=== PATIENT | female | born 1980 | race Caucasian/White ===

== ENCOUNTER → 2016-04-18 | Outpatient (CLI) | payer OTHER | LOC: RAD 14:17 | PROVIDERS: ATTEND Specialist | DX: N64.52 Nipple discharge (principal); N60.02 Solitary cyst of left breast; Z15.01 Genetic susceptibility to malignant neoplasm of breast | CPT/HCPCS: A9576; C8906; 77059 ==

== ENCOUNTER 2016-04-28 22:36 | Emergency (ER) | payer OTHER ==
[2016-04-29 00:10] LABS: ABSOLUTE BASOPHILS # (AUTO) 0.1 10^3/uL (0.0-0.2); ABSOLUTE EOSINOPHILS # (AUTO) 0.1 10^3/uL (0.0-0.6); ABSOLUTE LYMPHOCYTES (AUTO) 2.6 10^3/uL (0.5-4.7); ABSOLUTE NEUT (AUTO) 5.9 10^3/uL (1.7-8.2); BASOPHILS % (AUTO) 0.6 % (0-2); EOSINOPHILS % (AUTO) 0.7 % (0-6); HEMATOCRIT 42.9 % (36.0-47.0); HEMOGLOBIN 14.3 g/dL (12.0-15.5); MEAN CORPUSCULAR HEMOGLOBIN 30.9 pg (27.0-33.4); MEAN CORPUSCULAR HGB CONC 33.3 g/dL (32.0-36.0); MEAN CORPUSCULAR VOLUME 93 fl (80-97); MONOCYTES % (AUTO) 10.5 % (3-13); RED BLOOD COUNT 4.63 10^6/uL (3.72-5.28); RED CELL DISTRIBUTION WIDTH 12.5 % (11.5-14.0); SEGMENTED NEUTROPHILS % (AUTO) 61.2 % (42-78); WHITE BLOOD COUNT 9.7 10^3/uL (4.0-10.5)
[2016-04-29 00:11] LABS: APPEARANCE,URINE CLEAR; BILIRUBIN,URINE NEGATIVE (NEGATIVE); GLUCOSE, URINE NEGATIVE (NEGATIVE); KETONES,URINE NEGATIVE (NEGATIVE); LEUKOCYTE ESTERASE,URINE NEGATIVE (NEGATIVE); NITRITE,URINE NEGATIVE (NEGATIVE); PROTEIN,URINE NEGATIVE (NEGATIVE); UROBILINOGEN,URINE NEGATIVE mg/dL (<2.0)
[2016-04-29 00:33] LABS: ALANINE AMINOTRANSFERASE 27 U/L (9-52); ALBUMIN 4.9 g/dL (3.5-5.0); ALKALINE PHOSPHATASE 53 U/L (38-126); ANION GAP 13 (5-19); ASPARTATE AMINO TRANSFERASE 21 U/L (14-36); BILIRUBIN,TOTAL 0.6 mg/dL (0.2-1.3); BLOOD UREA NITROGEN 16 mg/dL (7-20); CALCIUM 9.9 mg/dL (8.4-10.2); CARBON DIOXIDE 27 mmol/L (22-30); CHLORIDE 101 mmol/L (98-107); CREATININE RESULT 0.64 mg/dL (0.52-1.25); GLUCOSE 77 mg/dL (75-110); LIPASE 57.8 U/L (23-300); POTASSIUM 4.4 mmol/L (3.6-5.0); SODIUM 141.1 mmol/L (137-145); TOTAL PROTEIN 7.5 g/dL (6.3-8.2)
[2016-04-29] MEDS ORDERED: ONDANSETRON HCL INJ/PF 4 MG/2 ML SDV IV ONE (00:44)
[2016-04-29] MEDS ORDERED: NORMAL SALINE 1000 ML 1,000 ML IV ONE (00:44)
[2016-04-29] MEDS ORDERED: KETOROLAC TROMETHAMINE INJ/PF 30 MG/1 ML SDV IV ONE (00:44)
--- NOTE | 2016-04-29 01:42 | ER Document Report ---
ED General - General Chief Complaint: Lower Abdominal Pain Stated Complaint: ABDOMINAL PAIN TRAVEL OUTSIDE OF THE [place] IN LAST 30 DAYS: No - HPI Patient complains to provider of: right adnexal pain Notes: Patient was seen and evaluated last night at the [facility] for right adnexal pain was diagnosed with an ovarian cyst. Patient has a history of ovarian cyst. Patient states today pain worsened and she became nauseous. Denies fevers denies chills denies diarrhea. Patient states no strenuous physical activity today also no sexual intercourse today. Upon evaluated patient resting comfortably in no obvious distress. Review the patient's past visit shows multiple CT scans and ultrasound showing ovarian cyst in the past. - Related Data Allergies/Adverse Reactions: Shellfish * [Shellfish] Allergy (Severe, Verified 02/11/16 18:54) Anaphylaxis azithromycin [Azithromycin] Allergy (Intermediate, Verified 02/11/16 18:54) Urticaria Past Medical History - Social History Smoking Status: Unknown if Ever Smoked Family History: Reviewed & Not Pertinent Patient has suicidal ideation: No Patient has homicidal ideation: No - Past Medical History Cardiac Medical History: Reports: Hx Pulmonary Embolism Denies: Hx Atrial Fibrillation, Hx Congestive Heart Failure, Hx Coronary Artery Disease, Hx Heart Attack, Hx Hypercholesterolemia, Hx Hypertension, Hx Peripheral Vascular Disease, Hx Heart Murmur Pulmonary Medical History: Reports: Hx Bronchitis, Hx Pneumonia Denies: Hx Asthma, Hx COPD, Hx Respiratory Failure, Hx Sleep Apnea, Hx Tuberculosis Neurological Medical History: Denies: Hx Cerebrovascular Accident, Hx Seizures Endocrine Medical History: Denies: Hx Diabetes Mellitus Type 2, Hx Graves' Disease, Hx Hyperthyroidism, Hx Hypothyroidism Renal/ Medical History: Denies: Hx End Stage Renal Disease, Hx Kidney Stones, Hx Ovarian Cysts, Hx Peritoneal Dialysis, Hx Pelvic Inflammatory Disease Malignancy Medical History: Denies: Hx Breast Cancer, Hx Cervical Cancer, Hx Leukemia, Hx Lung Cancer, Hx Ovarian Cancer GI Medical History: Reports: Hx Gastritis, Hx Gastroesophageal Reflux Disease, Hx Ulcer. Denies: Hx Crohn's Disease, Hx Hiatal Hernia, Hx Irritable Bowel, Hx Liver Failure Musculoskeltal Medical History: Denies Hx Arthritis, Denies Hx Fibromyalgia, Denies Hx Multiple Sclerosis, Denies Hx Muscular Dystrophy Psychiatric Medical History: Reports: Hx Anxiety, Hx Depression Denies: Hx Bipolar Disorder, Hx Dementia, Hx Post Traumatic Stress Disorder, Hx Schizophrenia Traumatic Medical History: Denies: Hx Fractures Infectious Medical History: Denies: Hx HIV Past Surgical History: Reports: Hx Appendectomy, Hx Section - 2, Hx Gynecologic Surgery - L ovary removed, Hx Tubal Ligation. Denies: Hx Colostomy , Hx Pacemaker - Immunizations Hx Diphtheria, Pertussis, Tetanus Vaccination: Yes Hx Pneumococcal Vaccination: 01/27/12 Review of Systems - Review of Systems Constitutional: No symptoms reported EENT: No symptoms reported Cardiovascular: No symptoms reported Respiratory: No symptoms reported Gastrointestinal: Abdominal pain - Right adnexal Genitourinary: No symptoms reported Female Genitourinary: No symptoms reported Musculoskeletal: No symptoms reported Skin: No symptoms reported Hematologic/Lymphatic: No symptoms reported Neurological/Psychological: No symptoms reported Physical Exam - Vital signs Interpretation: Normal - General General appearance: Appears well, Alert - HEENT Head: Normocephalic, Atraumatic Eyes: Normal Pupils: PERRL - Respiratory Respiratory status: No respiratory distress Chest status: Nontender Breath sounds: Normal Chest palpation: Normal - Cardiovascular Rhythm: Regular Heart sounds: Normal auscultation Murmur: No - Abdominal Inspection: Normal Distension: No distension Bowel sounds: Normal Tenderness: Tender - Mild tenderness in the right lower pelvic region.. No: Nontender Organomegaly: No organomegaly - Back Back: Normal, Nontender - Extremities General upper extremity: Normal inspection, Nontender, Normal color, Normal ROM , Normal temperature General lower extremity: Normal inspection, Nontender, Normal color, Normal ROM , Normal temperature, Normal weight bearing. No: Drew's sign - Neurological Neuro grossly intact: Yes Cognition: Normal Orientation: AAOx4 Gela Coma Scale Eye Opening: Spontaneous [place] Coma Scale Verbal: Oriented [place]ela Coma Scale Motor: Obeys Commands Gela Coma Scale Total: 15 Speech: Normal Motor strength normal: LUE, RUE, LLE, RLE Sensory: Normal - Psychological Associated symptoms: Normal affect, Normal mood - Skin Skin Temperature: Warm Skin Moisture: Dry Skin Color: Normal Course - Re-evaluation Re-evalutation: 04/29/16 01:41 Due to recent diagnosis of ovarian cyst increased pain we'll obtain ultrasound to evaluate for torsion. Otherwise patient's laboratory studies showed no critical etiology. - Laboratory Result Diagrams: 04/28/16 23:54 04/28/16 23:54 Laboratory results interpreted by me: 04/28/16 23:54 Urine Blood SMALL H Discharge - Discharge Clinical Impression: Right ovarian cyst Condition: Good Disposition: HOME, SELF-CARE Instructions: Ovarian Cyst ([facility]) Additional Instructions: Ultrasound today shows signs of ovarian cyst there is no signs of torsion a complication because of the [employer]. He may follow-up with your primary care provider or [employer] specialist. Return to the ER symptoms worsen. You may take medication as prescribed for your pain control. Prescriptions: Ibuprofen [Motrin 600 Mg Tablet] 600 mg PO TID #30 tablet Ondansetron [Zofran Odt 4 mg Tablet] 1 - 2 tab PO Q4H PRN #15 tab.rapdis PRN Reason: For Nausea/Vomiting Tramadol HCl [Ultram 50 mg Tablet] 50 mg PO ASDIR PRN #10 tablet PRN Reason: Forms: Return to Work
[2016-04-29 03:01] VITALS: BP 116/57
== END 2016-04-29 03:01 | disposition home or self-care (01) ==
LOC: ER 22:36
DX: N83.201 Unspecified ovarian cyst, right side (principal); R10.30 Lower abdominal pain, unspecified; K21.9 Gastro-esophageal reflux disease without esophagitis; Z88.3 Allergy status to other anti-infective agents; Z91.013 Allergy to seafood; Z86.711 Personal history of pulmonary embolism; Z98.51 Tubal ligation status
CPT/HCPCS: 99284; 96361; 96374; 96375; 36415; 83690; 85025; 81025; 80053; 81001; 76830; 93976; J1885; J2405; J7030

== ENCOUNTER 2016-10-07 20:03 | Emergency (ER) | payer OTHER ==
--- NOTE | 2016-10-07 20:12 | ER Document Report ---
ED Medical Screen (RME) - General Chief Complaint: S/S of Possible Stroke Stated Complaint: SLURRED SPEECH Time Seen by Provider: 10/07/16 20:08 Mode of Arrival: Wheelchair Information source: Patient TRAVEL OUTSIDE OF THE [place] IN LAST 30 DAYS: No - HPI Patient complains to provider of: Nausea and vomiting, left-sided facial droop, slurred speech Notes: 10/07/16 20:11 Patient is a 36-year-old female who presents to the emergency room complaining of nausea and vomiting that started earlier today, and for the past hour she reports a left-sided facial droop with slurred speech, at time of evaluation patient does appear to have facial asymmetry, however this seems to improve as she is distracted while speaking with me - Related Data Allergies/Adverse Reactions: Shellfish * [Shellfish] Allergy (Severe, Verified 10/07/16 20:07) Anaphylaxis azithromycin [Azithromycin] Allergy (Intermediate, Verified 10/07/16 20:07) Urticaria Past Medical History - Past Medical History Cardiac Medical History: Reports: Hx Pulmonary Embolism Denies: Hx Atrial Fibrillation, Hx Congestive Heart Failure, Hx Coronary Artery Disease, Hx Heart Attack, Hx Hypercholesterolemia, Hx Hypertension, Hx Peripheral Vascular Disease, Hx Heart Murmur Pulmonary Medical History: Reports: Hx Bronchitis, Hx Pneumonia Denies: Hx Asthma, Hx COPD, Hx Respiratory Failure, Hx Sleep Apnea, Hx Tuberculosis Neurological Medical History: Denies: Hx Cerebrovascular Accident, Hx Seizures Endocrine Medical History: Denies: Hx Diabetes Mellitus Type 2, Hx Graves' Disease, Hx Hyperthyroidism, Hx Hypothyroidism Renal/ Medical History: Denies: Hx End Stage Renal Disease, Hx Kidney Stones, Hx Ovarian Cysts, Hx Peritoneal Dialysis, Hx Pelvic Inflammatory Disease Malignancy Medical History: Denies: Hx Breast Cancer, Hx Cervical Cancer, Hx Leukemia, Hx Lung Cancer, Hx Ovarian Cancer GI Medical History: Reports: Hx Gastritis, Hx Gastroesophageal Reflux Disease, Hx Ulcer. Denies: Hx Crohn's Disease, Hx Hiatal Hernia, Hx Irritable Bowel, Hx Liver Failure Musculoskeltal Medical History: Denies Hx Arthritis, Denies Hx Fibromyalgia, Denies Hx Multiple Sclerosis, Denies Hx Muscular Dystrophy Psychiatric Medical History: Reports: Hx Anxiety, Hx Depression Denies: Hx Bipolar Disorder, Hx Dementia, Hx Post Traumatic Stress Disorder, Hx Schizophrenia Traumatic Medical History: Denies: Hx Fractures Infectious Medical History: Denies: Hx HIV Past Surgical History: Reports: Hx Appendectomy, Hx Section - 2, Hx Gynecologic Surgery - L ovary removed, Hx Tubal Ligation. Denies: Hx Colostomy , Hx Pacemaker - Immunizations Hx Diphtheria, Pertussis, Tetanus Vaccination: Yes
[2016-10-07] MEDS ORDERED: NORMAL SALINE 1000 ML 1,000 ML IV ONE (20:30)
[2016-10-07] MEDS ORDERED: ONDANSETRON HCL INJ/PF 4 MG/2 ML SDV IV ONE (20:31)
[2016-10-07] MEDS ORDERED: LORAZEPAM INJ 2 MG/1 ML VIAL IV ONE (20:31)
--- NOTE | 2016-10-07 20:33 | RADIOLOGY REPORT (SQ) ---
EXAM DESCRIPTION: CT HEAD WITHOUT COMPLETED DATE/TIME: 10/07/2016 8:16 pm REASON FOR STUDY: slurred speech COMPARISON: None. TECHNIQUE: Axial images acquired through the brain without intravenous contrast. Images reviewed wi th bone, brain and subdural windows. Images stored on PACS. All CT scanners at this facility use dose modulation, iterative reconstruction, and/or weight based d osing when appropriate to reduce radiation dose to as low as reasonably achievable (ALARA). [facility]: Dose Right [facility]: CareDose [facility]: Dose Right [facility]: Teradose 4D [facility]: Smart Foodzie RADIATION DOSE: Up-to-date CT equipment and radiation dose reduction techniques were employed. CTDIv ol: 64.6 mGy. DLP: 1034 mGy-cm. mGy. LIMITATIONS: None. FINDINGS: VENTRICLES: Normal size and contour. CEREBRUM: No masses. No hemorrhage. No midline shift. Normal jose/white matter differentiation. N o evidence for acute infarction. CEREBELLUM: No masses. No hemorrhage. No alteration of density. No evidence for acute infarction. EXTRAAXIAL SPACES: No fluid collections. No masses. ORBITS AND GLOBE: No intra- or extraconal masses. Normal contour of globe without masses. CALVARIUM: No fracture. PARANASAL SINUSES: No fluid or mucosal thickening. SOFT TISSUES: No mass or hematoma. OTHER: No other significant finding. IMPRESSION: NORMAL BRAIN CT WITHOUT CONTRAST. TECHNICAL DOCUMENTATION: JOB ID: [id number] Quality ID # [id number]: Final reports with documentation of one or more dose reduction techniques (e.g., Au tomated exposure control, adjustment of the mA and/or kV according to patient size, use of iterative reconstruction technique) 2010 [employer]- All Rights Reserved
--- NOTE | 2016-10-07 20:33 | ER Document Report ---
ED General - General Chief Complaint: S/S of Possible Stroke Stated Complaint: SLURRED SPEECH Time Seen by Provider: 10/07/16 20:08 Mode of Arrival: Wheelchair Notes: Patient is a 36-year-old female with past medical history of a pulmonary embolus currently anticoagulated on rivaroxaban, ovarian cancer in remission, maintained on methotrexate therapy who presents with difficulty speaking and nausea as well as jaw pain that was present after she woke up from a nap. States she went down for a nap at 4 PM and woke up at approximately 7:30 PM with the symptoms. Denies a history of similar symptoms in the past. Nothing improves or worsens her symptoms. She denies any headache, chest pain, neck pain or shortness of breath. Denies any focal weakness or numbness. Patient reports difficulty speaking but none is appreciated at time of assessment. TRAVEL OUTSIDE OF THE [place] IN LAST 30 DAYS: No - Related Data Allergies/Adverse Reactions: Shellfish * [Shellfish] Allergy (Severe, Verified 10/07/16 20:07) Anaphylaxis azithromycin [Azithromycin] Allergy (Intermediate, Verified 10/07/16 20:07) Urticaria Past Medical History - General Information source: Patient - Social History Smoking Status: Never Smoker Frequency of alcohol use: None Drug Abuse: None Lives with: Family Family History: Reviewed & Not Pertinent - Past Medical History Cardiac Medical History: Reports: Hx Pulmonary Embolism Denies: Hx Atrial Fibrillation, Hx Congestive Heart Failure, Hx Coronary Artery Disease, Hx Heart Attack, Hx Hypercholesterolemia, Hx Hypertension, Hx Peripheral Vascular Disease, Hx Heart Murmur Pulmonary Medical History: Reports: Hx Bronchitis, Hx Pneumonia Denies: Hx Asthma, Hx COPD, Hx Respiratory Failure, Hx Sleep Apnea, Hx Tuberculosis Neurological Medical History: Denies: Hx Cerebrovascular Accident, Hx Seizures Endocrine Medical History: Denies: Hx Diabetes Mellitus Type 2, Hx Graves' Disease, Hx Hyperthyroidism, Hx Hypothyroidism Renal/ Medical History: Denies: Hx End Stage Renal Disease, Hx Kidney Stones, Hx Ovarian Cysts, Hx Peritoneal Dialysis, Hx Pelvic Inflammatory Disease Malignancy Medical History: Denies: Hx Breast Cancer, Hx Cervical Cancer, Hx Leukemia, Hx Lung Cancer, Hx Ovarian Cancer GI Medical History: Reports: Hx Gastritis, Hx Gastroesophageal Reflux Disease, Hx Ulcer. Denies: Hx Crohn's Disease, Hx Hiatal Hernia, Hx Irritable Bowel, Hx Liver Failure Musculoskeltal Medical History: Denies Hx Arthritis, Denies Hx Fibromyalgia, Denies Hx Multiple Sclerosis, Denies Hx Muscular Dystrophy Psychiatric Medical History: Reports: Hx Anxiety, Hx Depression Denies: Hx Bipolar Disorder, Hx Dementia, Hx Post Traumatic Stress Disorder, Hx Schizophrenia Traumatic Medical History: Denies: Hx Fractures Infectious Medical History: Denies: Hx HIV Past Surgical History: Reports: Hx Appendectomy, Hx Section - 2, Hx Gynecologic Surgery - L ovary removed, Hx Tubal Ligation. Denies: Hx Colostomy , Hx Pacemaker - Immunizations Hx Diphtheria, Pertussis, Tetanus Vaccination: Yes Hx Pneumococcal Vaccination: 01/27/12 Review of Systems - Review of Systems Notes: Constitutional: Negative for fever. HENT: Negative for sore throat. Eyes: Negative for visual changes. Cardiovascular: Negative for chest pain. Respiratory: Negative for shortness of breath. Gastrointestinal: Positive for nausea Genitourinary: Negative for dysuria. Musculoskeletal: Negative for back pain. Skin: Negative for rash. Neurological: Positive for difficulty speaking 10 point ROS negative except as marked above and in HPI. Physical Exam - Vital signs Vitals: Pulse Resp BP Pulse Ox 142 H 26 H 130/78 H 98 10/07/16 20:20 10/07/16 20:20 10/07/16 20:20 10/07/16 20:20 Interpretation: Tachycardic, Tachypneic Notes: PHYSICAL EXAMINATION: GENERAL: Anxious but in no acute distress HEAD: Atraumatic, normocephalic. EYES: Pupils equal round and reactive to light, extraocular movements intact, sclera anicteric, conjunctiva are normal. ENT: nares patent, oropharynx clear without exudates. Moist mucous membranes. NECK: Normal range of motion, supple without lymphadenopathy LUNGS: Breath sounds clear to auscultation bilaterally and equal. No wheezes rales or rhonchi. HEART: Regular rate and rhythm without murmurs ABDOMEN: Soft, nontender, normoactive bowel sounds. No guarding, no rebound. No masses appreciated. EXTREMITIES: Normal range of motion, no pitting or edema. No cyanosis. NEUROLOGICAL: Face symmetric. Tongue protrudes midline. Extraocular motions intact. Pupils are 2 mm and equally reactive. Normal speech, normal gait. 5 out of 5 strength in both the distal and proximal upper and lower extremities bilaterally. Sensation is grossly intact throughout. Finger to nose testing normal. Pronator drift normal. Stroke scale is 0 PSYCH: Appears anxious, intermittently clenching her teeth together when asked to perform speech testing which does resolve with distraction SKIN: Warm, Dry, normal turgor, no rashes or lesions noted. Course - Re-evaluation Re-evalutation: 10/07/16 20:31 Patient presents complaining of nausea, vomiting and palpitations in addition to concerns of a possible slurred speech. However on exam patient has no actual dysarthria or facial asymmetry. She appears to be clenching her teeth and deliberately not speaking in a clear sentences this is completely distractible and she only appears to do this and I am asking her to do specific speech testing. Otherwise during conversation she has no dysarthria, no receptive or expressive aphasia. She has effort based weakness in all extremities that is equal and symmetric. Vitals at time of arrival do demonstrate tachycardia. Patient is currently on methotrexate for ovarian cancer. She is also on Xarelto for a history of a PE in the past. Will begin IV fluids, antiemetics and reassess. Of note, patient does not have any symptoms to suggest an acute CVA but she is also outside the window for consideration of TPA even if this were to be a CVA as her last known normal was approximately 3:30 PM when she took a nap as her symptoms were noted when she woke up from a nap at 7 PM. 10/07/16 21:36 Patient symptoms have now resolved, tachycardia much improved current rate of 102. Suspect a significant component of dehydration and possibly anxiety. Patient states that she feels much better and would like to go home. Laboratories, CT the head, chest x-ray all noted to be normal. At this time will discharge with return precautions and follow-up recommendations. Verbal discharge instructions given a the bedside and opportunity for questions given. Medication warnings reviewed. Patient is in agreement with this plan and has verbalized understanding of return precautions and the need for primary care follow-up in the next 24-72 hours. - Vital Signs Vital signs: Temp Pulse Resp BP Pulse Ox 97.8 F 103 H 16 131/70 H 100 10/07/16 22:15 10/07/16 22:15 10/07/16 22:07 10/07/16 22:07 10/07/16 22:07 - Laboratory Result Diagrams: 10/07/16 20:30 10/07/16 20:30 Laboratory results interpreted by me: 10/07/16 20:30 BUN 5 L Total Bilirubin 1.4 H - Diagnostic Test Radiology reviewed: Image reviewed, Reports reviewed Radiology results interpreted by me: 10/07/16 21:37 Chest x-ray: No acute pneumothorax or infiltrate CT head: No acute intracranial bleed Discharge - Discharge Clinical Impression: Nausea, Difficulty with speech Condition: Good Disposition: HOME, SELF-CARE Additional Instructions: Your labs, CT scan of the brain, and exam today are normal. Some of your symptoms may be related to dehydration. Please return for any additional symptoms that are worrisome to you.
--- NOTE | 2016-10-07 20:35 | RADIOLOGY REPORT (SQ) ---
EXAM DESCRIPTION: CHEST SINGLE VIEW COMPLETED DATE/TIME: 10/07/2016 8:22 pm REASON FOR STUDY: SLURRED SPEECH COMPARISON: None. EXAM PARAMETERS: NUMBER OF VIEWS: One view. TECHNIQUE: Single frontal radiographic view of the chest acquired. RADIATION DOSE: NA LIMITATIONS: None. FINDINGS: LUNGS AND PLEURA: No opacities, masses or pneumothorax. No pleural effusion. MEDIASTINUM AND HILAR STRUCTURES: No masses. Contour normal. HEART AND VASCULAR STRUCTURES: Heart normal in size. Normal vasculature. BONES: No acute findings. HARDWARE: None in the chest. OTHER: No other significant finding. IMPRESSION: NO ACUTE RADIOGRAPHIC FINDING IN THE CHEST. TECHNICAL DOCUMENTATION: JOB ID: [id number]
[2016-10-07 20:49] LABS: ABSOLUTE EOSINOPHILS # (AUTO) 0.1 10^3/uL (0.0-0.6); ABSOLUTE LYMPHOCYTES (AUTO) 1.6 10^3/uL (0.5-4.7); ABSOLUTE MONOCYTES (AUTO) 0.7 10^3/uL (0.1-1.4); ABSOLUTE NEUT (AUTO) 7.3 10^3/uL (1.7-8.2); BASOPHILS % (AUTO) 0.3 % (0-2); EOSINOPHILS % (AUTO) 0.6 % (0-6); HEMATOCRIT 44.1 % (36.0-47.0); HGB HCT DIFFERENCE 0.9; LYMPHOCYTES % (AUTO) 16.4 % (13-45); MEAN CORPUSCULAR HEMOGLOBIN 30.4 pg (27.0-33.4); MEAN CORPUSCULAR HGB CONC 34.1 g/dL (32.0-36.0); MEAN CORPUSCULAR VOLUME 89 fl (80-97); MONOCYTES % (AUTO) 7.6 % (3-13); RED BLOOD COUNT 4.93 10^6/uL (3.72-5.28); RED CELL DISTRIBUTION WIDTH 13.2 % (11.5-14.0); SEGMENTED NEUTROPHILS % (AUTO) 75.1 % (42-78); WHITE BLOOD COUNT 9.7 10^3/uL (4.0-10.5)
[2016-10-07 20:50] LABS: PROTHROMBIN TIME 13.4 SEC (11.4-15.4)
[2016-10-07 20:51] LABS: PARTIAL THROMBOPLASTIN TIME 30.9 SEC (23.5-35.8)
[2016-10-07 21:06] LABS: ALANINE AMINOTRANSFERASE 25 U/L (9-52); ALBUMIN 4.8 g/dL (3.5-5.0); ALKALINE PHOSPHATASE 72 U/L (38-126); ANION GAP 14 (5-19); ASPARTATE AMINO TRANSFERASE 16 U/L (14-36); BILIRUBIN,DIRECT 0.3 mg/dL (0.0-0.4); BILIRUBIN,TOTAL 1.4 mg/dL (0.2-1.3); BLOOD UREA NITROGEN 5 mg/dL (7-20); CALCIUM 9.8 mg/dL (8.4-10.2); CARBON DIOXIDE 23 mmol/L (22-30); CHLORIDE 100 mmol/L (98-107); CREATININE RESULT 0.63 mg/dL (0.52-1.25); GLUCOSE 106 mg/dL (75-110); SODIUM 137.3 mmol/L (137-145); TOTAL PROTEIN 7.7 g/dL (6.3-8.2)
[2016-10-07 22:20] VITALS: BP 131/70
== END 2016-10-07 22:06 | disposition home or self-care (01) ==
LOC: ER 20:03
DX: R47.9 Unspecified speech disturbances (principal); R11.2 Nausea with vomiting, unspecified; R68.84 Jaw pain; R00.0 Tachycardia, unspecified; R06.82 Tachypnea, not elsewhere classified; R00.2 Palpitations; I26.99 Other pulmonary embolism without acute cor pulmonale; R53.1 Weakness; C56.9 Malignant neoplasm of unspecified ovary; Z79.02 Long term (current) use of antithrombotics/antiplatelets; Z79.01 Long term (current) use of anticoagulants; Z79.899 Other long term (current) drug therapy; Z88.1 Allergy status to other antibiotic agents; Z87.892 Personal history of anaphylaxis; Z91.013 Allergy to seafood
CPT/HCPCS: 99285; 96361; 96374; 96375; 36415; 83690; 84703; 85025; 85610; 85730; 80053; 71010; 70450; J2060; J2405; J7030

== ENCOUNTER 2016-11-24 19:14 | Emergency (ER) | payer OTHER ==
[2016-11-24] MEDS ORDERED: NORMAL SALINE 1000 ML 1,000 ML IV ONE (20:00)
[2016-11-24] MEDS ORDERED: ONDANSETRON HCL INJ/PF 4 MG/2 ML SDV IV ONE (20:00)
[2016-11-24 20:20] LABS: ABSOLUTE EOSINOPHILS # (AUTO) 0.1 10^3/uL (0.0-0.6); ABSOLUTE LYMPHOCYTES (AUTO) 2.1 10^3/uL (0.5-4.7); ABSOLUTE MONOCYTES (AUTO) 0.7 10^3/uL (0.1-1.4); BASOPHILS % (AUTO) 0.5 % (0-2); EOSINOPHILS % (AUTO) 0.9 % (0-6); HEMATOCRIT 43.3 % (36.0-47.0); HEMOGLOBIN 15.2 g/dL (12.0-15.5); HGB HCT DIFFERENCE 2.3; LYMPHOCYTES % (AUTO) 23.5 % (13-45); MEAN CORPUSCULAR HEMOGLOBIN 31.4 pg (27.0-33.4); MEAN CORPUSCULAR HGB CONC 35.1 g/dL (32.0-36.0); MEAN CORPUSCULAR VOLUME 89 fl (80-97); MONOCYTES % (AUTO) 8.1 % (3-13); RED BLOOD COUNT 4.86 10^6/uL (3.72-5.28); RED CELL DISTRIBUTION WIDTH 12.4 % (11.5-14.0)
[2016-11-24 20:31] LABS: ALANINE AMINOTRANSFERASE 21 U/L (9-52); ALBUMIN 5.1 g/dL (3.5-5.0); ALKALINE PHOSPHATASE 65 U/L (38-126); ANION GAP 14 (5-19); ASPARTATE AMINO TRANSFERASE 17 U/L (14-36); BILIRUBIN,DIRECT 0.3 mg/dL (0.0-0.4); BILIRUBIN,TOTAL 0.8 mg/dL (0.2-1.3); BLOOD UREA NITROGEN 8 mg/dL (7-20); CALCIUM 10.1 mg/dL (8.4-10.2); CARBON DIOXIDE 28 mmol/L (22-30); CHLORIDE 99 mmol/L (98-107); CREATININE RESULT 0.73 mg/dL (0.52-1.25); GLUCOSE 122 mg/dL (75-110); LIPASE 86.1 U/L (23-300); POTASSIUM 4.1 mmol/L (3.6-5.0); SODIUM 140.8 mmol/L (137-145); TOTAL PROTEIN 8.5 g/dL (6.3-8.2)
[2016-11-24 20:36] LABS: APPEARANCE,URINE CLEAR; BILIRUBIN,URINE NEGATIVE (NEGATIVE); GLUCOSE, URINE NEGATIVE (NEGATIVE); KETONES,URINE NEGATIVE (NEGATIVE); LEUKOCYTE ESTERASE,URINE NEGATIVE (NEGATIVE); NITRITE,URINE NEGATIVE (NEGATIVE); PROTEIN,URINE NEGATIVE (NEGATIVE); URINE SPECIFIC GRAVITY 1.005; UROBILINOGEN,URINE NEGATIVE mg/dL (<2.0)
[2016-11-24] MEDS ORDERED: MORPHINE SULFATE 10 MG/ML INJ IV ONE ×2 (20:36→21:26)
--- NOTE | 2016-11-24 20:43 | ER Document Report ---
ED GI/ - General Chief Complaint: Abdominal Pain Stated Complaint: ABDOMINAL PAIN Time Seen by Provider: 11/24/16 20:24 Mode of Arrival: Ambulatory Information source: Patient Notes: Patient is a 36-year-old female with lupus, history of bilateral mastectomy recently, history of pulmonary embolism here presents to the ER today for right upper quadrant abdominal pain with nausea and vomiting, diarrhea since last night. Patient denies any shortness of breath. She denies any history of gallbladder issues. She states that the pain radiates around to the right upper back. TRAVEL OUTSIDE OF THE [place] IN LAST 30 DAYS: No - Related Data Allergies/Adverse Reactions: azithromycin [Azithromycin] Allergy (Intermediate, Verified 10/07/16 20:07) Urticaria Past Medical History - General Information source: Patient - Social History Smoking Status: Unknown if Ever Smoked Family History: Reviewed & Not Pertinent - Past Medical History Cardiac Medical History: Reports: Hx Pulmonary Embolism Denies: Hx Atrial Fibrillation, Hx Congestive Heart Failure, Hx Coronary Artery Disease, Hx Heart Attack, Hx Hypercholesterolemia, Hx Hypertension, Hx Peripheral Vascular Disease, Hx Heart Murmur Pulmonary Medical History: Reports: Hx Bronchitis, Hx Pneumonia Denies: Hx Asthma, Hx COPD, Hx Respiratory Failure, Hx Sleep Apnea, Hx Tuberculosis Neurological Medical History: Denies: Hx Cerebrovascular Accident, Hx Seizures Endocrine Medical History: Denies: Hx Diabetes Mellitus Type 2, Hx Graves' Disease, Hx Hyperthyroidism, Hx Hypothyroidism Renal/ Medical History: Denies: Hx End Stage Renal Disease, Hx Kidney Stones, Hx Ovarian Cysts, Hx Peritoneal Dialysis, Hx Pelvic Inflammatory Disease Malignancy Medical History: Denies: Hx Breast Cancer, Hx Cervical Cancer, Hx Leukemia, Hx Lung Cancer, Hx Ovarian Cancer GI Medical History: Reports: Hx Gastritis, Hx Gastroesophageal Reflux Disease, Hx Ulcer. Denies: Hx Crohn's Disease, Hx Hiatal Hernia, Hx Irritable Bowel, Hx Liver Failure Musculoskeltal Medical History: Denies Hx Arthritis, Denies Hx Fibromyalgia, Denies Hx Multiple Sclerosis, Denies Hx Muscular Dystrophy Psychiatric Medical History: Reports: Hx Anxiety, Hx Depression Denies: Hx Bipolar Disorder, Hx Dementia, Hx Post Traumatic Stress Disorder, Hx Schizophrenia Traumatic Medical History: Denies: Hx Fractures Infectious Medical History: Denies: Hx HIV Past Surgical History: Reports: Hx Appendectomy, Hx Section - 2, Hx Gynecologic Surgery - L ovary removed, Hx Tubal Ligation. Denies: Hx Colostomy , Hx Pacemaker - Immunizations Hx Diphtheria, Pertussis, Tetanus Vaccination: Yes Hx Pneumococcal Vaccination: 01/27/12 Review of Systems - Review of Systems Constitutional: No symptoms reported EENT: No symptoms reported Cardiovascular: No symptoms reported Respiratory: No symptoms reported Gastrointestinal: See HPI Genitourinary: No symptoms reported Female Genitourinary: No symptoms reported Musculoskeletal: No symptoms reported Skin: No symptoms reported Hematologic/Lymphatic: No symptoms reported Neurological/Psychological: No symptoms reported Physical Exam - Vital signs Vitals: Temp Pulse Resp BP Pulse Ox 97.6 F 114 H 18 134/85 H 100 11/24/16 19:16 11/24/16 19:16 11/24/16 19:16 11/24/16 19:16 11/24/16 19:16 - Notes Notes: PHYSICAL EXAMINATION: GENERAL: Anxious, but in no acute distress. HEAD: Atraumatic, normocephalic. EYES: Pupils equal round and reactive to light, extraocular movements intact, sclera anicteric, conjunctiva are normal. NECK: Normal range of motion, supple without lymphadenopathy LUNGS: CTAB and equal. No wheezes rales or rhonchi. HEART: Tachycardic with regular rhythm without murmurs ABDOMEN: Soft, moderate right upper quadrant tenderness. No guarding, no rebound BACK: no vertebral tenderness, normal ROM GI/: no CVA tenderness EXTREMITIES: Normal range of motion, no pitting edema. No cyanosis. NEUROLOGICAL: Cranial nerves grossly intact. Normal sensory/motor exams. PSYCH: Normal mood, normal affect. SKIN: Warm, Dry, normal turgor, no rashes or lesions noted Course - Re-evaluation Re-evalutation: 11/24/16 23:48 Lab work is completely unremarkable today including normal white blood cell count, normal bilirubin and liver enzymes, normal urinalysis. Right upper quadrant ultrasound revealed a normal gallbladder and no acute abnormality. CTA of the chest was performed to rule out that pain with actually a PE in the right lower lobe of the lung as she has a history of pulmonary embolisms. It was negative for PE or any acute pathology. Patient on monitor has a normal heart rate that I have watched from outside the room on the monitor board, but whenever I enter the room immediately becomes tachycardic as I approach her into the 120s and 1 time even into the 140 at rest, without me touching her. I believe she has white coat syndrome because as soon as I leave the room her heart rate goes back down into the 90s and even 80s at rest. She is incredible anxious and even hyperventilating at one point. I consulted with Dr. Steve, my attending today who agrees that workup has ruled out any emergent pathology today and she is stable for discharge. heart rate on discharge was 94bpm with 99 % on room air pulse ox, 110/69 bp. - Vital Signs Vital signs: Temp Pulse Resp BP Pulse Ox 97.6 F 114 H 13 110/69 100 11/24/16 19:16 11/24/16 19:16 11/24/16 23:01 11/24/16 23:01 11/24/16 23:01 - Laboratory Result Diagrams: 11/24/16 20:03 11/24/16 20:03 Laboratory results interpreted by me: 11/24/16 11/24/16 20:03 20:03 Glucose 122 H Total Protein 8.5 H Albumin 5.1 H Urine Blood SMALL H Discharge - Discharge Clinical Impression: RUQ pain Condition: Stable Disposition: HOME, SELF-CARE Additional Instructions: Return immediately for any new or worsening symptoms. Follow up with primary care provider, call tomorrow to make followup appointment.
--- NOTE | 2016-11-24 21:56 | RADIOLOGY REPORT (SQ) ---
EXAM DESCRIPTION: U/S ABDOMEN LIMITED W/O DOP COMPLETED DATE/TIME: 11/24/2016 9:30 pm REASON FOR STUDY: ruq pain, n/v COMPARISON: None. TECHNIQUE: Dynamic and static grayscale images acquired of the right upper quadrant and recorded on PACS. Additional selected color Doppler and spectral images recorded. LIMITATIONS: Study limited due to acoustical interference from fat or from air in the bowel. FINDINGS: PANCREAS: Visualized pancreas and duct normal. Parts of pancreas poorly seen secondary to acoustical interference from fat or from air in the bowel. LIVER: No masses. Echotexture normal. LIVER VASCULATURE: Normal directional flow of the main portal vein and hepatic veins. GALLBLADDER: No stones. Normal wall thickness. No pericholecystic fluid. ULTRASOUND-DETECTED DÍAZ'S SIGN: Negative. INTRAHEPATIC DUCTS AND COMMON DUCT: CBD and intrahepatic ducts normal caliber. No filling defects. INFERIOR VENA CAVA: Normal flow. AORTA: No aneurysm. RIGHT KIDNEY: Normal size. Normal echogenicity. No solid or suspicious masses. No hydronephrosis. No calcifications. PERITONEAL CAVITY AND RIGHT PLEURAL SPACE: No ascites or effusions. OTHER: No other significant finding. IMPRESSION: No acute findings. TECHNICAL DOCUMENTATION: JOB ID: [id number] [employer]- All Rights Reserved
--- NOTE | 2016-11-24 23:12 | RADIOLOGY REPORT (SQ) ---
EXAM DESCRIPTION: CTA CHEST COMPLETED DATE/TIME: 11/24/2016 10:47 pm REASON FOR STUDY: tachycardia, hypoxia, right lower cp, hx pe COMPARISON: None. TECHNIQUE: CT scan of the chest performed using helical scanning technique with dynamic intravenous contrast injection. Images reviewed with lung, soft tissue and bone windows. Reconstructed coronal and sagittal MPR images reviewed. Additional 3 dimensional post-processing performed to develop Maximal Intensity Projection images (NH P). All images stored on PACS. All CT scanners at this facility use dose modulation, iterative reconstruction, and/or weight based d osing when appropriate to reduce radiation dose to as low as reasonably achievable (ALARA). [facility]: Dose Right [facility]: CareDose [facility]: Dose Right [facility]: Teradose 4D [facility]: Principle Power CONTRAST TYPE AND DOSE: contrast/concentration: Isovue 370.00 mg/ml; Total Contrast Delivered: 63.0 ml; Total Saline Delivered: 103.0 ml RENAL FUNCTION: GFR > 60. RADIATION DOSE: Up-to-date CT equipment and radiation dose reduction techniques were employed. CTDIv ol: 9.9 - 14.3 mGy. DLP: 535 mGy-cm. . LIMITATIONS: None. FINDINGS: LUNGS AND PLEURA: Small amount of right lower lobe bronchial wall segmental airway mucus. No masses, infiltrates, pneumothorax. No pleural effusions, calcifications. AORTA AND GREAT VESSELS: No aneurysm or dissection. HEART: No pericardial effusion. PULMONARY ARTERIES: No emboli visualized in the main pulmonary arteries or the segmental branches. HILAR AND MEDIASTINAL STRUCTURES: No identified masses or abnormal nodes. HARDWARE: None in the chest. UPPER ABDOMEN: No significant findings. Limited exam. THYROID AND OTHER SOFT TISSUES: No masses. No adenopathy. BONES: No acute or significant finding. 3D MIPS: Confirm above findings. OTHER: No other significant finding. IMPRESSION: No emboli visualized in the main pulmonary arteries or the segmental branches. Small amount of right lower lobe bronchial wall segmental airway mucus. TECHNICAL DOCUMENTATION: JOB ID: [id number] Quality ID # [id number]: Final reports with documentation of one or more dose reduction techniques (e.g., Au tomated exposure control, adjustment of the mA and/or kV according to patient size, use of iterative reconstruction technique) 2010 [employer]- All Rights Reserved
[2016-11-24 23:41] VITALS: BP 110/69
== END 2016-11-25 00:04 | disposition home or self-care (01) ==
LOC: ER 19:14
DX: R10.11 Right upper quadrant pain (principal); Z90.13 Acquired absence of bilateral breasts and nipples; R11.2 Nausea with vomiting, unspecified; R19.7 Diarrhea, unspecified; F41.9 Anxiety disorder, unspecified; R00.0 Tachycardia, unspecified; Z88.0 Allergy status to penicillin; Z86.711 Personal history of pulmonary embolism; Z87.19 Personal history of other diseases of the digestive system; Z90.49 Acquired absence of other specified parts of digestive tract; Z98.51 Tubal ligation status
CPT/HCPCS: 96376; 99284; 96361; 96374; 96375; 36415; 83690; 85025; 81025; 80053; 81001; 76705; 71275; J2270; J2405; J7030

== ENCOUNTER 2017-03-13 19:32 | Emergency (ER) | payer OTHER ==
[2017-03-13 19:43] VITALS: BP 125/88
[2017-03-13] MEDS ORDERED: OXYCODONE-ACETAMINOPHEN 5-325 MG TABLET PO ONE (20:18)
[2017-03-13 21:19] LABS: ABSOLUTE BASOPHILS # (AUTO) 0.1 10^3/uL (0.0-0.2); ABSOLUTE EOSINOPHILS # (AUTO) 0.1 10^3/uL (0.0-0.6); ABSOLUTE LYMPHOCYTES (AUTO) 1.9 10^3/uL (0.5-4.7); ABSOLUTE MONOCYTES (AUTO) 0.8 10^3/uL (0.1-1.4); ABSOLUTE NEUT (AUTO) 3.6 10^3/uL (1.7-8.2); BASOPHILS % (AUTO) 0.8 % (0-2); EOSINOPHILS % (AUTO) 1.5 % (0-6); HEMATOCRIT 35.6 % (36.0-47.0); HEMOGLOBIN 12.7 g/dL (12.0-15.5); HGB HCT DIFFERENCE 2.5; LYMPHOCYTES % (AUTO) 29.6 % (13-45); MEAN CORPUSCULAR HGB CONC 35.8 g/dL (32.0-36.0); MEAN CORPUSCULAR VOLUME 87 fl (80-97); MONOCYTES % (AUTO) 12.8 % (3-13); RED BLOOD COUNT 4.11 10^6/uL (3.72-5.28); RED CELL DISTRIBUTION WIDTH 12.8 % (11.5-14.0); SEGMENTED NEUTROPHILS % (AUTO) 55.3 % (42-78); WHITE BLOOD COUNT 6.5 10^3/uL (4.0-10.5)
--- NOTE | 2017-03-13 21:32 | ER Document Report ---
HPI - HPI Patient complains to provider of: Skin rash, tender lymph nodes Onset: Other - Lymph nodes 1 week Onset/Duration: Persistent Quality of pain: Sharp Pain Level: 4 Context: Patient complains of tender lymph nodes to bilateral groin and popliteal area for the past week. Patient saw her primary doctor for this 3 days ago and was diagnosed with cat scratch disease and given an antibiotic. Patient states that she developed a rash to bilateral ankles 2 days ago. Patient denies any fever. Patient does have a history of lupus. Associated Symptoms: Other - skin rash, peripheral lymphadenopathy. denies: Fever, Headache Exacerbated by: Denies Relieved by: Denies Similar symptoms previously: No Recently seen / treated by doctor: Yes - ROS ROS below otherwise negative: Yes Systems Reviewed and Negative: Yes All other systems reviewed and negative - CONSTITUTIONAL Constitutional: DENIES: Fever, Chills - EENT EENT: DENIES: Sore Throat - NEURO Neurology: DENIES: Headache, Weakness - RESPIRATORY Respiratory: DENIES: Coughing - GASTROINTESTINAL Gastrointestinal: DENIES: Abdominal Pain, Nausea - URINARY Urinary: DENIES: Dysuria, Urgency, Frequency - REPRODUCTIVE LMP: 02/24/2017 Reproductive: DENIES: : - MUSCULOSKELETAL Musculoskeletal: REPORTS: Extremity pain - DERM Skin Color: Normal Skin Problems: Rash Past Medical History - General Information source: Patient - Social History Smoking Status: Never Smoker Chew tobacco use (# tins/day): No Frequency of alcohol use: None Drug Abuse: None Occupation: [employer] Lives with: Family Family History: Reviewed & Not Pertinent Patient has suicidal ideation: No Patient has homicidal ideation: No - Medical History Medical History: Other - Lupus - Past Medical History Cardiac Medical History: Reports: Hx Pulmonary Embolism Denies: Hx Atrial Fibrillation, Hx Congestive Heart Failure, Hx Coronary Artery Disease, Hx Heart Attack, Hx Hypercholesterolemia, Hx Hypertension, Hx Peripheral Vascular Disease, Hx Heart Murmur Pulmonary Medical History: Reports: Hx Bronchitis, Hx Pneumonia Denies: Hx Asthma, Hx COPD, Hx Respiratory Failure, Hx Sleep Apnea, Hx Tuberculosis Neurological Medical History: Denies: Hx Cerebrovascular Accident, Hx Seizures Endocrine Medical History: Denies: Hx Diabetes Mellitus Type 2, Hx Graves' Disease, Hx Hyperthyroidism, Hx Hypothyroidism Renal/ Medical History: Denies: Hx End Stage Renal Disease, Hx Kidney Stones, Hx Ovarian Cysts, Hx Peritoneal Dialysis, Hx Pelvic Inflammatory Disease Malignancy Medical History: Denies: Hx Breast Cancer, Hx Cervical Cancer, Hx Leukemia, Hx Lung Cancer, Hx Ovarian Cancer GI Medical History: Reports: Hx Gastritis, Hx Gastroesophageal Reflux Disease, Hx Ulcer. Denies: Hx Crohn's Disease, Hx Hiatal Hernia, Hx Irritable Bowel, Hx Liver Failure, Hx Pancreatitis Musculoskeltal Medical History: Denies Hx Arthritis, Denies Hx Fibromyalgia, Denies Hx Multiple Sclerosis, Denies Hx Muscular Dystrophy Psychiatric Medical History: Reports: Hx Anxiety, Hx Depression Denies: Hx Bipolar Disorder, Hx Dementia, Hx Post Traumatic Stress Disorder, Hx Schizophrenia Traumatic Medical History: Denies: Hx Fractures Infectious Medical History: Denies: Hx HIV Past Surgical History: Reports: Hx Appendectomy, Hx Breast Surgery, Hx Section - 2, Hx Gynecologic Surgery - L ovary removed, Hx Mastectomy - BILATERAL , Hx Tubal Ligation. Denies: Hx Colostomy, Hx Pacemaker - Immunizations Hx Diphtheria, Pertussis, Tetanus Vaccination: Yes Hx Pneumococcal Vaccination: 01/27/12 Vertical Provider Document - CONSTITUTIONAL Agree With Documented VS: Yes Exam Limitations: No Limitations General Appearance: WD/WN, No Apparent Distress - INFECTION CONTROL TRAVEL OUTSIDE OF THE [place] IN LAST 30 DAYS: No - HEENT HEENT: Atraumatic, Normal ENT Exam, Normocephalic - NECK Neck: Normal Inspection, Supple. negative: Lymphadenopathy-Left, Lymphadenopathy-Right - RESPIRATORY Respiratory: Breath Sounds Normal, No Respiratory Distress O2 Sat by Pulse Oximetry: 93 - CARDIOVASCULAR Cardiovascular: Regular Rate, Regular Rhythm, No Murmur - GI/ABDOMEN Gastrointestinal: Abdomen Soft, Abdomen Non-Tender - BACK Back: Normal Inspection - MUSCULOSKELETAL/EXTREMETIES Musculoskeletal/Extremeties: MAEW - NEURO Level of Consciousness: Awake, Alert, Appropriate Motor/Sensory: No Motor Deficit - DERM Integumentary: Warm, Dry, Rash - Erythematous rash and somewhat urticarial pattern to bilateral ankles Course - Re-evaluation Re-evalutation: 03/13/17 20:31 Dr. Carrillo to bedside for examination, specks that patient may be having a lupus flareup. Recommends labs and giving patient a two-week taper of steroid medication while she continues to take her previous antibiotics that were prescribed. 03/13/17 21:51 Report and handout given to Tatiana León. Plan will be to review patient's diagnostic test results and discharge patient on a 2 week prednisone taper. - Vital Signs Vital signs: Temp Pulse Resp BP Pulse Ox 98.0 F 96 20 125/88 H 93 03/13/17 19:43 03/13/17 19:43 03/13/17 19:43 03/13/17 19:43 03/13/17 19:43 - Laboratory Result Diagrams: 03/13/17 21:00 03/13/17 21:00 Laboratory results interpreted by me: 03/13/17 21:00 Hct 35.6 L Discharge - Discharge Clinical Impression: Lymphadenopathy, Skin rash SLE (systemic lupus erythematosus) Qualifiers: Systemic lupus erythematosus type: unspecified Systemic lupus erythematosus organ involvement: unspecified Qualified Code(s): M32.9 - Systemic lupus erythematosus, unspecified Condition: Stable Disposition: HOME, SELF-CARE Instructions: Lymphadenopathy ([facility]), Steroid Medication Additional Instructions: Return immediately for any new or worsening symptoms Followup with your primary care provider, call tomorrow to make a followup appointment Continue to take your antibiotics as previously prescribed It is possible that you may be having a lupus flareup. You will be given a course of steroids. Follow-up with your primary doctor for a re-evaluation, call tomorrow for an appointment Prescriptions: Prednisone [Deltasone 5 mg Tablet] 5 mg PO ASDIR PRN #100 tablet PRN Reason: Forms: Return to Work Referrals: [facility] [Provider Group] - Follow up as needed
[2017-03-13 21:41] LABS: ALANINE AMINOTRANSFERASE 60 U/L (9-52); ALBUMIN 4.7 g/dL (3.5-5.0); ALKALINE PHOSPHATASE 90 U/L (38-126); ANION GAP 15 (5-19); ASPARTATE AMINO TRANSFERASE 36 U/L (14-36); BLOOD UREA NITROGEN 10 mg/dL (7-20); CALCIUM 9.4 mg/dL (8.4-10.2); CARBON DIOXIDE 23 mmol/L (22-30); CHLORIDE 99 mmol/L (98-107); CREATININE RESULT 0.63 mg/dL (0.52-1.25); GLUCOSE 79 mg/dL (75-110); POTASSIUM 3.9 mmol/L (3.6-5.0); SODIUM 137.3 mmol/L (137-145)
[2017-03-13 21:42] LABS: BILIRUBIN,DIRECT 0.4 mg/dL (0.0-0.4); BILIRUBIN,TOTAL 0.9 mg/dL (0.2-1.3); TOTAL PROTEIN 7.5 g/dL (6.3-8.2)
[2017-03-13] MEDS ORDERED: PREDNISONE 20 MG TABLET PO ONE (21:51)
[2017-03-13 21:58] LABS: ERYTHROCYTE SEDIMENTATION RATE 14 mm/hr (0-20)
[2017-03-13 22:32] LABS: APPEARANCE,URINE SLIGHTLY-CLOUDY; BILIRUBIN,URINE NEGATIVE (NEGATIVE); GLUCOSE, URINE NEGATIVE (NEGATIVE); KETONES,URINE TRACE mg/dL (NEGATIVE); LEUKOCYTE ESTERASE,URINE MODERATE (NEGATIVE); NITRITE,URINE NEGATIVE (NEGATIVE); PROTEIN,URINE NEGATIVE (NEGATIVE); UROBILINOGEN,URINE NEGATIVE mg/dL (<2.0)
[2017-03-13] MEDS ORDERED: HYDROCODONE/ACETAMINOPHEN 5-325 MG 6 TAB/DSPK PO PRN (22:44)
== END 2017-03-13 23:01 | disposition home or self-care (01) ==
LOC: ER 19:32
DX: M32.9 Systemic lupus erythematosus, unspecified (principal); R21 Rash and other nonspecific skin eruption; R59.1 Generalized enlarged lymph nodes
CPT/HCPCS: 99283; 36415; 87086; 85025; 85652; 80053; 81001; J7512

== ENCOUNTER 2017-10-08 20:23 | Emergency (ER) | payer OTHER ==
[2017-10-08] MEDS ORDERED: ONDANSETRON 4 MG TAB.RAPDIS PO ONE (21:19)
[2017-10-08] MEDS ORDERED: NORMAL SALINE 1000 ML 1,000 ML IV ONE (21:19)
[2017-10-08] MEDS ORDERED: FENTANYL CITRATE INJ/PF 100 MCG/2 ML AMPUL IV ONE (21:21)
--- NOTE | 2017-10-08 21:22 | ER Document Report ---
ED Medical Screen (RME) - General Chief Complaint: Flank Pain Stated Complaint: FLANK PAIN Time Seen by Provider: 10/08/17 21:18 Mode of Arrival: Ambulatory Information source: Patient Notes: Patient presents complaining of right flank pain that wraps around to the right upper quadrant of her abdomen that started around 3:00 this morning. Patient does report nausea and vomiting 6 episodes today. Patient denies any fever, diarrhea or urinary symptoms. hx: PE, ovarian cyst, lupus, breast cancer, mastectomy with resection, appendectomy I have greeted and performed a rapid initial assessment of this patient. A comprehensive ED assessment and evaluation of the patient, analysis of test results and completion of the medical decision making process will be conducted by additional ED providers. TRAVEL OUTSIDE OF THE [place] IN LAST 30 DAYS: No - Related Data Allergies/Adverse Reactions: azithromycin [Azithromycin] Allergy (Intermediate, Verified 10/08/17 20:25) Urticaria Past Medical History - Past Medical History Cardiac Medical History: Reports: Hx Pulmonary Embolism Denies: Hx Atrial Fibrillation, Hx Congestive Heart Failure, Hx Coronary Artery Disease, Hx Heart Attack, Hx Hypercholesterolemia, Hx Hypertension, Hx Peripheral Vascular Disease, Hx Heart Murmur Pulmonary Medical History: Reports: Hx Bronchitis, Hx Pneumonia Denies: Hx Asthma, Hx COPD, Hx Respiratory Failure, Hx Sleep Apnea, Hx Tuberculosis Neurological Medical History: Denies: Hx Cerebrovascular Accident, Hx Seizures Endocrine Medical History: Denies: Hx Diabetes Mellitus Type 2, Hx Graves' Disease, Hx Hyperthyroidism, Hx Hypothyroidism Renal/ Medical History: Denies: Hx End Stage Renal Disease, Hx Kidney Stones, Hx Ovarian Cysts, Hx Peritoneal Dialysis, Hx Pelvic Inflammatory Disease Malignancy Medical History: Denies: Hx Breast Cancer, Hx Cervical Cancer, Hx Leukemia, Hx Lung Cancer, Hx Ovarian Cancer GI Medical History: Reports: Hx Gastritis, Hx Gastroesophageal Reflux Disease, Hx Ulcer. Denies: Hx Crohn's Disease, Hx Hiatal Hernia, Hx Irritable Bowel, Hx Liver Failure, Hx Pancreatitis Musculoskeltal Medical History: Denies Hx Arthritis, Denies Hx Fibromyalgia, Denies Hx Multiple Sclerosis, Denies Hx Muscular Dystrophy Psychiatric Medical History: Reports: Hx Anxiety, Hx Depression Denies: Hx Bipolar Disorder, Hx Dementia, Hx Post Traumatic Stress Disorder, Hx Schizophrenia Traumatic Medical History: Denies: Hx Fractures Infectious Medical History: Denies: Hx HIV Past Surgical History: Reports: Hx Appendectomy, Hx Breast Surgery, Hx Section - 2, Hx Gynecologic Surgery - L ovary removed, Hx Mastectomy - BILATERAL , Hx Tubal Ligation. Denies: Hx Colostomy, Hx Pacemaker - Immunizations Hx Diphtheria, Pertussis, Tetanus Vaccination: Yes Physical Exam - Vital signs Vitals: Temp Pulse Resp BP Pulse Ox 98.3 F 101 H 20 143/83 H 100 10/08/17 20:29 10/08/17 20:29 10/08/17 20:29 10/08/17 20:29 10/08/17 20:29 - Abdominal Tenderness: Tender - RUQ Course - Vital Signs Vital signs: Temp Pulse Resp BP Pulse Ox 98.3 F 101 H 20 143/83 H 100 10/08/17 20:29 10/08/17 20:29 10/08/17 20:29 10/08/17 20:29 10/08/17 20:29 Doctor's Discharge - Discharge Referrals: NELI MCALLISTER MD [Primary Care Provider] - Follow up as needed
[2017-10-08 21:52] LABS: ABSOLUTE EOSINOPHILS # (AUTO) 0.1 10^3/uL (0.0-0.6); ABSOLUTE LYMPHOCYTES (AUTO) 2.5 10^3/uL (0.5-4.7); ABSOLUTE MONOCYTES (AUTO) 0.7 10^3/uL (0.1-1.4); ABSOLUTE NEUT (AUTO) 5.2 10^3/uL (1.7-8.2); BASOPHILS % (AUTO) 0.4 % (0-2); EOSINOPHILS % (AUTO) 1.3 % (0-6); HEMATOCRIT 41.5 % (36.0-47.0); HEMOGLOBIN 14.7 g/dL (12.0-15.5); LYMPHOCYTES % (AUTO) 29.5 % (13-45); MEAN CORPUSCULAR HEMOGLOBIN 31.9 pg (27.0-33.4); MEAN CORPUSCULAR HGB CONC 35.3 g/dL (32.0-36.0); MEAN CORPUSCULAR VOLUME 90 fl (80-97); MONOCYTES % (AUTO) 7.7 % (3-13); PLATELET COUNT 266 10^3/uL (150-450); RED CELL DISTRIBUTION WIDTH 12.6 % (11.5-14.0); SEGMENTED NEUTROPHILS % (AUTO) 61.1 % (42-78); TOTAL CELLS COUNTED % (AUTO) 100 %; WHITE BLOOD COUNT 8.5 10^3/uL (4.0-10.5)
[2017-10-08 22:09] LABS: ALANINE AMINOTRANSFERASE 26 U/L (9-52); ALBUMIN 4.8 g/dL (3.5-5.0); ALKALINE PHOSPHATASE 48 U/L (38-126); ANION GAP 13 (5-19); ASPARTATE AMINO TRANSFERASE 19 U/L (14-36); BILIRUBIN,DIRECT 0.3 mg/dL (0.0-0.4); BILIRUBIN,TOTAL 0.6 mg/dL (0.2-1.3); BLOOD UREA NITROGEN 13 mg/dL (7-20); CALCIUM 9.9 mg/dL (8.4-10.2); CARBON DIOXIDE 29 mmol/L (22-30); CHLORIDE 100 mmol/L (98-107); GLUCOSE 82 mg/dL (75-110); LIPASE 83.7 U/L (23-300); POTASSIUM 3.9 mmol/L (3.6-5.0); SODIUM 142.3 mmol/L (137-145); TOTAL PROTEIN 7.6 g/dL (6.3-8.2)
--- NOTE | 2017-10-08 22:26 | RADIOLOGY REPORT (SQ) ---
EXAM DESCRIPTION: U/S ABDOMEN LIMITED W/O DOP COMPLETED DATE/TIME: 10/08/2017 10:05 pm REASON FOR STUDY: r flank, RUQ pain COMPARISON: 11/24/2016. TECHNIQUE: Dynamic and static grayscale images acquired of the abdomen and recorded on PACS. Luz hernandez selected color Doppler and spectral images recorded. LIMITATIONS: None. FINDINGS: PANCREAS: No masses. Visualized pancreatic duct normal caliber. LIVER: No masses. Echotexture normal. LIVER VASCULATURE: Normal directional flow of the main portal vein and hepatic veins. GALLBLADDER: No stones. Normal wall thickness. No pericholecystic fluid. ULTRASOUND-DETECTED DÍAZ'S SIGN: Negative. INTRAHEPATIC DUCTS AND COMMON DUCT: CBD and intrahepatic ducts normal caliber. No filling defects. INFERIOR VENA CAVA: Normal flow. AORTA: No aneurysm. RIGHT KIDNEY: Normal size. Normal echogenicity. No solid or suspicious masses. No hydronephrosis. No calcifications. PERITONEAL AND RIGHT PLEURAL SPACE: No ascites or effusions. OTHER: No other significant findings. IMPRESSION: NORMAL RIGHT UPPER QUADRANT ULTRASOUND. TECHNICAL DOCUMENTATION: JOB ID: [id number]- All Rights Reserved Reading location - IP/workstation name: [email or web address]
[2017-10-09] MEDS ORDERED: PROMETHAZINE HCL INJ 25 MG/1 ML VIAL IM ONE (00:08)
[2017-10-09] MEDS ORDERED: NORMAL SALINE 1000 ML 1,000 ML IV ONE (00:09)
[2017-10-09 00:22] LABS: APPEARANCE,URINE CLEAR; BILIRUBIN,URINE NEGATIVE (NEGATIVE); COLOR,URINE STRAW; GLUCOSE, URINE NEGATIVE (NEGATIVE); KETONES,URINE NEGATIVE (NEGATIVE); LEUKOCYTE ESTERASE,URINE NEGATIVE (NEGATIVE); NITRITE,URINE NEGATIVE (NEGATIVE); PROTEIN,URINE NEGATIVE (NEGATIVE); URINE SPECIFIC GRAVITY 1.011; UROBILINOGEN,URINE NEGATIVE mg/dL (<2.0)
[2017-10-09] MEDS ORDERED: MORPHINE SULFATE 10 MG/ML INJ IV ONE (00:55)
--- NOTE | 2017-10-09 02:00 | RADIOLOGY REPORT (SQ) ---
EXAM DESCRIPTION: CT ABDOMEN WITHOUT IV CONTRAST COMPLETED DATE/TME: 10/09/2017 00:54 CLINICAL HISTORY: right back and flank pain reported appendectomy. COMPARISON: 12/11/2015 TECHNIQUE: CT of the abdomen and pelvis without IV contrast. Evaluation of the solid organs and vasculature is suboptimal due to lack of IV contrast. DLP: 266.72 mGy-cm FINDINGS: Lung Bases: The visualized lung bases are clear. Breast implants. Bones: No destructive bone lesions identified. Abdomen: Liver: The liver has normal size and density. Gallbladder: No calcified gallstones. Spleen, Pancreas, and Adrenal Glands: The spleen, pancreas, and adrenal glands are unremarkable. Kidneys: The kidneys have normal size and contour without evidence of hydronephrosis. No obstructing ureteral calculi. Vasculature: The aorta and IVC have normal caliber and position. Stomach: The stomach and duodenum have normal course. Other: No free intraperitoneal air. No free fluid or lymphadenopathy. Pelvis: Bladder: Urinary bladder is unremarkable. Bowel: No dilated loops of large or small bowel. Appendix: No evidence of appendicitis. Pelvis: Tubal ligation clips. Uterus is not enlarged. IMPRESSION: 1. No acute inflammatory or obstructive process identified. This exam was performed according to our departmental dose-optimization program, which includes automated exposure control, adjustment of the mA and/or kV according to patient size and/or use of iterative reconstruction technique.
[2017-10-09] MEDS ORDERED: ONDANSETRON ODT 4 MG TAB (6 TAB/ER DISP) PO PRN (02:07)
[2017-10-09] MEDS ORDERED: HYDROCODONE/ACETAMINOPHEN 5-325 MG (6 TAB/ER DISP) PO PRN (02:07)
--- NOTE | 2017-10-09 02:07 | ER Document Report ---
ED General - General Chief Complaint: Flank Pain Stated Complaint: FLANK PAIN Time Seen by Provider: 10/08/17 21:18 Mode of Arrival: Ambulatory Notes: Patient is a 37-year-old female presents complaining of pain in her right back and some into her flank. She denies any anterior abdominal pain. She did have some nausea and vomiting throughout the day. No diarrhea. No blood in her stools. Patient says she does not remember injuring her back however the majority of her pain is over the right lumbar paraspinal musculature is worse with movement. She denies any dysuria. No abnormal vaginal discharge or bleeding. No other complaints at this time. TRAVEL OUTSIDE OF THE [place] IN LAST 30 DAYS: No - Related Data Allergies/Adverse Reactions: azithromycin [Azithromycin] Allergy (Intermediate, Verified 10/08/17 20:25) Urticaria Past Medical History - General Information source: Patient - Social History Smoking Status: Never Smoker Chew tobacco use (# tins/day): No Frequency of alcohol use: None Drug Abuse: None Family History: Reviewed & Not Pertinent Patient has suicidal ideation: No Patient has homicidal ideation: No - Past Medical History Cardiac Medical History: Reports: Hx Pulmonary Embolism Denies: Hx Atrial Fibrillation, Hx Congestive Heart Failure, Hx Coronary Artery Disease, Hx Heart Attack, Hx Hypercholesterolemia, Hx Hypertension, Hx Peripheral Vascular Disease, Hx Heart Murmur Pulmonary Medical History: Reports: Hx Bronchitis, Hx Pneumonia Denies: Hx Asthma, Hx COPD, Hx Respiratory Failure, Hx Sleep Apnea, Hx Tuberculosis Neurological Medical History: Denies: Hx Cerebrovascular Accident, Hx Seizures Endocrine Medical History: Denies: Hx Diabetes Mellitus Type 2, Hx Graves' Disease, Hx Hyperthyroidism, Hx Hypothyroidism Renal/ Medical History: Denies: Hx End Stage Renal Disease, Hx Kidney Stones, Hx Ovarian Cysts, Hx Peritoneal Dialysis, Hx Pelvic Inflammatory Disease Malignancy Medical History: Denies: Hx Breast Cancer, Hx Cervical Cancer, Hx Leukemia, Hx Lung Cancer, Hx Ovarian Cancer GI Medical History: Reports: Hx Gastritis, Hx Gastroesophageal Reflux Disease, Hx Ulcer. Denies: Hx Crohn's Disease, Hx Hiatal Hernia, Hx Irritable Bowel, Hx Liver Failure, Hx Pancreatitis Musculoskeltal Medical History: Denies Hx Arthritis, Denies Hx Fibromyalgia, Denies Hx Multiple Sclerosis, Denies Hx Muscular Dystrophy Psychiatric Medical History: Reports: Hx Anxiety, Hx Depression Denies: Hx Bipolar Disorder, Hx Dementia, Hx Post Traumatic Stress Disorder, Hx Schizophrenia Traumatic Medical History: Denies: Hx Fractures Infectious Medical History: Denies: Hx HIV Past Surgical History: Reports: Hx Appendectomy, Hx Breast Surgery, Hx Section - 2, Hx Gynecologic Surgery - L ovary removed, Hx Mastectomy - BILATERAL , Hx Tubal Ligation. Denies: Hx Colostomy, Hx Pacemaker - Immunizations Hx Diphtheria, Pertussis, Tetanus Vaccination: Yes Hx Pneumococcal Vaccination: 01/27/12 Review of Systems - Review of Systems Notes: My Normal Review Basic REVIEW OF SYSTEMS: CONSTITUTIONAL : Denies fever, chills, or sweats. Denies recent illness. EENT: Denies eye, ear, throat, or mouth pain or symptoms. Denies nasal or sinus congestion. CARDIOVASCULAR: Denies chest pain. RESPIRATORY: Denies cough, cold, or chest congestion. Denies shortness of breath, difficulty breathing, or wheezing. GASTROINTESTINAL: Some right-sided flank pain. No intra-abdominal pain. Some vomiting. GENITOURINARY: Denies difficulty urinating, painful urination, burning, frequency, or blood in urine. FEMALE GENITOURINARY: Denies vaginal bleeding, abnormal or irregular periods. LMP: MUSCULOSKELETAL: Denies neck or back pain or joint pain or swelling. SKIN: Denies rash or skin lesions. NEUROLOGICAL: Denies altered mental status or loss of consciousness. Denies headache. Denies weakness or paralysis or loss of use of either side. Denies problems with gait or speech. Denies sensory or motor loss. ALL OTHER SYSTEMS REVIEWED AND NEGATIVE. Physical Exam - Vital signs Vitals: Temp Pulse Resp BP Pulse Ox 98.3 F 101 H 20 143/83 H 100 10/08/17 20:29 10/08/17 20:29 10/08/17 20:29 10/08/17 20:29 10/08/17 20:29 - Notes Notes: General Appearance: Well nourished, alert, cooperative, no acute distress, moderate obvious discomfort. Vitals: reviewed, See vital signs table. Head: no swelling or tenderness to the head Eyes: PERRL, EOMI, Conjuctiva clear Mouth: No decreasd moisture Lungs: No wheezing, No rales, No rhonci, No accessory muscle use, good air exchange bilaterally. Heart: Normal rate, Regular rythm, No murmur, no rub Abdomen: Normal BS, soft, No rigidity, no reproducible anterior abdominal tenderness palpation, No guarding, no rebound, no abdominal masses, no organomegaly Back: Patient is easily reproducible pain palpation over the right lumbar paraspinal musculature. The flank and anterior abdomen are actually nontender to palpation. Extremities: strength 5/5 in all extremities, good pulses in all extremities, no swelling or tenderness in the extremities, no edema. Skin: warm, dry, appropriate color, no rash Neuro: speech clear, oriented x 3, normal affect, responds appropriately to questions. Course - Re-evaluation Re-evalutation: 10/10/17 06:57 Patient iis feeling much improved with medication. She is no longer vomiting. Her appetite evaluation is unremarkable. She does not have evidence of urinary tract infection. Suspect her pain could be musculoskeletal based on exam. The sinus was she safe to be discharged home by strongly encouraged her return to ER immediately if she has any pain or burning with urination, abnormal vaginal discharge or bleeding, any anterior abdominal pain, worsening of her back pain, recurrent vomiting, or she feels unwell. Patient agrees with plan will be discharged home. CT scan was ordered in triage and did not show any evidence of kidney stone. Dictation of this chart was performed using voice recognition software; therefore, there may be some unintended grammatical errors. 10/10/17 06:58 - Vital Signs Vital signs: Temp Pulse Resp BP Pulse Ox 97.3 F 71 16 102/64 100 10/09/17 02:45 10/09/17 02:45 10/09/17 02:45 10/09/17 02:45 10/09/17 02:45 - Laboratory Result Diagrams: 10/08/17 21:43 10/08/17 21:43 Laboratory results interpreted by me: 10/08/17 21:30 Urine Blood SMALL H Discharge - Discharge Clinical Impression: Back pain Qualifiers: Back pain location: low back pain Chronicity: acute Back pain laterality: right Sciatica presence: without sciatica Qualified Code(s): M54.5 - Low back pain Vomiting Qualifiers: Vomiting type: unspecified Vomiting Intractability: non-intractable Nausea presence: with nausea Qualified Code(s): R11.2 - Nausea with vomiting, unspecified Condition: Good Disposition: HOME, SELF-CARE Instructions: Oral Narcotic Medication ([facility]) Additional Instructions: Please rest over the next 24 hours. please return to the ER immediately if you develop fevers, worsening pain, intractable vomiting, or feel unwell. Prescriptions: Promethazine HCl [Phenergan 25 mg Tablet] 1 tab PO Q6H PRN #15 tablet PRN Reason: Forms: Return to Work Referrals: NELI MCALLISTER MD [NO LOCAL MD] - Follow up tomorrow
[2017-10-09 03:19] VITALS: BP 102/64
== END 2017-10-09 02:50 | disposition home or self-care (01) ==
LOC: ER 20:23
DX: M54.5 Low back pain (principal); R11.2 Nausea with vomiting, unspecified; R10.9 Unspecified abdominal pain
CPT/HCPCS: 99284; 96372; 96361; 96374; 96375; 36415; 83690; 84703; 85025; 80053; 81001; 76705; 76380; S0119; J3010; J2270; J2550; J7030 ×2

== ENCOUNTER 2018-01-06 13:31 | Emergency (ER) | payer OTHER ==
--- NOTE | 2018-01-06 15:07 | ER Document Report ---
ED GI/ - General Mode of Arrival: Ambulatory Information source: Patient TRAVEL OUTSIDE OF THE [place] IN LAST 30 DAYS: No <JACOB ASHLEY - Last Filed: 01/06/18 15:25> <DAVIDSAMMI Patrizia - Last Filed: 01/08/18 11:58> - General Chief Complaint: Abdominal Pain Stated Complaint: ABDOMINAL / CHEST PAIN Time Seen by Provider: 01/06/18 13:49 Notes: 37-year-old female status post double mastectomy secondary to breast cancer that presents to the emergency department today with complaints of right upper quadrant abdominal pain for the last 4 days. Patient states the pain radiates to her left shoulder blade. Patient states her pain increases with food. Patient has had associated diarrhea. Patient describes her abdominal pain as a sharp pain. Patient denies chest pain, vomiting, blood, fevers, or chills. ( JACOB ASHLEY) - Related Data Allergies/Adverse Reactions: azithromycin [Azithromycin] Allergy (Intermediate, Verified 01/06/18 13:31) Urticaria Past Medical History - General Information source: Patient, [facility] Records - Social History Smoking Status: Never Smoker Frequency of alcohol use: None Drug Abuse: None Lives with: Family Family History: Reviewed & Not Pertinent - Past Medical History Cardiac Medical History: Reports: Hx Pulmonary Embolism - on xarelto, no missed meds Pulmonary Medical History: Reports: Hx Bronchitis, Hx Pneumonia Malignancy Medical History: Reports: Hx Breast Cancer GI Medical History: Reports: Hx Gastritis, Hx Gastroesophageal Reflux Disease, Hx Ulcer Psychiatric Medical History: Reports: Hx Anxiety, Hx Depression Past Surgical History: Reports: Hx Appendectomy, Hx Breast Surgery, Hx Section - 2, Hx Gynecologic Surgery - L ovary removed, Hx Mastectomy - BILATERAL , Hx Tubal Ligation - Immunizations Hx Diphtheria, Pertussis, Tetanus Vaccination: Yes Hx Pneumococcal Vaccination: 01/27/12 <JACOB ASHLEY - Last Filed: 01/06/18 15:25> Review of Systems - Review of Systems Constitutional: denies: Chills, Fever EENT: No symptoms reported Cardiovascular: denies: Chest pain Respiratory: No symptoms reported Gastrointestinal: See HPI, Abdominal pain. denies: Vomiting, Rectal bleeding Genitourinary: No symptoms reported Female Genitourinary: No symptoms reported Musculoskeletal: No symptoms reported Skin: No symptoms reported Hematologic/Lymphatic: No symptoms reported Neurological/Psychological: No symptoms reported -: Yes All other systems reviewed and negative <JACOB ASHLEY - Last Filed: 01/06/18 15:25> Physical Exam <JACOB ASHLEY - Last Filed: 01/06/18 15:25> <SAMMI HERNANDEZ - Last Filed: 01/08/18 11:58> - Vital signs Vitals: Temp Pulse Resp BP Pulse Ox 97.4 F 88 18 122/80 100 01/06/18 13:38 01/06/18 13:38 01/06/18 13:38 01/06/18 13:38 01/06/18 13:38 - Notes Notes: Physical Exam: General: Alert, appears uncomfortable secondary to pain. HEENT: Normocephalic. Atraumatic. PERRL. Extraocular movements intact. Oropharynx clear. Neck: Supple. Non-tender. Respiratory: No respiratory distress. Clear and equal breath sounds bilaterally. Cardiovascular: Regular rate and rhythm. Abdominal: Moderate right upper quadrant tenderness to palpation. No distension. Normal Bowel Sounds. Back: Non-tender. No deformity or step off. Extremities: Moves all four extremities. Upper extremities: Normal inspection. Normal ROM. Lower extremities: Normal inspection. No edema. Normal ROM. Neurological: Normal cognition. AAOx4. Normal speech. Psychological: Tearful during exam. Skin: Warm. Dry. Normal color. (JACOB ASHLEY) Course <JACOB ASHLEY - Last Filed: 01/06/18 15:25> - Laboratory Result Diagrams: 01/06/18 15:31 01/06/18 15:31 - EKG Interpretation by [facility] EKG shows normal: Sinus rhythm Rate: Normal Rhythm: NSR When compared to previous EKG there are: No significant change <DAVIDSAMMI - Last Filed: 01/08/18 11:58> - Re-evaluation Re-evalutation: 01/06/18 17:00 Normal gallbladder ultrasound, labs show only mild elevation of lipase and bilirubin. Patient has hx of blood clots due to her lupus. Due to patient's pain will CTA C/A/P to ensure no clot burden or infarction. If negative, pt would benefit from HIDA scan. 01/06/18 18:25 Due to patient's comorbidities CTA of chest abdomen pelvis performed showing no acute abnormalities. Discussed findings with patient need for outpatient HIDA scan is originally discussed. Patient's pain has subsided in the emergency department. Upon further discussion patient works at a [employer] and states that she does eat a lot of pizza and greasy foods. Discussed eating a bland diet and will provide nausea and pain medication as well as prescription of Zantac. She is to follow-up with her primary care physician for further outpatient evaluation. (SAMMI HERNANDEZ) - Vital Signs Vital signs: Temp Pulse Resp BP Pulse Ox 97.4 F 81 14 127/73 H 100 01/06/18 19:16 01/06/18 19:16 01/06/18 19:16 01/06/18 19:16 01/06/18 19:16 - Laboratory Laboratory results interpreted by me: 01/06/18 15:31 Sodium 136.0 L Total Bilirubin 1.4 H Lipase 323.9 H Discharge <JACOB ASHLEY - Last Filed: 01/06/18 15:25> <SAMMI HERNANDEZ - Last Filed: 01/08/18 11:58> - Discharge Clinical Impression: RUQ abdominal pain Condition: Good Disposition: HOME, SELF-CARE Instructions: Abdominal Pain ([facility]), Antinausea Medication ([facility]), Low-Fat Diet ( [facility]) Additional Instructions: Per discussion, please take medications as prescribed please eat a low-fat diet and follow-up with your primary care physician if symptoms are continuing for consideration of a HIDA scan. Prescriptions: Ondansetron [Zofran Odt 4 mg Tablet] 1 tab PO ASDIR PRN #10 tab.rapdis PRN Reason: For Nausea/Vomiting Oxycodone HCl/Acetaminophen [Percocet 5-325 mg Tablet] 1 tab PO ASDIR PRN #10 tablet PRN Reason: Ranitidine HCl [Zantac] 150 mg PO BID #60 tablet Forms: Return to Work Scribe Attestation: 01/08/18 11:58 I personally performed the services described in the documentation, reviewed and edited the documentation which was dictated to the scribe in my presence, and it accurately records my words and actions. (SAMMI HERNANDEZ) Scribe Documentation - Scribe Written by Andie:: Reyna Brown, 01/06/2018 1523 acting as scribe for :: David <JACOB ASHLEY - Last Filed: 01/06/18 15:25>
[2018-01-06] MEDS ORDERED: METOCLOPRAMIDE HCL ORAL SOLN 10 MG/10 ML UDCUP PO ONE (15:15)
[2018-01-06] MEDS ORDERED: FENTANYL CITRATE INJ/PF 100 MCG/2 ML AMPUL IV ONE ×3 (15:15→18:31)
[2018-01-06] MEDS ORDERED: LIDOCAINE 2% VISCOUS SOLN 20 ML UDCUP PO ONE (15:15)
[2018-01-06] MEDS ORDERED: MAG HYDROX/AL HYDROX/SIMETH SUSP 30 ML UDCUP PO ONE (15:15)
[2018-01-06 15:46] LABS: ABSOLUTE EOSINOPHILS # (AUTO) 0.1 10^3/uL (0.0-0.6); ABSOLUTE LYMPHOCYTES (AUTO) 2.1 10^3/uL (0.5-4.7); ABSOLUTE MONOCYTES (AUTO) 0.9 10^3/uL (0.1-1.4); ABSOLUTE NEUT (AUTO) 4.7 10^3/uL (1.7-8.2); BASOPHILS % (AUTO) 0.5 % (0-2); EOSINOPHILS % (AUTO) 1.2 % (0-6); HEMATOCRIT 42.3 % (36.0-47.0); HEMOGLOBIN 15.1 g/dL (12.0-15.5); LYMPHOCYTES % (AUTO) 27.1 % (13-45); MEAN CORPUSCULAR HEMOGLOBIN 32.1 pg (27.0-33.4); MEAN CORPUSCULAR HGB CONC 35.8 g/dL (32.0-36.0); MEAN CORPUSCULAR VOLUME 90 fl (80-97); MONOCYTES % (AUTO) 11.4 % (3-13); PLATELET COUNT 255 10^3/uL (150-450); RED BLOOD COUNT 4.72 10^6/uL (3.72-5.28); RED CELL DISTRIBUTION WIDTH 12.4 % (11.5-14.0); SEGMENTED NEUTROPHILS % (AUTO) 59.8 % (42-78); TOTAL CELLS COUNTED % (AUTO) 100 %; WHITE BLOOD COUNT 7.8 10^3/uL (4.0-10.5)
[2018-01-06 16:06] LABS: ALANINE AMINOTRANSFERASE 22 U/L (9-52); ALBUMIN 4.6 g/dL (3.5-5.0); ALKALINE PHOSPHATASE 53 U/L (38-126); ANION GAP 8 (5-19); ASPARTATE AMINO TRANSFERASE 17 U/L (14-36); BILIRUBIN,DIRECT 0.4 mg/dL (0.0-0.4); BILIRUBIN,TOTAL 1.4 mg/dL (0.2-1.3); BLOOD UREA NITROGEN 11 mg/dL (7-20); CALCIUM 9.7 mg/dL (8.4-10.2); CARBON DIOXIDE 26 mmol/L (22-30); CHLORIDE 102 mmol/L (98-107); GLUCOSE 89 mg/dL (75-110); LIPASE 323.9 U/L (23-300); POTASSIUM 4.7 mmol/L (3.6-5.0); TOTAL PROTEIN 7.3 g/dL (6.3-8.2)
--- NOTE | 2018-01-06 16:13 | RADIOLOGY REPORT (SQ) ---
EXAM DESCRIPTION: CHEST SINGLE VIEW COMPLETED DATE/TIME: 01/06/2018 4:07 pm REASON FOR STUDY: RUQ pain COMPARISON: None. EXAM PARAMETERS: NUMBER OF VIEWS: One view. TECHNIQUE: Single frontal radiographic view of the chest acquired. RADIATION DOSE: NA LIMITATIONS: None. FINDINGS: LUNGS AND PLEURA: No opacities, masses or pneumothorax. No pleural effusion. MEDIASTINUM AND HILAR STRUCTURES: No masses. Contour normal. HEART AND VASCULAR STRUCTURES: Heart normal in size. Normal vasculature. BONES: No acute findings. HARDWARE: None in the chest. OTHER: No other significant finding. IMPRESSION: NO ACUTE RADIOGRAPHIC FINDING IN THE CHEST. TECHNICAL DOCUMENTATION: JOB ID: [id number] [employer]- All Rights Reserved Reading location - IP/workstation name: [email or web address]
--- NOTE | 2018-01-06 16:49 | RADIOLOGY REPORT (SQ) ---
EXAM DESCRIPTION: U/S ABDOMEN LIMITED W/O DOP COMPLETED DATE/TIME: 01/06/2018 4:42 pm REASON FOR STUDY: RUQ pain, worse with eating COMPARISON: None. TECHNIQUE: Dynamic and static grayscale images acquired of the abdomen and recorded on PACS. Additio nal selected color Doppler and spectral images recorded. LIMITATIONS: None. FINDINGS: PANCREAS: No masses. Visualized pancreatic duct normal caliber. LIVER: No masses. Echotexture normal. LIVER VASCULATURE: Normal directional flow of the main portal vein and hepatic veins. GALLBLADDER: No stones. Normal wall thickness. No pericholecystic fluid. ULTRASOUND-DETECTED DÍAZ'S SIGN: Negative. INTRAHEPATIC DUCTS AND COMMON DUCT: CBD and intrahepatic ducts normal caliber. No filling defects. INFERIOR VENA CAVA: Normal flow. AORTA: No aneurysm. RIGHT KIDNEY: Normal size. Normal echogenicity. No solid or suspicious masses. No hydronephrosis. No calcifications. PERITONEAL AND RIGHT PLEURAL SPACE: No ascites or effusions. OTHER: No other significant findings. IMPRESSION: NORMAL RIGHT UPPER QUADRANT ULTRASOUND. TECHNICAL DOCUMENTATION: JOB ID: [id number] [employer]- All Rights Reserved Reading location - IP/workstation name: [email or web address]
--- NOTE | 2018-01-06 16:56 | EKG REPORT ---
SEVERITY:- BORDERLINE ECG - SINUS RHYTHM BORDERLINE T ABNORMALITIES, ANT-LAT LEADS BORDERLINE PROLONGED QT INTERVAL : Confirmed by: Barbara Young MD 06-Jan-2018 16:55:36
[2018-01-06] MEDS ORDERED: NORMAL SALINE 1000 ML 1,000 ML IV ONE (16:58)
--- NOTE | 2018-01-06 18:01 | RADIOLOGY REPORT (SQ) ---
EXAM DESCRIPTION: CTA CHEST COMPLETED DATE/TIME: 01/06/2018 5:25 pm REASON FOR STUDY: RUQ/lower R chest pain, hx of blood clots, lupus COMPARISON: 11/24/2016 TECHNIQUE: CT scan of the chest performed using helical scanning technique with dynamic intravenous contrast injection. Images reviewed with lung, soft tissue and bone windows. Reconstructed coronal and sagittal MPR images reviewed. Additional 3 dimensional post-processing performed to develop Maximal Intensity Projection images (MS P). All images stored on PACS. All CT scanners at this facility use dose modulation, iterative reconstruction, and/or weight based d osing when appropriate to reduce radiation dose to as low as reasonably achievable (ALARA). [facility]: Dose Right [facility]: CareDose [facility]: Dose Right [facility]: Teradose 4D [facility]: [employer] CONTRAST TYPE AND DOSE: contrast/concentration: Isovue 350.00 mg/ml; Total Contrast Delivered: 60.0 ml; Total Saline Delivered: 70.0 ml Contrast bolus adequate for pulmonary arteries and aorta. RENAL FUNCTION: BUN 11 creatinine 0.7 RADIATION DOSE: . LIMITATIONS: None. FINDINGS: LUNGS AND PLEURA: No masses, infiltrates, or pneumothorax. No pleural effusions or pleura l calcifications. AORTA AND GREAT VESSELS: No aneurysm. No dissection. HEART: No pericardial effusion. No significant coronary artery calcifications. PULMONARY ARTERIES: No emboli visualized in the main pulmonary arteries or the segmental branches. HILAR AND MEDIASTINAL STRUCTURES: No identified masses or abnormal nodes. HARDWARE: None in the chest. UPPER ABDOMEN: See separate report of the CT of the abdomen. THYROID AND OTHER SOFT TISSUES: No masses. No adenopathy. BONES: No acute or significant finding. 3D MIPS: Confirm above findings. OTHER: No other significant finding. IMPRESSION: NORMAL CTA OF THE CHEST. NO PULMONARY EMBOLI. COMMENT: Quality ID # 436: Final reports with documentation of one or more dose reduction techniques (e.g., Automated exposure control, adjustment of the mA and/or kV according to patient size, use of iterative reconstruction technique) TECHNICAL DOCUMENTATION: JOB ID: [id number] [employer]- All Rights Reserved Reading location - IP/workstation name: [email or web address]
--- NOTE | 2018-01-06 18:14 | RADIOLOGY REPORT (SQ) ---
EXAM DESCRIPTION: CTA ABDOMEN/PELVIS W WO COMPLETED DATE/TIME: 01/06/2018 5:25 pm REASON FOR STUDY: RUQ pain, hx of blood clots, radiates to back COMPARISON: CT renal stone 10/09/2017 TECHNIQUE: CT scan of the abdominal aorta extending to the iliac bifurcation performed with intraven ous contrast using helical scanning technique with dynamic intravenous contrast injection. Images rev iewed with lung, soft tissue, and bone windows. Reconstructed coronal and sagittal MPR images reviewe d. All images stored on PACS. Advanced 3D imaging as volume rendering, MIPS, SSD performed? yes All CT scanners at this facility use dose modulation, iterative reconstruction, and/or weight based d osing when appropriate to reduce radiation dose to as low as reasonably achievable (ALARA). [facility]: Dose Right [facility]: CareDose [facility]: Dose Right [facility]: Teradose 4D [facility]: [employer] CONTRAST TYPE AND DOSE: 60 mL Omnipaque 350- low osmolar. RENAL FUNCTION: BUN 11 creatinine 0.66 LIMITATIONS: None. FINDINGS: AORTA AND VESSELS: No aneurysm. No dissection. Renal arteries, SMA, celiac without stenosi s. LUNG BASES: See separate report for CT of the chest. LIVER: Normal size. No masses or dilated ducts. SPLEEN: Normal size. No focal lesions. PANCREAS: No masses. No significant calcifications. No adjacent inflammation or peripancreatic fluid collections. Pancreatic duct not dilated. GALLBLADDER: No identified stones by CT criteria. No inflammatory changes to suggest cholecystitis. ADRENAL GLANDS: No significant masses or asymmetry. RIGHT KIDNEY AND URETER: No mass, calculi or urinary tract obstruction. LEFT KIDNEY AND URETER: No mass, calculi or urinary tract obstruction. RETROPERITONEUM: No retroperitoneal adenopathy, hemorrhage or masses. BOWEL AND PERITONEAL CAVITY: No masses or inflammatory changes. No free fluid or peritoneal masses. APPENDIX: Surgically absent. ABDOMINAL WALL: No masses. No hernias. BONY STRUCTURES: No significant or acute findings. 3-D IMAGING: Confirms the above findings. OTHER: No other significant finding. IMPRESSION: NO ABDOMINAL AORTIC ANEURYSM, DISSECTION OR SIGNIFICANT STENOSIS. NO SIGNIFICANT FINDING S IN THE ABDOMEN. TECHNICAL DOCUMENTATION: JOB ID: [id number] Quality ID # [id number]: Final reports with documentation of one or more dose reduction techniques (e.g., Au tomated exposure control, adjustment of the mA and/or kV according to patient size, use of iterative reconstruction technique) 2010 [employer]- All Rights Reserved Reading location - IP/workstation name: [email or web address]
[2018-01-06 19:21] VITALS: BP 127/73
== END 2018-01-06 19:22 | disposition home or self-care (01) ==
LOC: ER 13:31
DX: R10.11 Right upper quadrant pain (principal); R19.7 Diarrhea, unspecified; R74.8 Abnormal levels of other serum enzymes; Z85.3 Personal history of malignant neoplasm of breast; Z88.1 Allergy status to other antibiotic agents; Z90.49 Acquired absence of other specified parts of digestive tract; Z87.19 Personal history of other diseases of the digestive system; Z86.711 Personal history of pulmonary embolism
CPT/HCPCS: 93005; 99284; 96361; 96374; 36415; 83690; 85025; 80053; 84484; 71045; 76705; 71275; 74174; 93010; J3010; J3490

== ENCOUNTER 2018-03-31 14:10 | Inpatient (IN) | payer OTHER ==
--- NOTE | 2018-03-31 15:20 | ER Document Report ---
ED Medical Screen (RME) - General Chief Complaint: Painful Cough Stated Complaint: COUGH Time Seen by Provider: 03/31/18 15:15 Mode of Arrival: Ambulatory Information source: Patient Notes: 37-year-old female with lupus, remote history of breast cancer, recent diagnosis of pneumonia at [facility] currently on doxycycline and Augmentin presents with right-sided chest pain, worsening cough, myalgia. I have greeted and performed a rapid initial assessment of this patient. A comprehensive ED assessment and evaluation of the patient, analysis of test results and completion of medical decision making process we will be contacted by additional ED providers. PHYSICAL EXAMINATION: Vital signs reviewed- Mild tachycardia, afebrile GENERAL: Ill-appearing LUNGS: No respiratory distress, CTAB, persistent productive cough Musculoskeletal: Normal range of motion NEUROLOGICAL: Normal speech, normal gait. PSYCH: Tearful SKIN: Warm, Dry, normal turgor, no rashes or lesions noted. TRAVEL OUTSIDE OF THE [place] IN LAST 30 DAYS: No - HPI Onset: Other Onset/Duration: Persistent Quality of pain: Achy Severity: Moderate Associated Symptoms: Chest pain, Cough (productive) Exacerbated by: Coughing, Deep breathing Relieved by: Denies Similar symptoms previously: Yes Recently seen / treated by doctor: Yes - Related Data Smoking: Non-smoker Frequency of alcohol use: None Drug Abuse: None Allergies/Adverse Reactions: azithromycin [Azithromycin] Allergy (Intermediate, Verified 03/31/18 14:59) Urticaria Past Medical History - Past Medical History Cardiac Medical History: Reports: Hx Pulmonary Embolism - on xarelto, no missed meds Denies: Hx Atrial Fibrillation, Hx Congestive Heart Failure, Hx Coronary Artery Disease, Hx Heart Attack, Hx Hypercholesterolemia, Hx Hypertension, Hx Peripheral Vascular Disease, Hx Heart Murmur Pulmonary Medical History: Reports: Hx Bronchitis, Hx Pneumonia Denies: Hx Asthma, Hx COPD, Hx Respiratory Failure, Hx Sleep Apnea, Hx Tuberculosis Neurological Medical History: Denies: Hx Cerebrovascular Accident, Hx Seizures Endocrine Medical History: Denies: Hx Diabetes Mellitus Type 2, Hx Graves' Disease, Hx Hyperthyroidism, Hx Hypothyroidism Renal/ Medical History: Denies: Hx End Stage Renal Disease, Hx Kidney Stones, Hx Ovarian Cysts, Hx Peritoneal Dialysis, Hx Pelvic Inflammatory Disease Malignancy Medical History: Reports: Hx Breast Cancer. Denies: Hx Cervical Cancer, Hx Leukemia, Hx Lung Cancer, Hx Ovarian Cancer GI Medical History: Reports: Hx Gastritis, Hx Gastroesophageal Reflux Disease, Hx Ulcer. Denies: Hx Crohn's Disease, Hx Hiatal Hernia, Hx Irritable Bowel, Hx Liver Failure, Hx Pancreatitis Musculoskeltal Medical History: Denies Hx Arthritis, Denies Hx Fibromyalgia, Denies Hx Multiple Sclerosis, Denies Hx Muscular Dystrophy Psychiatric Medical History: Reports: Hx Anxiety, Hx Depression Denies: Hx Bipolar Disorder, Hx Dementia, Hx Post Traumatic Stress Disorder, Hx Schizophrenia Traumatic Medical History: Denies: Hx Fractures Infectious Medical History: Denies: Hx HIV Past Surgical History: Reports: Hx Appendectomy, Hx Breast Surgery, Hx Section - 2, Hx Gynecologic Surgery - L ovary removed, Hx Mastectomy - BILATERAL , Hx Tubal Ligation. Denies: Hx Colostomy, Hx Pacemaker - Immunizations Hx Diphtheria, Pertussis, Tetanus Vaccination: Yes Physical Exam - Vital signs Vitals: Temp Pulse Resp BP Pulse Ox 98.2 F 102 H 17 144/62 H 98 03/31/18 14:17 03/31/18 14:17 03/31/18 14:17 03/31/18 14:17 03/31/18 14:17 Course - Vital Signs Vital signs: Temp Pulse Resp BP Pulse Ox 98.2 F 102 H 17 144/62 H 98 03/31/18 14:17 03/31/18 14:17 03/31/18 14:17 03/31/18 14:17 03/31/18 14:17 Doctor's Discharge - Discharge Referrals: NORMAN NATH MD [Primary Care Provider] - Follow up as needed
[2018-03-31 15:42] LABS: ABSOLUTE BASOPHILS # (AUTO) 0.1 10^3/uL (0.0-0.2); ABSOLUTE LYMPHOCYTES (AUTO) 3.7 10^3/uL (0.5-4.7); ABSOLUTE MONOCYTES (AUTO) 1.4 10^3/uL (0.1-1.4); ABSOLUTE NEUT (AUTO) 9.2 10^3/uL (1.7-8.2); BASOPHILS % (AUTO) 0.4 % (0-2); EOSINOPHILS % (AUTO) 0.3 % (0-6); HEMATOCRIT 40.6 % (36.0-47.0); HEMOGLOBIN 14.4 g/dL (12.0-15.5); LYMPHOCYTES % (AUTO) 25.6 % (13-45); MEAN CORPUSCULAR HEMOGLOBIN 32.1 pg (27.0-33.4); MEAN CORPUSCULAR HGB CONC 35.6 g/dL (32.0-36.0); MEAN CORPUSCULAR VOLUME 90 fl (80-97); MONOCYTES % (AUTO) 9.6 % (3-13); PLATELET COUNT 286 10^3/uL (150-450); RED BLOOD COUNT 4.51 10^6/uL (3.72-5.28); RED CELL DISTRIBUTION WIDTH 12.2 % (11.5-14.0); SEGMENTED NEUTROPHILS % (AUTO) 64.1 % (42-78); TOTAL CELLS COUNTED % (AUTO) 100 %; WHITE BLOOD COUNT 14.3 10^3/uL (4.0-10.5)
[2018-03-31 16:07] LABS: ALANINE AMINOTRANSFERASE 71 U/L (9-52); ALBUMIN 4.5 g/dL (3.5-5.0); ALKALINE PHOSPHATASE 99 U/L (38-126); ANION GAP 9 (5-19); ASPARTATE AMINO TRANSFERASE 48 U/L (14-36); BILIRUBIN,DIRECT 0.4 mg/dL (0.0-0.4); BILIRUBIN,TOTAL 0.7 mg/dL (0.2-1.3); BLOOD UREA NITROGEN 14 mg/dL (7-20); CALCIUM 9.9 mg/dL (8.4-10.2); CARBON DIOXIDE 28 mmol/L (22-30); CHLORIDE 104 mmol/L (98-107); GLUCOSE 97 mg/dL (75-110); POTASSIUM 3.8 mmol/L (3.6-5.0); TOTAL PROTEIN 7.5 g/dL (6.3-8.2)
[2018-03-31] MEDS ORDERED: HYDROMORPHONE HCL INJ/PF 2 MG/ML AMPULE IV ONE ×2 (16:13→18:04)
[2018-03-31] MEDS ORDERED: ONDANSETRON HCL INJ/PF 4 MG/2 ML SDV IV ONE (16:14)
--- NOTE | 2018-03-31 16:16 | RADIOLOGY REPORT (SQ) ---
EXAM DESCRIPTION: CHEST 2 VIEWS COMPLETED DATE/TIME: 03/31/2018 3:57 pm REASON FOR STUDY: Chest pain COMPARISON: 02/11/2016 EXAM PARAMETERS: NUMBER OF VIEWS: two views TECHNIQUE: Digital Frontal and Lateral radiographic views of the chest acquired. RADIATION DOSE: NA LIMITATIONS: none FINDINGS: LUNGS AND PLEURA: No opacities, masses or pneumothorax. No pleural effusion. MEDIASTINUM AND HILAR STRUCTURES: No masses or contour abnormalities. HEART AND VASCULAR STRUCTURES: Heart normal size. No evidence for failure. BONES: No acute findings. HARDWARE: None in the chest. OTHER: No other significant finding. IMPRESSION: NO ACUTE RADIOGRAPHIC FINDING IN THE CHEST. TECHNICAL DOCUMENTATION: JOB ID: [id number] [employer]- All Rights Reserved Reading location - IP/workstation name: [email or web address]
[2018-03-31] MEDS ORDERED: NORMAL SALINE 1000 ML 1,000 ML IV ONE (18:09)
[2018-03-31] MEDS ORDERED: CEFTRIAXONE 1 GM/D5W RTU 1 GM/50 ML RTUPB IV ONE (18:10)
--- NOTE | 2018-03-31 18:24 | ER Document Report ---
ED Respiratory Problem - General Chief Complaint: Painful Cough Stated Complaint: COUGH Time Seen by Provider: 03/31/18 15:15 Mode of Arrival: Ambulatory Information source: Patient Notes: Patient is a 37-year-old female comes emergency room crying. She states that she has a long history of getting pneumonias the last one was approximately in September and she started feeling bad last week went to see the emergency room at [facility] on Friday they did a chest x-ray which was negative they did a CT of the chest which showed that she had a pneumonia they put her on doxycycline and Augmentin some cough syrup with codeine, and Proventil inhaler and sent her home and back to work. Patient as stated comes in here crying she is complaining of hurting all over her body and she needs help. She has a extensive history of bilateral mastectomies 2 years ago, she has a history of DVTs and PEs and is currently on Xarelto she has had increasing shortness of breath over the past 3 days and states she is not getting any better. She also has a history of lupus so she is pushed to her max limit currently and is asking for help. TRAVEL OUTSIDE OF THE [place] IN LAST 30 DAYS: No - HPI Patient complains to provider of: Cough, Hurts to breath, Short of breath Onset: Last week Duration: Continuous, Worse/persistent Initiating Event: Exertion, URI Quality of pain: Achy, Sharp, Throbbing Severity: Severe Pain Level: 4 Context: DVT, Malignancy Short of Breath: Moderate Chest pain/discomfort: Pain, Worse with deep breaths. denies: Radiates to arm, Radiates to back, Radiates to jaw Cough: Nonproductive At home treatment: Bronchodilators Associated symptoms: Anxiety, Chest pain/discomfort, Congestion, Difficulty breathing, Extertional dyspnea Similar symptoms previously: Yes Recently seen / treated by doctor: Yes - [facility] on Friday - Related Data Allergies/Adverse Reactions: azithromycin [Azithromycin] Allergy (Intermediate, Verified 03/31/18 14:59) Urticaria Past Medical History - General Information source: Patient - Social History Smoking Status: Never Smoker Cigarette use (# per day): No Chew tobacco use (# tins/day): No Smoking Education Provided: No Frequency of alcohol use: None Drug Abuse: None Family History: Reviewed & Not Pertinent Patient has suicidal ideation: No Patient has homicidal ideation: No - Past Medical History Cardiac Medical History: Reports: Hx Pulmonary Embolism - on xarelto, no missed meds Denies: Hx Atrial Fibrillation, Hx Congestive Heart Failure, Hx Coronary Artery Disease, Hx Heart Attack, Hx Hypercholesterolemia, Hx Hypertension, Hx Peripheral Vascular Disease, Hx Heart Murmur Pulmonary Medical History: Reports: Hx Bronchitis, Hx Pneumonia Denies: Hx Asthma, Hx COPD, Hx Respiratory Failure, Hx Sleep Apnea, Hx Tuberculosis Neurological Medical History: Denies: Hx Cerebrovascular Accident, Hx Seizures Endocrine Medical History: Denies: Hx Diabetes Mellitus Type 2, Hx Graves' Disease, Hx Hyperthyroidism, Hx Hypothyroidism Renal/ Medical History: Denies: Hx End Stage Renal Disease, Hx Kidney Stones, Hx Ovarian Cysts, Hx Peritoneal Dialysis, Hx Pelvic Inflammatory Disease Malignancy Medical History: Reports: Hx Breast Cancer. Denies: Hx Cervical Cancer, Hx Leukemia, Hx Lung Cancer, Hx Ovarian Cancer GI Medical History: Reports: Hx Gastritis, Hx Gastroesophageal Reflux Disease, Hx Ulcer. Denies: Hx Crohn's Disease, Hx Hiatal Hernia, Hx Irritable Bowel, Hx Liver Failure, Hx Pancreatitis Musculoskeletal Medical History: Denies Hx Arthritis, Denies Hx Fibromyalgia, Denies Hx Multiple Sclerosis, Denies Hx Muscular Dystrophy Psychiatric Medical History: Reports: Hx Anxiety, Hx Depression Denies: Hx Bipolar Disorder, Hx Dementia, Hx Post Traumatic Stress Disorder, Hx Schizophrenia Traumatic Medical History: Denies: Hx Fractures Infectious Medical History: Denies: Hx HIV Past Surgical History: Reports: Hx Appendectomy, Hx Breast Surgery, Hx Section - 2, Hx Gynecologic Surgery - L ovary removed, Hx Mastectomy - BILATERAL , Hx Tubal Ligation. Denies: Hx Colostomy, Hx Pacemaker - Immunizations Hx Diphtheria, Pertussis, Tetanus Vaccination: Yes Hx Pneumococcal Vaccination: 01/27/12 Review of Systems - Review of Systems Constitutional: No symptoms reported EENT: Nose congestion, Sinus pressure Cardiovascular: Chest pain Respiratory: Cough, Hurts to breathe, Short of breath. denies: Sputum, Wheezing Gastrointestinal: No symptoms reported Genitourinary: No symptoms reported Female Genitourinary: No symptoms reported Musculoskeletal: See HPI, Joint pain, Muscle pain Skin: No symptoms reported Hematologic/Lymphatic: No symptoms reported Neurological/Psychological: No symptoms reported -: Yes All other systems reviewed and negative Physical Exam - Vital signs Vitals: Temp Pulse Resp BP Pulse Ox 98.2 F 102 H 17 144/62 H 98 03/31/18 14:17 03/31/18 14:17 03/31/18 14:17 03/31/18 14:17 03/31/18 14:17 Interpretation: Hypertensive, Tachycardic - Notes Notes: PHYSICAL EXAMINATION: GENERAL: Patient is a 37-year-old female who on physical exam today is in moderate distress, major discomfort and pain. High anxiety level. Short of breath. HEAD: Atraumatic, normocephalic. EYES: Pupils equal round and reactive to light, extraocular movements intact, conjunctiva are normal. ENT: Physical exam of the head and upper airway is difficult to ascertain because patient is in pain and crying her nose is running she is congested bilaterally bilateral nasal congestion is noted. Nasal mucosa is edematous and erythematous the rhinorrhea is clear. She has some mild tenderness to palpation of the frontal sinuses. Posterior pharynx has some drainage clear. Uvula is midline there is no encroachment upon the uvula moderate erythema throughout airways patent. NECK: Normal range of motion, supple without lymphadenopathy LUNGS: Auscultation patient's lung moreno show she has bilateral breath sounds breath sounds are increased throughout there is no audible inspiratory or expiratory wheeze no rhonchi or rales noted. Patient does appear to have difficult time taking a deep breath secondary to pain most of the pain is on the right lateral ribs. There is no anterior chest discomfort. And there is no reproducible anterior chest pain. HEART: Tachycardic rate and rhythm without murmurs ABDOMEN: Soft, nontender, nondistended abdomen. No guarding, no rebound. No masses appreciated. Female : deferred Musculoskeletal: Patient is sitting holding the right side of her ribs because of the coughing and pain. It is difficult to ascertain any other abnormalities in her musculoskeletal exam secondary to pain and discomfort all over her body. NEUROLOGICAL: Normal speech, normal gait. PSYCH: Anxious, tearful SKIN: Warm, Dry, normal turgor, no rashes or lesions noted. Course - Re-evaluation Re-evalutation: 03/31/18 18:30 After my initial physical examination the patient I went discussed the case with Dr. Vann I had already initiated the office secretary to try and ascertain the CT report from [facility] we had the patient sign release form we faxed it over we waited an hour or 2 did not catch anything on return the contact and able again and we were told that they are closed for the day. At this point I went back into reexamine patient and offer her options she was found sitting in a knees to chest position on the emergency room gurney crying coughing and states she still hurting very badly. I asked her which direction she would like me to go into without having confirmation of pneumonia on x-ray of the chest which we have done and it is normal I have probably no option but to do a CT of the chest in order to attempt to get her admitted or we could treat her with pain medication to go home and patient got even more upset stating that she knows her body and she needs to be admitted for IV antibiotics she has had pneumonia to many times and each time it seems to be getting worse and she knows the doxycycline and the Augmentin is going to take too long to work. She also informed me that she had been upset with the physician hotel administrative assistant unable [facility] because they diagnosed her with the pneumonia gave her oral pills sent her home and told her to go back to work. Patient does have an elevated white count of 14 4. So given the fact that she is failed outpatient treatment is requesting to be admitted I did contact the hospitalist Dr. Schroeder I ran the case by him and he feels strongly that we should repeat the CT of the chest so they have something to go by and then recontacted him when it has been read and confirmed. This was done at approximately 1800. 03/31/18 20:27 The CTA of patient's just came back with no pulmonary emboli in positive for right lower lobe pneumonia. I contacted the hospitalist at the time Dr. Holm he was in the emergency room came down and is seeing the patient currently. He is going to admit her observation on medical floor and will do further evaluations as necessary. - Vital Signs Vital signs: Temp Pulse Resp BP Pulse Ox 98.2 F 102 H 17 144/62 H 98 03/31/18 14:17 03/31/18 14:17 03/31/18 14:17 03/31/18 14:17 03/31/18 14:17 - Laboratory Result Diagrams: 03/31/18 15:33 03/31/18 15:33 Laboratory results interpreted by me: 03/31/18 03/31/18 15:33 15:33 WBC 14.3 H Absolute Neutrophils 9.2 H AST 48 H ALT 71 H Discharge - Discharge Condition: Stable Disposition: ADMITTED OBSERVATION Admitting Provider: Hospitalist Unit Admitted: Medical Floor Referrals: NORMAN NATH MD [NO LOCAL MD] - Follow up as needed
--- NOTE | 2018-03-31 19:46 | RADIOLOGY REPORT (SQ) ---
EXAM DESCRIPTION: CTA CHEST COMPLETED DATE/TIME: 03/31/2018 7:36 pm REASON FOR STUDY: pneumonia/ PE COMPARISON: None. TECHNIQUE: CT scan of the chest performed using helical scanning technique with dynamic intravenous contrast injection. Images reviewed with lung, soft tissue and bone windows. Reconstructed coronal and sagittal MPR images reviewed. Additional 3 dimensional post-processing performed to develop Maximal Intensity Projection images (AK P). All images stored on PACS. All CT scanners at this facility use dose modulation, iterative reconstruction, and/or weight based d osing when appropriate to reduce radiation dose to as low as reasonably achievable (ALARA). [facility]: Dose Right [facility]: CareDose [facility]: Dose Right [facility]: Teradose 4D [facility]: [employer] CONTRAST TYPE AND DOSE: contrast/concentration: Isovue 350.00 mg/ml; Total Contrast Delivered: 65.0 ml; Total Saline Delivered: 106.0 ml Contrast bolus optimized for the pulmonary arteries. Not diagnostic for the aorta. RENAL FUNCTION: None required. The patient is less than 50 years old. RADIATION DOSE: CT Rad equipment meets quality standard of care and radiation dose reduction techniq ues were employed. CTDIvol: 14.3 - 24.8 mGy. DLP: 589 mGy-cm. . LIMITATIONS: None. FINDINGS: LUNGS AND PLEURA: Parenchymal opacity at the right lung base consistent with pneumonia. N o pleural effusion. AORTA AND GREAT VESSELS: No aneurysm. Contrast bolus not optimized for the aorta. HEART: No pericardial effusion. No significant coronary artery calcifications. PULMONARY ARTERIES: No emboli visualized in the main pulmonary arteries or the segmental branches. HILAR AND MEDIASTINAL STRUCTURES: No identified masses or abnormal nodes. HARDWARE: None in the chest. UPPER ABDOMEN: No significant findings. Limited exam. THYROID AND OTHER SOFT TISSUES: No masses. No adenopathy. BONES: No acute or significant finding. 3D MIPS: Confirm above findings. OTHER: A breast prostheses. IMPRESSION: Right lower lobe pneumonia. No pulmonary emboli. COMMENT: Quality ID # [id number]: Final reports with documentation of one or more dose reduction techniques (e.g., Automated exposure control, adjustment of the mA and/or kV according to patient size, use of iterative reconstruction technique) TECHNICAL DOCUMENTATION: JOB ID: [id number] [employer]- All Rights Reserved Reading location - IP/workstation name: [email or web address]
[2018-03-31] MEDS ORDERED: KETOROLAC TROMETHAMINE INJ/PF 30 MG/1 ML SDV IV ONE (21:00)
[2018-03-31] MEDS ORDERED: KETOROLAC TROMETHAMINE INJ/PF 30 MG/1 ML SDV IV PRN (21:00)
[2018-03-31] MEDS ORDERED: GUAIFENESIN SYRP 200 MG/10 ML UDC PO PRN (21:01)
[2018-03-31] MEDS ORDERED: ACETAMINOPHEN 325 MG TABLET PO PRN (21:01)
[2018-03-31] MEDS ORDERED: IPRATROPIUM/ALBUTEROL 0.5-2.5 MG/3 ML AMPUL NEB PRN (21:01)
[2018-03-31] MEDS: ARIPIPRAZOLE 5 MG TABLET PO ONE ×2 (21:17→21:22)
--- NOTE | 2018-03-31 21:23 | PDOC H&P ---
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 Patient presents with 6 days of nonproductive cough right-sided sharp pleuritic chest pain radiating to the shoulder she was evaluated by [facility] diagnosed with pneumonia prescribed Augmentin and doxycycline. After 4 days of this treatment she had worsening symptoms prompting evaluation in the emergency room where she is found to have tachycardia, leukocytosis and a right lower lobe infiltrate by CT. She started on empiric antibiotics and referred to the hospitalist for admission. She complains of exceptional pain is required several doses of Dilaudid by the ER provider already. Patient denies infectious contacts, previous pneumonia, recreational drugs, opiate use or withdrawals. Past Medical History Cardiac Medical History: Reports: Pulmonary Embolism - on xarelto, no missed meds Denies: Atrial Fibrillation, Congestive Heart Failure, Coronary Artery Disease, Myocardial Infarction, Hyperlipidema, Hypertension, Peripheral Vascular Disease, Heart Murmur Pulmonary Medical History: Reports: Bronchitis, Pneumonia Denies: Asthma, Chronic Obstructive Pulmonary Disease (COPD), Respiratory Failure, Sleep Apnea, Tuberculosis Neurological Medical History: Denies: Seizures Endocrine Medical History: Denies: Diabetes Mellitus Type 2, Hyperthyroidism, Hypothyroidism Renal/ Medical History: Denies: End Stage Renal Disease Malignancy Medical History: Reports: Breast Cancer Denies: Cervical Cancer, Leukemia, Lung Cancer, Ovarian Cancer GI Medical History: Reports: Gastroesophageal Reflux Disease Denies: Crohn's Disease, Hiatal Hernia Musculoskeltal Medical History: Denies: Arthritis, Fibromyalgia Psychiatric Medical History: Reports: Depression Denies: Bipolar Disorder, Dementia, Post Traumatic Stress Disorder Hematology: Reports: Anemia - Denies: Hemophilia, Sickle Cell Disease Infectious Medical History: Denies: HIV Past Surgical History Past Surgical History: Reports: Appendectomy, Section - 2, Mastectomy - BILATERAL, Tubal Ligation Denies: Amputation, Colostomy, Pacemaker Social History Information Source: Patient, Emergency Med Personnel, [facility] Records Smoking Status: Never Smoker Frequency of Alcohol Use: None Hx Recreational Drug Use: No Hx Prescription Drug Abuse: No - Advance Directive Resuscitation Status: Full Code Family History Family History: Hypertension, Malignancy Parental Family History Reviewed: Yes Children Family History Reviewed: Yes Sibling(s) Family History Reviewed.: Yes Medication/Allergy Allergies/Adverse Reactions: azithromycin [Azithromycin] Allergy (Intermediate, Verified 03/31/18 14:59) Urticaria Review of Systems Constitutional: PRESENT: as per HPI, chills, fatigue, fever(s). ABSENT: headache(s), night sweats, weakness Eyes: ABSENT: visual disturbances Ears: ABSENT: hearing changes Cardiovascular: ABSENT: chest pain, dyspnea on exertion, edema, orthropnea, palpitations Respiratory: PRESENT: cough, dyspnea. ABSENT: hemoptysis, sputum Gastrointestinal: ABSENT: abdominal pain, constipation, diarrhea, hematemesis, hematochezia, nausea, vomiting Genitourinary: ABSENT: dysuria, hematuria Musculoskeletal: ABSENT: joint swelling Integumentary: ABSENT: rash, wounds Neurological: ABSENT: abnormal gait, abnormal speech, confusion, dizziness, focal weakness, syncope Psychiatric: PRESENT: anxiety. ABSENT: depression, hallucinations, homidical ideation, suicidal ideation Endocrine: ABSENT: cold intolerance, heat intolerance, polydipsia, polyuria Hematologic/Lymphatic: ABSENT: easy bleeding, easy bruising Physical Exam Vital Signs: Temp Pulse Resp BP Pulse Ox 98.2 F 102 H 17 144/62 H 98 03/31/18 14:17 03/31/18 14:17 03/31/18 14:17 03/31/18 14:17 03/31/18 14:17 Intake & Output 03/30/18 03/31/18 04/01/18 11:59 11:59 11:59 Intake Total 1050 Balance 1050 Weight 56.7 kg General appearance: PRESENT: cooperative, mild distress, thin. ABSENT: hard of hearing Head exam: PRESENT: atraumatic, normocephalic Eye exam: PRESENT: conjunctiva pink, EOMI, PERRLA. ABSENT: scleral icterus Ear exam: PRESENT: normal external ear exam Mouth exam: PRESENT: moist, tongue midline Neck exam: ABSENT: carotid bruit, JVD, lymphadenopathy, thyromegaly Respiratory exam: PRESENT: crackles, rhonchi, tachypnea. ABSENT: chest wall tenderness, clear to auscultation marilou, prolonged expiratory phas, rales, retraction, stridor, symmetrical, wheezes Cardiovascular exam: PRESENT: tachycardia. ABSENT: diastolic murmur, rubs, systolic murmur Pulses: PRESENT: normal dorsalis pedis pul Vascular exam: PRESENT: normal capillary refill GI/Abdominal exam: PRESENT: normal bowel sounds, soft. ABSENT: distended, guarding, mass, organolmegaly, rebound, tenderness Rectal exam: PRESENT: deferred Extremities exam: PRESENT: full ROM. ABSENT: calf tenderness, clubbing, pedal edema Neurological exam: PRESENT: alert, awake, oriented to person, oriented to place , oriented to time, oriented to situation, CN II-XII grossly intact. ABSENT: motor sensory deficit Psychiatric exam: PRESENT: anxious. ABSENT: appropriate affect, depressed Results Laboratory Results: 03/31/18 15:33 03/31/18 15:33 03/31/18 03/31/18 03/31/18 15:33 15:33 18:20 WBC 14.3 H RBC 4.51 Hgb 14.4 Hct 40.6 MCV 90 MCH 32.1 MCHC 35.6 RDW 12.2 Plt Count 286 Seg Neutrophils % 64.1 Lymphocytes % 25.6 Monocytes % 9.6 Eosinophils % 0.3 Basophils % 0.4 Absolute Neutrophils 9.2 H Absolute Lymphocytes 3.7 Absolute Monocytes 1.4 Absolute Eosinophils 0.0 Absolute Basophils 0.1 Sodium 141.0 Potassium 3.8 Chloride 104 Carbon Dioxide 28 Anion Gap 9 BUN 14 Creatinine 0.65 Est GFR ( Amer) > 60 Est GFR (Non-Af Amer) > 60 Glucose 97 Lactic Acid 0.8 Calcium 9.9 Total Bilirubin 0.7 AST 48 H ALT 71 H Alkaline Phosphatase 99 Total Protein 7.5 Albumin 4.5 03/31/18 19:05 Troponin I < 0.012 Impressions: Chest X-Ray 03/31/18 15:27 IMPRESSION: NO ACUTE RADIOGRAPHIC FINDING IN THE CHEST. Chest/Abdomen CTA 03/31/18 18:08 IMPRESSION: Right lower lobe pneumonia. No pulmonary emboli. Assessment & Plan - Diagnosis (1) Right lower lobe pneumonia Is this a current diagnosis for this admission?: Yes Plan: Pneumonia care set deployed, Levaquin, follow-up CBC, blood culture (2) Pleuritic chest pain Is this a current diagnosis for this admission?: Yes Plan: Incentive spirometry, Toradol and subcu Dilaudid as needed breakthrough pain (3) Bipolar 1 disorder Is this a current diagnosis for this admission?: Yes Plan: Abilimario (4) Lupus Is this a current diagnosis for this admission?: Yes Plan: Follow-up medication reconciliation, obtain ESR, - Time Time Spent: 50 to 70 Minutes - Inpatient Certification Medical Necessity: Need Close Monitoring Due to Risk of Patient Decompensation
[2018-03-31] MEDS ORDERED: LEVOFLOXACIN 750 MG/D5W RTU 750 MG/150 ML RTUPB IV SCH (22:00)
[2018-03-31] MEDS: HYDROMORPHONE HCL INJ/PF 2 MG/ML AMPULE SUBCUT PRN (23:13)
[2018-04-01] MEDS: IPRATROPIUM/ALBUTEROL 0.5-2.5 MG/3 ML AMPUL NEB SCH ×4 (02:08→19:29)
[2018-04-01 06:50] LABS: ABSOLUTE EOSINOPHILS # (AUTO) 0.1 10^3/uL (0.0-0.6); ABSOLUTE LYMPHOCYTES (AUTO) 2.9 10^3/uL (0.5-4.7); ABSOLUTE MONOCYTES (AUTO) 0.8 10^3/uL (0.1-1.4); ABSOLUTE NEUT (AUTO) 3.1 10^3/uL (1.7-8.2); BASOPHILS % (AUTO) 0.6 % (0-2); EOSINOPHILS % (AUTO) 1.2 % (0-6); HEMATOCRIT 32.9 % (36.0-47.0); LYMPHOCYTES % (AUTO) 42.5 % (13-45); MEAN CORPUSCULAR HEMOGLOBIN 31.9 pg (27.0-33.4); MEAN CORPUSCULAR HGB CONC 35.7 g/dL (32.0-36.0); MEAN CORPUSCULAR VOLUME 89 fl (80-97); MONOCYTES % (AUTO) 11.5 % (3-13); PLATELET COUNT 221 10^3/uL (150-450); RED BLOOD COUNT 3.69 10^6/uL (3.72-5.28); RED CELL DISTRIBUTION WIDTH 12.2 % (11.5-14.0); SEGMENTED NEUTROPHILS % (AUTO) 44.2 % (42-78); TOTAL CELLS COUNTED % (AUTO) 100 %; WHITE BLOOD COUNT 6.9 10^3/uL (4.0-10.5)
[2018-04-01 06:51] LABS: HEMOGLOBIN 11.8 g/dL (12.0-15.5)
[2018-04-01 07:34] LABS: ANION GAP 6 (5-19); BLOOD UREA NITROGEN 11 mg/dL (7-20); CALCIUM 8.6 mg/dL (8.4-10.2); CARBON DIOXIDE 26 mmol/L (22-30); CHLORIDE 106 mmol/L (98-107); GLUCOSE 80 mg/dL (75-110); POTASSIUM 4.1 mmol/L (3.6-5.0); SODIUM 137.7 mmol/L (137-145)
--- NOTE | 2018-04-01 07:40 | EKG REPORT ---
SEVERITY:- BORDERLINE ECG - SINUS RHYTHM PROBABLE LEFT ATRIAL ABNORMALITY BORDERLINE T ABNORMALITIES, ANT-LAT LEADS : Confirmed by: Lito Whatley MD 01-Apr-2018 07:40:12
[2018-04-01] MEDS: PREDNISONE 20 MG TABLET PO SCH (09:17)
[2018-04-01] MEDS: HYDROMORPHONE HCL INJ/PF 2 MG/ML AMPULE SUBCUT PRN ×2 (09:17→14:48)
[2018-04-01] MEDS: RIVAROXABAN 10 MG TABLET PO SCH (09:17)
[2018-04-01] MEDS ORDERED: NORMAL SALINE 1000 ML 1,000 ML IV ONE (15:55)
--- NOTE | 2018-04-01 17:00 | PDOC PROGRESS REPORT ---
Subjective Progress Note for:: 04/01/18 Subjective:: The patient is a 37-year-old female with a past medical history of bipolar, chronic pain, lupus, pulmonary embolism, breast cancer status post bilateral mastectomy who was admitted 03/31/2018 for a right lower lobe pneumonia. The patient was seen on afternoon rounds. She was found resting in bed on room air. She was tearful and noted to be crying prior to my entering the room. She reports that she continues to have significant chest wall pain that is worsened with a deep breathing, cough, and when ambulatory due to slight dyspnea on exertion and tachypnea. The patient endorses mild fevers and chills, headache, myalgias, and fatigue. She also reports intermittent dizziness when ambulatory. She denies headaches, photophobia, nuchal rigidity, palpitations, orthopnea, abdominal pain, nausea and vomiting. She has no new questions or concerns at this time. Nursing reports inadequate pain control with subcutaneous Dilaudid. Reason For Visit: PNEUMONIA BIPOLAR SLE Physical Exam Vital Signs: Temp Pulse Resp BP Pulse Ox 98.3 F 122 H 18 101/60 99 04/01/18 15:21 04/01/18 15:58 04/01/18 15:58 04/01/18 15:58 04/01/18 15:58 Intake & Output 03/31/18 04/01/18 04/02/18 06:59 06:59 06:59 Intake Total 1170 650 Balance 1170 650 Weight 56.1 kg General appearance: PRESENT: no acute distress, thin, well-developed, well- nourished Head exam: PRESENT: atraumatic, normocephalic Eye exam: PRESENT: conjunctiva pink, EOMI, PERRLA. ABSENT: scleral icterus Ear exam: PRESENT: normal external ear exam Mouth exam: PRESENT: moist, tongue midline Neck exam: ABSENT: carotid bruit, JVD, lymphadenopathy, thyromegaly Respiratory exam: PRESENT: rhonchi, symmetrical, tachypnea. ABSENT: rales, wheezes Cardiovascular exam: PRESENT: RRR, +S1, +S2. ABSENT: diastolic murmur, rubs, systolic murmur Pulses: PRESENT: normal dorsalis pedis pul Vascular exam: PRESENT: normal capillary refill GI/Abdominal exam: PRESENT: normal bowel sounds, soft. ABSENT: distended, g uarding, mass, organolmegaly, rebound, tenderness Rectal exam: PRESENT: deferred Extremities exam: PRESENT: full ROM. ABSENT: calf tenderness, clubbing, pedal edema Neurological exam: PRESENT: alert, awake, oriented to person, oriented to place, oriented to time, oriented to situation, CN II-XII grossly intact. ABSENT: mo tor sensory deficit Psychiatric exam: PRESENT: appropriate affect, other - tearful. ABSENT: homicidal ideation, suicidal ideation Skin exam: PRESENT: dry, intact, warm. ABSENT: cyanosis, rash Results Laboratory Results: 04/01/18 06:33 04/01/18 06:33 03/31/18 04/01/18 04/01/18 18:20 06:33 06:33 WBC 6.9 RBC 3.69 L Hgb 11.8 L D Hct 32.9 L MCV 89 MCH 31.9 MCHC 35.7 RDW 12.2 Plt Count 221 Seg Neutrophils % 44.2 Lymphocytes % 42.5 Monocytes % 11.5 Eosinophils % 1.2 Basophils % 0.6 Absolute Neutrophils 3.1 Absolute Lymphocytes 2.9 Absolute Monocytes 0.8 Absolute Eosinophils 0.1 Absolute Basophils 0.0 Sodium 137.7 Potassium 4.1 Chloride 106 Carbon Dioxide 26 Anion Gap 6 BUN 11 Creatinine 0.61 Est GFR ( Amer) > 60 Est GFR (Non-Af Amer) > 60 Glucose 80 Lactic Acid 0.8 Calcium 8.6 03/31/18 19:05 Troponin I < 0.012 Impressions: Chest X-Ray 03/31/18 15:27 IMPRESSION: NO ACUTE RADIOGRAPHIC FINDING IN THE CHEST. Chest/Abdomen CTA 03/31/18 18:08 IMPRESSION: Right lower lobe pneumonia. No pulmonary emboli. Assessment & Plan - Diagnosis (1) Right lower lobe pneumonia Is this a current diagnosis for this admission?: Yes Plan: Right lower lobe pneumonia; likely due to gram-positive organism (community- acquired pneumonia; staph versus strep). I do not believe that the patient failed outpatient therapy as she had only been on her Augmentin and doxycycline for 3 days prior to presentation; rather she has had an incomplete course of therapy. Blood cultures are pending. She has been admitted to the medical floor. Overnight the patient received 1 dose of IV Rocephin and IV Levaquin; if she is tolerating adequate p.o. intake, will transition to p.o. Levaquin today. She is provided scheduled and as needed nebulizer treatments. Robitussin every 4 hours as needed. Incentive spirometry to bedside. Continue ambulating in the hallways 3 times daily. (2) Pleuritic chest pain Is this a current diagnosis for this admission?: Yes Plan: Secondary to #1. Reviewed [place] controlled substance database and called the [facility] pharmacy to verify recent opiate prescriptions. Pt recently received codeine cough syrup, otherwise previous narcotic prescription is [place] in the [place] database in December. She has infrequent controlled substance prescriptions in 2018. Recommend continued as needed Tylenol for Toradol. Will add oxycodone 5/325 every 6 hours as needed. Discontinue subcutaneous Dilaudid. (3) Lupus Is this a current diagnosis for this admission?: Yes Plan: ESR 12. Resume patient's home medication regiment; methotrexate once weekly, prednisone 20 mg daily. Consider stress dose steroids. (4) Bipolar 1 disorder Is this a current diagnosis for this admission?: Yes Plan: Continue home dose Abilify. Will trial trazodone 50 mg nightly. (5) Hypotension Is this a current diagnosis for this admission?: Yes Plan: The patient is noted to have soft blood pressures today; 96/51. Some concern for orthostatic hypotension; blood pressures remained stable at 100/50, however, the patient's heart rate increased to 122 when standing (of not e, this may be directly related to her pneumonia. We will provide a 1 L NS bolus followed by maintenance fluids overnight. Continue her chronic regimen of prednisone 20 mg daily. If she remains hy potensive, will begin stress dose steroids. - Time Time Spent with patient: 15-24 minutes Medications reviewed and adjusted accordingly: Yes Anticipated discharge: Home Within: within 24 hours - Inpatient Certification Based on my medical assessment, after consideration of the patient's comorbidities, presenting symptoms, or acuity I expect that the services needed warrant INPATIENT care.: Yes I certify that my determination is in accordance with my understanding of Medicare's requirements for reasonable and necessary INPATIENT services [42 CFR 412.3e].: Yes Medical Necessity: Need For IV Fluids, Need for Nebulizer Therapy and Monitoring of Response
[2018-04-01] MEDS: OXYCODONE-ACETAMINOPHEN 5-325 MG TABLET PO PRN (17:08)
[2018-04-01] MEDS: LEVOFLOXACIN 750 MG TABLET PO SCH (17:39)
[2018-04-01] MEDS: NORMAL SALINE 1000 ML 1,000 ML IV PRN (18:23)
[2018-04-01] MEDS ORDERED: TRAZODONE HCL 50 MG TABLET PO SCH (22:00)
[2018-04-02] MEDS: OXYCODONE-ACETAMINOPHEN 5-325 MG TABLET PO PRN ×2 (00:34→08:19)
[2018-04-02] MEDS: IPRATROPIUM/ALBUTEROL 0.5-2.5 MG/3 ML AMPUL NEB SCH ×2 (01:15→07:39)
[2018-04-02] MEDS: NORMAL SALINE 1000 ML 1,000 ML IV PRN (04:29)
[2018-04-02] MEDS: PREDNISONE 20 MG TABLET PO SCH (10:04)
[2018-04-02] MEDS: LEVOFLOXACIN 750 MG TABLET PO SCH (10:04)
[2018-04-02] MEDS: RIVAROXABAN 10 MG TABLET PO SCH (10:04)
[2018-04-02 10:37] VITALS: BP 98/52
[2018-04-03] MEDS ORDERED: METHOTREXATE SODIUM 2.5 MG TABLET PO SCH (10:00)
--- NOTE | 2018-04-04 08:39 | PDOC DISCHARGE SUMMARY ---
General - Admit/Disc Date/PCP Admission Date/Primary Care Provider: 04/01/18 17:38 NELI MCALLISTER MD Discharge Date: 04/02/18 - Discharge Diagnosis (1) Right lower lobe pneumonia Is this a current diagnosis for this admission?: Yes (2) Pleuritic chest pain Is this a current diagnosis for this admission?: Yes (3) Lupus Is this a current diagnosis for this admission?: Yes (4) Bipolar 1 disorder Is this a current diagnosis for this admission?: Yes (5) Hypotension Is this a current diagnosis for this admission?: Yes - Additional Information Resuscitation Status: Full Code Discharge Diet: Regular Discharge Activity: Activity As Tolerated, Balance Activity w/Rest, Slowly Increase Activity Prescriptions: Albuterol Sulfate [Proair Respiclick] 1 - 2 inh IH Q4HP PRN #1 aer.[email or web address] PRN Reason: Shortness of Breath/Wheezing Levofloxacin [Levaquin 750 mg Tablet] 750 mg PO DAILY #4 tablet Oxycodone HCl/Acetaminophen [Percocet 5-325 mg Tablet] 1 tab PO Q6HP PRN #12 tablet PRN Reason: Trazodone HCl [Desyrel 50 mg Tablet] 50 mg PO QHS #30 tablet Home Medications: Methotrexate Sodium [Rheumatrex 2.5 mg Tablet] 10 mg PO FR@1000 03/31/18 Prednisone [Deltasone 20 mg Tablet] 20 mg PO DAILY 03/31/18 Rivaroxaban [Xarelto 10 mg Tablet] 20 mg PO DAILY 03/31/18 Acetaminophen [Tylenol 325 mg Tablet] 650 mg PO Q4HP PRN tablet 04/02/18 Albuterol Sulfate [Proair Respiclick] 1 - 2 inh IH Q4HP PRN #1 aer.[email or web address] 04/02/18 Guaifenesin [Robitussin Syrup 200 mg/10 ml Ud Cup] 200 mg PO Q4HP PRN udc Levofloxacin [Levaquin 750 mg Tablet] 750 mg PO DAILY #4 tablet 04/02/18 Oxycodone HCl/Acetaminophen [Percocet 5-325 mg Tablet] 1 tab PO Q6HP PRN #12 tablet 04/02/18 Trazodone HCl [Desyrel 50 mg Tablet] 50 mg PO QHS #30 tablet 04/02/18 History of Present Illness History of Present Illness: H&P per Dr. Holm: VEGA PEDERSON is a 37 year old female with an extensive past medical history of bipolar, chronic pain, lupus, pulmonary embolism, breast cancer status post bilateral mastectomy and cancer free for 2 years. Patient presents with 6 days of nonproductive cough right-sided sharp pleuritic chest pain radiating to the shoulder she was evaluated by [facility] diagnosed with pneumonia prescribed Augmentin and doxycycline. After 4 days of this treatment she had worsening symptoms prompting evaluation in the emergency room where she is found to have tachycardia, leukocytosis and a right lower lobe infiltrate by CT. She started on empiric antibiotics and referred to the hospitalist for admission. She complains of exceptional pain is required several doses of Dilaudid by the ER provider already. Patient denies infectious contacts, previous pneumonia, recreational drugs, opiate use or withdrawals. Hospital Course Hospital Course: The patient was admitted to the medical floor. Prior to admission, she had been taking Augmentin and doxycycline; it is unlikely that she failed outpatient therapy but rather had an incomplete course of therapy. Nevertheless, she received 1 dose of IV Rocephin while in the emergency department and then was started on IV Levaquin upon admission. She was provided scheduled and as needed nebulizer treatments. Fortunately, the patient maintained oxygen saturations and did not require supplemental oxygen. She did have significant pleuritic chest pain. She received subcutaneous Dilaudid for her discomfort and IV Toradol with minimal relief of symptoms due to the brevity of Dilaudid half-life. The [place] controlled substance database was reviewed and [facility] pharmacy was contacted to verify recent opiate prescriptions; the only narcotic prescription within the last few months was for guaifenesin with codeine cough syrup. Therefore, the patient was started on p.o. Percocet with excellent control of her discomfort and she was provided a short prescription at time of discharge. She was encouraged to continue [id number] Tylenol per package instructions for mild to moderate pain and to utilize Percocet for breakthrough pain only. On day of discharge, the patient reported that she was feeling much better and was maintaining her oxygen saturations on room air while ambulatory. She was discharged with prescriptions for p.o. Levaquin, albuterol rescue inhaler, p.o. Levaquin, Percocet, and trazodone 50 mg nightly for insomnia. She was discharged with an incentive spirometer and strongly encouraged to continue use hourly while awake. She was instructed to follow-up with her primary care provider within 1-2 weeks and to return to the emergency department as needed for any concerning symptoms. Physical Exam Vital Signs: Temp Pulse Resp BP Pulse Ox 98.0 F 86 15 98/52 L 100 04/02/18 10:30 04/02/18 10:30 04/02/18 10:30 04/02/18 10:30 04/02/18 10:30 General appearance: PRESENT: no acute distress, cooperative, well-developed, well-nourished Head exam: PRESENT: atraumatic, normocephalic Eye exam: PRESENT: conjunctiva pink, EOMI, PERRLA. ABSENT: scleral icterus Ear exam: PRESENT: normal external ear exam Mouth exam: PRESENT: moist, tongue midline Neck exam: ABSENT: carotid bruit, JVD, lymphadenopathy, thyromegaly Respiratory exam: PRESENT: rhonchi, symmetrical, unlabored. ABSENT: rales, wheezes Cardiovascular exam: PRESENT: RRR. ABSENT: diastolic murmur, rubs, systolic murmur Pulses: PRESENT: normal dorsalis pedis pul Vascular exam: PRESENT: normal capillary refill GI/Abdominal exam: PRESENT: normal bowel sounds, soft. ABSENT: distended, guarding, mass, organolmegaly, rebound, tenderness Rectal exam: PRESENT: deferred Extremities exam: PRESENT: full ROM. ABSENT: calf tenderness, clubbing, pedal edema Neurological exam: PRESENT: alert, awake, oriented to person, oriented to place, oriented to time, oriented to situation, CN II-XII grossly intact. ABSENT: motor sensory deficit Psychiatric exam: PRESENT: appropriate affect, normal mood. ABSENT: homicidal ideation, suicidal ideation Skin exam: PRESENT: dry, intact, warm. ABSENT: cyanosis, rash Results Laboratory Results: 04/01/18 06:33 04/01/18 06:33 03/31/18 19:05 Troponin I < 0.012 Impressions: Chest X-Ray 03/31/18 15:27 IMPRESSION: NO ACUTE RADIOGRAPHIC FINDING IN THE CHEST. Chest/Abdomen CTA 03/31/18 18:08 IMPRESSION: Right lower lobe pneumonia. No pulmonary emboli. Qualifiers - * PATIENT BEING DISCHARGED WITH ANY OF THE FOLLOWING DIAGNOSIS: No Plan Discharge Plan: Patient is discharged to home with self care. Follow up with primary care provider within 1 week. Return to the emergency department as needed for concerning symptoms. Time Spent: Less than 30 Minutes
== END 2018-04-02 11:15 | disposition home or self-care (01) | DRG 195 ==
LOC: ER 14:10 → EH 21:26 → 2N 22:43 → OBSVTOIN 04-01 17:38
PROVIDERS: ADMIT Internal Medicine; ATTEND Internal Medicine
DX: J18.1 Lobar pneumonia, unspecified organism (principal); I95.9 Hypotension, unspecified; L93.0 Discoid lupus erythematosus; K21.9 Gastro-esophageal reflux disease without esophagitis; K29.70 Gastritis, unspecified, without bleeding; F31.9 Bipolar disorder, unspecified; Z79.01 Long term (current) use of anticoagulants; Z86.711 Personal history of pulmonary embolism; Z86.718 Personal history of other venous thrombosis and embolism; Z85.3 Personal history of malignant neoplasm of breast; Z90.13 Acquired absence of bilateral breasts and nipples
CPT/HCPCS: 36415; 71046; 71275; 80048; 80053; 83605; 84484; 85025; 85652; 87040; 93005; 93010; 94640; 94799; 96365; 96375; 96376; 99285; G0378; J0696; J1170; J1885; J1956; J2405; J3490; J7030; J7512; J7620

== ENCOUNTER 2018-08-14 21:34 | Emergency (ER) | payer OTHER | END 2018-08-14 23:37 | disposition left against medical advice (07) | LOC: ER 21:34 | DX: Z53.21 Procedure and treatment not carried out due to patient leaving prior to being seen by health care provider (principal) ==

== ENCOUNTER 2018-08-15 16:20 | Emergency (ER) | payer OTHER ==
[2018-08-15] MEDS ORDERED: ONDANSETRON HCL INJ/PF 4 MG/2 ML SDV IV ONE ×2 (17:15→18:52)
[2018-08-15] MEDS ORDERED: NORMAL SALINE 1000 ML 1,000 ML IV ONE (17:15)
[2018-08-15] MEDS ORDERED: KETOROLAC TROMETHAMINE INJ/PF 30 MG/1 ML SDV IV ONE (17:15)
--- NOTE | 2018-08-15 17:18 | ER Document Report ---
ED Medical Screen (RME) - General Chief Complaint: Flank Pain Stated Complaint: PAINFUL URINATION/FLANK PAIN Time Seen by Provider: 08/15/18 17:11 Primary Care Provider: NELI MCALLISTER MD [Primary Care Provider] - Follow up as needed Mode of Arrival: Ambulatory Information source: Patient TRAVEL OUTSIDE OF THE [place] IN LAST 30 DAYS: No - HPI Patient complains to provider of: FLANK PAIN Notes: 08/15/18 17:16 Patient is here with complaints of flank pain. The patient has a history of kidney infections. She states she has had some burning with urination for the last few days and over the last couple days developed some flank pain. No fevers. She has had some nausea, no vomiting or diarrhea. Exam Nontoxic, tearful. Lungs clear and equal throughout. Mild tachycardia. Bilateral CVA tenderness to percussion. Plan CBC, CMP, urine, , lipase, saline lock, Toradol, Zofran, IV fluids. Will allow the provider that takes over care to determine if advanced imaging is indicated at this time. An initial examination was made on the patient as part of the triage process, and it was determined a more comprehensive evaluation was necessary. Initial labs were ordered and patient was transferred to another provider in the ED who assumed care and finished evaluation and plan. - Related Data Allergies/Adverse Reactions: azithromycin [Azithromycin] Allergy (Intermediate, Verified 08/15/18 16:21) Urticaria ciprofloxacin [From Cipro] Allergy (Verified 08/15/18 17:15) Past Medical History - Social History Frequency of alcohol use: None Drug Abuse: None - Past Medical History Cardiac Medical History: Reports: Hx Pulmonary Embolism - on xarelto, no missed meds Denies: Hx Atrial Fibrillation, Hx Congestive Heart Failure, Hx Coronary Artery Disease, Hx Heart Attack, Hx Hypercholesterolemia, Hx Hypertension, Hx Peripheral Vascular Disease, Hx Heart Murmur Pulmonary Medical History: Reports: Hx Bronchitis, Hx Pneumonia Denies: Hx Asthma, Hx COPD, Hx Respiratory Failure, Hx Sleep Apnea, Hx Tuberculosis Neurological Medical History: Denies: Hx Cerebrovascular Accident, Hx Seizures Endocrine Medical History: Denies: Hx Diabetes Mellitus Type 2, Hx Graves' Disease, Hx Hyperthyroidism, Hx Hypothyroidism Renal/ Medical History: Denies: Hx End Stage Renal Disease, Hx Kidney Stones, Hx Ovarian Cysts, Hx Peritoneal Dialysis, Hx Pelvic Inflammatory Disease Malignancy Medical History: Reports: Hx Breast Cancer. Denies: Hx Cervical Cancer, Hx Leukemia, Hx Lung Cancer, Hx Ovarian Cancer GI Medical History: Reports: Hx Gastritis, Hx Gastroesophageal Reflux Disease, Hx Ulcer. Denies: Hx Crohn's Disease, Hx Hiatal Hernia, Hx Irritable Bowel, Hx Liver Failure, Hx Pancreatitis Musculoskeltal Medical History: Denies Hx Arthritis, Denies Hx Fibromyalgia, Denies Hx Multiple Sclerosis, Denies Hx Muscular Dystrophy Psychiatric Medical History: Reports: Hx Anxiety, Hx Bipolar Disorder, Hx Depression Denies: Hx Dementia, Hx Post Traumatic Stress Disorder, Hx Schizophrenia Traumatic Medical History: Denies: Hx Fractures Infectious Medical History: Denies: Hx HIV Past Surgical History: Reports: Hx Appendectomy, Hx Breast Surgery, Hx Section - 2, Hx Gynecologic Surgery - L ovary removed, Hx Mastectomy - BILATERAL, Hx Tubal Ligation. Denies: Hx Colostomy, Hx Pacemaker - Immunizations Hx Diphtheria, Pertussis, Tetanus Vaccination: Yes History of Influenza Vaccine for 01/2017 - 06/2017 Season: Yes Influenza Administration Date for 01/2017 - 06/2017 Season: 02/11/18 Physical Exam - Vital signs Vitals: Temp Pulse Resp BP Pulse Ox 98.1 F 89 16 130/82 H 99 08/15/18 16:31 08/15/18 16:31 08/15/18 16:31 08/15/18 16:31 08/15/18 16:31 Course - Vital Signs Vital signs: Temp Pulse Resp BP Pulse Ox 98.1 F 89 16 130/82 H 99 08/15/18 16:31 08/15/18 16:31 08/15/18 16:31 08/15/18 16:31 08/15/18 16:31 Doctor's Discharge - Discharge Referrals: NELI MCALLISTER MD [Primary Care Provider] - Follow up as needed
[2018-08-15 18:05] LABS: ABSOLUTE LYMPHOCYTES (AUTO) 1.1 10^3/uL (0.5-4.7); ABSOLUTE MONOCYTES (AUTO) 0.6 10^3/uL (0.1-1.4); ABSOLUTE NEUT (AUTO) 6.9 10^3/uL (1.7-8.2); BASOPHILS % (AUTO) 0.3 % (0-2); EOSINOPHILS % (AUTO) 0.3 % (0-6); HEMATOCRIT 43.8 % (36.0-47.0); HEMOGLOBIN 14.9 g/dL (12.0-15.5); LYMPHOCYTES % (AUTO) 12.9 % (13-45); MEAN CORPUSCULAR HEMOGLOBIN 30.5 pg (27.0-33.4); MEAN CORPUSCULAR HGB CONC 33.9 g/dL (32.0-36.0); MEAN CORPUSCULAR VOLUME 90 fl (80-97); MONOCYTES % (AUTO) 7.4 % (3-13); PLATELET COUNT 251 10^3/uL (150-450); RED BLOOD COUNT 4.87 10^6/uL (3.72-5.28); RED CELL DISTRIBUTION WIDTH 12.4 % (11.5-14.0); SEGMENTED NEUTROPHILS % (AUTO) 79.1 % (42-78); TOTAL CELLS COUNTED % (AUTO) 100 %; WHITE BLOOD COUNT 8.7 10^3/uL (4.0-10.5)
[2018-08-15 18:09] LABS: APPEARANCE,URINE SLIGHTLY-CLOUDY; BILIRUBIN,URINE NEGATIVE (NEGATIVE); COLOR,URINE YELLOW; GLUCOSE, URINE NEGATIVE (NEGATIVE); KETONES,URINE TRACE mg/dL (NEGATIVE); LEUKOCYTE ESTERASE,URINE SMALL (NEGATIVE); NITRITE,URINE NEGATIVE (NEGATIVE); PROTEIN,URINE NEGATIVE (NEGATIVE); URINE SPECIFIC GRAVITY 1.015; UROBILINOGEN,URINE NEGATIVE mg/dL (<2.0)
[2018-08-15 18:23] LABS: ALANINE AMINOTRANSFERASE 49 U/L (9-52); ALBUMIN 4.5 g/dL (3.5-5.0); ALKALINE PHOSPHATASE 70 U/L (38-126); ANION GAP 10 (5-19); ASPARTATE AMINO TRANSFERASE 40 U/L (14-36); BILIRUBIN,DIRECT 0.3 mg/dL (0.0-0.4); BILIRUBIN,TOTAL 1.1 mg/dL (0.2-1.3); BLOOD UREA NITROGEN 7 mg/dL (7-20); CARBON DIOXIDE 27 mmol/L (22-30); CHLORIDE 103 mmol/L (98-107); GLUCOSE 99 mg/dL (75-110); LIPASE 35.9 U/L (23-300); POTASSIUM 4.5 mmol/L (3.6-5.0); SODIUM 139.9 mmol/L (137-145); TOTAL PROTEIN 7.5 g/dL (6.3-8.2)
[2018-08-15] MEDS ORDERED: HYDROMORPHONE HCL INJ/PF 2 MG/ML AMPULE IV ONE ×2 (18:52→20:42)
[2018-08-15] MEDS ORDERED: CEFTRIAXONE 1 GM/D5W RTU 1 GM/50 ML RTUPB IV ONE (18:52)
--- NOTE | 2018-08-15 18:55 | ER Document Report ---
ED General - General Chief Complaint: Flank Pain Stated Complaint: PAINFUL URINATION/FLANK PAIN Time Seen by Provider: 08/15/18 17:11 Primary Care Provider: NELI MCALLISTER MD [Primary Care Provider] - Follow up as needed Mode of Arrival: Ambulatory Information source: Patient Notes: This is a 37-year-old female with a history of lupus (methotrexate, Plaquenil), iliac vein thrombosis, PE (Xarelto), breast cancer (double mastectomy) who presents to the emergency room with painful urination, back pain, flank pain for the past 2 days. Patient denies fever. She does report nausea. TRAVEL OUTSIDE OF THE [place] IN LAST 30 DAYS: No - HPI Onset: Last week Onset/Duration: Gradual Quality of pain: Dull Severity: Moderate Pain Level: 3 Associated symptoms: Nausea, Other - Body aches, dysuria. denies: Chest pain, Fever, Shortness of breath Exacerbated by: Movement Relieved by: Remaining still Similar symptoms previously: Yes Recently seen / treated by doctor: No - Related Data Allergies/Adverse Reactions: azithromycin [Azithromycin] Allergy (Intermediate, Verified 08/15/18 16:21) Urticaria ciprofloxacin [From Cipro] Allergy (Verified 08/15/18 17:15) Past Medical History - General Information source: Patient - Social History Smoking Status: Never Smoker Cigarette use (# per day): No Chew tobacco use (# tins/day): No Frequency of alcohol use: None Drug Abuse: None Lives with: Family Family History: Hypertension, Malignancy Patient has suicidal ideation: No Patient has homicidal ideation: No - Past Medical History Cardiac Medical History: Reports: Hx Pulmonary Embolism - on xarelto, no missed meds Denies: Hx Atrial Fibrillation, Hx Congestive Heart Failure, Hx Coronary Artery Disease, Hx Heart Attack, Hx Hypercholesterolemia, Hx Hypertension, Hx Peripheral Vascular Disease, Hx Heart Murmur Pulmonary Medical History: Reports: Hx Bronchitis, Hx Pneumonia Denies: Hx Asthma, Hx COPD, Hx Respiratory Failure, Hx Sleep Apnea, Hx Tuberculosis Neurological Medical History: Denies: Hx Cerebrovascular Accident, Hx Seizures Endocrine Medical History: Denies: Hx Diabetes Mellitus Type 2, Hx Graves' Disease, Hx Hyperthyroidism, Hx Hypothyroidism Renal/ Medical History: Denies: Hx End Stage Renal Disease, Hx Kidney Stones, Hx Ovarian Cysts, Hx Peritoneal Dialysis, Hx Pelvic Inflammatory Disease Malignancy Medical History: Reports: Hx Breast Cancer. Denies: Hx Cervical Cancer, Hx Leukemia, Hx Lung Cancer, Hx Ovarian Cancer GI Medical History: Reports: Hx Gastritis, Hx Gastroesophageal Reflux Disease, Hx Ulcer. Denies: Hx Crohn's Disease, Hx Hiatal Hernia, Hx Irritable Bowel, Hx Liver Failure, Hx Pancreatitis Musculoskeletal Medical History: Denies Hx Arthritis, Denies Hx Fibromyalgia, Denies Hx Multiple Sclerosis, Denies Hx Muscular Dystrophy Psychiatric Medical History: Reports: Hx Anxiety, Hx Bipolar Disorder, Hx Depression Denies: Hx Dementia, Hx Post Traumatic Stress Disorder, Hx Schizophrenia Traumatic Medical History: Denies: Hx Fractures Infectious Medical History: Denies: Hx HIV Past Surgical History: Reports: Hx Appendectomy, Hx Breast Surgery, Hx Section - 2, Hx Gynecologic Surgery - L ovary removed, Hx Mastectomy - BILATERAL, Hx Tubal Ligation. Denies: Hx Colostomy, Hx Pacemaker - Immunizations Hx Diphtheria, Pertussis, Tetanus Vaccination: Yes Hx Pneumococcal Vaccination: 01/27/12 Review of Systems - Review of Systems Constitutional: denies: Chills, Fever EENT: No symptoms reported Cardiovascular: No symptoms reported Respiratory: No symptoms reported Gastrointestinal: See HPI Genitourinary: See HPI Female Genitourinary: No symptoms reported Musculoskeletal: See HPI Skin: No symptoms reported Hematologic/Lymphatic: No symptoms reported Neurological/Psychological: No symptoms reported Physical Exam - Vital signs Vitals: Temp Pulse Resp BP Pulse Ox 98.1 F 89 16 130/82 H 99 08/15/18 16:31 08/15/18 16:31 08/15/18 16:31 08/15/18 16:31 08/15/18 16:31 Notes: Physical exam: GENERAL: Patient is alert and oriented x3, she looks in distress, she reports nausea. HEAD: Atraumatic, normocephalic. EYES: Pupils equal round and reactive to light, extraocular movements intact, sclera anicteric, conjunctiva are normal. ENT: TMs normal, nares patent, oropharynx clear without exudates. Moist mucous membranes. NECK: Normal range of motion, supple without obvious mass or JVD. LUNGS: Breath sounds clear to auscultation bilaterally and equal. No wheezes rales or rhonchi. HEART: Regular rate and rhythm without murmurs, rubs or gallops. ABDOMEN: Soft, normoactive bowel sounds. Right side abdominal tenderness. No guarding, no rebound. No masses appreciated. EXTREMITIES: Normal range of motion, no pitting or edema. No clubbing or cyanos is. NEUROLOGICAL: Cranial nerves II through XII grossly intact. Normal speech, moving all extremities. PSYCH: Normal mood, normal affect. SKIN: Warm, Dry, normal turgor, no rashes or lesions noted. Course - Re-evaluation Re-evalutation: 08/15/18 23:48 Patient given IV fluids, IV pain medicine, IV antiemetics, IV ceftriaxone. Urine shows infection. CT shows no acute intra-abdominal process. Patient was feeling better after the IV fluids and antiemetics. Plan will be for discharge home with oral antibiotics, pain medicine, nausea medicine and rest. Patient will follow-up with her doctor on Friday. - Vital Signs Vital signs: Temp Pulse Resp BP Pulse Ox 97.8 F 93 16 102/72 100 08/15/18 23:34 08/15/18 23:34 08/15/18 23:34 08/15/18 23:34 08/15/18 23:34 - Laboratory Result Diagrams: 08/15/18 17:30 08/15/18 17:30 Laboratory results interpreted by me: 08/15/18 08/15/18 08/15/18 17:30 17:30 17:30 Seg Neutrophils % 79.1 H Lymphocytes % 12.9 L AST 40 H Urine Ketones TRACE H Ur Leukocyte Esterase SMALL H - Diagnostic Test Radiology reviewed: Image reviewed, Reports reviewed - T of the abdomen shows no acute intra-abdominal process. Discharge - Discharge Clinical Impression: Pyelonephritis Condition: Stable Disposition: HOME, SELF-CARE Additional Instructions: As we discussed, the CAT scan showed no acute intra-abdominal process. Urine did have white cells concerning for urine infection. Given your immune compromise, we will treat you for a kidney infection. You were given a gram of IV ceftriaxone in the emergency room. Take the antibiotics as prescribed. Take the nausea medicine as needed. Take the pain medicine as needed. Follow-up with your doctor on Friday. When you see your doctor, bring a copy of today's labs and CT report with you when you go. Urine culture will take 2 days to come back. Return to the emergency room for worsening pain, vomiting, not tolerating fluids or any concerns or getting worse. The pain medicine you're taking prescribed as a narcotic. There are several important things you should know about this medicine: 1. This medicine contains Tylenol: It is important that you do not take Tylenol (or acetaminophen) while on this medicine. Tylenol is metabolized by the liver and taking too much Tylenol (acetaminophen) can lay to liver damage and even liver failure. 2. Taking narcotics for too long can lead to physical and mental dependence. Take this medicine only if really needed and in the lowest quantity to achieve pain relief. 3. Do not drink alcohol while on this medicine. Alcohol interacts with narco tics and the combination can be dangerous. 4. Do not drive or operate machinery while on this medicine. 5. Narcotics do cause constipation, so drink plenty of fluids and daily stool softeners. Prescriptions: Cephalexin Monohydrate [Keflex 500 mg Capsule] 500 mg PO Q6H 10 Days #40 capsule Oxycodone HCl/Acetaminophen [Percocet 5-325 mg Tablet] 1 - 2 tab PO ASDIR PRN #25 tablet PRN Reason: Promethazine HCl [Phenergan 25 mg Tablet] 25 mg PO Q6H PRN #15 tablet PRN Reason: Forms: Return to Work Referrals: NELI MCALLISTER MD [Primary Care Provider] - Follow up as needed
[2018-08-15] MEDS ORDERED: METOCLOPRAMIDE HCL INJ/PF 10 MG/2 ML SDV IV ONE (20:43)
[2018-08-15] MEDS ORDERED: DIPHENHYDRAMINE HCL 50 MG/ML VIAL IV ONE (20:44)
--- NOTE | 2018-08-15 22:05 | RADIOLOGY REPORT (SQ) ---
EXAM DESCRIPTION: CT ABDOMEN PELVIS WITH IV CONTRAST COMPLETED DATE/TME: 08/15/2018 00:00 CLINICAL HISTORY: 37 years, Female, abdominal pain COMPARISON: 01/06/2018 CT TECHNIQUE: 355 Images stored on PACS. All CT scanners at this facility use dose modulation, iterative reconstruction, and/or weight based dosing when appropriate to reduce radiation dose to as low as reasonably achievable (ALARA). [facility]: Dose Right [facility]: CareDose [facility]: Dose Right [facility]: Teradose 4D [facility]: [employer] LIMITATIONS: None. FINDINGS: Limited evaluation of the lung bases shows bilateral breast prostheses. Osseous structures are grossly intact. The liver, spleen, adrenal glands, pancreas, kidneys are unremarkable. The gallbladder is present. Abundant stool in the colon. No evidence for bowel obstruction. Tubal ligation clips are present. The appendix is not well seen. No pericecal inflammation. No free air or free fluid. IMPRESSION: Negative for acute intra-abdominal/pelvic process TECHNICAL DOCUMENTATION: Quality ID # [id number]: Final reports with documentation of one or more dose reduction techniques (e.g., Automated exposure control, adjustment of the mA and/or kV according to patient size, use of iterative reconstruction technique) copyright 2010 [employer]- All Rights Reserved
[2018-08-15] MEDS ORDERED: HYDROCODONE/ACETAMINOPHEN 5-325 MG (6 TAB/ER DISP) PO PRN (23:19)
[2018-08-15] MEDS ORDERED: ONDANSETRON ODT 4 MG TAB (6 TAB/ER DISP) PO PRN (23:19)
[2018-08-15 23:43] VITALS: BP 102/72
== END 2018-08-15 23:51 | disposition home or self-care (01) ==
LOC: ER 16:20
DX: N12 Tubulo-interstitial nephritis, not specified as acute or chronic (principal); R10.9 Unspecified abdominal pain; R11.0 Nausea; M54.9 Dorsalgia, unspecified; Z79.01 Long term (current) use of anticoagulants; Z85.3 Personal history of malignant neoplasm of breast; Z88.1 Allergy status to other antibiotic agents
CPT/HCPCS: 96376; 99284; 96361; 96375; 96365; 36415; 87040; 87086; 84702; 83690; 85025; 87088; 80053; 81001; 87186; 83605; 74177; J1200; J1885; J2765; J1170; J2405; J7030; J0696

== ENCOUNTER 2018-08-24 17:02 | Emergency (ER) | payer OTHER ==
[2018-08-24] MEDS ORDERED: NORMAL SALINE 1000 ML 1,000 ML IV ONE (17:55)
--- NOTE | 2018-08-24 17:55 | ER Document Report ---
ED Medical Screen (RME) - General Chief Complaint: Flank Pain Stated Complaint: FLANK PAIN Time Seen by Provider: 08/24/18 17:53 Primary Care Provider: NELI MCALLISTER MD [Primary Care Provider] - Follow up as needed Mode of Arrival: Ambulatory Information source: Patient Notes: 37-year-old female presented to ED for right flank pain. States she was seen here about 8 days ago for the same was told she had an infection. She was started on Keflex. She states she got better went to work on Friday and then the pain started again yesterday. She had a negative CT when she was seen here last time. She states she does have a history of a pulmonary emboli but is on Xarelto she also had a thrombosis in the iliac vein. She states she is followed up with her primary doctor as instructed for the blood clots. Patient is alert oriented respirations regular and unlabored speaking in full sentences and is tender to the right flank area. I have greeted and performed a rapid initial assessment of this patient. A comprehensive ED assessment and evaluation of the patient, analysis of test results and completion of medical decision making process will be conducted by an additional ED providers. Dictation of this chart was performed using voice recognition software; therefore, there may be some unintended grammatical errors. TRAVEL OUTSIDE OF THE [place] IN LAST 30 DAYS: No - Related Data Allergies/Adverse Reactions: azithromycin [Azithromycin] Allergy (Intermediate, Verified 08/15/18 16:21) Urticaria ciprofloxacin [From Cipro] Allergy (Verified 08/15/18 17:15) Past Medical History - Past Medical History Cardiac Medical History: Reports: Hx Pulmonary Embolism - on xarelto, no missed meds Denies: Hx Atrial Fibrillation, Hx Congestive Heart Failure, Hx Coronary Artery Disease, Hx Heart Attack, Hx Hypercholesterolemia, Hx Hypertension, Hx Peripheral Vascular Disease, Hx Heart Murmur Pulmonary Medical History: Reports: Hx Bronchitis, Hx Pneumonia Denies: Hx Asthma, Hx COPD, Hx Respiratory Failure, Hx Sleep Apnea, Hx Tuberculosis Neurological Medical History: Denies: Hx Cerebrovascular Accident, Hx Seizures Endocrine Medical History: Denies: Hx Diabetes Mellitus Type 2, Hx Graves' Disease, Hx Hyperthyroidism, Hx Hypothyroidism Renal/ Medical History: Denies: Hx End Stage Renal Disease, Hx Kidney Stones, Hx Ovarian Cysts, Hx Peritoneal Dialysis, Hx Pelvic Inflammatory Disease Malignancy Medical History: Reports: Hx Breast Cancer. Denies: Hx Cervical Cancer, Hx Leukemia, Hx Lung Cancer, Hx Ovarian Cancer GI Medical History: Reports: Hx Gastritis, Hx Gastroesophageal Reflux Disease, Hx Ulcer. Denies: Hx Crohn's Disease, Hx Hiatal Hernia, Hx Irritable Bowel, Hx Liver Failure, Hx Pancreatitis Musculoskeltal Medical History: Denies Hx Arthritis, Denies Hx Fibromyalgia, Denies Hx Multiple Sclerosis, Denies Hx Muscular Dystrophy, Denies Hx Systemic Lupus Erythematosus Psychiatric Medical History: Reports: Hx Anxiety, Hx Bipolar Disorder, Hx Depression Denies: Hx Dementia, Hx Post Traumatic Stress Disorder, Hx Schizophrenia Traumatic Medical History: Denies: Hx Fractures Infectious Medical History: Denies: Hx HIV Past Surgical History: Reports: Hx Appendectomy, Hx Breast Surgery, Hx Section - 2, Hx Gynecologic Surgery - L ovary removed, Hx Mastectomy - BILATERAL, Hx Tubal Ligation. Denies: Hx Colostomy, Hx Pacemaker - Immunizations Hx Diphtheria, Pertussis, Tetanus Vaccination: Yes History of Influenza Vaccine for 01/2017 - 06/2017 Season: Yes Influenza Administration Date for 01/2017 - 06/2017 Season: 02/11/18 Physical Exam - Vital signs Vitals: Temp Pulse Resp BP Pulse Ox 98.3 F 53 L 20 133/82 H 100 08/24/18 17:10 08/24/18 17:10 08/24/18 17:10 08/24/18 17:10 08/24/18 17:10 Course - Vital Signs Vital signs: Temp Pulse Resp BP Pulse Ox 98.3 F 53 L 20 133/82 H 100 08/24/18 17:10 08/24/18 17:10 08/24/18 17:10 08/24/18 17:10 08/24/18 17:10 Doctor's Discharge - Discharge Referrals: NELI MCALLISTER MD [Primary Care Provider] - Follow up as needed
[2018-08-24 18:42] LABS: APPEARANCE,URINE CLEAR; BILIRUBIN,URINE NEGATIVE (NEGATIVE); COLOR,URINE YELLOW; GLUCOSE, URINE NEGATIVE (NEGATIVE); KETONES,URINE TRACE mg/dL (NEGATIVE); LEUKOCYTE ESTERASE,URINE NEGATIVE (NEGATIVE); NITRITE,URINE NEGATIVE (NEGATIVE); PROTEIN,URINE NEGATIVE (NEGATIVE); URINE SPECIFIC GRAVITY 1.013; UROBILINOGEN,URINE NEGATIVE mg/dL (<2.0)
[2018-08-24 18:44] LABS: ABSOLUTE EOSINOPHILS # (AUTO) 0.1 10^3/uL (0.0-0.6); ABSOLUTE LYMPHOCYTES (AUTO) 1.6 10^3/uL (0.5-4.7); ABSOLUTE MONOCYTES (AUTO) 0.8 10^3/uL (0.1-1.4); ABSOLUTE NEUT (AUTO) 5.2 10^3/uL (1.7-8.2); BASOPHILS % (AUTO) 0.4 % (0-2); EOSINOPHILS % (AUTO) 0.7 % (0-6); HEMOGLOBIN 15.1 g/dL (12.0-15.5); LYMPHOCYTES % (AUTO) 21.3 % (13-45); MEAN CORPUSCULAR HEMOGLOBIN 30.5 pg (27.0-33.4); MEAN CORPUSCULAR HGB CONC 34.3 g/dL (32.0-36.0); MEAN CORPUSCULAR VOLUME 89 fl (80-97); MONOCYTES % (AUTO) 9.9 % (3-13); PLATELET COUNT 275 10^3/uL (150-450); RED BLOOD COUNT 4.94 10^6/uL (3.72-5.28); RED CELL DISTRIBUTION WIDTH 12.4 % (11.5-14.0); SEGMENTED NEUTROPHILS % (AUTO) 67.7 % (42-78); TOTAL CELLS COUNTED % (AUTO) 100 %; WHITE BLOOD COUNT 7.7 10^3/uL (4.0-10.5)
[2018-08-24 18:57] LABS: ALANINE AMINOTRANSFERASE 35 U/L (9-52); ALBUMIN 4.8 g/dL (3.5-5.0); ALKALINE PHOSPHATASE 67 U/L (38-126); ANION GAP 11 (5-19); ASPARTATE AMINO TRANSFERASE 21 U/L (14-36); BILIRUBIN,DIRECT 0.2 mg/dL (0.0-0.4); BILIRUBIN,TOTAL 1.4 mg/dL (0.2-1.3); BLOOD UREA NITROGEN 8 mg/dL (7-20); CALCIUM 9.9 mg/dL (8.4-10.2); CARBON DIOXIDE 26 mmol/L (22-30); CHLORIDE 104 mmol/L (98-107); GLUCOSE 90 mg/dL (75-110); POTASSIUM 4.3 mmol/L (3.6-5.0); SODIUM 140.5 mmol/L (137-145); TOTAL PROTEIN 7.7 g/dL (6.3-8.2)
--- NOTE | 2018-08-24 19:30 | RADIOLOGY REPORT (SQ) ---
EXAM DESCRIPTION: U/S RETROPERITON (RENAL/AORTA) COMPLETED DATE/TIME: 08/24/2018 7:13 pm REASON FOR STUDY: right flank pain COMPARISON: None. TECHNIQUE: Dynamic and static grayscale images acquired of the kidneys and bladder and recorded on P ACS. Additional selected color Doppler and spectral images recorded. LIMITATIONS: None. FINDINGS: RIGHT KIDNEY: Normal size. Normal echogenicity. No solid or suspicious masses. No hydronep hrosis. No calcifications. LEFT KIDNEY: Normal size. Normal echogenicity. No solid or suspicious masses. No hydronephrosis. No calcifications. BLADDER: No masses. OTHER FINDINGS: No other significant finding. IMPRESSION: NORMAL RENAL AND BLADDER ULTRASOUND. TECHNICAL DOCUMENTATION: JOB ID: [id number] [employer]- All Rights Reserved Reading location - IP/workstation name: [email or web address]
[2018-08-24] MEDS ORDERED: MORPHINE SULFATE 10 MG/ML INJ IV PRN (23:23)
[2018-08-24] MEDS ORDERED: ACETAMINOPHEN 325 MG TABLET PO ONE (23:23)
[2018-08-24] MEDS ORDERED: LIDOCAINE 5% (700 MG) TRANSDERMAL ADH..PATCH TP ONE (23:23)
[2018-08-24] MEDS ORDERED: KETOROLAC TROMETHAMINE INJ/PF 30 MG/1 ML SDV IV ONE (23:23)
--- NOTE | 2018-08-24 23:25 | ER Document Report ---
ED General - General Chief Complaint: Flank Pain Stated Complaint: FLANK PAIN Time Seen by Provider: 08/24/18 17:53 Primary Care Provider: NELI MCALLISTER MD [Primary Care Provider] - Follow up as needed Mode of Arrival: Ambulatory Notes: Patient is a 37-year-old female with a past medical history of prior pulmonary embolus currently anticoagulated on Xarelto who presents with approximately 12 to 24 hours of right flank pain. Patient describes the pain as being a severe, throbbing, constant pain worsened by moving, breathing or coughing. Symptoms started relatively abruptly and have been constant since onset. She states this feels somewhat similar to when she has had either pneumonia or pulmonary embolus in the past. States she was seen approximately 1 week ago for pain on the right flank, diagnosed with a pyelonephritis, states that symptoms had completely resolved on antibiotics but that they recurred within the past 12 hours. The patient has been compliant with her anticoagulation. She denies fever, overt shortness of breath, vomiting or syncope. Denies any focal abdominal pain. Has not seen her primary doctor regarding today's concerns. TRAVEL OUTSIDE OF THE [place] IN LAST 30 DAYS: No - Related Data Allergies/Adverse Reactions: azithromycin [Azithromycin] Allergy (Intermediate, Verified 08/15/18 16:21) Urticaria ciprofloxacin [From Cipro] Allergy (Verified 08/15/18 17:15) 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, no missed meds Denies: Hx Atrial Fibrillation, Hx Congestive Heart Failure, Hx Coronary Artery Disease, Hx Heart Attack, Hx Hypercholesterolemia, Hx Hypertension, Hx Peripheral Vascular Disease, Hx Heart Murmur Pulmonary Medical History: Reports: Hx Bronchitis, Hx Pneumonia Denies: Hx Asthma, Hx COPD, Hx Respiratory Failure, Hx Sleep Apnea, Hx Tuberculosis Neurological Medical History: Denies: Hx Cerebrovascular Accident, Hx Seizures Endocrine Medical History: Denies: Hx Diabetes Mellitus Type 2, Hx Graves' Disease, Hx Hyperthyroidism, Hx Hypothyroidism Renal/ Medical History: Denies: Hx End Stage Renal Disease, Hx Kidney Stones, Hx Ovarian Cysts, Hx Peritoneal Dialysis, Hx Pelvic Inflammatory Disease Malignancy Medical History: Reports: Hx Breast Cancer. Denies: Hx Cervical Cancer, Hx Leukemia, Hx Lung Cancer, Hx Ovarian Cancer GI Medical History: Reports: Hx Gastritis, Hx Gastroesophageal Reflux Disease, Hx Ulcer. Denies: Hx Crohn's Disease, Hx Hiatal Hernia, Hx Irritable Bowel, Hx Liver Failure, Hx Pancreatitis Musculoskeletal Medical History: Denies Hx Arthritis, Denies Hx Fibromyalgia, Denies Hx Multiple Sclerosis, Denies Hx Muscular Dystrophy, Denies Hx Systemic Lupus Erythematosus Psychiatric Medical History: Reports: Hx Anxiety, Hx Bipolar Disorder, Hx Depression Denies: Hx Dementia, Hx Post Traumatic Stress Disorder, Hx Schizophrenia Traumatic Medical History: Denies: Hx Fractures Infectious Medical History: Denies: Hx HIV Past Surgical History: Reports: Hx Appendectomy, Hx Breast Surgery, Hx Section - 2, Hx Gynecologic Surgery - L ovary removed, Hx Mastectomy - BILATERAL, Hx Tubal Ligation. Denies: Hx Colostomy, Hx Pacemaker - Immunizations Hx Diphtheria, Pertussis, Tetanus Vaccination: Yes Hx Pneumococcal Vaccination: 01/27/12 Review of Systems - Review of Systems Notes: Constitutional: Negative for fever. HENT: Negative for sore throat. Eyes: Negative for visual changes. Cardiovascular: Negative for chest pain. Respiratory: Negative for shortness of breath. Positive for cough Gastrointestinal: Positive for right flank pain. Negative for abdominal pain, vomiting or diarrhea. Genitourinary: Negative for dysuria. Musculoskeletal: Negative for back pain. Skin: Negative for rash. Neurological: Negative for headaches, weakness or numbness. 10 point ROS negative except as marked above and in HPI. Physical Exam - Vital signs Vitals: Temp Pulse Resp BP Pulse Ox 98.3 F 53 L 20 133/82 H 100 08/24/18 17:10 08/24/18 17:10 08/24/18 17:10 08/24/18 17:10 08/24/18 17:10 Interpretation: Normal Notes: PHYSICAL EXAMINATION: GENERAL: Appears moderately unwell but in no acute distress HEAD: Atraumatic, normocephalic. EYES: Pupils equal round and reactive to light, extraocular movements intact, sclera anicteric, conjunctiva are normal. ENT: nares patent, oropharynx clear without exudates. Moist mucous membranes. NECK: Normal range of motion, supple without lymphadenopathy LUNGS: Breath sounds clear to auscultation bilaterally and equal. No wheezes rales or rhonchi. HEART: Regular rate and rhythm without murmurs Chest wall: Pain on palpation of the right lower rib spaces. ABDOMEN: Soft, nontender, normoactive bowel sounds. No guarding, no rebound. No masses appreciated. Right CVA tenderness. EXTREMITIES: Normal range of motion, no pitting or edema. No cyanosis. NEUROLOGICAL: No focal neurological deficits. Moves all extremities spontaneously and on command. PSYCH: Normal mood, normal affect. SKIN: Warm, Dry, normal turgor, no rashes or lesions noted. Course - Re-evaluation Re-evalutation: 08/24/18 23:24 Patient presents with right flank pain. On exam the pain is very reproducible on palpation of the right lower rib spaces and right flank. She also reports that the pain is worsened by breathing, moving or coughing. Patient does have a history of pulmonary embolus, d-dimer is pending. Chest x-ray likewise pending. Patient was recently seen and treated for possible pyelonephritis. She states that the symptoms from that had completely resolved prior to today and urinalysis as well as renal ultrasound today are not consistent with obstructive hydronephrosis, infection or any additional pathology related to the right kidney. The other labs are likewise normal. Awaiting d-dimer and then will reassess the patient. 08/25/18 00:51 Chest x-ray is clear. D-dimer is negative. Patient's pain is much improved. Vitals remain within normal limits without tachycardia, hypoxia or tachypnea. I think the likelihood of an acute pulmonary embolus as the etiology of the patient's presentation is quite low given that she is currently anticoagulate, she is not tachycardic, not tachypneic, not hypoxic and has a negative d-dimer. The patient has had frequent CT imaging and she and I have discussed proceeding with a CTA. We have elected to defer at this point given her reassuring evaluation to this point and the risks of ongoing radiation exposure. I have explained the patient that the exact etiology of her flank discomfort is uncertain but does not appear to be from an immediately life-threatening cause at this time. I have advised pain control at home as well as rapid follow-up with her primary care physician within the next 24 hours. At this time will discharge with return precautions and follow-up recommendations. Verbal discharge instructions given a the bedside and opportunity for questions given. Medication warnings reviewed. Patient is in agreement with this plan and has verbalized understanding of return precautions and the need for primary care follow-up in the next 24 hours. - Vital Signs Vital signs: Temp Pulse Resp BP Pulse Ox 98.3 F 96 21 H 135/74 H 99 08/25/18 00:42 08/25/18 00:42 08/25/18 00:42 08/25/18 00:42 08/25/18 00:42 - Laboratory Result Diagrams: 08/24/18 18:12 08/24/18 18:12 Laboratory results interpreted by me: 08/24/18 08/24/18 18:12 18:12 Total Bilirubin 1.4 H Urine Ketones TRACE H Urine Blood SMALL H - Diagnostic Test Radiology reviewed: Image reviewed, Reports reviewed Radiology results interpreted by me: 08/25/18 00:50 Chest x-ray: No acute infiltrate or pneumothorax Discharge - Discharge Clinical Impression: Right flank pain, Cough, Rib pain on right side Condition: Good Disposition: HOME, SELF-CARE Additional Instructions: The exact cause of your right-sided pain is uncertain at this time. However, your labs including a d-dimer, chest x-ray, and renal ultrasound are all normal. For your pain: Take ibuprofen 600 mg and acetaminophen 1000 mg every 6 hours together as needed for pain. Please follow-up very closely with your primary care physician ideally within the next 24 hours for repeat assessment of your exam and vitals. Return to the emergency department immediately if you develop increasing pain, shortness of breath, began coughing blood, pass out, or have any other symptoms that are worrisome to you. Referrals: NELI MCALLISTER MD [Primary Care Provider] - Follow up tomorrow
--- NOTE | 2018-08-24 23:48 | RADIOLOGY REPORT (SQ) ---
EXAM DESCRIPTION: XR CHEST 1 VIEW COMPLETED DATE/TME: 08/24/2018 23:23 CLINICAL HISTORY: 37 years Female flank tenderness, sob COMPARISON: 03/31/2018 FINDINGS: The cardiomediastinal silhouette appears unremarkable. No consolidating infiltrates or pleural effusions. No pneumothorax. IMPRESSION: No acute abnormality is identified.
[2018-08-25 01:23] VITALS: BP 113/67
== END 2018-08-25 01:21 | disposition home or self-care (01) ==
LOC: ER 17:02
DX: R10.9 Unspecified abdominal pain (principal); R07.81 Pleurodynia; R05 Cough; Z86.711 Personal history of pulmonary embolism; Z79.01 Long term (current) use of anticoagulants; Z87.01 Personal history of pneumonia (recurrent); Z88.1 Allergy status to other antibiotic agents; Z85.3 Personal history of malignant neoplasm of breast
CPT/HCPCS: 99284; 96361; 96374; 96375; 36415; 84703; 85025; 80053; 81001; 85379; 71045; 76770; J1885; J2270; J7030

== ENCOUNTER 2018-10-06 14:18 | Emergency (ER) | payer OTHER ==
[2018-10-06] MEDS ORDERED: OXYCODONE-ACETAMINOPHEN 5-325 MG TABLET PO ONE (14:49)
--- NOTE | 2018-10-06 14:50 | ER Document Report ---
ED Medical Screen (RME) - General Chief Complaint: Flank Pain Stated Complaint: FLANK PAIN Time Seen by Provider: 10/06/18 14:47 Primary Care Provider: NELI MCALLISTER MD [Primary Care Provider] - Follow up as needed Information source: Patient Notes: Patient presents complaining of right flank pain with dysuria that started yesterday with dizziness and nausea. Patient denies any vomiting or fever. hx: Lupus, PE, tubal ligation I have greeted and performed a rapid initial assessment of this patient. A comprehensive ED assessment and evaluation of the patient, analysis of test resu lts and completion of the medical decision making process will be conducted by additional ED providers. TRAVEL OUTSIDE OF THE [place] IN LAST 30 DAYS: No - Related Data Allergies/Adverse Reactions: azithromycin [Azithromycin] Allergy (Intermediate, Verified 10/06/18 14:27) Urticaria ciprofloxacin [From Cipro] Allergy (Verified 10/06/18 14:27) Past Medical History - Social History Chew tobacco use (# tins/day): No Frequency of alcohol use: None Drug Abuse: None - Past Medical History Cardiac Medical History: Reports: Hx Pulmonary Embolism - on xarelto, no missed meds Denies: Hx Atrial Fibrillation, Hx Congestive Heart Failure, Hx Coronary Artery Disease, Hx Heart Attack, Hx Hypercholesterolemia, Hx Hypertension, Hx Peripheral Vascular Disease, Hx Heart Murmur Pulmonary Medical History: Reports: Hx Bronchitis, Hx Pneumonia Denies: Hx Asthma, Hx COPD, Hx Respiratory Failure, Hx Sleep Apnea, Hx Tuberculosis Neurological Medical History: Denies: Hx Cerebrovascular Accident, Hx Seizures Endocrine Medical History: Denies: Hx Diabetes Mellitus Type 2, Hx Graves' Disease, Hx Hyperthyroidism, Hx Hypothyroidism Renal/ Medical History: Denies: Hx End Stage Renal Disease, Hx Kidney Stones, Hx Ovarian Cysts, Hx Peritoneal Dialysis, Hx Pelvic Inflammatory Disease Malignancy Medical History: Reports: Hx Breast Cancer. Denies: Hx Cervical Cancer, Hx Leukemia, Hx Lung Cancer, Hx Ovarian Cancer GI Medical History: Reports: Hx Gastritis, Hx Gastroesophageal Reflux Disease, Hx Ulcer. Denies: Hx Crohn's Disease, Hx Hiatal Hernia, Hx Irritable Bowel, Hx Liver Failure, Hx Pancreatitis Musculoskeltal Medical History: Denies Hx Arthritis, Denies Hx Fibromyalgia, Denies Hx Multiple Sclerosis, Denies Hx Muscular Dystrophy, Denies Hx Systemic Lupus Erythematosus Psychiatric Medical History: Reports: Hx Anxiety, Hx Bipolar Disorder, Hx Depression Denies: Hx Dementia, Hx Post Traumatic Stress Disorder, Hx Schizophrenia Traumatic Medical History: Denies: Hx Fractures Infectious Medical History: Denies: Hx HIV Past Surgical History: Reports: Hx Appendectomy, Hx Breast Surgery, Hx Section - 2, Hx Gynecologic Surgery - L ovary removed, Hx Mastectomy - BILATERAL, Hx Tubal Ligation. Denies: Hx Colostomy, Hx Pacemaker - Immunizations Hx Diphtheria, Pertussis, Tetanus Vaccination: Yes History of Influenza Vaccine for 01/2017 - 06/2017 Season: Yes Influenza Administration Date for 01/2017 - 06/2017 Season: 02/11/18 Physical Exam - Vital signs Vitals: Temp Pulse Resp BP Pulse Ox 98.5 F 98 18 145/90 H 100 10/06/18 14:29 10/06/18 14:29 10/06/18 14:29 10/06/18 14:29 10/06/18 14:29 - Back Back: CVA tenderness - Right flank Course - Vital Signs Vital signs: Temp Pulse Resp BP Pulse Ox 98.5 F 98 18 145/90 H 100 10/06/18 14:29 10/06/18 14:29 10/06/18 14:29 10/06/18 14:29 10/06/18 14:29 Doctor's Discharge - Discharge Referrals: NELI MCALLISTER MD [Primary Care Provider] - Follow up as needed
[2018-10-06 15:14] LABS: APPEARANCE,URINE CLEAR; BILIRUBIN,URINE NEGATIVE (NEGATIVE); COLOR,URINE STRAW; GLUCOSE, URINE NEGATIVE (NEGATIVE); KETONES,URINE NEGATIVE (NEGATIVE); LEUKOCYTE ESTERASE,URINE NEGATIVE (NEGATIVE); NITRITE,URINE NEGATIVE (NEGATIVE); PROTEIN,URINE NEGATIVE (NEGATIVE); URINE SPECIFIC GRAVITY 1.003; UROBILINOGEN,URINE NEGATIVE mg/dL (<2.0)
[2018-10-06 15:18] LABS: ABSOLUTE LYMPHOCYTES (AUTO) 1.8 10^3/uL (0.5-4.7); ABSOLUTE MONOCYTES (AUTO) 0.8 10^3/uL (0.1-1.4); ABSOLUTE NEUT (AUTO) 6.2 10^3/uL (1.7-8.2); BASOPHILS % (AUTO) 0.4 % (0-2); EOSINOPHILS % (AUTO) 0.3 % (0-6); HEMOGLOBIN 14.5 g/dL (12.0-15.5); LYMPHOCYTES % (AUTO) 20.7 % (13-45); MEAN CORPUSCULAR HEMOGLOBIN 31.3 pg (27.0-33.4); MEAN CORPUSCULAR HGB CONC 35.4 g/dL (32.0-36.0); MEAN CORPUSCULAR VOLUME 89 fl (80-97); MONOCYTES % (AUTO) 9.2 % (3-13); PLATELET COUNT 276 10^3/uL (150-450); RED BLOOD COUNT 4.62 10^6/uL (3.72-5.28); RED CELL DISTRIBUTION WIDTH 12.1 % (11.5-14.0); SEGMENTED NEUTROPHILS % (AUTO) 69.4 % (42-78); TOTAL CELLS COUNTED % (AUTO) 100 %; WHITE BLOOD COUNT 8.9 10^3/uL (4.0-10.5)
[2018-10-06 15:33] LABS: ALANINE AMINOTRANSFERASE 22 U/L (9-52); ALBUMIN 4.7 g/dL (3.5-5.0); ALKALINE PHOSPHATASE 62 U/L (38-126); ANION GAP 10 (5-19); ASPARTATE AMINO TRANSFERASE 20 U/L (14-36); BILIRUBIN,DIRECT 0.2 mg/dL (0.0-0.4); BILIRUBIN,TOTAL 0.8 mg/dL (0.2-1.3); BLOOD UREA NITROGEN 6 mg/dL (7-20); CALCIUM 9.6 mg/dL (8.4-10.2); CARBON DIOXIDE 24 mmol/L (22-30); CHLORIDE 103 mmol/L (98-107); GLUCOSE 95 mg/dL (75-110); LIPASE 95.1 U/L (23-300); POTASSIUM 4.6 mmol/L (3.6-5.0); SODIUM 136.7 mmol/L (137-145); TOTAL PROTEIN 7.5 g/dL (6.3-8.2)
[2018-10-06] MEDS ORDERED: KETOROLAC TROMETHAMINE 60 MG/2 ML SDV IM ONE (15:53)
[2018-10-06] MEDS ORDERED: HYDROMORPHONE HCL INJ/PF 2 MG/ML AMPULE IM ONE (15:53)
--- NOTE | 2018-10-06 16:03 | RADIOLOGY REPORT (SQ) ---
EXAM DESCRIPTION: CHEST 2 VIEWS COMPLETED DATE/TIME: 10/06/2018 3:54 pm REASON FOR STUDY: right sided pain h/o pe COMPARISON: CT angio chest 03/31/2018 AP chest 08/24/2018 EXAM PARAMETERS: NUMBER OF VIEWS: two views TECHNIQUE: Digital Frontal and Lateral radiographic views of the chest acquired. RADIATION DOSE: NA LIMITATIONS: none FINDINGS: LUNGS AND PLEURA: No opacities, masses or pneumothorax. No pleural effusion. MEDIASTINUM AND HILAR STRUCTURES: No masses or contour abnormalities. HEART AND VASCULAR STRUCTURES: Heart normal size. No evidence for failure. BONES: No acute findings. HARDWARE: Bilateral skin sparing mastectomies with breast implants OTHER: No other significant finding. IMPRESSION: NO ACUTE RADIOGRAPHIC FINDING IN THE CHEST. TECHNICAL DOCUMENTATION: JOB ID: [id number] [employer]- All Rights Reserved Reading location - IP/workstation name: [email or web address]
--- NOTE | 2018-10-06 17:01 | ER Document Report ---
ED General - General Chief Complaint: Flank Pain Stated Complaint: FLANK PAIN Time Seen by Provider: 10/06/18 14:47 Primary Care Provider: NELI MCALLISTER MD [Primary Care Provider] - Follow up as needed Mode of Arrival: Ambulatory Information source: Patient, [facility] Records Notes: 38-year-old female with bipolar disorder, lupus, ovarian cysts, recent pulmonary embolism on Xarelto presents with right flank pain, nausea and dysuria that started 1 day prior to arrival. Patient did describes the pain as sharp, constant with radiation to her right lower quadrant. Patient has had prior similar symptoms and was seen for a similar presentation one month ago. Patient denies any fever, chills, nausea, vomiting, hematuria, vaginal discharge, history of STD, history of kidney stone. Patient does not have any dysuria today but states she took Pyridium yesterday. She does have a history of recurrent kidney infection. TRAVEL OUTSIDE OF THE [place] IN LAST 30 DAYS: No - HPI Onset: Yesterday Onset/Duration: Gradual, Persistent Quality of pain: Sharp, Throbbing Severity: Moderate Pain Level: 2 Associated symptoms: Other - Abdominal pain, flank pain. denies: Chest pain, Diarrhea, Nausea, Vomiting Exacerbated by: Denies Relieved by: Denies Similar symptoms previously: Yes Recently seen / treated by doctor: Yes - Related Data Allergies/Adverse Reactions: azithromycin [Azithromycin] Allergy (Intermediate, Verified 10/06/18 14:27) Urticaria ciprofloxacin [From Cipro] Allergy (Verified 10/06/18 14:27) 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, no missed meds Denies: Hx Atrial Fibrillation, Hx Congestive Heart Failure, Hx Coronary Artery Disease, Hx Heart Attack, Hx Hypercholesterolemia, Hx Hypertension, Hx Peripheral Vascular Disease, Hx Heart Murmur Pulmonary Medical History: Reports: Hx Bronchitis, Hx Pneumonia Denies: Hx Asthma, Hx COPD, Hx Respiratory Failure, Hx Sleep Apnea, Hx Tuberculosis Neurological Medical History: Denies: Hx Cerebrovascular Accident, Hx Seizures Endocrine Medical History: Denies: Hx Diabetes Mellitus Type 2, Hx Graves' Disease, Hx Hyperthyroidism, Hx Hypothyroidism Renal/ Medical History: Denies: Hx End Stage Renal Disease, Hx Kidney Stones, Hx Ovarian Cysts, Hx Peritoneal Dialysis, Hx Pelvic Inflammatory Disease Malignancy Medical History: Reports: Hx Breast Cancer. Denies: Hx Cervical Cancer, Hx Leukemia, Hx Lung Cancer, Hx Ovarian Cancer GI Medical History: Reports: Hx Gastritis, Hx Gastroesophageal Reflux Disease, Hx Ulcer. Denies: Hx Crohn's Disease, Hx Hiatal Hernia, Hx Irritable Bowel, Hx Liver Failure, Hx Pancreatitis Musculoskeletal Medical History: Denies Hx Arthritis, Denies Hx Fibromyalgia, Denies Hx Multiple Sclerosis, Denies Hx Muscular Dystrophy, Denies Hx Systemic Lupus Erythematosus Psychiatric Medical History: Reports: Hx Anxiety, Hx Bipolar Disorder, Hx Depression Denies: Hx Dementia, Hx Post Traumatic Stress Disorder, Hx Schizophrenia Traumatic Medical History: Denies: Hx Fractures Infectious Medical History: Denies: Hx HIV Past Surgical History: Reports: Hx Appendectomy, Hx Breast Surgery, Hx Section - 2, Hx Gynecologic Surgery - L ovary removed, Hx Mastectomy - BILATERA L, Hx Tubal Ligation. Denies: Hx Colostomy, Hx Pacemaker - Immunizations Hx Diphtheria, Pertussis, Tetanus Vaccination: Yes Hx Pneumococcal Vaccination: 01/27/12 Review of Systems - Review of Systems Notes: REVIEW OF SYSTEMS: CONSTITUTIONAL : Denies fever, chills, or sweats. Denies recent illness. Denies weight loss, recent hospitalizations. EENT: Denies visual changes, eye pain. Denies sore throat, oral lesions, difficulty swallowing. CARDIOVASCULAR: Denies chest pain. Denies palpitations. Denies lower extremity edema. RESPIRATORY: Denies cough. Denies shortness of breath, wheezing. GASTROINTESTINAL: Denies abdominal distention. Denies nausea, vomiting, or diarrhea. Denies blood in vomitus, stools, or per rectum. Denies black, tarry stools. Denies constipation. GENITOURINARY: Denies difficulty urinating, frequency, blood in urine, or va ginal discharge. MUSCULOSKELETAL: Denies neck pain or stiffness. Denies joint pain or swelling. SKIN: Denies rash, lesions or sores. HEMATOLOGIC : Denies easy bruising or bleeding. LYMPHATIC: Denies swollen glands. NEUROLOGICAL: Denies confusion or altered mental status. Denies loss of con sciousness. Denies dizziness or lightheadedness. Denies headache. Denies weakness or paralysis. Denies problems difficulty with ambulation, slurred speech. Denies sensory loss, numbness, or tingling. Denies seizures. PSYCHIATRIC: Denies anxiety or stress. Denies depression, suicidal ideation, or homicidal ideation. Denies visual or auditory hallucinations. Physical Exam - Vital signs Vitals: Temp Pulse Resp BP Pulse Ox 98.5 F 98 18 145/90 H 100 10/06/18 14:29 10/06/18 14:29 10/06/18 14:29 10/06/18 14:10/06/18 14:29 - Notes Notes: PHYSICAL EXAMINATION: GENERAL: Well-appearing, well-nourished and in no acute distress. HEAD: Atraumatic, normocephalic. EYES: Pupils equal round and reactive to light, extraocular movements intact, conjunctiva are normal. ENT: Nares patent, oropharynx clear without exudates. Moist mucous membranes. NECK: Normal range of motion, supple without lymphadenopathy LUNGS: Breath sounds clear to auscultation bilaterally and equal. No wheezes rales or rhonchi. HEART: Regular rate and rhythm without murmurs ABDOMEN: Soft, nontender, nondistended abdomen. No guarding, no rebound. No masses appreciated. Right CVA tenderness Female : deferred Musculoskeletal: Normal range of motion, no pitting or edema. No cyanosis. NEUROLOGICAL: Cranial nerves grossly intact. Normal speech, normal gait. Normal sensory, motor exams PSYCH: Tearful. SKIN: Warm, Dry, normal turgor, no rashes or lesions noted. Course - Re-evaluation Re-evalutation: Laboratory 10/06/18 10/06/18 10/06/18 14:50 14:50 14:50 WBC 8.9 RBC 4.62 Hgb 14.5 Hct 41.0 MCV 89 MCH 31.3 MCHC 35.4 RDW 12.1 Plt Count 276 Seg Neutrophils % 69.4 Lymphocytes % 20.7 Monocytes % 9.2 Eosinophils % 0.3 Basophils % 0.4 Absolute Neutrophils 6.2 Absolute Lymphocytes 1.8 Absolute Monocytes 0.8 Absolute Eosinophils 0.0 Absolute Basophils 0.0 D-Dimer Sodium 136.7 L Potassium 4.6 Chloride 103 Carbon Dioxide 24 Anion Gap 10 BUN 6 L Creatinine 0.56 Est GFR ( Amer) > 60 Est GFR (Non-Af Amer) > 60 Glucose 95 Calcium 9.6 Total Bilirubin 0.8 Direct Bilirubin 0.2 Neonat Total Bilirubin Not Reportable Neonat Direct Bilirubin Not Reportable Neonat Indirect Bili Not Reportable AST 20 ALT 22 Alkaline Phosphatase 62 Total Protein 7.5 Albumin 4.7 Lipase 95.1 Serum HCG, Qual NEGATIVE Urine Color Urine Appearance Urine pH Ur Specific [place] Urine Protein Urine Glucose (UA) Urine Ketones Urine Blood Urine Nitrite Urine Bilirubin Urine Urobilinogen Ur Leukocyte Esterase Urine WBC (Auto) Urine RBC (Auto) Squamous Epi Cells Auto Urine Mucus (Auto) Urine Ascorbic Acid 10/06/18 10/06/18 14:50 14:50 WBC RBC Hgb Hct MCV MCH MCHC RDW Plt Count Seg Neutrophils % Lymphocytes % Monocytes % Eosinophils % Basophils % Absolute Neutrophils Absolute Lymphocytes Absolute Monocytes Absolute Eosinophils Absolute Basophils D-Dimer < 0.27 Sodium Potassium Chloride Carbon Dioxide Anion Gap BUN Creatinine Est GFR ( Amer) Est GFR (Non-Af Amer) Glucose Calcium Total Bilirubin Direct Bilirubin Neonat Total Bilirubin Neonat Direct Bilirubin Neonat Indirect Bili AST ALT Alkaline Phosphatase Total Protein Albumin Lipase Serum HCG, Qual Urine Color STRAW Urine Appearance CLEAR Urine pH 9.0 Ur Specific [place] 1.003 Urine Protein NEGATIVE Urine Glucose (UA) NEGATIVE Urine Ketones NEGATIVE Urine Blood NEGATIVE Urine Nitrite NEGATIVE Urine Bilirubin NEGATIVE Urine Urobilinogen NEGATIVE Ur Leukocyte Esterase NEGATIVE Urine WBC (Auto) 3 Urine RBC (Auto) 1 Squamous Epi Cells Auto <1 Urine Mucus (Auto) RARE Urine Ascorbic Acid NEGATIVE Chest X-Ray 10/06/18 15:25 IMPRESSION: NO ACUTE RADIOGRAPHIC FINDING IN THE CHEST. Temp Pulse Resp BP Pulse Ox 98.5 F 98 18 145/90 H 100 10/06/18 14:29 10/06/18 14:29 10/06/18 14:29 10/06/18 14:29 10/06/18 14:29 10/06/18 17:03 38-year-old female with lupus, history of ovarian cyst presents with right flank pain that radiates to her right lower quadrant. States that she has had similar pain in the past which turned out to be musculoskeletal. Patient did receive morphine without relief and then Dilaudid and still reports no relief. Patient now states that she fears this might be an ovarian cyst so a transvaginal ultrasound was ordered. CBC is without leukocytosis or anemia. CMP shows no significant electrolyte abnormalities. D-dimer is within normal limits and urinalysis is not consistent with or urinary tract infection. 10/07/18 22:02 Patient was evaluated and treated as appropriate for the patient's presenting symptoms and complaint, with consideration of any critical or life threatening conditions that may be associated with their obtained history and exam as noted above. All results were discussed with patient . Patient provided the opportunity to ask questions, and express concerns. Patient was educated on treatments based on their presumed diagnosis as noted above. At this time we will discharge the patient with return precautions and follow-up recommendations. Verbal discharge instructions given a the bedside. Medication warnings reviewed. Patient is in agreement with this plan and has verbalized understanding of return precautions. After careful consideration I feel that that patient can be safely discharged from the emergency department, they were advised to followup with a primary care physician in 2-3 days. Dictation on this chart was performed using voice recognition software and may result in unintended grammatical, spelling, syntax or errors. - Vital Signs Vital signs: Temp Pulse Resp BP Pulse Ox 98.2 F 75 16 132/70 H 100 10/06/18 18:21 10/06/18 18:21 10/06/18 18:21 10/06/18 18:21 10/06/18 18:21 - Laboratory Result Diagrams: 10/06/18 14:50 10/06/18 14:50 Laboratory results interpreted by me: 10/06/18 14:50 Sodium 136.7 L BUN 6 L - Diagnostic Test Radiology reviewed: Image reviewed, Reports reviewed Discharge - Discharge Clinical Impression: Flank pain Condition: Good Disposition: HOME, SELF-CARE Instructions: Flank Pain ([facility]) Prescriptions: Cyclobenzaprine HCl [Flexeril 10 mg Tablet] 10 mg PO TIDP PRN #15 tab PRN Reason: Ondansetron [Zofran Odt 4 mg Tablet] 1 - 2 tab PO Q4H PRN #15 tab.rapdis PRN Reason: For Nausea/Vomiting Oxycodone HCl/Acetaminophen [Percocet 5-325 mg Tablet] 1 tab PO Q6H PRN #12 tablet PRN Reason: Forms: Elevated Blood Pressure, Return to Work Referrals: NELI MCALLISTER MD [Primary Care Provider] - Follow up as needed
[2018-10-06] MEDS ORDERED: DIAZEPAM 5 MG TABLET PO ONE (17:03)
--- NOTE | 2018-10-06 17:59 | RADIOLOGY REPORT (SQ) ---
EXAM DESCRIPTION: U/S NON OB PEL TV W/DOPPLER COMPLETED DATE/TIME: 10/06/2018 5:42 pm REASON FOR STUDY: rlq pain h/o cyst COMPARISON: None. TECHNIQUE: Dynamic and static grayscale images acquired of the pelvis via transvaginal approach and recorded on PACS. Additional selected color Doppler and spectral images recorded. LIMITATIONS: None. FINDINGS: UTERUS: Contour normal. No mass. ENDOMETRIAL STRIPE: No focal or generalized thickening. No masses. CERVIX: No nabothian cysts. RIGHT OVARY AND DOPPLER: Normal size. No worrisome masses. Normal arterial vascular flow without evid ence for torsion. LEFT OVARY AND DOPPLER: Normal size. No worrisome masses. Normal arterial vascular flow without evide nce for torsion. FREE FLUID: None noted. OTHER: No other significant finding. MEASUREMENTS: UTERUS: 7.8 x 5.2 x 4.3 cm ENDOMETRIAL STRIPE: 9 mm RIGHT OVARY: 2.6 x 1.9 x 1.6 cm LEFT OVARY: 2.1 x 1.6 x 1.4 cm IMPRESSION: Age-appropriate exam. TECHNICAL DOCUMENTATION: JOB ID: [id number] 2010 [employer]- All Rights Reserved Rev-08/29 Reading location - IP/workstation name: [email or web address]
--- NOTE | 2018-10-06 18:02 | RADIOLOGY REPORT (SQ) ---
EXAM DESCRIPTION: U/S RETROPERITON (RENAL/AORTA) COMPLETED DATE/TIME: 10/06/2018 5:42 pm REASON FOR STUDY: flank pain COMPARISON: 08/24/2018 TECHNIQUE: Dynamic and static grayscale images acquired of the kidneys and bladder and recorded on P ACS. Additional selected color Doppler and spectral images recorded. LIMITATIONS: None. FINDINGS: RIGHT KIDNEY: Normal size. Normal echogenicity. No solid or suspicious masses. No hydronep hrosis. No calcifications. LEFT KIDNEY: Normal size. Normal echogenicity. No solid or suspicious masses. No hydronephrosis. No calcifications. BLADDER: No masses. OTHER FINDINGS: No other significant finding. IMPRESSION: No acute findings. TECHNICAL DOCUMENTATION: JOB ID: [id number] [employer]- All Rights Reserved Reading location - IP/workstation name: [email or web address]
[2018-10-06 18:25] VITALS: BP 132/70
--- NOTE | 2018-10-06 20:24 | EKG REPORT ---
SEVERITY:- BORDERLINE ECG - SINUS RHYTHM BORDERLINE T ABNORMALITIES, ANT-LAT LEADS : Confirmed by: Trini Luz 06-Oct-2018 20:23:15
== END 2018-10-06 18:36 | disposition home or self-care (01) ==
LOC: ER 14:18
DX: R10.9 Unspecified abdominal pain (principal); R10.31 Right lower quadrant pain; R11.0 Nausea; I26.99 Other pulmonary embolism without acute cor pulmonale; Z87.42 Personal history of other diseases of the female genital tract; Z87.440 Personal history of urinary (tract) infections; Z85.3 Personal history of malignant neoplasm of breast; Z87.19 Personal history of other diseases of the digestive system; Z90.49 Acquired absence of other specified parts of digestive tract; Z98.51 Tubal ligation status; Z90.721 Acquired absence of ovaries, unilateral; Z88.1 Allergy status to other antibiotic agents
CPT/HCPCS: 93005; 99284; 96372; 36415; 83690; 84703; 85025; 80053; 81001; 85379; 71046; 76770; 76830; 93976; 93010; J1885; J1170

== ENCOUNTER 2018-11-28 14:19 | Observation (INO) | payer OTHER ==
[2018-11-28] MEDS ORDERED: NORMAL SALINE 1000 ML 1,000 ML IV ONE (15:15)
[2018-11-28] MEDS ORDERED: IPRATROPIUM/ALBUTEROL 0.5-2.5 MG/3 ML AMPUL NEB ONE (15:16)
--- NOTE | 2018-11-28 15:17 | ER Document Report ---
ED Medical Screen (RME) - General Chief Complaint: Painful Cough Stated Complaint: COUGH Time Seen by Provider: 11/28/18 14:57 Primary Care Provider: NELI MCALLISTER MD [Primary Care Provider] - Follow up as needed Mode of Arrival: Ambulatory Information source: Patient Notes: Patient presents complaining of cough for the past week with by lateral rib pain. Patient complains of dizziness. Patient also reports fever of 101 this morning. Patient is already taking Ceftin ear for her symptoms. Patient does have a history of PE and lupus and is on methotrexate. Patient has been taking Xarelto for history of PE. I have greeted and performed a rapid initial assessment of this patient. A comprehensive ED assessment and evaluation of the patient, analysis of test results and completion of the medical decision making process will be conducted by additional ED providers. TRAVEL OUTSIDE OF THE [place] IN LAST 30 DAYS: No - Related Data Allergies/Adverse Reactions: azithromycin [Azithromycin] Allergy (Intermediate, Verified 11/28/18 14:19) Urticaria ciprofloxacin [From Cipro] Allergy (Verified 11/28/18 14:19) Past Medical History - Past Medical History Cardiac Medical History: Reports: Hx Pulmonary Embolism - on xarelto, no missed meds Denies: Hx Atrial Fibrillation, Hx Congestive Heart Failure, Hx Coronary Artery Disease, Hx Heart Attack, Hx Hypercholesterolemia, Hx Hypertension, Hx Peripheral Vascular Disease, Hx Heart Murmur Pulmonary Medical History: Reports: Hx Bronchitis, Hx Pneumonia Denies: Hx Asthma, Hx COPD, Hx Respiratory Failure, Hx Sleep Apnea, Hx Tuberculosis Neurological Medical History: Denies: Hx Cerebrovascular Accident, Hx Seizures Endocrine Medical History: Denies: Hx Diabetes Mellitus Type 2, Hx Graves' Disea se, Hx Hyperthyroidism, Hx Hypothyroidism Renal/ Medical History: Denies: Hx End Stage Renal Disease, Hx Kidney Stones, Hx Ovarian Cysts, Hx Peritoneal Dialysis, Hx Pelvic Inflammatory Disease Malignancy Medical History: Reports: Hx Breast Cancer. Denies: Hx Cervical Cancer, Hx Leukemia, Hx Lung Cancer, Hx Ovarian Cancer GI Medical History: Reports: Hx Gastritis, Hx Gastroesophageal Reflux Disease, Hx Ulcer. Denies: Hx Crohn's Disease, Hx Hiatal Hernia, Hx Irritable Bowel, Hx Liver Failure, Hx Pancreatitis Musculoskeltal Medical History: Denies Hx Arthritis, Denies Hx Fibromyalgia, Denies Hx Multiple Sclerosis, Denies Hx Muscular Dystrophy, Denies Hx Systemic Lupus Erythematosus Psychiatric Medical History: Reports: Hx Anxiety, Hx Bipolar Disorder, Hx Depression Denies: Hx Dementia, Hx Post Traumatic Stress Disorder, Hx Schizophrenia Traumatic Medical History: Denies: Hx Fractures Infectious Medical History: Denies: Hx HIV Past Surgical History: Reports: Hx Appendectomy, Hx Breast Surgery, Hx Section - 2, Hx Gynecologic Surgery - L ovary removed, Hx Mastectomy - BILATERAL, Hx Tubal Ligation. Denies: Hx Colostomy, Hx Pacemaker - Immunizations Hx Diphtheria, Pertussis, Tetanus Vaccination: Yes History of Influenza Vaccine for 01/2017 - 06/2017 Season: Yes Influenza Administration Date for 01/2017 - 06/2017 Season: 02/11/18 Physical Exam - Vital signs Vitals: Temp Pulse Resp BP Pulse Ox 97.9 F 108 H 16 147/93 H 97 11/28/18 14:22 11/28/18 14:22 11/28/18 14:22 11/28/18 14:22 11/28/18 14:22 - Respiratory Respiratory status: Tachypnea Chest status: Pain with deep breathing Breath sounds: Nonproductive cough - Cardiovascular Rhythm: Tachycardia Heart sounds: S1 appreciated, S2 appreciated Course - Vital Signs Vital signs: Temp Pulse Resp BP Pulse Ox 97.9 F 108 H 16 147/93 H 97 11/28/18 14:22 11/28/18 14:22 11/28/18 14:22 11/28/18 14:22 11/28/18 14:22 Doctor's Discharge - Discharge Referrals: NELI MCALLISTER MD [Primary Care Provider] - Follow up as needed
[2018-11-28 15:56] LABS: ABSOLUTE LYMPHOCYTES (AUTO) 1.5 10^3/uL (0.5-4.7); ABSOLUTE MONOCYTES (AUTO) 0.8 10^3/uL (0.1-1.4); ABSOLUTE NEUT (AUTO) 6.6 10^3/uL (1.7-8.2); BASOPHILS % (AUTO) 0.3 % (0-2); EOSINOPHILS % (AUTO) 0.5 % (0-6); HEMATOCRIT 46.1 % (36.0-47.0); HEMOGLOBIN 16.2 g/dL (12.0-15.5); LYMPHOCYTES % (AUTO) 16.4 % (13-45); MEAN CORPUSCULAR HEMOGLOBIN 30.9 pg (27.0-33.4); MEAN CORPUSCULAR HGB CONC 35.1 g/dL (32.0-36.0); MEAN CORPUSCULAR VOLUME 88 fl (80-97); MONOCYTES % (AUTO) 9.2 % (3-13); PLATELET COUNT 266 10^3/uL (150-450); RED BLOOD COUNT 5.24 10^6/uL (3.72-5.28); RED CELL DISTRIBUTION WIDTH 12.4 % (11.5-14.0); SEGMENTED NEUTROPHILS % (AUTO) 73.6 % (42-78); TOTAL CELLS COUNTED % (AUTO) 100 %
[2018-11-28 16:05] LABS: ALBUMIN 5.1 g/dL (3.5-5.0); ALKALINE PHOSPHATASE 88 U/L (38-126); ANION GAP 9 (5-19); ASPARTATE AMINO TRANSFERASE 43 U/L (14-36); BILIRUBIN,DIRECT 0.2 mg/dL (0.0-0.4); BILIRUBIN,TOTAL 0.7 mg/dL (0.2-1.3); BLOOD UREA NITROGEN 8 mg/dL (7-20); CARBON DIOXIDE 26 mmol/L (22-30); CHLORIDE 103 mmol/L (98-107); GLUCOSE 95 mg/dL (75-110); POTASSIUM 4.6 mmol/L (3.6-5.0); TOTAL PROTEIN 7.9 g/dL (6.3-8.2)
--- NOTE | 2018-11-28 16:17 | RADIOLOGY REPORT (SQ) ---
EXAM DESCRIPTION: CHEST 2 VIEWS COMPLETED DATE/TIME: 11/28/2018 4:09 pm REASON FOR STUDY: cp, cough COMPARISON: 11/12/2018 EXAM PARAMETERS: NUMBER OF VIEWS: two views TECHNIQUE: Digital Frontal and Lateral radiographic views of the chest acquired. RADIATION DOSE: NA LIMITATIONS: none FINDINGS: LUNGS AND PLEURA: No opacities, masses or pneumothorax. No pleural effusion. MEDIASTINUM AND HILAR STRUCTURES: No masses or contour abnormalities. HEART AND VASCULAR STRUCTURES: Heart normal size. No evidence for failure. BONES: No acute findings. HARDWARE: None in the chest. OTHER: No other significant finding. IMPRESSION: NO ACUTE RADIOGRAPHIC FINDING IN THE CHEST. TECHNICAL DOCUMENTATION: JOB ID: [id number] [employer]- All Rights Reserved Reading location - IP/workstation name: [email or web address]
--- NOTE | 2018-11-28 16:22 | ER Document Report ---
HPI - HPI Patient complains to provider of: cough Time Seen by Provider: 11/28/18 14:57 Onset: Other - 7 days Onset/Duration: Gradual, Constant, Worse Quality of pain: Fullness, Sharp Severity: Severe Pain Level: 4 Context: 38 Yr old female pt, with the listed pmh to include lupus on MTX and hx of PE's x 2 on Xarelto, hx of pericarditis, here for worsening productive cough and congestion x 7 days. fever tmax 101.3 this am despite taking cefdinir x 5 days and decadron this week. also has tessalon perles and an albuterol inhaler at home which she has been using and states sx are worsening so she came in. she has a hx of getting "pneumonia atleast 60 times" and has been intubated twice. also states she has [place] where she gets dizzy and feels like her heart is racing and she is going to pass out when she even ambulates the shorted distance now. no hx of chf. no actual syncope however. [place] She also complains of shortness of breath and bilateral rib pain. She states she has pain with deep breathing and she feels like her lungs are full and she is "drowning". States she is not sure if the pain feels like her previous PEs, pneumonias, or pericarditis. Pt denies any prior personal cardiac history other than the pericarditis. she has had a neg stress test a few years she tells me. She endorses compliance with her Xarelto. No other blood thinners. denies any family history of sudden or cardiac dz at a young age. no syncope. no palpitations. no hx of mi, cva, tia, or cad. no ripping or tearing sensation. denies any blood thinners. No prior history of blood clots. No recent long distance travel/immobilization, recent surgery, exogenous estrogen use, hemoptysis, history of cancer, or calf pain/swelling. No prior history of arrhythmias. No other recent abx or steroids. no hx of diabetes or asthma. no swallowing or handling secretions. otc meds not helping much. no other associated sx. denies . She does not smoke. Associated Symptoms: Chest pain, Productive cough, Fever, Hurts to breath, Shortness of breath, Weakness Exacerbated by: Supine, Movement, Walking, Coughing, Deep breathing Relieved by: Remaining still Similar symptoms previously: Yes Recently seen / treated by doctor: Yes - ROS Systems Reviewed and Negative: Yes All other systems reviewed and negative - to include 10 systems unless mentioned in the hpi - REPRODUCTIVE Reproductive: DENIES: : - DERM Skin Color: Normal, Dusky Past Medical History - General Information source: Patient - Social History Smoking Status: Unknown if Ever Smoked Chew tobacco use (# tins/day): No Frequency of alcohol use: None Drug Abuse: None Family History: Hypertension, Malignancy Patient has suicidal ideation: No Patient has homicidal ideation: No - Past Medical History Cardiac Medical History: Reports: Hx Pulmonary Embolism - on xarelto, no missed meds, Other - hx of pericarditis secondary to her lupus Denies: Hx Atrial Fibrillation, Hx Congestive Heart Failure, Hx Coronary Ar garrett Disease, Hx Heart Attack, Hx Hypercholesterolemia, Hx Hypertension, Hx Peripheral Vascular Disease, Hx Heart Murmur Pulmonary Medical History: Reports: Hx Bronchitis, Hx Pneumonia, Hx Intubation, Hx Respiratory Failure Denies: Hx Asthma, Hx COPD, Hx Sleep Apnea, Hx Tuberculosis Neurological Medical History: Denies: Hx Cerebrovascular Accident, Hx Seizures Endocrine Medical History: Denies: Hx Diabetes Mellitus Type 1, Hx Diabetes Mellitus Type 2, Hx Graves' Disease, Hx Hyperthyroidism, Hx Hypothyroidism Renal/ Medical History: Denies: Hx End Stage Renal Disease, Hx Kidney Stones, Hx Ovarian Cysts, Hx Peritoneal Dialysis, Hx Pelvic Inflammatory Disease Malignancy Medical History: Reports: Hx Breast Cancer. Denies: Hx Cervical Cancer, Hx Leukemia, Hx Lung Cancer, Hx Ovarian Cancer GI Medical History: Reports: Hx Gastritis, Hx Gastroesophageal Reflux Disease, Hx Ulcer. Denies: Hx Crohn's Disease, Hx Hiatal Hernia, Hx Irritable Bowel, Hx Liver Failure, Hx Pancreatitis Musculoskeletal Medical History: Denies Hx Arthritis, Denies Hx Fibromyalgia, Denies Hx Multiple Sclerosis, Denies Hx Muscular Dystrophy, Reports Hx Systemic Lupus Erythematosus Psychiatric Medical History: Reports: Hx Anxiety, Hx Bipolar Disorder, Hx Depression Denies: Hx Dementia, Hx Post Traumatic Stress Disorder, Hx Schizophrenia Traumatic Medical History: Denies: Hx Fractures Infectious Medical History: Denies: Hx HIV Past Surgical History: Reports: Hx Appendectomy, Hx Breast Surgery, Hx Section - 2, Hx Gynecologic Surgery - L ovary removed, Hx Mastectomy - BILATERAL, Hx Tubal Ligation. Denies: Hx Colostomy, Hx Pacemaker - Immunizations Immunizations up to date: Yes Hx Diphtheria, Pertussis, Tetanus Vaccination: Yes Hx Pneumococcal Vaccination: 01/27/12 Vertical Provider Document - CONSTITUTIONAL Exam Limitations: No Limitations Notes: >>>> PHYSICAL_EXAM: GENERAL_APPEARANCE: well_nourished, alert, cooperative, no_acute_distress, mild-mod_obvious_discomfort. pleasant, young white female, coughing constantly but able to speak in full sentences, smiling, speaking in full sentences, in no sign of resp distress, appears uncomfortable but not toxic. no one is with her. VITALS: reviewed, see vital signs table. HEAD: no_swelling\\tenderness on the head. normocephalic. atraumatic. no hayward signs. no raccoons eyes. EYES: PERRL, EOMI, conjunctiva_clear. NOSE: no_nasal_discharge. mild congestion. mild ttp of the sinuses MOUTH: (-)decreased moisture. THROAT: no_tonsilar_inflammation/exudate/hypertrophy/thrush, no_airway_obstruction. no_lymphadenopathy NECK: supple, no_neck_tenderness, full rom. full strength. no jvd. no meningeal signs. BACK: no_back_tenderness. CHEST_WALL: no_chest_tenderness. no overlying skin changes LUNGS: mild diffuse exp wheezes (-)accessory muscle use, good air exchange bilateral. HEART: slight tachycardic rate, normal_rhythm, ABDOMEN: normal_BS, soft, no_abd_tenderness, (-)guarding, (-)rebound, no distension or peritoneal signs. no cva ttp EXTREMITIES: strength 5/5 in all_extremities, good pulses in all_extremities, no_swelling\\tenderness in the extremities, no_edema. full rom. normal gait. good pulses. brisk cap refill. 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 neg tiffanie sign NEURO: motor and sensation intact, cranial nerves 2-12 intact, cerebellar fxn intact SKIN: warm, dry, good_color, no_rash. MENTAL_STATUS: speech_clear, oriented_X_3, normal_affect, responds_appropr iately to questions. - INFECTION CONTROL TRAVEL OUTSIDE OF THE [place] IN LAST 30 DAYS: No Course - Re-evaluation Re-evalutation: 11/28/18 21:37 Pt here for fever and worsening cough, congestion, chest pain, shortness of breath, and dizziness over the last week. She has been on Cefdinir for 5 days along with steroids outpatient and spiked a fever of 101.3 today so she came in for evaluation. She has extensive medical history as listed. She is immunocompromised on methotrexate. Her labs are actually unremarkable; however, clinically on exam the patient does not look well and she is ill-appearing but not toxic. She does have a history of multiple pneumonias in the past and even intubations multiple times. She had minimal improvement with a DuoNeb, steroids, cough medicine, fluids, and pain medicine here for her symptoms. Her EKG was unremarkable per Dr. Spring. Chest x-ray was negative per radiology and reviewed by myself. The patient had a negative CTA about 2 weeks ago so I did hold off on this and I did speak with the hospitalist for consideration of admission at 6:30 PM, nurse practitioner Deann Lockwood, who consulted with her attending physician who advised secondary to the patient having lupus and other chronic medical conditions that her d-dimer would likely be positive and PE could not be ruled out without having a CTA. Hospitalist did request I repeat the CTA to r/o PE before they agreed to accept the pt to their service. Her CTA was negative per radiology and reviewed by myself. after the cta resulted as neg, i did reconsult hospitalist as patient when ambulatory has a heart rate that increases to 130s and she feels dizzy and near syncopal however her oxygen level remained within normal limits. At 7:20 PM I spoke with hospitalist, Dr. Buchanan, after her CT resulted as negative and the patient had still had no improvement of her symptoms and continued to look unwell but stable and he graciously agreed to accept the patient to his service for further work-up and treatment. He did come down to the ER and evaluate the patient. He requested IV Levaquin which I did order. Care transferred to hospitalist in stable condition. Please refer to their note for further details of the visit. On multiple reexams, pt improved some with tx listed. remained stable. chronically ill but not toxic appearing. pain controlled. tolerating po. lung sounds improved on reexam. case discussed with ER Attending, Dr. Spring, who directed and agrees with plan of care Documentation achieved through voice recording which my lead to some occasional accidental typographical errors. Extensive efforts have been made to proof read documentation to make sure these are the least as possible. Category Date Time Status Adult Intake and Output [RC] Q6 Care 11/28/18 19:35 Active EKG Documentation STAT Care 11/28/18 15:15 Completed Patient Education-Lovenox [RC] DAILY Care 11/28/18 19:51 Active Patient Education-VTE [RC] QSHIFT Care 11/28/18 19:51 Active Patient Education-VTE [RC] QSHIFT Care 11/28/18 19:51 Active Patient Status-Admission .Routine Care 11/28/18 19:35 Active Saline Lock (ED) NOW Care 11/28/18 15:15 Active Saline Lock [RC] .routine Care 11/28/18 19:35 Active Up Ad Enedina [RC] .ROUTINE Care 11/28/18 19:39 Active Adult Diet [DIET] Diet 11/28/18 Breakfast Active CHEST 2 VIEWS [RAD] Stat Exams 11/28/18 15:15 Completed CTA CHEST [CT] Stat Exams 11/28/18 18:29 Completed ADD ON [ADD ON TESTING BLD IN LAB] [CHEM] Stat Lab 11/28/18 15:33 Completed BASIC METABOLIC PANEL [CHEM] IN AM Lab 11/29/18 06:00 Ordered BLOOD CULTURE [MC] Stat Lab 11/28/18 17:29 Received CBC WITH DIFF [HEME] IN AM Lab 11/29/18 06:00 Ordered CBC WITH DIFF [HEME] Stat Lab 11/28/18 15:33 Completed COMPREHENSIVE METABOLIC PANEL [CHEM] Stat Lab 11/28/18 15:33 Completed CREATINE KINASE MB [CHEM] IN AM Lab 11/29/18 06:00 Ordered CREATINE KINASE [CHEM] IN AM Lab 11/29/18 06:00 Ordered HCG-QUAL, SERUM [CHEM] Stat Lab 11/28/18 15:33 Completed LACTIC ACID SEPSIS [CHEM] Stat Lab 11/28/18 17:43 Completed LIPASE [CHEM] Stat Lab 11/28/18 15:33 Completed MAGNESIUM [CHEM] Stat Lab 11/28/18 19:27 Ordered TROPONIN I [CHEM] IN AM Lab 11/29/18 06:00 Ordered TROPONIN I [CHEM] Stat Lab 11/28/18 15:33 Completed UA [URINALYSIS] [URIN] Stat Lab 11/28/18 16:25 Completed Enoxaparin Sodium [Lovenox Inj 40 mg/0.4 ml Disp.syrin] Med 11/29/18 10:00 Ordered 40 mg SUBCUT DAILY Famotidine [Pepcid 20 mg Tablet] Med 11/28/18 22:00 Active 20 mg PO Q12 Hydrocodone Bit/Homatropine [Hycodan 5-1.5 mg Tablet] Med 11/28/18 16:53 Discontinued 1 tab PO NOW ONE Ipratropium/Albuterol Sulfate [Duoneb 3 ml Ampul] Med 11/28/18 15:16 Discontinued 3 ml NEB NOW ONE Ipratropium/Albuterol Sulfate [Duoneb 3 ml Ampul] Med 11/28/18 20:00 Active 3 ml NEB RTQID LEVOFLOXACIN 750 MG RTU IVPB (NOW) Med 11/28/18 19:28 Ordered Levofloxacin 750 mg/D5w RTU [Levaquin RTU 750 mg/D5w 150 ml Premix] 750 mg in 150 ml IV NOW Levofloxacin 750 mg/D5w RTU [Levaquin RTU 750 mg/D5w Med 11/29/18 22:00 Active 150 ml Premix] 750 mg in 150 ml IV QHS Methylprednisolone Sod Succ/Pf [Solu-Medrol Inj/Pf 125 Med 11/28/18 18:24 Discontinued mg/2 ml Sdv] 125 mg IV NOW ONE Morphine Sulfate [Morphine 10 mg/ml Inj] Med 11/28/18 18:24 Discontinued 4 mg IV NOW ONE Normal Saline 1000 ml [NaCl 0.9% 1000 ml IV Soln] 1,000 Med 11/28/18 15:15 Discontinued ml IV BOLUS Normal Saline 1000 ml [NaCl 0.9% 1000 ml IV Soln] 1,000 Med 11/28/18 19:34 Active ml IV CONTINUOUS Normal Saline [Saline Flush 2.5 ml Monoject Prefil Med 11/28/18 22:00 Active Syrin] 2.5 ml IV Q8 Ondansetron HCl/Pf [Zofran Inj/Pf 4 mg/2 ml Sdv] Med 11/28/18 18:24 Discontinued 4 mg IV NOW ONE EKG ER ONLY [ER] Stat Oth 11/28/18 15:15 Active Mechanical Prophylaxis .ROUTINE Oth 11/28/18 19:45 Ordered Pharmacological Prophylaxis .ROUTINE Oth 11/28/18 19:45 Ordered Resuscitation Status Routine Ot 11/28/18 19:34 Ordered SCD QSHIFT Ot 11/28/18 19:51 Active Vital Signs [RC] Q4 Ot 11/28/18 19:39 Active Weight [RC] Q6AM Ot 11/28/18 19:35 Active Nebulizer Therapy Routine [RESPCARE] NOW Ther 11/28/18 15:16 Active Pulse Oximeter Continuous [RESPCARE] RTQ4 Ther 11/28/18 19:35 Active 11/28/18 21:48 - Vital Signs Vital signs: Temp Pulse Resp BP Pulse Ox 97.9 F 108 H 16 147/93 H 97 11/28/18 14:22 11/28/18 14:22 11/28/18 14:22 11/28/18 14:22 11/28/18 14:22 11/28/18 21:46 Temp Pulse Resp BP Pulse Ox 11/28/18 17:37 97.6 F 83 16 140/70 H 100 11/28/18 14:22 97.9 F 108 H 16 147/93 H 97 - Laboratory Result Diagrams: 11/28/18 15:33 11/28/18 15:33 Laboratory results interpreted by me: 11/28/18 11/28/18 15:33 15:33 Hgb 16.2 H AST 43 H Albumin 5.1 H - Diagnostic Test Radiology reviewed: Image reviewed, Reports reviewed Radiology results interpreted by me: 11/28/18 21:46 Chest X-Ray 11/28/18 15:15 IMPRESSION: NO ACUTE RADIOGRAPHIC FINDING IN THE CHEST. Chest/Abdomen CTA 11/28/18 18:29 IMPRESSION: NORMAL CTA OF THE CHEST. NO PULMONARY EMBOLI. - EKG Interpretation by Tx EKG shows normal: Sinus rhythm Rate: Normal - 99 bpm, no STEMI, reviewed by Dr. Basilio Rhythm: Other - Biatrial abnormalities When compared to previous EKG there are: No significant change Discharge - Discharge Clinical Impression: Near syncope, Tachycardia, Immunosuppression due to drug therapy, Lupus, History of pulmonary embolism, Pleuritic chest pain Acute sinusitis Qualifiers: Sinusitis location: unspecified location Recurrence: not specified as recurrent Qualified Code(s): J01.90 - Acute sinusitis, unspecified Condition: Fair Disposition: ADMITTED INPATIENT Admitting Provider: Dewayne (Hospitalist) - agreed to accept the pt at 7:20p and came down to the ER to evaluate the pt Unit Admitted: Medical Floor
[2018-11-28 16:44] LABS: APPEARANCE,URINE CLEAR; BILIRUBIN,URINE NEGATIVE (NEGATIVE); COLOR,URINE YELLOW; GLUCOSE, URINE NEGATIVE (NEGATIVE); KETONES,URINE NEGATIVE (NEGATIVE); LEUKOCYTE ESTERASE,URINE NEGATIVE (NEGATIVE); NITRITE,URINE NEGATIVE (NEGATIVE); PROTEIN,URINE NEGATIVE (NEGATIVE); URINE SPECIFIC GRAVITY 1.008; UROBILINOGEN,URINE NEGATIVE mg/dL (<2.0)
[2018-11-28] MEDS ORDERED: HYDROCODONE BIT/HOMATROPINE 5-1.5 MG TABLET PO ONE (16:53)
[2018-11-28] MEDS ORDERED: ONDANSETRON HCL INJ/PF 4 MG/2 ML SDV IV ONE (18:24)
[2018-11-28] MEDS ORDERED: METHYLPREDNISOLONE INJ 125 MG/2 ML SDV IV ONE (18:24)
[2018-11-28] MEDS ORDERED: MORPHINE SULFATE 10 MG/ML INJ IV ONE (18:24)
--- NOTE | 2018-11-28 19:05 | RADIOLOGY REPORT (SQ) ---
EXAM DESCRIPTION: CTA CHEST COMPLETED DATE/TIME: 11/28/2018 6:52 pm REASON FOR STUDY: tachy, cp, hx of pe, cough, sob, COMPARISON: None. TECHNIQUE: CT scan of the chest performed using helical scanning technique with dynamic intravenous contrast injection. Images reviewed with lung, soft tissue and bone windows. Reconstructed coronal and sagittal MPR images reviewed. Additional 3 dimensional post-processing performed to develop Maximal Intensity Projection images (ME P). All images stored on PACS. All CT scanners at this facility use dose modulation, iterative reconstruction, and/or weight based d osing when appropriate to reduce radiation dose to as low as reasonably achievable (ALARA). [facility]: Dose Right [facility]: CareDose [facility]: Dose Right [facility]: Teradose 4D [facility]: PayNearMe CONTRAST TYPE AND DOSE: contrast/concentration: Isovue 350.00 mg/ml; Total Contrast Delivered: 51.0 ml; Total Saline Delivered: 76.0 ml Contrast bolus optimized for the pulmonary arteries. Not diagnostic for the aorta. RENAL FUNCTION: GFR > 60. RADIATION DOSE: CT Rad equipment meets quality standard of care and radiation dose reduction techniq ues were employed. CTDIvol: 6.6 - 14.3 mGy. DLP: 543 mGy-cm. . LIMITATIONS: None. FINDINGS: LUNGS AND PLEURA: No masses, infiltrates, or pneumothorax. No pleural effusions or pleura l calcifications. AORTA AND GREAT VESSELS: No aneurysm. Contrast bolus not optimized for the aorta. HEART: No pericardial effusion. No significant coronary artery calcifications. PULMONARY ARTERIES: No emboli visualized in the main pulmonary arteries or the segmental branches. HILAR AND MEDIASTINAL STRUCTURES: No identified masses or abnormal nodes. HARDWARE: None in the chest. UPPER ABDOMEN: No significant findings. Limited exam. THYROID AND OTHER SOFT TISSUES: No masses. No adenopathy. BONES: No acute or significant finding. 3D MIPS: Confirm above findings. OTHER: No other significant finding. IMPRESSION: NORMAL CTA OF THE CHEST. NO PULMONARY EMBOLI. COMMENT: Quality ID # [id number]: Final reports with documentation of one or more dose reduction techniques (e.g., Automated exposure control, adjustment of the mA and/or kV according to patient size, use of iterative reconstruction technique) TECHNICAL DOCUMENTATION: JOB ID: [id number] [employer]- All Rights Reserved Reading location - IP/workstation name: [email or web address]
[2018-11-28] MEDS ORDERED: LEVOFLOXACIN 750 MG/D5W RTU 750 MG/150 ML RTUPB IV ONE (19:28)
--- NOTE | 2018-11-28 20:20 | PDOC H&P ---
History of Present Illness Admission Date/PCP: NELI MCALLISTER MD Patient complains of: Shortness of breath History of Present Illness: VEGA PEDERSON is a 38 year old female with a history of systemic lupus erythematosus, pneumonia status post intubation, PE on Xarelto, presenting to the emergency room with acute onset of worsening dyspnea and cough with e xpectoration of greenish sputum over the last week with chest pain with deep breathing without wheezing wheezing. She admits to fever and chills at home and reported to have a maximum fever of 101.3 and has been having associated dizziness as well as palpitations with exertional presyncope with ambulation. She denied any nausea or vomiting or abdominal pain. Upon presentation to the emergency room, blood pressure was 140/70 and temperature 97.5 with a pulse of 83 and respiratory rate of 16 and pulse oximetry of 97 to 1% on room air. Her heart rate was up to 130 when she walked. CBC showed hemoconcentration and AST was 43 with albumin of 5.1 with negative urinalysis. Portable chest x-ray revealed no acute cardiopulmonary disease. Chest CT a came back negative for PE or other acute abnormalities. EKG showed normal sinus rhythm with a rate of 93 with T wave inversion in V1 and V2 as well as aVL. The patient was given IV Levaquin and duo nebs as well as form a gram of IV morphine sulfate, Hycodan and Solu-Medrol as well as Zofran. She will be admitted to a medically monitored bed for further evaluation and management. Past Medical History Cardiac Medical History: Reports: Pulmonary Embolism - on xarelto, no missed meds Denies: Atrial Fibrillation, Congestive Heart Failure, Coronary Artery Disease, Myocardial Infarction, Hyperlipidema, Hypertension, Peripheral Vascular Disease, Heart Murmur Pulmonary Medical History: Reports: Bronchitis, Pneumonia Denies: Asthma, Chronic Obstructive Pulmonary Disease (COPD), Respiratory Failure, Sleep Apnea, Tuberculosis Neurological Medical History: Denies: Seizures Endocrine Medical History: Denies: Diabetes Mellitus Type 2, Hyperthyroidism, Hypothyroidism Renal/ Medical History: Denies: End Stage Renal Disease Malignancy Medical History: Reports: Breast Cancer Denies: Cervical Cancer, Leukemia, Lung Cancer, Ovarian Cancer GI Medical History: Reports: Gastroesophageal Reflux Disease Denies: Crohn's Disease, Hiatal Hernia Musculoskeltal Medical History: Denies: Arthritis, Fibromyalgia Psychiatric Medical History: Reports: Bipolar Disorder, Depression Denies: Dementia, Post Traumatic Stress Disorder Hematology: Reports: Anemia - Denies: Hemophilia, Sickle Cell Disease Infectious Medical History: Denies: HIV Past Surgical History Past Surgical History: Reports: Appendectomy, Section - 2, Mastectomy - BILATERAL, Tubal Ligation Denies: Amputation, Colostomy, Pacemaker Social History Smoking Status: Unknown if Ever Smoked Frequency of Alcohol Use: None Hx Recreational Drug Use: No Drugs: None Hx Prescription Drug Abuse: No Family History Family History: Hypertension, Malignancy Parental Family History Reviewed: Yes Children Family History Reviewed: Yes Sibling(s) Family History Reviewed.: Yes Medication/Allergy Home Medications: RX: Methotrexate Sodium [Rheumatrex 2.5 mg Tablet] 10 mg PO FR@1000 03/31/18 RX: Prednisone [Deltasone 20 mg Tablet] 20 mg PO DAILY 03/31/18 RX: Rivaroxaban [Xarelto 10 mg Tablet] 20 mg PO DAILY 03/31/18 Albuterol Sulfate [Proair Respiclick] 1 - 2 inh IH Q4HP PRN #1 aer.[email or web address] 04/02/18 RX: Acetaminophen [Tylenol 325 mg Tablet] 650 mg PO Q4HP PRN tablet 04/02/18 RX: Guaifenesin [Robitussin Syrup 200 mg/10 ml Ud Cup] 200 mg PO Q4HP PRN udc 04/02/18 RX: Levofloxacin [Levaquin 750 mg Tablet] 750 mg PO DAILY #4 tablet 04/02/18 RX: Oxycodone HCl/Acetaminophen [Percocet 5-325 mg Tablet] 1 tab PO Q6HP PRN #12 tablet 04/02/18 RX: Trazodone HCl [Desyrel 50 mg Tablet] 50 mg PO QHS #30 tablet 04/02/18 Oxycodone HCl/Acetaminophen [Percocet 5-325 mg Tablet] 1 - 2 tab PO ASDIR PRN #25 tablet 08/15/18 Promethazine HCl [Phenergan 25 mg Tablet] 25 mg PO Q6H PRN #15 tablet 08/15/18 RX: Cephalexin Monohydrate [Keflex 500 mg Capsule] 500 mg PO Q6H 10 Days #40 capsule 08/15/18 Cyclobenzaprine HCl [Flexeril 10 mg Tablet] 10 mg PO TIDP PRN #15 tab 10/06/18 Ondansetron [Zofran Odt 4 mg Tablet] 1 - 2 tab PO Q4H PRN #15 tab.rapdis 10/06/18 Oxycodone HCl/Acetaminophen [Percocet 5-325 mg Tablet] 1 tab PO Q6H PRN #12 tablet 10/06/18 RX: Naproxen 500 mg PO BID #10 tablet 11/12/18 Allergies/Adverse Reactions: azithromycin [Azithromycin] Allergy (Intermediate, Verified 11/28/18 14:19) Urticaria ciprofloxacin [From Cipro] Allergy (Verified 11/28/18 14:19) Review of Systems Review of Systems: As per history of present illness. All pertinent systems were reviewed above. Constitutional, HEENT, cardiovascular, respiratory, GI, , musculoskeletal, neuro, psychiatric, endocrine, integumentary and hematologic systems were reviewed and are otherwise negative/unremarkable except for positive findings mentioned above in the HPI. Physical Exam Vital Signs: Temp Pulse Resp BP Pulse Ox 97.6 F 83 16 140/70 H 100 11/28/18 17:37 11/28/18 17:37 11/28/18 17:37 11/28/18 17:37 11/28/18 17:37 Intake & Output 11/27/18 11/28/18 11/29/18 06:59 06:59 06:59 Intake Total 1000 Balance 1000 Weight 58 kg Exam: Generally: Pleasant middle-aged female in mild respiratory distress with conversational dyspnea Vital signs-as listed Head - atraumatic, normocephalic. Pupils - equal, round and reactive to light and accommodation. Extraocular movements are intact. No scleral icterus. Oropharynx - moist mucous membranes and tongue. No pharyngeal erythema or exudate. Nose revealed hypertrophic turbinates. She had bilateral maxillary and frontal sinus tenderness. Neck - supple. No JVD. Carotid pulses 2+ bilaterally. No carotid bruits. No palpable thyromegaly or lymphadenopathy. Cardiovascular - regular rate and rhythm. Normal S1 and S2. No murmurs, gallops or rubs. Lungs - clear to auscultation bilaterally. Abdomen - soft and nontender. Positive bowel sounds. No palpable organomegaly or masses. Extremities - no pitting edema, clubbing or cyanosis. Neuro - grossly non-focal. Skin - no rashes. Breast, pelvic and rectal - deferred Results Laboratory Results: 11/28/18 15:33 11/28/18 15:33 11/28/18 11/28/18 11/28/18 15:33 15:33 15:33 WBC 9.0 RBC 5.24 Hgb 16.2 H Hct 46.1 MCV 88 MCH 30.9 MCHC 35.1 RDW 12.4 Plt Count 266 Seg Neutrophils % 73.6 Lymphocytes % 16.4 Monocytes % 9.2 Eosinophils % 0.5 Basophils % 0.3 Absolute Neutrophils 6.6 Absolute Lymphocytes 1.5 Absolute Monocytes 0.8 Absolute Eosinophils 0.0 Absolute Basophils 0.0 Sodium 138.1 Potassium 4.6 Chloride 103 Carbon Dioxide 26 Anion Gap 9 BUN 8 Creatinine 0.58 Est GFR ( Amer) > 60 Est GFR (Non-Af Amer) > 60 Glucose 95 Lactic Acid Calcium 10.0 Total Bilirubin 0.7 AST 43 H Alkaline Phosphatase 88 Total Protein 7.9 Albumin 5.1 H Lipase Serum HCG, Qual NEGATIVE Urine Color Urine Appearance Urine pH Ur Specific [place] Urine Protein Urine Glucose (UA) Urine Ketones Urine Blood Urine Nitrite Ur Leukocyte Esterase Urine WBC (Auto) Urine RBC (Auto) 11/28/18 11/28/18 11/28/18 15:33 16:25 17:43 WBC RBC Hgb Hct MCV MCH MCHC RDW Plt Count Seg Neutrophils % Lymphocytes % Monocytes % Eosinophils % Basophils % Absolute Neutrophils Absolute Lymphocytes Absolute Monocytes Absolute Eosinophils Absolute Basophils Sodium Potassium Chloride Carbon Dioxide Anion Gap BUN Creatinine Est GFR ( Amer) Est GFR (Non-Af Amer) Glucose Lactic Acid 1.2 Calcium Total Bilirubin AST Alkaline Phosphatase Total Protein Albumin Lipase 67.9 Serum HCG, Qual Urine Color YELLOW Urine Appearance CLEAR Urine pH 7.0 Ur Specific [place] 1.008 Urine Protein NEGATIVE Urine Glucose (UA) NEGATIVE Urine Ketones NEGATIVE Urine Blood SMALL H Urine Nitrite NEGATIVE Ur Leukocyte Esterase NEGATIVE Urine WBC (Auto) 1 Urine RBC (Auto) 3 11/28/18 15:33 Troponin I < 0.012 Impressions: Chest X-Ray 11/28/18 15:15 IMPRESSION: NO ACUTE RADIOGRAPHIC FINDING IN THE CHEST. Chest/Abdomen CTA 11/28/18 18:29 IMPRESSION: NORMAL CTA OF THE CHEST. NO PULMONARY EMBOLI. Assessment and Plan - Diagnosis (1) Acute bronchitis Is this a current diagnosis for this admission?: Yes Plan: The patient could be having developing pneumonia. Given her immunosuppression and previous history of pneumonia with intubation twice and reported fever, she will be admitted to medical monitor bed and placed on IV Levaquin as well as medical therapy and scheduled and PRN DuoNeb's. Sputum Gram stain and culture as well as blood cultures will be obtained. (2) Acute sinusitis Qualifiers: Sinusitis location: frontal Is this a current diagnosis for this admission?: Yes Plan: This should be covered with IV Levaquin and will add nasal Flonase spray. (3) Bipolar disorder Is this a current diagnosis for this admission?: Yes Plan: She has not been on medications for a while as she states by following yoga, diet and exercise with no current exacerbation. Her psychiatrist is aware. (4) Systemic lupus erythematosus Is this a current diagnosis for this admission?: Yes Plan: No current flareup. She is currently on methotrexate once weekly. (5) History of pulmonary embolism Is this a current diagnosis for this admission?: Yes Plan: We will continue Xarelto. (6) GERD (gastroesophageal reflux disease) Is this a current diagnosis for this admission?: Yes (7) DVT prophylaxis Is this a current diagnosis for this admission?: Yes Plan: Subcutaneous Lovenox - Time Time Spent with patient: 35 or more minutes Medications reviewed and adjusted accordingly: Yes Anticipated discharge: Home Within: within 72 hours Disposition: Home - Inpatient Certification I certify that my determination is in accordance with my understanding of Medicare's requirements for reasonable and necessary INPATIENT services [42 CFR 412.3e].: Yes Medical Necessity: Need For IV Fluids, Need for IV Antibiotics, Risk of Complication if Not Cared For in Hospital Post Hospital Care: Other - Expected discharge home - Plan Summary Plan Summary: The plan of care was discussed in details with the patient. I answered all questions. The patient agreed to proceed with the above-mentioned plan. The patient is presumably full code. This note was created by [employer] software and may contain typo errors that may have not been proofread.
[2018-11-28] MEDS: IPRATROPIUM/ALBUTEROL 0.5-2.5 MG/3 ML AMPUL NEB SCH (22:03)
[2018-11-28] MEDS: GUAIFENESIN 600 MG TABLET.SA PO SCH (22:34)
[2018-11-28] MEDS: NORMAL SALINE 1000 ML 1,000 ML IV PRN (22:34)
[2018-11-28] MEDS: FAMOTIDINE 20 MG TABLET PO SCH (22:34)
[2018-11-29 05:56] LABS: ABSOLUTE LYMPHOCYTES (AUTO) 0.8 10^3/uL (0.5-4.7); ABSOLUTE MONOCYTES (AUTO) 0.3 10^3/uL (0.1-1.4); ABSOLUTE NEUT (AUTO) 8.1 10^3/uL (1.7-8.2); BASOPHILS % (AUTO) 0.3 % (0-2); LYMPHOCYTES % (AUTO) 8.5 % (13-45); MEAN CORPUSCULAR HEMOGLOBIN 31.4 pg (27.0-33.4); MEAN CORPUSCULAR HGB CONC 35.6 g/dL (32.0-36.0); MEAN CORPUSCULAR VOLUME 88 fl (80-97); MONOCYTES % (AUTO) 3.1 % (3-13); PLATELET COUNT 252 10^3/uL (150-450); RED BLOOD COUNT 4.31 10^6/uL (3.72-5.28); RED CELL DISTRIBUTION WIDTH 12.3 % (11.5-14.0); SEGMENTED NEUTROPHILS % (AUTO) 88.1 % (42-78); TOTAL CELLS COUNTED % (AUTO) 100 %; WHITE BLOOD COUNT 9.2 10^3/uL (4.0-10.5)
[2018-11-29 06:09] LABS: HEMOGLOBIN 13.6 g/dL (12.0-15.5)
[2018-11-29 06:15] LABS: ANION GAP 13 (5-19); BLOOD UREA NITROGEN 7 mg/dL (7-20); CALCIUM 9.2 mg/dL (8.4-10.2); CARBON DIOXIDE 18 mmol/L (22-30); CHLORIDE 106 mmol/L (98-107); CREATINE KINASE 27 U/L (30-135); GLUCOSE 161 mg/dL (75-110)
[2018-11-29 06:16] LABS: POTASSIUM 4.5 mmol/L (3.6-5.0)
[2018-11-29 06:31] LABS: CREATINE KINASE MB < 0.22 ng/mL (<4.55); TROPONIN I < 0.012 ng/mL
[2018-11-29] MEDS: IPRATROPIUM/ALBUTEROL 0.5-2.5 MG/3 ML AMPUL NEB SCH ×2 (07:48→12:07)
[2018-11-29] MEDS ORDERED: ENOXAPARIN SODIUM INJ 40 MG/0.4 ML DISP.SYRIN SUBCUT SCH (10:00)
[2018-11-29] MEDS ORDERED: IBUPROFEN 600 MG TABLET PO PRN (10:18)
[2018-11-29] MEDS ORDERED: ACETAMINOPHEN 325 MG TABLET PO PRN (10:23)
[2018-11-29] MEDS: GUAIFENESIN 600 MG TABLET.SA PO SCH ×2 (10:40→21:26)
[2018-11-29] MEDS: RIVAROXABAN 10 MG TABLET PO SCH (10:40)
[2018-11-29] MEDS: FAMOTIDINE 20 MG TABLET PO SCH ×2 (10:40→21:26)
[2018-11-29] MEDS: FLUTICASONE NASAL SPRAY 50 MCG/SPRY 120 SPRAY/16 GM NASL SCH ×2 (10:40→21:26)
[2018-11-29] MEDS: NORMAL SALINE 1000 ML 1,000 ML IV PRN (10:47)
--- NOTE | 2018-11-29 11:29 | EKG REPORT ---
SEVERITY:- ABNORMAL ECG - SINUS RHYTHM BIATRIAL ABNORMALITIES BORDERLINE T ABNORMALITIES, ANT-LAT LEADS : Confirmed by: Trini Luz 29-Nov-2018 11:28:46
[2018-11-29] MEDS ORDERED: TRAMADOL HCL 50 MG TABLET PO PRN (11:34)
[2018-11-29] MEDS ORDERED: ALBUTEROL SULFATE 0.083% NEB 2.5 MG/3 ML AMPUL NEB PRN (12:04)
[2018-11-29] MEDS ORDERED: GUAIFENESIN/CODEINE PHOS 100-10 MG/ 5 ML UDC PO PRN (12:05)
[2018-11-29] MEDS: LEVOFLOXACIN 750 MG TABLET PO SCH (14:20)
[2018-11-29] MEDS: METHOCARBAMOL 750 MG TABLET PO SCH ×2 (14:20→21:26)
[2018-11-29] MEDS ORDERED: LEVALBUTEROL HCL NEB 1.25 MG/3 ML AMPUL NEB PRN (15:05)
[2018-11-29] MEDS ORDERED: NORMAL SALINE 1000 ML 1,000 ML IV ONE (15:30)
[2018-11-29 15:34] LABS: URINE AMPHETAMINES SCREEN NEGATIVE; URINE BARBITURATES SCREEN NEGATIVE; URINE BENZODIAZEPINES SCREEN NEGATIVE; URINE COCAINE SCREEN NEGATIVE; URINE MARIJUANA (THC) SCREEN NEGATIVE; URINE METHADONE SCREEN NEGATIVE; URINE PHENCYCLIDINE SCREEN NEGATIVE
[2018-11-29 16:19] LABS: FREE T4 (FREE THYROXINE) 0.86 ng/dL (0.78-2.19)
--- NOTE | 2018-11-29 16:19 | Progress Note Acknowledgement ---
Progress Note Acknowledgement Progess Note Acknowledgement: I, the undersigned member of the medical staff with appropriate privileges and with supervisory authority over Deann Munroe, a [facility] practice allied health professional, acknowledge that I have reviewed the progress notes entered on this patient, and in my professional judgment believe that the assessment made and/or any care evidenced was appropriate
[2018-11-29] MEDS ORDERED: ATENOLOL 50 MG TABLET PO SCH (16:30)
[2018-11-29 16:33] LABS: THYROID STIMULATING HORMONE 0.37 uIU/mL (0.47-4.68)
--- NOTE | 2018-11-29 16:42 | PDOC PROGRESS REPORT ---
Subjective Progress Note for:: 11/29/18 Subjective:: The patient is a 38-year-old female with a past medical history significant for SLE, pneumonia requiring intubation, PE on Xarelto, Breast cancer, bipolar disorder, depression, anemia who was admitted 11/28/18 for acute bronchitis and sinusitis. The patient was seen on afternoon rounds. She is found resting in bed on room air. She is acutely ill appearing and in clear discomfort. The patient reports continued chest wall pain; worsened w/ movement, deep breath, and cough, frequent post nasal drip, non productive cough, sore throat, malaise, and fatigue. She reports dyspnea and palpations with minimal activity. She also reports frontal JAIN, facial pressure, and bilateral ear discomfort. She denies fever/chills since arrival to [place] yesterday; did have elevated temp yesterday morning. She denies orthopnea, dyspnea at rest, abdominal pain, nausea and vomiting; though has a poor appetite. The patient is calm, cooperative/pleasant, though cries throughout our conversation. Plan of care reviewed with nursing. Reason For Visit: SUSPECTED CLINICAL PNEUOMONIA, PRESYNCOPE Physical Exam Vital Signs: Temp Pulse Resp BP Pulse Ox 98.1 F 101 H 18 132/71 H 100 11/29/18 11:49 11/29/18 12:45 11/29/18 11:49 11/29/18 11:49 11/29/18 12:45 Pulse Oximeter Continuous Start: 11/28/18 19:35 Freq: RTQ4 Status: Complete Protocol: Document 11/29/18 07:48 [facility] (Rec: 11/29/18 07:52 [facility] [id number]) Pulse Oximetry Assessment Oxygen Saturation (92-100) 98 Oxygen Delivery Method Room Air Fraction of Inspired Oxygen (FIO2) 21 Equipment Usage Equipment in Use Continuous SpO2 Machine # 6 Intake & Output 11/28/18 11/29/18 11/30/18 06:59 06:59 06:59 Intake Total 1410 1000 Balance 1410 1000 Weight 58 kg General appearance: PRESENT: cooperative, mild distress, well-developed, well- nourished, other - acutely ill appearing Head exam: PRESENT: atraumatic, normocephalic Eye exam: PRESENT: conjunctival injection, EOMI, PERRLA. ABSENT: scleral icterus Ear exam: PRESENT: normal external ear exam Mouth exam: PRESENT: moist, tongue midline Neck exam: PRESENT: full ROM, thyromegaly - questionable enlargement; no nodules noted.. ABSENT: carotid bruit, JVD, lymphadenopathy Respiratory exam: PRESENT: clear to auscultation marilou, symmetrical, unlabored. ABSENT: rales, rhonchi, wheezes Cardiovascular exam: PRESENT: RRR, +S1, +S2, tachycardia - HR 120-140. ABSENT: diastolic murmur, rubs, systolic murmur Pulses: PRESENT: normal dorsalis pedis pul Vascular exam: PRESENT: normal capillary refill GI/Abdominal exam: PRESENT: normal bowel sounds, soft. ABSENT: distended, guarding, mass, organolmegaly, rebound, tenderness Rectal exam: PRESENT: deferred Extremities exam: PRESENT: full ROM. ABSENT: calf tenderness, clubbing, pedal edema Musculoskeletal exam: PRESENT: ambulatory Neurological exam: PRESENT: alert, awake, oriented to person, oriented to place, oriented to time, oriented to situation, CN II-XII grossly intact. ABSENT: motor sensory deficit Psychiatric exam: PRESENT: appropriate affect, normal mood. ABSENT: homicidal ideation, suicidal ideation Skin exam: PRESENT: dry, intact, warm. ABSENT: cyanosis, rash Results Laboratory Results: 11/29/18 05:24 11/29/18 05:24 11/28/18 11/28/18 11/28/18 15:33 16:25 17:43 WBC RBC Hgb Hct MCV MCH MCHC RDW Plt Count Seg Neutrophils % Lymphocytes % Monocytes % Eosinophils % Basophils % Absolute Neutrophils Absolute Lymphocytes Absolute Monocytes Absolute Eosinophils Absolute Basophils Sodium Potassium Chloride Carbon Dioxide Anion Gap BUN Creatinine Est GFR ( Amer) Est GFR (Non-Af Amer) Glucose Lactic Acid 1.2 Calcium Magnesium 2.1 Urine Color YELLOW Urine Appearance CLEAR Urine pH 7.0 Ur Specific [place] 1.008 Urine Protein NEGATIVE Urine Glucose (UA) NEGATIVE Urine Ketones NEGATIVE Urine Blood SMALL H Urine Nitrite NEGATIVE Ur Leukocyte Esterase NEGATIVE Urine WBC (Auto) 1 Urine RBC (Auto) 3 11/29/18 11/29/18 05:24 05:24 WBC 9.2 RBC 4.31 Hgb 13.6 D Hct 38.0 MCV 88 MCH 31.4 MCHC 35.6 RDW 12.3 Plt Count 252 Seg Neutrophils % 88.1 H Lymphocytes % 8.5 L Monocytes % 3.1 Eosinophils % 0.0 Basophils % 0.3 Absolute Neutrophils 8.1 Absolute Lymphocytes 0.8 Absolute Monocytes 0.3 Absolute Eosinophils 0.0 Absolute Basophils 0.0 Sodium 136.7 L Potassium 4.5 Chloride 106 Carbon Dioxide 18 L Anion Gap 13 BUN 7 Creatinine 0.50 L Est GFR ( Amer) > 60 Est GFR (Non-Af Amer) > 60 Glucose 161 H Lactic Acid Calcium 9.2 Magnesium Urine Color Urine Appearance Urine pH Ur Specific [place] Urine Protein Urine Glucose (UA) Urine Ketones Urine Blood Urine Nitrite Ur Leukocyte Esterase Urine WBC (Auto) Urine RBC (Auto) 11/28/18 11/29/18 11/29/18 15:33 05:24 05:24 Creatine Kinase 27 L CK-MB (CK-2) < 0.22 Troponin I < 0.012 < 0.012 Impressions: Chest X-Ray 11/28/18 15:15 IMPRESSION: NO ACUTE RADIOGRAPHIC FINDING IN THE CHEST. Chest/Abdomen CTA 11/28/18 18:29 IMPRESSION: NORMAL CTA OF THE CHEST. NO PULMONARY EMBOLI. Assessment and Plan - Diagnosis (1) Tachycardia Is this a current diagnosis for this admission?: Yes Plan: Unclear etiology. Persistent tachycardia noted despite 2 L IVF overnight. Patient is afebrile w/ normal WBC; so although slightly elevated HR would be expected w/ acute illness, I would not anticipate her HR to persistently remain >120-140. CTA is negative. Troponins negative x2 Thyroid panel is negative. UDS negative; possible narcotic withdrawal (which may also explain the nasal congestion/sinus symptoms). Patient denies recent use though does admit to prior frequent use r/t SLE. [place] Controlled Substance Database reviewed; last o p[place] reported was in August, [place], [place] Monitor on continuous cardiac telemetry. Providing Klonopin and Oxycodone for tx of sinusitis and anxiety; tachycardia will resolve if related to withdrawal. Consider starting atenolol. Consider Cardiology consultation. (2) Acute bronchitis Is this a current diagnosis for this admission?: Yes Plan: Afebrile overnight, although with tachycardia and tachypnea. WBCs are normal. Transition to p.o. Levaquin. Continue Flonase. Mucinex twice daily. As needed nebulizer treatments. (3) Acute sinusitis Qualifiers: Sinusitis location: frontal Is this a current diagnosis for this admission?: Yes Plan: Patient with classic sinusitis symptoms; headache, facial pressure, nasal congestion/rhinorrhea, postnasal drip with sore throat and nonproductive cough. Failed outpatient treatment with Ceftin ear. We will obtain CT of the sinuses. Continue Levaquin. Flonase. Analgesics as needed. (4) Bipolar disorder Is this a current diagnosis for this admission?: Yes Plan: She has not been on medications for a while as she states by following yoga, diet and exercise. Her psychiatrist is aware. Significant anxiety/tearfulness today related to acute illness. Strongly believe the patient would benefit from improved sleep/relaxation. She is agreeable to Klonopin while admitted (previously prescribed for management of anxiety). Consider mental health consultation. (5) History of pulmonary embolism Is this a current diagnosis for this admission?: Yes Plan: We will continue Xarelto. (6) Pleuritic chest pain Is this a current diagnosis for this admission?: Yes Plan: Lidoderm patches. Heating pad. As needed tylenol and oxycodone for severe pain. (7) Systemic lupus erythematosus Is this a current diagnosis for this admission?: Yes Plan: No current flareup. She is currently on methotrexate once weekly. - Time Time Spent with patient: 15-24 minutes Medications reviewed and adjusted accordingly: Yes Anticipated discharge: Home Within: within 24 hours
[2018-11-29] MEDS ORDERED: CLONAZEPAM 1 MG TABLET PO ONE (16:45)
--- NOTE | 2018-11-29 17:42 | RADIOLOGY REPORT (SQ) ---
EXAM DESCRIPTION: CT SINUSES FOR ENT COMPLETED DATE/TIME: 11/29/2018 4:56 pm REASON FOR STUDY: JAIN, facial pressure, post nasal drip COMPARISON: None. TECHNIQUE: Noncontrast scanning through the paranasal sinuses using bone algorithm. Reconstructed MPR images reviewed. All images stored on PACS. Images acquired for image guided surgery. All CT scanners at this facility use dose modulation, iterative reconstruction, and/or weight based d osing when appropriate to reduce radiation dose to as low as reasonably achievable (ALARA). [facility]: Dose Right [facility]: CareDose [facility]: Dose Right [facility]: Teradose 4D [facility]: [employer] RADIATION DOSE: CT Rad equipment meets quality standard of care and radiation dose reduction techniq ues were employed. CTDIvol: 30.4 mGy. DLP: 465 mGy-cm. mGy. FINDINGS: NASAL PASSAGES: Clear. No polyps or masses. OSTEOMEATAL UNITS AND NASOFRONTAL DUCTS: Narrowed on the right due to mucosal thickening, right great er than left. Bilateral Shasha cells. MAXILLARY SINUSES: Fluid and mucosal thickening in the right maxillary sinus. Maxillary sinus outlets are patent. ETHMOID SINUSES: Well-pneumatized and clear. SPHENOID SINUSES: Well-pneumatized and clear. No sphenoethmoid air cells or pneumatized pterygoid rec ess. No pneumatized dorsal sella. FRONTAL SINUSES: Well-pneumatized and clear. MASTOID AIR CELLS: Clear. ORBITS: Normal and symmetrical. NASAL SEPTUM: Midline. 5 mm right nasal septal spur. TEMPOROMANDIBULAR JOINTS: Normal. TURBINATES: No pneumatized turbinates. MUCOPERIOSTEAL THICKENING: No. MUCOCELE: No. OTHER: No other significant findings. IMPRESSION: Right maxillary acute on chronic sinusitis. TECHNICAL DOCUMENTATION: JOB ID: [id number] [place]-[id number] Quality ID # [id number]: Final reports with documentation of one or more dose reduction techniques (e.g., Au tomated exposure control, adjustment of the mA and/or kV according to patient size, use of iterative reconstruction technique) 2010 [employer]- All Rights Reserved Reading location - IP/workstation name: [email or web address]
[2018-11-29] MEDS: LIDOCAINE 5% (700 MG) TRANSDERMAL ADH..PATCH TP SCH (18:37)
[2018-11-29] MEDS: OXYCODONE HCL IR 5 MG TABLET PO PRN (21:30)
[2018-11-29] MEDS ORDERED: LEVOFLOXACIN 750 MG/D5W RTU 750 MG/150 ML RTUPB IV SCH (22:00)
[2018-11-30] MEDS: CLONAZEPAM 1 MG TABLET PO PRN ×2 (01:37→11:22)
[2018-11-30] MEDS: OXYCODONE HCL IR 5 MG TABLET PO PRN ×2 (03:39→11:21)
[2018-11-30 05:12] LABS: HEMATOCRIT 35.2 % (36.0-47.0); HEMOGLOBIN 12.5 g/dL (12.0-15.5); MEAN CORPUSCULAR HEMOGLOBIN 31.4 pg (27.0-33.4); MEAN CORPUSCULAR HGB CONC 35.6 g/dL (32.0-36.0); MEAN CORPUSCULAR VOLUME 88 fl (80-97); PLATELET COUNT 220 10^3/uL (150-450); RED BLOOD COUNT 3.99 10^6/uL (3.72-5.28); RED CELL DISTRIBUTION WIDTH 12.1 % (11.5-14.0); WHITE BLOOD COUNT 7.3 10^3/uL (4.0-10.5)
[2018-11-30 05:43] LABS: ANION GAP 9 (5-19); BLOOD UREA NITROGEN 9 mg/dL (7-20); CALCIUM 8.6 mg/dL (8.4-10.2); CARBON DIOXIDE 23 mmol/L (22-30); CHLORIDE 106 mmol/L (98-107); GLUCOSE 82 mg/dL (75-110); POTASSIUM 3.6 mmol/L (3.6-5.0)
[2018-11-30] MEDS: METHOCARBAMOL 750 MG TABLET PO SCH (06:39)
[2018-11-30] MEDS: LIDOCAINE 5% (700 MG) TRANSDERMAL ADH..PATCH TP SCH (11:15)
[2018-11-30] MEDS: FAMOTIDINE 20 MG TABLET PO SCH (11:15)
[2018-11-30] MEDS: GUAIFENESIN 600 MG TABLET.SA PO SCH (11:15)
[2018-11-30] MEDS: RIVAROXABAN 10 MG TABLET PO SCH (11:15)
[2018-11-30] MEDS: LEVOFLOXACIN 750 MG TABLET PO SCH (11:15)
[2018-11-30] MEDS: FLUTICASONE NASAL SPRAY 50 MCG/SPRY 120 SPRAY/16 GM NASL SCH (11:16)
[2018-11-30 13:27] VITALS: BP 131/78
--- NOTE | 2018-12-01 18:02 | PDOC DISCHARGE SUMMARY ---
General - Admit/Disc Date/PCP Admission Date/Primary Care Provider: 11/28/18 19:35 NELI MCALLISTER MD Discharge Date: 11/30/18 - Discharge Diagnosis (1) Tachycardia Is this a current diagnosis for this admission?: Yes Summary: Resolved; resting HR 70-80s and HR of 97 while ambulatory on room air. Unclear etiology; possibly related to acute illness vs opiate withdrawal. Patient is afebrile w/ normal WBC; so although slightly elevated HR would be expected w/ acute illness, her HR was persistently 120-140 and warranted further evaluation. CTA is negative. Troponins negative x2 Thyroid panel is negative. UDS negative; possible narcotic withdrawal (which may also explain the nasal congestion/sinus symptoms). Patient denies recent use though does admit to prior frequent use r/t SLE. [place] Controlled Substance Database reviewed; last opiate prescription reported was in August, [place] Patient was admitted to the medical floor and monitored on continuous cardiac telemetry. Providing Klonopin and Oxycodone for tx of sinusitis and anxiety; tachycardia had resolved by the following day. She is discharged home in stable condition. She is advised to drink plenty of water. She is instructed to follow up with her PCP within 1 week. She was provided a three day prescription for Klonopin and Oxycodone. She is instructed to return to the emergency department as needed for concerning symptoms. (2) Acute bronchitis Is this a current diagnosis for this admission?: Yes Summary: Patient remains afebrile with nml WBC. She is maintaining oxygen saturations while ambulatory on room air without increased work of breathing or significant tachycardia at time of discharge. She is provided prescriptions for p.o. Levaquin, Flonase, and Mucinex twice daily. (3) Acute sinusitis Is this a current diagnosis for this admission?: Yes Summary: Patient with classic sinusitis symptoms; headache, facial pressure, nasal congestion/rhinorrhea, postnasal drip with sore throat and nonproductive cough. Failed outpatient treatment with Ceftin. CT Sinuses demosntrates acute on chronic right maxillary sinusitis. She is discharged home on Levaquin. She is advised to follow up with ENT if symptoms persist after completing course of antibiotic therapy. (4) Bipolar disorder Is this a current diagnosis for this admission?: Yes Summary: She has not been on medications for a while as she states by following yoga, diet and exercise. Recommend follow up appointment with mental health provider. (5) History of pulmonary embolism Is this a current diagnosis for this admission?: Yes Summary: We will continue Xarelto. (6) Pleuritic chest pain Is this a current diagnosis for this admission?: Yes Summary: Improved. Continue tylenol and oxycodone as needed for pain. (7) Systemic lupus erythematosus Is this a current diagnosis for this admission?: Yes Summary: Continue home dose methotrexate. - Additional Information Resuscitation Status: Full Code Discharge Diet: Regular Discharge Activity: Activity As Tolerated, Balance Activity w/Rest, Slowly Incre ase Activity Prescriptions: Clonazepam [Klonopin 1 mg Tablet] 1 mg PO Q8HP PRN #9 tablet PRN Reason: Fluticasone Propionate [Flonase Nasal [place] 50 Mcg/[place] 16 gm] 2 spray NASL Q12 #1 spray.pump Guaifenesin [Mucinex Sr 600 mg Tablet.sa] 600 mg PO Q12 #14 tablet.sa Levofloxacin [Levaquin 750 mg Tablet] 750 mg PO DAILY #5 tablet Oxycodone HCl [Oxy-Ir 5 mg Tablet] 5 mg PO Q6HP PRN #12 tablet PRN Reason: Home Medications: Methotrexate Sodium [Rheumatrex 2.5 mg Tablet] 10 mg PO FR@1000 03/31/18 Rivaroxaban [Xarelto 10 mg Tablet] 20 mg PO DAILY 03/31/18 Benzonatate [Tessalon Perle 100 mg Capsule] 1 cap PO TIDP PRN 11/28/18 Methocarbamol [Robaxin 750 mg Tablet] 750 mg PO TID 11/28/18 Acetaminophen [Tylenol 325 mg Tablet] 650 mg PO Q4HP PRN tablet 11/30/18 Clonazepam [Klonopin 1 mg Tablet] 1 mg PO Q8HP PRN #9 tablet 11/30/18 Fluticasone Propionate [Flonase Nasal [place] 50 Mcg/[place] 16 gm] 2 spray NASL Q12 #1 spray.pump 11/30/18 Guaifenesin [Mucinex Sr 600 mg Tablet.sa] 600 mg PO Q12 #14 tablet.sa 11/30/18 Levofloxacin [Levaquin 750 mg Tablet] 750 mg PO DAILY #5 tablet 11/30/18 Oxycodone HCl [Oxy-Ir 5 mg Tablet] 5 mg PO Q6HP PRN #12 tablet 11/30/18 History of Present Illness History of Present Illness: Per H&P by : VEGA PEDERSON is a 38 year old female with a history of systemic lupus erythematosus, pneumonia status post intubation, PE on Xarelto, presenting to the emergency room with acute onset of worsening dyspnea and cough with expectoration of greenish sputum over the last week with chest pain with deep breathing without wheezing wheezing. She admits to fever and chills at home and reported to have a maximum fever of 101.3 and has been having associate d dizziness as well as palpitations with exertional presyncope with ambulation. She denied any nausea or vomiting or abdominal pain. Upon presentation to the emergency room, blood pressure was 140/70 and temperature 97.5 with a pulse of 83 and respiratory rate of 16 and pulse oximetry of 97 to 1% on room air. Her heart rate was up to 130 when she walked. CBC showed hemoconcentration and AST was 43 with albumin of 5.1 with negative urinalysis. Portable chest x-ray revealed no acute cardiopulmonary disease. Chest CT a came back negative for PE or other acute abnormalities. EKG showed normal sinus rhythm with a rate of 93 with T wave inversion in V1 and V2 as well as aVL. The patient was given IV Levaquin and duo nebs as well as form a gram of IV morphine sulfate, Hycodan and Solu-Medrol as well as Zofran. She will be admitted to a medically monitored bed for further evaluation and management. Physical Exam Vital Signs: Temp Pulse Resp BP Pulse Ox 98.2 F 85 16 131/78 H 100 11/30/18 13:23 11/30/18 13:23 11/30/18 13:23 11/30/18 13:23 11/30/18 13:23 Pulse Oximeter Continuous Start: 11/28/18 19:35 Freq: RTQ4 Status: Complete Protocol: Document 11/29/18 07:48 [facility] (Rec: 11/29/18 07:52 [facility] [id number]) Pulse Oximetry Assessment Oxygen Saturation (92-100) 98 Oxygen Delivery Method Room Air Fraction of Inspired Oxygen (FIO2) 21 Equipment Usage Equipment in Use Continuous SpO2 Machine # 6 Intake & Output 11/30/18 12/01/18 12/02/18 06:59 06:59 06:59 Intake Total 3000 Output Total 5 Balance 2995 Weight 63 kg General appearance: PRESENT: no acute distress, disheveled, thin, well- developed, well-nourished Head exam: PRESENT: atraumatic, normocephalic Eye exam: PRESENT: conjunctiva pink, EOMI, PERRLA. ABSENT: scleral icterus Ear exam: PRESENT: normal external ear exam Mouth exam: PRESENT: moist, tongue midline Neck exam: ABSENT: carotid bruit, JVD, lymphadenopathy, thyromegaly Respiratory exam: PRESENT: clear to auscultation marilou, symmetrical, unlabored. ABSENT: rales, rhonchi, wheezes Cardiovascular exam: PRESENT: RRR. ABSENT: diastolic murmur, rubs, systolic murmur Pulses: PRESENT: normal dorsalis pedis pul Vascular exam: PRESENT: normal capillary refill GI/Abdominal exam: PRESENT: normal bowel sounds, soft. ABSENT: distended, guarding, mass, organolmegaly, rebound, tenderness Rectal exam: PRESENT: deferred Extremities exam: PRESENT: full ROM. ABSENT: calf tenderness, clubbing, pedal edema Musculoskeletal exam: PRESENT: ambulatory Neurological exam: PRESENT: alert, awake, oriented to person, oriented to place, oriented to time, oriented to situation, CN II-XII grossly intact. ABSENT: motor sensory deficit Psychiatric exam: PRESENT: appropriate affect, normal mood. ABSENT: homicidal ideation, suicidal ideation Skin exam: PRESENT: dry, intact, warm. ABSENT: cyanosis, rash Results Laboratory Results: 11/30/18 04:48 11/30/18 04:48 11/28/18 11/29/18 11/29/18 15:33 05:24 05:24 Creatine Kinase 27 L CK-MB (CK-2) < 0.22 Troponin I < 0.012 < 0.012 Impressions: Chest X-Ray 11/28/18 15:15 IMPRESSION: NO ACUTE RADIOGRAPHIC FINDING IN THE CHEST. Chest/Abdomen CTA 11/28/18 18:29 IMPRESSION: NORMAL CTA OF THE CHEST. NO PULMONARY EMBOLI. Sinuses CT 11/29/18 00:00 IMPRESSION: Right maxillary acute on chronic sinusitis. Qualifiers - * PATIENT BEING DISCHARGED WITH ANY OF THE FOLLOWING DIAGNOSIS: No Acute Heart Failure - Is this a Heart Failure Patient?: No Plan Discharge Plan: Patient is discharged home with self care. She is advised to follow up with her primary care provider within 1 week. Take medications as prescribed. If sinus symptoms continue after completing antibiotic, follow up with Dr. Leung (ENT). Drink plenty of water. Return to the emergency department as needed for concerning symptoms. Time Spent: Greater than 30 Minutes
[2018-12-04] MEDS ORDERED: METHOTREXATE SODIUM 2.5 MG TABLET PO SCH (10:00)
== END 2018-11-30 14:39 | disposition home or self-care (01) ==
LOC: ER 14:19 → EH 19:35 → INTOOBSV 19:35 → 5 21:52
PROVIDERS: ADMIT Family Medicine; ATTEND Family Medicine
DX: J20.9 Acute bronchitis, unspecified (principal); J01.10 Acute frontal sinusitis, unspecified; R00.0 Tachycardia, unspecified; F41.9 Anxiety disorder, unspecified; F31.9 Bipolar disorder, unspecified; R07.81 Pleurodynia; M32.9 Systemic lupus erythematosus, unspecified; R06.82 Tachypnea, not elsewhere classified; Z86.711 Personal history of pulmonary embolism; Z79.899 Other long term (current) drug therapy; K21.9 Gastro-esophageal reflux disease without esophagitis; Z79.01 Long term (current) use of anticoagulants; Z87.01 Personal history of pneumonia (recurrent); Z90.49 Acquired absence of other specified parts of digestive tract; Z86.79 Personal history of other diseases of the circulatory system; Z90.13 Acquired absence of bilateral breasts and nipples; Z85.3 Personal history of malignant neoplasm of breast; Z82.49 Family history of ischemic heart disease and other diseases of the circulatory system
CPT/HCPCS: 93005; 94640 ×2; 99285; 96361; 96374; 96375; 36415 ×3; 87040; 84439; 82553; 82550; 83690; 83735; 84443; 84703; 85025 ×2; 85027; 80048 ×2; 80053; 81001; 84484 ×2; 80307; 84481; 83605; 71046; 70486; 71275; 93010; 94762 ×2; G0378 ×4; J3490 ×3; J2930; J2270; J2405; J7030 ×2; J1956; J7620 ×2

== ENCOUNTER 2018-12-22 17:02 | Emergency (ER) | payer OTHER ==
[2018-12-22] MEDS ORDERED: ONDANSETRON 4 MG TAB.RAPDIS PO ONE (18:47)
[2018-12-22] MEDS ORDERED: OXYCODONE-ACETAMINOPHEN 5-325 MG TABLET PO ONE (18:47)
--- NOTE | 2018-12-22 18:51 | ER Document Report ---
ED Medical Screen (RME) - General Chief Complaint: Abdominal Pain Stated Complaint: LOWER ABDOMINAL PAIN Time Seen by Provider: 12/22/18 18:39 Primary Care Provider: NELI MCALLISTER MD [Primary Care Provider] - Follow up as needed Mode of Arrival: Ambulatory Information source: Patient Notes: Patient presents with right lower quad groin pain. Patient reports that started on . 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 She reports it feels the same way. Patient is on Xarelto 20 mg daily. She reports she is also had 2 PEs. Patient has had a double mastectomy. Reports she has had some nausea no vomiting. Reports on Friday started having petechiae around the area. Denies trauma. I have greeted and performed a rapid initial assessment of this patient. A comprehensive ED assessment and evaluation of the patient, analysis of test res ults and completion of the medical decision making process will be conducted by additional ED providers. Dictation of this chart was performed using voice recognition software; therefore, there may be some unintended grammatical errors. TRAVEL OUTSIDE OF THE [place] IN LAST 30 DAYS: No - Related Data Allergies/Adverse Reactions: azithromycin [Azithromycin] Allergy (Intermediate, Verified 12/22/18 17:03) Urticaria ciprofloxacin [From Cipro] Allergy (Verified 12/22/18 17:03) Past Medical History - Past Medical History Cardiac Medical History: Reports: Hx Pulmonary Embolism - on xarelto, no missed meds Denies: Hx Atrial Fibrillation, Hx Congestive Heart Failure, Hx Coronary Artery Disease, Hx Heart Attack, Hx Hypercholesterolemia, Hx Hypertension, Hx Peripheral Vascular Disease, Hx Heart Murmur Pulmonary Medical History: Reports: Hx Bronchitis, Hx Pneumonia, Hx Intubation Denies: Hx Asthma, Hx COPD, Hx Respiratory Failure, Hx Sleep Apnea, Hx Tuberculosis Neurological Medical History: Denies: Hx Cerebrovascular Accident, Hx Seizures Endocrine Medical History: Denies: Hx Diabetes Mellitus Type 1, Hx Diabetes Mellitus Type 2, Hx Graves' Disease, Hx Hyperthyroidism, Hx Hypothyroidism Renal/ Medical History: Denies: Hx End Stage Renal Disease, Hx Kidney Stones, Hx Ovarian Cysts, Hx Peritoneal Dialysis, Hx Pelvic Inflammatory Disease Malignancy Medical History: Reports: Hx Breast Cancer. Denies: Hx Cervical Cancer, Hx Leukemia, Hx Lung Cancer, Hx Ovarian Cancer GI Medical History: Reports: Hx Gastritis, Hx Gastroesophageal Reflux Disease, Hx Ulcer. Denies: Hx Crohn's Disease, Hx Hiatal Hernia, Hx Irritable Bowel, Hx Liver Failure, Hx Pancreatitis Musculoskeltal Medical History: Denies Hx Arthritis, Denies Hx Fibromyalgia, Denies Hx Multiple Sclerosis, Denies Hx Muscular Dystrophy, Reports Hx Systemic Lupus Erythematosus Psychiatric Medical History: Reports: Hx Anxiety, Hx Bipolar Disorder, Hx Depression Denies: Hx Dementia, Hx Post Traumatic Stress Disorder, Hx Schizophrenia Traumatic Medical History: Denies: Hx Fractures Infectious Medical History: Denies: Hx HIV Past Surgical History: Reports: Hx Appendectomy, Hx Breast Surgery, Hx Section - 2, Hx Gynecologic Surgery - L ovary removed, Hx Mastectomy - BILATERAL, Hx Tubal Ligation. Denies: Hx Colostomy, Hx Pacemaker - Immunizations Immunizations up to date: Yes Hx Diphtheria, Pertussis, Tetanus Vaccination: Yes History of Influenza Vaccine for 01/2017 - 06/2017 Season: Yes Influenza Administration Date for 01/2017 - 06/2017 Season: 02/11/18 Physical Exam - Vital signs Vitals: Temp Pulse Resp BP Pulse Ox 98.5 F 73 18 146/80 H 99 12/22/18 17:19 12/22/18 17:19 12/22/18 17:19 12/22/18 17:19 12/22/18 17:19 Course - Vital Signs Vital signs: Temp Pulse Resp BP Pulse Ox 98.5 F 73 18 146/80 H 99 12/22/18 17:19 12/22/18 17:19 12/22/18 17:19 12/22/18 17:19 12/22/18 17:19 - Laboratory Result Diagrams: 12/22/18 18:49 12/22/18 18:49 Laboratory results interpreted by me: 12/22/18 12/22/18 18:49 18:49 Calcium 10.3 H Urine Ketones 20 H Urine Blood MODERATE H Doctor's Discharge - Discharge Referrals: NELI MCALLISTER MD [Primary Care Provider] - Follow up as needed
[2018-12-22 19:28] LABS: ABSOLUTE LYMPHOCYTES (AUTO) 1.5 10^3/uL (0.5-4.7); ABSOLUTE MONOCYTES (AUTO) 0.8 10^3/uL (0.1-1.4); ABSOLUTE NEUT (AUTO) 7.6 10^3/uL (1.7-8.2); BASOPHILS % (AUTO) 0.3 % (0-2); EOSINOPHILS % (AUTO) 0.1 % (0-6); HEMATOCRIT 42.4 % (36.0-47.0); HEMOGLOBIN 14.8 g/dL (12.0-15.5); LYMPHOCYTES % (AUTO) 15.3 % (13-45); MEAN CORPUSCULAR HEMOGLOBIN 30.7 pg (27.0-33.4); MEAN CORPUSCULAR HGB CONC 34.9 g/dL (32.0-36.0); MEAN CORPUSCULAR VOLUME 88 fl (80-97); MONOCYTES % (AUTO) 8.2 % (3-13); PLATELET COUNT 271 10^3/uL (150-450); RED BLOOD COUNT 4.82 10^6/uL (3.72-5.28); RED CELL DISTRIBUTION WIDTH 12.4 % (11.5-14.0); SEGMENTED NEUTROPHILS % (AUTO) 76.1 % (42-78); TOTAL CELLS COUNTED % (AUTO) 100 %
[2018-12-22 19:33] LABS: APPEARANCE,URINE CLEAR; BILIRUBIN,URINE NEGATIVE (NEGATIVE); COLOR,URINE YELLOW; GLUCOSE, URINE NEGATIVE (NEGATIVE); KETONES,URINE 20 mg/dL (NEGATIVE); LEUKOCYTE ESTERASE,URINE NEGATIVE (NEGATIVE); NITRITE,URINE NEGATIVE (NEGATIVE); PROTEIN,URINE NEGATIVE (NEGATIVE); URINE SPECIFIC GRAVITY 1.014; UROBILINOGEN,URINE NEGATIVE mg/dL (<2.0)
[2018-12-22 19:49] LABS: ALBUMIN 4.8 g/dL (3.5-5.0); ALKALINE PHOSPHATASE 73 U/L (38-126); ANION GAP 11 (5-19); ASPARTATE AMINO TRANSFERASE 31 U/L (14-36); BILIRUBIN,DIRECT 0.1 mg/dL (0.0-0.4); BLOOD UREA NITROGEN 9 mg/dL (7-20); CALCIUM 10.3 mg/dL (8.4-10.2); CARBON DIOXIDE 26 mmol/L (22-30); CHLORIDE 100 mmol/L (98-107); GLUCOSE 97 mg/dL (75-110); POTASSIUM 4.2 mmol/L (3.6-5.0); TOTAL PROTEIN 7.8 g/dL (6.3-8.2)
--- NOTE | 2018-12-22 21:52 | ER Document Report ---
ED General - General Chief Complaint: Abdominal Pain Stated Complaint: LOWER ABDOMINAL PAIN Time Seen by Provider: 12/22/18 18:39 Primary Care Provider: NELI MCALLISTER MD [Primary Care Provider] - Follow up as needed Mode of Arrival: Ambulatory Notes: Patient is a 38-year-old female with a history of lupus, pulmonary embolism and iliac vein thrombosis who presents to the emergency department with a chief complaint of right lower quadrant pain. Patient states she has a history of iliac thrombosis on the right side and that this pain feels very similar. Patient reports having some petechiae over the scar in the right lower quadrant. Patient reports the scars from an appendectomy. Patient reports she is also had a tubal ligation. Patient denies vaginal bleeding or discharge. Patient states she did have pneumonia 1 month ago but has not had any symptoms such as fever, cough, chest pain or shortness of breath. Patient reports she does take Xarelto 20 mg daily. Patient denies urinary symptoms. TRAVEL OUTSIDE OF THE [place] IN LAST 30 DAYS: No - Related Data Allergies/Adverse Reactions: azithromycin [Azithromycin] Allergy (Intermediate, Verified 12/22/18 17:03) Urticaria ciprofloxacin [From Cipro] Allergy (Verified 12/22/18 17:03) Past Medical History - General Information source: Patient - Social History Smoking Status: Never Smoker Frequency of alcohol use: None Drug Abuse: None Lives with: Family Family History: Hypertension, Malignancy Patient has suicidal ideation: No Patient has homicidal ideation: No - Past Medical History Cardiac Medical History: Reports: Hx Pulmonary Embolism - on xarelto, no missed meds Denies: Hx Atrial Fibrillation, Hx Congestive Heart Failure, Hx Coronary Artery Disease, Hx Heart Attack, Hx Hypercholesterolemia, Hx Hypertension, Hx Peripheral Vascular Disease, Hx Heart Murmur Pulmonary Medical History: Reports: Hx Bronchitis, Hx Pneumonia, Hx Intubation Denies: Hx Asthma, Hx COPD, Hx Respiratory Failure, Hx Sleep Apnea, Hx Tuberculosis EENT Medical History: Reports: None Neurological Medical History: Reports: None. Denies: Hx Cerebrovascular Accident, Hx Seizures Endocrine Medical History: Reports: None. Denies: Hx Diabetes Mellitus Type 1, Hx Diabetes Mellitus Type 2, Hx Graves' Disease, Hx Hyperthyroidism, Hx Hypothyroidism Renal/ Medical History: Reports: None. Denies: Hx End Stage Renal Disease, Hx Kidney Stones, Hx Ovarian Cysts, Hx Peritoneal Dialysis, Hx Pelvic Inflammatory Disease Malignancy Medical History: Reports: Hx Breast Cancer. Denies: Hx Cervical Cancer, Hx Leukemia, Hx Lung Cancer, Hx Ovarian Cancer GI Medical History: Reports: Hx Gastritis, Hx Gastroesophageal Reflux Disease, Hx Ulcer. Denies: Hx Crohn's Disease, Hx Hiatal Hernia, Hx Irritable Bowel, Hx Liver Failure, Hx Pancreatitis Musculoskeletal Medical History: Denies Hx Arthritis, Denies Hx Fibromyalgia, Denies Hx Multiple Sclerosis, Denies Hx Muscular Dystrophy, Reports Hx Systemic Lupus Erythematosus Psychiatric Medical History: Reports: Hx Anxiety, Hx Bipolar Disorder, Hx Depression Denies: Hx Dementia, Hx Post Traumatic Stress Disorder, Hx Schizophrenia Traumatic Medical History: Reports: None. Denies: Hx Fractures Infectious Medical History: Reports: None. Denies: Hx HIV Past Surgical History: Reports: Hx Appendectomy, Hx Breast Surgery, Hx Section - 2, Hx Gynecologic Surgery - L ovary removed, Hx Mastectomy - BILATERAL, Hx Tubal Ligation. Denies: Hx Colostomy, Hx Pacemaker - Immunizations Immunizations up to date: Yes Hx Diphtheria, Pertussis, Tetanus Vaccination: Yes Hx Pneumococcal Vaccination: 01/27/12 Review of Systems - Review of Systems Constitutional: No symptoms reported EENT: No symptoms reported Cardiovascular: No symptoms reported Respiratory: No symptoms reported Gastrointestinal: See HPI Genitourinary: No symptoms reported Female Genitourinary: No symptoms reported Musculoskeletal: No symptoms reported Skin: No symptoms reported Hematologic/Lymphatic: No symptoms reported Neurological/Psychological: No symptoms reported Physical Exam - Vital signs Vitals: Temp Pulse Resp BP Pulse Ox 98.5 F 73 18 146/80 H 99 12/22/18 17:19 12/22/18 17:19 12/22/18 17:19 12/22/18 17:19 12/22/18 17:19 Interpretation: Normal - Notes Notes: GENERAL: Well-appearing, well-nourished and in no acute distress. HEAD: Atraumatic, normocephalic. EYES: Pupils equal round and reactive to light, extraocular movements intact, sclera anicteric, conjunctiva are normal. ENT: TMs normal, nares patent, oropharynx clear without exudates. Moist mucous membranes. NECK: Normal range of motion, supple without lymphadenopathy or JVD. LUNGS: Breath sounds clear to auscultation bilaterally and equal. No wheezes rales or rhonchi. HEART: Regular rate and rhythm without murmurs, rubs or gallops. ABDOMEN: Soft, healed linear horizontal line to the RLQ - some petechiae noted around the scar, there is tenderness to palpation to the right lower quadrant, normoactive bowel sounds. No guarding, no rebound. No masses appreciated. BACK: No cervical, thoracic, lumbar midline tenderness. No saddle anesthesia, normal distal neurovascular exam. GENITOURINARY: Deferred. EXTREMITIES: Normal range of motion, no pitting or edema. No clubbing or cyanosis. NEUROLOGICAL: Cranial nerves II through XII grossly intact. Normal speech, normal gait. PSYCH: Normal mood, normal affect. SKIN: Warm, Dry, normal turgor, no rashes or lesions noted. Course - Re-evaluation Re-evalutation: 12/22/18 21:51 Patient states she is not having any unilateral leg swelling or calf pain. Patient states she does not currently have any chest pain, shortness of breath or cough. Patient does take Xarelto 20 mg daily. Patient concerned she may have another iliac vein thrombosis. I did discuss the case with Dr. Hicks my supervising attending who recommends obtaining a CT of the abdomen and pelvis with IV contrast. 12/22/18 23:56 CT of the abdomen and pelvis was negative for any acute abnormality. The ultrasound/Doppler was unofficially negative. I did inform the patient of the results. She is tolerating liquids. Petechiae noted to the right lower quadrant does not appear as prominent as it did. Patient denies trauma to the abdomen, excessive rubbing to the abdomen. Patient is on Xarelto and instructed to take as directed and continue to take this. Patient given strict return precautions. 12/23/18 00:02 At time of discharge patient became tearful. Patient states she feels like this could be her ovary - unfortunately these were not seen in the CT imaging tonight. Patient reports she does not have a left ovary but does have a right ovary where she is having her pain. Patient states the pain started on . Patient reports she does have a history of cysts. Will order a ultrasound. 12/23/18 00:09 Upon evaluation I did asked the patient why she does not have a left ovary. Patient states a few years ago she had a laparoscopic surgery to rule out endometriosis. She states she never followed up with her doctor but that after the surgery the doctor spoke with her and said something about an ovary. Patient states sometimes they do not see the ovary in certain imaging so she thought they may have taken it out. I did look at an ultrasound from September of this year and she did have both ovaries visualized. 12/23/18 00:29 Patient's ultrasound negative for any acute abnormality. Ovaries were visualized. Patient denies vaginal discharge or vaginal bleeding. - Vital Signs Vital signs: Temp Pulse Resp BP Pulse Ox 98.6 F 85 11 L 117/62 100 12/22/18 21:41 12/22/18 21:41 12/22/18 21:41 12/22/18 21:41 12/22/18 21:41 - Laboratory Result Diagrams: 12/22/18 18:49 12/22/18 18:49 Laboratory results interpreted by me: 12/22/18 12/22/18 18:49 18:49 Calcium 10.3 H Urine Ketones 20 H Urine Blood MODERATE H - Diagnostic Test Radiology reviewed: Reports reviewed Radiology results interpreted by me: 12/22/18 23:56 Abdomen/Pelvis CT 12/22/18 21:48 IMPRESSION: No acute abnormality within the abdomen or pelvis. TECHNICAL DOCUMENTATION: Quality ID # 436: Final reports with documentation of one or more dose reduction techniques (e.g., Automated exposure control, adjustment of the mA and/or kV according to patient size, use of iterative reconstruction technique) copyright 2010 [employer]- All Rights Reserved 12/23/18 01:31 Abdomen/Pelvis CT 12/22/18 21:48 IMPRESSION: No acute abnormality within the abdomen or pelvis. TECHNICAL DOCUMENTATION: Quality ID # [id number]: Final reports with documentation of one or more dose reduction techniques (e.g., Automated exposure control, adjustment of the mA and/or kV according to patient size, use of iterative reconstruction technique) copyright 2010 [employer]- All Rights Reserved Transvaginal US 12/23/18 00:01 IMPRESSION: Unremarkable pelvic ultrasound. Discharge - Discharge Clinical Impression: Abdominal pain Qualifiers: Abdominal location: right lower quadrant Qualified Code(s): R10.31 - Right lower quadrant pain Condition: Stable Disposition: HOME, SELF-CARE Additional Instructions: Today you are seen in the emergency department for abdominal pain. We did do a CT of the abdomen which did not show any acute abnormality. The ultrasound/Doppler of your lower extremity was unofficially negative. Please continue take the Xarelto as prescribed. Please follow-up with your primary care physician for a reevaluation. Please return to the emergency department if your symptoms worsen to include severe abdominal pain, vaginal bleeding or discharge, fever, swelling of the abdomen, increased bruising or petechiae noted to the abdomen or any other concerning signs or symptoms. We did obtain an ultrasound of the pelvis which did visualize to ovaries one on the left and one on the right. There is no acute abnormality. Abdominal Pain There are many causes of abdominal pain. Pain can mean a serious problem requiring surgery (such as appendicitis). It can also be an innocent problem that goes away on its own (such as a viral infection). Often, time must pass to determine the cause of pain. The physician does not feel that hospitalization is necessary, at present. Things may change within the next 24 hours. Call the doctor or come back for re- examination if any problems occur, such as: (1) Pain that becomes more severe, steady, or becomes concentrated in one specific area. Also, pain that is more severe with movement or coughing. (2) Vomiting that persists or becomes more frequent. (3) Blood in the vomitus, urine, or bowel movements. Blood in the stool may have a tarry or black appearance. (4) Shaking chills or fever greater than 100 degrees F. (5) The abdomen becomes more distended or swollen. (6) Bowel movements cease. (7) Failure to improve as expected. Referrals: NELI MCALLISTER MD [Primary Care Provider] - Follow up as needed
--- NOTE | 2018-12-22 23:06 | RADIOLOGY REPORT (SQ) ---
EXAM DESCRIPTION: CT ABDOMEN PELVIS WITH IV CONTRAST COMPLETED DATE/TME: 12/22/2018 21:48 CLINICAL HISTORY: 38 years, Female, RLQ PAIN. HX of iliac vein thrombosis COMPARISON: Prior study from 01/06/2018 TECHNIQUE: Contrast enhanced CT of the abdomen/pelvis was performed. Coronal and sagittal reformations were created. Images stored on PACS. All CT scanners at this facility use dose modulation, iterative reconstruction, and/or weight based dosing when appropriate to reduce radiation dose to as low as reasonably achievable (ALARA). [facility]: Dose Right [facility]: CareDose [facility]: Dose Right [facility]: Teradose 4D [facility]: Taggo LIMITATIONS: None. FINDINGS: Limited evaluation of the lower chest reveals clear lung bases. The liver, spleen, pancreas, gallbladder, and both adrenal glands appear normal. Both kidneys enhance symmetrically. No hydronephrosis or hydroureter. Urinary bladder is well distended and shows no suspicious finding. Uterus shows no suspicious abnormality. Bilateral tubal ligation clips are noted. Neither ovary is well visualized. Small and large bowel appear normal in caliber without areas of focal wall thickening. No evidence of bowel obstruction. The appendix is not visualized. Vascular structures opacify with contrast normally. No suspicious lymphadenopathy or drainable fluid collections are appreciated. Bone windows show no destructive osseous lesions. IMPRESSION: No acute abnormality within the abdomen or pelvis. TECHNICAL DOCUMENTATION: Quality ID # [id number]: Final reports with documentation of one or more dose reduction techniques (e.g., Automated exposure control, adjustment of the mA and/or kV according to patient size, use of iterative reconstruction technique) copyright 2011 [employer]- All Rights Reserved
--- NOTE | 2018-12-23 01:29 | RADIOLOGY REPORT (SQ) ---
US PELVIS EXAM DATE: 12/23/2018 12:01 AM CDT HISTORY: Pelvic pain. COMPARISON: None. TECHNIQUE: Grayscale, color Doppler, and spectral Doppler ultrasound images of the pelvis were obtained. FINDINGS: The uterus is anteverted and measures 9.0 x 4.9 x 4.3 cm. The endometrium is 10 mm in thickness. The cervix measures 3 cm in length. Both ovaries are normal in size and contain normal follicles, with the right ovary measuring 3.2 x 1.8 x 1.9 cm and contains a 2.3 x 1.2 x 1.5 cm anechoic cyst. The left ovary measures 2.2 x 1.6 x 1.5 cm. Normal color Doppler blood flow is seen in both ovaries. IMPRESSION: Unremarkable pelvic ultrasound.
--- NOTE | 2018-12-23 01:34 | VASCULAR PRELIM REPORT ---
Provider Note Provider Note: Right lower extremity veins negative for DVT.
[2018-12-23 02:04] VITALS: BP 122/68
--- NOTE | 2018-12-23 08:12 | XCELERA REPORT ---
[address] [place] [facility] [place] [address] Lower Extremity Venous Evaluation Procedure: Color flow and duplex imaging of the veins of the right lower extremity as well as the left Common Femoral vein. Right Sided Venous Evaluation Normal vessel filling wall to wall, compression and augmentation as well as Colour flow down to the infrageniculate veins. Left Sided Venous Evaluation The left common femoral vein is fully compressible. Spontaneous and phasic flow is present in the left common femoral vein. Interpretation Summary No duplex evidence of DVT or obstruction in the right lower extremity nor in the left Common Femoral vein. Name: VEGA PEDERSON Age: 38 yrs Gender: Female : 1980 Patient Status: Emergency Patient Location: ER Study Date: 12/22/2018 07:30 PM Reason For Study: Right groin pain history of iliac thrombosis Ordering Physician: QUINTEN FITZGERALD Performed By: Micaela Zuñiga : QUINTEN FITZGERALD > Reed Kemp
== END 2018-12-23 01:45 | disposition home or self-care (01) ==
LOC: ER 17:02
DX: N83.201 Unspecified ovarian cyst, right side (principal); R10.31 Right lower quadrant pain; R10.813 Right lower quadrant abdominal tenderness; R23.3 Spontaneous ecchymoses; L90.5 Scar conditions and fibrosis of skin; Z86.711 Personal history of pulmonary embolism; Z86.718 Personal history of other venous thrombosis and embolism; Z79.02 Long term (current) use of antithrombotics/antiplatelets; Z98.51 Tubal ligation status; Z85.3 Personal history of malignant neoplasm of breast; Z87.19 Personal history of other diseases of the digestive system; Z88.1 Allergy status to other antibiotic agents; Z90.49 Acquired absence of other specified parts of digestive tract
CPT/HCPCS: 36415; 84703; 85025; 80053; 81001; 93971 ×2; 76830; 93976; 74177; S0119

== ENCOUNTER 2019-01-02 18:04 | Emergency (ER) | payer OTHER ==
[2019-01-02] MEDS ORDERED: PHENAZOPYRIDINE HCL 200 MG TABLET PO ONE (18:29)
--- NOTE | 2019-01-02 18:31 | ER Document Report ---
ED Medical Screen (RME) - General Chief Complaint: Urinary Problem Stated Complaint: PAINFUL URINATION Time Seen by Provider: 01/02/19 18:26 Primary Care Provider: NELI MCALLISTER MD [Primary Care Provider] - Follow up as needed Mode of Arrival: Ambulatory Information source: Patient Notes: This 38-year-old female presents to the emergency department with complaints of possible UTI. Reports she has a history of chronic UTIs. Last UTI was 8 weeks ago when she was treated with Levaquin. Patient reports she is having thigh back and bladder pain. She took Pyridium last night and that seemed to help her up but she is out of Pyridium now. Denies fever vomiting diarrhea. Is not really sure if she is had a fever because she is been taking Tylenol for the davis n. Denies vaginal discharge. Patient reports she feels very confused forgot her child's name today. She reports she seems to have elderly symptoms when she has a UTI. I have greeted and performed a rapid initial assessment of this patient. A comprehensive ED assessment and evaluation of the patient, analysis of test results and completion of the medical decision making process will be conducted by additional ED providers. Dictation of this chart was performed using voice recognition software; therefore, there may be some unintended grammatical errors. TRAVEL OUTSIDE OF THE [place] IN LAST 30 DAYS: No - Related Data Allergies/Adverse Reactions: azithromycin [Azithromycin] Allergy (Intermediate, Verified 01/02/19 18:23) Urticaria ciprofloxacin [From Cipro] Allergy (Verified 01/02/19 18:23) Past Medical History - General Last Menstrual Period: 12/11/2018 - Social History Chew tobacco use (# tins/day): No Frequency of alcohol use: None Drug Abuse: None - Past Medical History Cardiac Medical History: Reports: Hx Pulmonary Embolism - on xarelto, no missed meds Denies: Hx Atrial Fibrillation, Hx Congestive Heart Failure, Hx Coronary Artery Disease, Hx Heart Attack, Hx Hypercholesterolemia, Hx Hypertension, Hx Peripheral Vascular Disease, Hx Heart Murmur Pulmonary Medical History: Reports: Hx Bronchitis, Hx Pneumonia, Hx Intubation Denies: Hx Asthma, Hx COPD, Hx Respiratory Failure, Hx Sleep Apnea, Hx Tuberculosis Neurological Medical History: Denies: Hx Cerebrovascular Accident, Hx Seizures Endocrine Medical History: Denies: Hx Diabetes Mellitus Type 1, Hx Diabetes Mellitus Type 2, Hx Graves' Disease, Hx Hyperthyroidism, Hx Hypothyroidism Renal/ Medical History: Denies: Hx End Stage Renal Disease, Hx Kidney Stones, Hx Ovarian Cysts, Hx Peritoneal Dialysis, Hx Pelvic Inflammatory Disease Malignancy Medical History: Reports: Hx Breast Cancer. Denies: Hx Cervical Cancer, Hx Leukemia, Hx Lung Cancer, Hx Ovarian Cancer GI Medical History: Reports: Hx Gastritis, Hx Gastroesophageal Reflux Disease, Hx Ulcer. Denies: Hx Crohn's Disease, Hx Hiatal Hernia, Hx Irritable Bowel, Hx Liver Failure, Hx Pancreatitis Musculoskeltal Medical History: Denies Hx Arthritis, Denies Hx Fibromyalgia, Denies Hx Multiple Sclerosis, Denies Hx Muscular Dystrophy, Reports Hx Systemic Lupus Erythematosus Psychiatric Medical History: Reports: Hx Anxiety, Hx Bipolar Disorder, Hx Depression Denies: Hx Dementia, Hx Post Traumatic Stress Disorder, Hx Schizophrenia Traumatic Medical History: Denies: Hx Fractures Infectious Medical History: Denies: Hx HIV Past Surgical History: Reports: Hx Appendectomy, Hx Breast Surgery, Hx Section - 2, Hx Gynecologic Surgery - L ovary removed, Hx Mastectomy - BILATERAL, Hx Tubal Ligation. Denies: Hx Colostomy, Hx Pacemaker - Immunizations Immunizations up to date: Yes Hx Diphtheria, Pertussis, Tetanus Vaccination: Yes History of Influenza Vaccine for 01/2017 - 06/2017 Season: Yes Influenza Administration Date for 01/2017 - 06/2017 Season: 02/11/18 Physical Exam - Vital signs Vitals: Temp Pulse Resp BP Pulse Ox 98.1 F 90 16 146/84 H 98 01/02/19 18:21 01/02/19 18:21 01/02/19 18:21 01/02/19 18:21 01/02/19 18:21 Course - Vital Signs Vital signs: Temp Pulse Resp BP Pulse Ox 98.1 F 90 16 146/84 H 98 01/02/19 18:21 01/02/19 18:21 01/02/19 18:21 01/02/19 18:21 01/02/19 18:21 Doctor's Discharge - Discharge Referrals: NELI MCALLISTER MD [Primary Care Provider] - Follow up as needed
[2019-01-02 19:00] LABS: APPEARANCE,URINE CLEAR; BILIRUBIN,URINE NEGATIVE (NEGATIVE); COLOR,URINE YELLOW; GLUCOSE, URINE NEGATIVE (NEGATIVE); KETONES,URINE NEGATIVE (NEGATIVE); LEUKOCYTE ESTERASE,URINE SMALL (NEGATIVE); NITRITE,URINE NEGATIVE (NEGATIVE); PROTEIN,URINE NEGATIVE (NEGATIVE); UROBILINOGEN,URINE NEGATIVE mg/dL (<2.0)
[2019-01-02 19:01] LABS: ABSOLUTE EOSINOPHILS # (AUTO) 0.1 10^3/uL (0.0-0.6); ABSOLUTE LYMPHOCYTES (AUTO) 2.4 10^3/uL (0.5-4.7); ABSOLUTE MONOCYTES (AUTO) 1.1 10^3/uL (0.1-1.4); ABSOLUTE NEUT (AUTO) 5.4 10^3/uL (1.7-8.2); BASOPHILS % (AUTO) 0.4 % (0-2); EOSINOPHILS % (AUTO) 0.7 % (0-6); HEMATOCRIT 38.9 % (36.0-47.0); HEMOGLOBIN 13.6 g/dL (12.0-15.5); LYMPHOCYTES % (AUTO) 26.4 % (13-45); MEAN CORPUSCULAR HGB CONC 34.8 g/dL (32.0-36.0); MEAN CORPUSCULAR VOLUME 89 fl (80-97); MONOCYTES % (AUTO) 12.1 % (3-13); PLATELET COUNT 244 10^3/uL (150-450); RED BLOOD COUNT 4.37 10^6/uL (3.72-5.28); RED CELL DISTRIBUTION WIDTH 12.6 % (11.5-14.0); SEGMENTED NEUTROPHILS % (AUTO) 60.4 % (42-78); TOTAL CELLS COUNTED % (AUTO) 100 %
[2019-01-02 19:10] LABS: ALBUMIN 4.5 g/dL (3.5-5.0); ALKALINE PHOSPHATASE 57 U/L (38-126); ANION GAP 11 (5-19); ASPARTATE AMINO TRANSFERASE 25 U/L (14-36); BILIRUBIN,DIRECT 0.1 mg/dL (0.0-0.4); BILIRUBIN,TOTAL 0.9 mg/dL (0.2-1.3); BLOOD UREA NITROGEN 10 mg/dL (7-20); CALCIUM 9.5 mg/dL (8.4-10.2); CARBON DIOXIDE 27 mmol/L (22-30); CHLORIDE 99 mmol/L (98-107); GLUCOSE 84 mg/dL (75-110); POTASSIUM 4.6 mmol/L (3.6-5.0)
[2019-01-02] MEDS ORDERED: HYDROMORPHONE HCL INJ/PF 2 MG/ML AMPULE IM ONE (23:00)
[2019-01-02] MEDS ORDERED: NORMAL SALINE 1000 ML 1,000 ML IV ONE (23:00)
[2019-01-02] MEDS ORDERED: ONDANSETRON HCL INJ/PF 4 MG/2 ML SDV IV ONE (23:00)
[2019-01-02] MEDS ORDERED: LEVOFLOXACIN 500 MG/D5W RTU 500 MG/100 ML RTUPB IV ONE (23:01)
--- NOTE | 2019-01-02 23:55 | ER Document Report ---
ED General - General Chief Complaint: Urinary Problem Stated Complaint: PAINFUL URINATION Time Seen by Provider: 01/02/19 18:26 Primary Care Provider: NELI MCALLISTER MD [Primary Care Provider] - Follow up as needed Mode of Arrival: Ambulatory TRAVEL OUTSIDE OF THE [place] IN LAST 30 DAYS: No - HPI Notes: 38-year-old female with history of lupus, pulmonary embolism, recurrent urinary tract infections to the emergency department with complaints of burning urination, right flank pain that began several days ago. She states that she is started to have nausea and vomiting as well. She states this is typical when she gets a urinary tract infection. She states that her last urinary tract infection was about 2 to 3 weeks ago. She states that she typically has to take Levaquin for her urinary tract infections because that is the only antibiotic th at works for her now. She denies any fevers or chills. She is followed by rheumatology at [facility]. She states that she is currently on methotrexate. She does admit that she is on Xarelto for PEs. She denies any other symptoms. She does admit to a history of kidney stones and she is not really sure if this is a kidney stone versus a kidney infection. 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, no missed meds Denies: Hx Atrial Fibrillation, Hx Congestive Heart Failure, Hx Coronary Artery Disease, Hx Heart Attack, Hx Hypercholesterolemia, Hx Hypertension, Hx Peripheral Vascular Disease, Hx Heart Murmur Pulmonary Medical History: Reports: Hx Bronchitis, Hx Pneumonia, Hx Intubation Denies: Hx Asthma, Hx COPD, Hx Respiratory Failure, Hx Sleep Apnea, Hx Tuberculosis Neurological Medical History: Denies: Hx Cerebrovascular Accident, Hx Seizures Endocrine Medical History: Denies: Hx Diabetes Mellitus Type 1, Hx Diabetes Mellitus Type 2, Hx Graves' Disease, Hx Hyperthyroidism, Hx Hypothyroidism Renal/ Medical History: Denies: Hx End Stage Renal Disease, Hx Kidney Stones, Hx Ovarian Cysts, Hx Peritoneal Dialysis, Hx Pelvic Inflammatory Disease Malignancy Medical History: Reports: Hx Breast Cancer. Denies: Hx Cervical Canc er, Hx Leukemia, Hx Lung Cancer, Hx Ovarian Cancer GI Medical History: Reports: Hx Gastritis, Hx Gastroesophageal Reflux Disease, Hx Ulcer. Denies: Hx Crohn's Disease, Hx Hiatal Hernia, Hx Irritable Bowel, Hx Liver Failure, Hx Pancreatitis Musculoskeletal Medical History: Denies Hx Arthritis, Denies Hx Fibromyalgia, Denies Hx Multiple Sclerosis, Denies Hx Muscular Dystrophy, Reports Hx Systemic Lupus Erythematosus Psychiatric Medical History: Reports: Hx Anxiety, Hx Bipolar Disorder, Hx Depression Denies: Hx Dementia, Hx Post Traumatic Stress Disorder, Hx Schizophrenia Traumatic Medical History: Denies: Hx Fractures Infectious Medical History: Denies: Hx HIV Past Surgical History: Reports: Hx Appendectomy, Hx Breast Surgery, Hx Section - 2, Hx Gynecologic Surgery - L ovary removed, Hx Mastectomy - BILATERAL, Hx Tubal Ligation. Denies: Hx Colostomy, Hx Pacemaker - Immunizations Immunizations up to date: Yes Hx Diphtheria, Pertussis, Tetanus Vaccination: Yes Hx Pneumococcal Vaccination: 01/27/12 Review of Systems - Review of Systems Constitutional: Malaise. denies: Chills, Fever EENT: No symptoms reported Cardiovascular: denies: Chest pain, Palpitations, Heart racing, Orthopnea, Dyspnea, Syncope, Dizziness, Lightheaded, Edema Respiratory: denies: Cough, Short of breath Gastrointestinal: Abdominal pain, Nausea, Vomiting - Please return if you have thoughts of wanting to hurt yourself, hurt others, or have any other symptoms that are concerning to you. To like exudate like. denies: Diarrhea Genitourinary: Burning, Dysuria - Order a lot, Frequency, Flank pain Skin: No symptoms reported -: Yes All other systems reviewed and negative Physical Exam - Vital signs Vitals: Temp Pulse Resp BP Pulse Ox 98.1 F 90 16 146/84 H 98 01/02/19 18:21 01/02/19 18:21 01/02/19 18:21 01/02/19 18:21 01/02/19 18:21 Interpretation: Normal - General General appearance: Appears well, Alert In distress: None - HEENT Head: Normocephalic, Atraumatic Eyes: Normal Pupils: PERRL - Respiratory Respiratory status: No respiratory distress Chest status: Nontender Breath sounds: Normal Chest palpation: Normal - Cardiovascular Rhythm: Regular Heart sounds: Normal auscultation Murmur: No - Abdominal Inspection: Normal Distension: No distension Bowel sounds: Normal Tenderness: Tender - there is TTP over the right CVAT, RUQ, right mid abdomen. no rebound on guarding. Patinet is tearful on exam. Organomegaly: No organomegaly - Back Back: Tender, CVA tenderness - + right CVAT tenderness - Neurological Neuro grossly intact: Yes Cognition: Normal Orientation: AAOx4 [place] Com[place] Scale Eye Opening: Spontaneous [place] Coma Scale Verbal: Oriented [place] Com[place] Scale Motor: Obeys Commands Gela Coma Scale Total: 15 Speech: Normal Motor strength normal: LUE, RUE, LLE, RLE Sensory: Normal - Psychological Associated symptoms: Normal affect, Normal mood - Skin Skin Temperature: Warm Skin Moisture: Dry Skin Color: Normal Course - Re-evaluation Re-evalutation: 01/03/19 Abdomen/Pelvis CT 01/02/19 22:59 IMPRESSION: 1. No acute findings 2. No renal or ureteral calculi Impression: Right flank pain, pyelonephritis. Patient has had some relief of her nausea and pain. Noted CT with no renal calculi. We will go ahead and start on antibiotics. Will start on Levaquin as patient states that that has been the antibiotic that is worked the best for her lately. We did have a discussion about fluoroquinolones and their warnings associated with their use. She voices understanding and still would like to use Levaquin. Will discharge home and have her follow with PCP for further follow up. Urged to return if her symptoms worsen such as intractable vomiting, fevers, intractable pain. - Vital Signs Vital signs: Temp Pulse Resp BP Pulse Ox 98.1 F 90 16 146/84 H 98 01/02/19 18:21 01/02/19 18:21 01/02/19 18:21 01/02/19 18:21 01/02/19 18:21 - Laboratory Result Diagrams: 01/02/19 18:31 01/02/19 18:31 Laboratory results interpreted by me: 01/02/19 01/02/19 18:31 18:31 Sodium 136.7 L Urine Blood SMALL H Ur Leukocyte Esterase SMALL H Discharge - Discharge Clinical Impression: Right flank pain, Pyelonephritis Condition: Stable Disposition: HOME, SELF-CARE Instructions: Pyelonephritis ([facility]) Additional Instructions: PUSH FLUIDS. COMPLETE ALL ANTIBIOTICS. RETURN IF INTRACTABLE PAIN, INTRACTABLE VOMITING, OR ANY OTHER CONCERNS. FOLLOW UP WITH YOUR PRIMARY CARE IN THE NEXT 3-5 DAYS. Prescriptions: Levofloxacin [Levaquin 500 mg Tablet] 500 mg PO DAILY #10 tablet Oxycodone HCl/Acetaminophen [Percocet 5-325 mg Tablet] 1 tab PO Q6H PRN #10 tablet PRN Reason: Promethazine HCl [Phenergan 25 mg Tablet] 25 mg PO Q8H #15 tablet Referrals: NELI MCALLISTER MD [Primary Care Provider] - Follow up in 3-5 days
--- NOTE | 2019-01-03 00:07 | RADIOLOGY REPORT (SQ) ---
EXAM DESCRIPTION: RadLex: CT ABDOMEN PELVIS WITHOUT IV CONTRAST CLINICAL HISTORY: 38 years Female; eval kidney stone, PAIN TECHNIQUE: CT of the abdomen and pelvis without contrast. All CT scans at this facility use dose modulation, iterative reconstruction, and/or weight based dosing when appropriate to reduce radiation dose to as low as reasonably achievable. COMPARISON: None. CT 01/06/2018 FINDINGS: Bilateral breast implants are partially visualized. Abdomen: Liver:No focal lesions. No intrahepatic ductal distention. Gallbladder:Nondistended Pancreas:Within normal limits Spleen:Within normal limits Right kidney:No hydronephrosis. No renal or ureteral calculi. Left kidney:No hydronephrosis. No renal or ureteral calculi. Adrenal glands:Within normal limits Vascular structures:Within normal limits (although limited evaluation on noncontrast exam). Pelvis: Small bowel:No significant distention. Appendix: Not reliably identified. No regional edema. Colon:No distention or acute pericolonic edema. No free intraperitoneal fluid or air. Bones: No acute bone findings. Bladder: No calculi. No adjacent edema. Bilateral tubal ligation clips are noted. No pelvic adenopathy. Note that evaluation of the bowel and solid organs is somewhat limited due to lack of intravenous and oral contrast. IMPRESSION: 1. No acute findings 2. No renal or ureteral calculi
[2019-01-03] MEDS ORDERED: ONDANSETRON HCL INJ/PF 4 MG/2 ML SDV IV ONE (00:23)
[2019-01-03] MEDS ORDERED: HYDROMORPHONE HCL INJ/PF 2 MG/ML AMPULE IM ONE (00:23)
[2019-01-03 02:03] VITALS: BP 138/74
== END 2019-01-03 01:48 | disposition home or self-care (01) ==
LOC: ER 18:04
DX: N12 Tubulo-interstitial nephritis, not specified as acute or chronic (principal); R11.2 Nausea with vomiting, unspecified; R53.81 Other malaise; I26.99 Other pulmonary embolism without acute cor pulmonale; Z79.02 Long term (current) use of antithrombotics/antiplatelets; Z79.899 Other long term (current) drug therapy; Z85.3 Personal history of malignant neoplasm of breast; Z88.1 Allergy status to other antibiotic agents
CPT/HCPCS: 36415; 87086; 85025; 81025; 87088; 80053; 81001; 74176; J1956; J1170 ×2; J3490; J2405 ×2; J7030; 87186

== ENCOUNTER 2019-02-03 19:20 | Emergency (ER) | payer OTHER ==
[2019-02-03] MEDS ORDERED: NORMAL SALINE 1000 ML 1,000 ML IV ONE (19:48)
[2019-02-03] MEDS ORDERED: ONDANSETRON HCL INJ/PF 4 MG/2 ML SDV IV ONE (19:48)
--- NOTE | 2019-02-03 19:53 | ER Document Report ---
ED Medical Screen (RME) - General Chief Complaint: Flank Pain Stated Complaint: SEVERE BACK PAIN,PAINFUL URINATION,VOMITING Time Seen by Provider: 02/03/19 19:42 Primary Care Provider: NELI MCALLISTER MD [Primary Care Provider] - Follow up as needed Mode of Arrival: Ambulatory Information source: Patient Notes: Patient presents complaining of left flank pain that started around noon today. Patient does complain of dysuria nausea vomiting and diarrhea. Patient denies any fever or vaginal bleeding or discharge. Patient does report a previous history of kidney stones but states that this pain feels different. Patient was seen here last month with flank pain to the right side and had a CT scan performed that did not show any kidney stones. 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 Patient states she typically gets tachycardic when she is nauseated and having pain. I have greeted and performed a rapid initial assessment of this patient. A comprehensive ED assessment and evaluation of the patient, analysis of test results and completion of the medical decision making process will be conducted by additional ED providers. TRAVEL OUTSIDE OF THE [place] 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, no missed meds Denies: Hx Atrial Fibrillation, Hx Congestive Heart Failure, Hx Coronary Artery Disease, Hx Heart Attack, Hx Hypercholesterolemia, Hx Hypertension, Hx Peripheral Vascular Disease, Hx Heart Murmur Pulmonary Medical History: Reports: Hx Bronchitis, Hx Pneumonia, Hx Intubation Denies: Hx Asthma, Hx COPD, Hx Respiratory Failure, Hx Sleep Apnea, Hx Tuberculosis Neurological Medical History: Denies: Hx Cerebrovascular Accident, Hx Seizures, Hx Parkinson's Disease Endocrine Medical History: Denies: Hx Diabetes Mellitus Type 1, Hx Diabetes Mellitus Type 2, Hx Graves' Disease, Hx Hyperthyroidism, Hx Hypothyroidism Renal/ Medical History: Denies: Hx End Stage Renal Disease, Hx Kidney Stones, Hx Ovarian Cysts, Hx Peritoneal Dialysis, Hx Pelvic Inflammatory Disease Malignancy Medical History: Reports: Hx Breast Cancer. Denies: Hx Cervical Cancer, Hx Leukemia, Hx Lung Cancer, Hx Ovarian Cancer GI Medical History: Reports: Hx Gastritis, Hx Gastroesophageal Reflux Disease, Hx Ulcer. Denies: Hx Crohn's Disease, Hx Hiatal Hernia, Hx Irritable Bowel, Hx Liver Failure, Hx Pancreatitis Musculoskeltal Medical History: Denies Hx Arthritis, Denies Hx Fibromyalgia, Denies Hx Multiple Sclerosis, Denies Hx Muscular Dystrophy, Reports Hx Systemic Lupus Erythematosus Psychiatric Medical History: Reports: Hx Anxiety, Hx Bipolar Disorder, Hx Depression Denies: Hx Dementia, Hx Post Traumatic Stress Disorder, Hx Schizophrenia Traumatic Medical History: Denies: Hx Fractures Infectious Medical History: Denies: Hx HIV Past Surgical History: Reports: Hx Appendectomy, Hx Breast Surgery, Hx Section - 2, Hx Gynecologic Surgery - L ovary removed, Hx Mastectomy - BILATERAL, Hx Tubal Ligation. Denies: Hx Colostomy, Hx Pacemaker - Immunizations Immunizations up to date: Yes Hx Diphtheria, Pertussis, Tetanus Vaccination: Yes Physical Exam - Vital signs Vitals: Temp Pulse Resp BP Pulse Ox 97.5 F 141 H 20 160/78 H 97 02/03/19 19:25 02/03/19 19:25 02/03/19 19:25 02/03/19 19:25 02/03/19 19:25 - Cardiovascular Rhythm: Tachycardia Heart sounds: S1 appreciated, S2 appreciated Murmur: No - Back Back: CVA tenderness - Left Course - Vital Signs Vital signs: Temp Pulse Resp BP Pulse Ox 97.5 F 141 H 20 160/78 H 97 02/03/19 19:25 02/03/19 19:25 02/03/19 19:25 02/03/19 19:25 02/03/19 19:25 Doctor's Discharge - Discharge Referrals: NELI MCALLISTER MD [Primary Care Provider] - Follow up as needed
[2019-02-03] MEDS ORDERED: PROMETHAZINE HCL INJ 25 MG/1 ML VIAL IV ONE (20:47)
[2019-02-03] MEDS ORDERED: HYDROMORPHONE HCL INJ/PF 2 MG/ML AMPULE IV ONE (20:47)
[2019-02-03] MEDS ORDERED: ACETAMINOPHEN 325 MG TABLET PO ONE (20:48)
--- NOTE | 2019-02-03 20:55 | ER Document Report ---
ED General - General Stated Complaint: SEVERE BACK PAIN,PAINFUL URINATION,VOMITING Time Seen by Provider: 02/03/19 19:42 Primary Care Provider: NELI MCALLISTER MD [Primary Care Provider] - Follow up as needed Mode of Arrival: Ambulatory Information source: Patient TRAVEL OUTSIDE OF THE [place] IN LAST 30 DAYS: No - HPI Notes: Patient presents complaining of left flank pain that started around noon today. Patient does complain of dysuria nausea vomiting and diarrhea. Patient denies any fever or vaginal bleeding or discharge. Patient does report a previous history of kidney stones but states that this pain feels different. Patient was seen here last month with flank pain to the right side and had a CT scan performed that did not show any kidney stones. 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 Patient states she typically gets tachycardic when she is nauseated and having pain. The patient denies any cough or congestion or chest pain or difficulty breathing. The patient had two CT scans performed this past month that showed no renal or ureteral stones. Patient reports her pain now is left flank with associated nausea. No hematemesis. She does report mild diarrhea. Patient reports she received a few pain medication tablets with her last ED visit, but is not on any chronic pain medications normally. The patient does ta ke occasional Phenergan as needed for nausea. - Related Data Allergies/Adverse Reactions: azithromycin [Azithromycin] Allergy (Intermediate, Verified 02/03/19 19:37) Urticaria ciprofloxacin [From Cipro] Allergy (Verified 02/03/19 19:37) Past Medical History - General Information source: Patient - Social History Smoking Status: Never Smoker Chew tobacco use (# tins/day): No Frequency of alcohol use: None Lives with: Alone Family History: Hypertension, Malignancy Patient has suicidal ideation: No Patient has homicidal ideation: No - Past Medical History Cardiac Medical History: Reports: Hx Pulmonary Embolism - on xarelto, no missed meds Denies: Hx Atrial Fibrillation, Hx Congestive Heart Failure, Hx Coronary Artery Disease, Hx Heart Attack, Hx Hypercholesterolemia, Hx Hypertension, Hx Peripheral Vascular Disease, Hx Heart Murmur Pulmonary Medical History: Reports: Hx Bronchitis, Hx Pneumonia, Hx Intubation Denies: Hx Asthma, Hx COPD, Hx Respiratory Failure, Hx Sleep Apnea, Hx Tuberculosis Neurological Medical History: Denies: Hx Cerebrovascular Accident, Hx Seizures, Hx Parkinson's Disease Endocrine Medical History: Denies: Hx Diabetes Mellitus Type 1, Hx Diabetes Mellitus Type 2, Hx Graves' Disease, Hx Hyperthyroidism, Hx Hypothyroidism Renal/ Medical History: Denies: Hx End Stage Renal Disease, Hx Kidney Stones, Hx Ovarian Cysts, Hx Peritoneal Dialysis, Hx Pelvic Inflammatory Disease Malignancy Medical History: Reports: Hx Breast Cancer. Denies: Hx Cervical Cancer, Hx Leukemia, Hx Lung Cancer, Hx Ovarian Cancer GI Medical History: Reports: Hx Gastritis, Hx Gastroesophageal Reflux Disease, Hx Ulcer. Denies: Hx Crohn's Disease, Hx Hiatal Hernia, Hx Irritable Bowel, Hx Liver Failure, Hx Pancreatitis Musculoskeletal Medical History: Denies Hx Arthritis, Denies Hx Fibromyalgia, Denies Hx Multiple Sclerosis, Denies Hx Muscular Dystrophy, Reports Hx Systemic Lupus Erythematosus Psychiatric Medical History: Reports: Hx Anxiety, Hx Bipolar Disorder, Hx Depression Denies: Hx Dementia, Hx Post Traumatic Stress Disorder, Hx Schizophrenia Traumatic Medical History: Denies: Hx Fractures Infectious Medical History: Denies: Hx HIV Past Surgical History: Reports: Hx Appendectomy, Hx Breast Surgery, Hx Section - 2, Hx Gynecologic Surgery - L ovary removed, Hx Mastectomy - BILATERAL, Hx Tubal Ligation. Denies: Hx Colostomy, Hx Pacemaker - Immunizations Immunizations up to date: Yes Hx Diphtheria, Pertussis, Tetanus Vaccination: Yes Hx Pneumococcal Vaccination: 01/27/12 Review of Systems - Review of Systems -: Yes All other systems reviewed and negative Physical Exam - Vital signs Vitals: Temp Pulse Resp BP Pulse Ox 97.5 F 141 H 20 160/78 H 97 02/03/19 19:25 02/03/19 19:25 02/03/19 19:25 02/03/19 19:25 02/03/19 19:25 - Notes Notes: PHYSICAL EXAMINATION: GENERAL: Well-appearing, well-nourished, very anxious. HEAD: Atraumatic, normocephalic. EYES: Pupils equal round and reactive to light, extraocular movements intact, conjunctiva are normal. ENT: Nares patent, oropharynx clear without exudates. Moist mucous membranes. NECK: Normal range of motion, supple without lymphadenopathy LUNGS: Breath sounds clear to auscultation bilaterally and equal. No wheezes rales or rhonchi. HEART: Mildly tachycardic rate and rhythm without murmurs heart rate 112. ABDOMEN: Soft, nontender, nondistended abdomen. No guarding, no rebound. No masses appreciated. Female : deferred Musculoskeletal: Normal range of motion, no pitting or edema. No cyanosis. Patient has left CVA tenderness. No erythema. NEUROLOGICAL: Cranial nerves grossly intact. Normal speech, normal gait. Normal sensory, motor exams PSYCH: Anxious with normal affect. SKIN: Warm, Dry, normal turgor, no rashes or lesions noted. Course - Re-evaluation Re-evalutation: 02/03/19 23:15 Given the 2- CT scans last month, I doubt a kidney stone, as there was no renal calcifications or ureteral calcifications at all on either of the CT scans. No obvious UTI no renal insufficiency or GI bleed. With the patient being anticoagulated, I am not worried about a iliac vein thrombosis. On repeat exam I walked into the room and her heart rate was 84 at rest with stable vital signs. She does report the pain is worse with movement and I would suspect musculoskeletal etiology. I am somewhat concerned given her repeat multiple visits of possible drug-seeking, but she does do heavy lifting at work and this would fit for a back strain. - Vital Signs Vital signs: Temp Pulse Resp BP Pulse Ox 97.9 F 98 18 135/84 H 100 02/03/19 22:21 02/03/19 22:21 02/03/19 22:21 02/03/19 22:21 02/03/19 22:21 - Laboratory Result Diagrams: 02/03/19 20:30 02/03/19 20:30 Laboratory results interpreted by me: 02/03/19 02/03/19 20:30 20:30 BUN 5 L Glucose 156 H Urine Glucose (UA) 50 H Urine Blood LARGE H - EKG Interpretation by Mo EKG shows normal: Sinus rhythm Rate: Tachycardia Additional EKG results interpreted by me: 02/03/19 21:15 EKG is interpreted by me showed sinus tachycardia heart rate of 108. There is no gross evidence for acute WI or ischemia noted. There were rate related changes noted otherwise. No change from previous EKG reviewed from 11/28/2018. Discharge - Discharge Clinical Impression: Back strain Qualifiers: Encounter type: initial encounter Qualified Code(s): S39.012A - Strain of muscle, fascia and tendon of lower back, initial encounter Condition: Stable Disposition: HOME, SELF-CARE Instructions: Low Back Pain ([facility]), Stretching Exercises for the Back ([facility]) Additional Instructions: Limit movement and activity and lifting for back pain. Prescriptions: Tramadol HCl [Ultram 50 mg Tablet] 50 mg PO Q4HP PRN #30 tab PRN Reason: Methocarbamol [Robaxin 500 mg Tablet] 500 mg PO Q6HP PRN #20 tablet PRN Reason: Promethazine HCl [Phenergan 25 mg Tablet] 1 tab PO Q6H PRN #15 tablet PRN Reason: Referrals: NELI MCALLISTER MD [Primary Care Provider] - Follow up as needed
[2019-02-03 20:57] LABS: APPEARANCE,URINE CLEAR; BILIRUBIN,URINE NEGATIVE (NEGATIVE); COLOR,URINE YELLOW; GLUCOSE, URINE 50 mg/dL (NEGATIVE); KETONES,URINE NEGATIVE (NEGATIVE); PROTEIN,URINE NEGATIVE (NEGATIVE); URINE SPECIFIC GRAVITY 1.008; UROBILINOGEN,URINE NEGATIVE mg/dL (<2.0)
[2019-02-03 20:58] LABS: ABSOLUTE LYMPHOCYTES (AUTO) 2.3 10^3/uL (0.5-4.7); ABSOLUTE NEUT (AUTO) 6.3 10^3/uL (1.7-8.2); BASOPHILS % (AUTO) 0.5 % (0-2); EOSINOPHILS % (AUTO) 0.3 % (0-6); HEMATOCRIT 40.8 % (36.0-47.0); HEMOGLOBIN 14.3 g/dL (12.0-15.5); MEAN CORPUSCULAR HEMOGLOBIN 31.6 pg (27.0-33.4); MEAN CORPUSCULAR VOLUME 90 fl (80-97); MONOCYTES % (AUTO) 10.2 % (3-13); PLATELET COUNT 278 10^3/uL (150-450); RED BLOOD COUNT 4.52 10^6/uL (3.72-5.28); RED CELL DISTRIBUTION WIDTH 12.1 % (11.5-14.0); TOTAL CELLS COUNTED % (AUTO) 100 %; WHITE BLOOD COUNT 9.7 10^3/uL (4.0-10.5)
[2019-02-03 21:11] LABS: ALBUMIN 4.8 g/dL (3.5-5.0); ALKALINE PHOSPHATASE 65 U/L (38-126); ANION GAP 14 (5-19); ASPARTATE AMINO TRANSFERASE 20 U/L (14-36); BILIRUBIN,DIRECT 0.1 mg/dL (0.0-0.4); BILIRUBIN,TOTAL 0.7 mg/dL (0.2-1.3); BLOOD UREA NITROGEN 5 mg/dL (7-20); CALCIUM 9.6 mg/dL (8.4-10.2); CARBON DIOXIDE 24 mmol/L (22-30); CHLORIDE 104 mmol/L (98-107); GLUCOSE 156 mg/dL (75-110); POTASSIUM 3.6 mmol/L (3.6-5.0); TOTAL PROTEIN 7.5 g/dL (6.3-8.2)
[2019-02-03] MEDS ORDERED: HYDROCODONE/ACETAMINOPHEN 5-325 MG (6 TAB/ER DISP) PO PRN (22:52)
[2019-02-03] MEDS ORDERED: METHOCARBAMOL 500 MG TABLET PO ONE (22:59)
[2019-02-03 23:41] VITALS: BP 129/75
--- NOTE | 2019-02-04 20:15 | EKG REPORT ---
SEVERITY:- ABNORMAL ECG - SINUS TACHYCARDIA RIGHT ATRIAL ABNORMALITY : Confirmed by: Barbara Young MD 04-Feb-2019 20:15:04
== END 2019-02-03 23:41 | disposition home or self-care (01) ==
LOC: ER 19:20
DX: S39.012A Strain of muscle, fascia and tendon of lower back, initial encounter (principal); R30.0 Dysuria; R11.2 Nausea with vomiting, unspecified; R19.7 Diarrhea, unspecified; X58.XXXA Exposure to other specified factors, initial encounter; Z88.3 Allergy status to other anti-infective agents; Z86.711 Personal history of pulmonary embolism; Z79.01 Long term (current) use of anticoagulants
CPT/HCPCS: 36415; 83690; 84703; 85025; 80053; 81001; J1170; J2550; J2405; J7030; 93005; 93010

== ENCOUNTER 2019-02-16 08:45 | Emergency (ER) | payer OTHER ==
--- NOTE | 2019-02-16 09:45 | ER Document Report ---
ED ENT - General Chief Complaint: Sinus Pain Stated Complaint: COUGH Time Seen by Provider: 02/16/19 09:23 Primary Care Provider: SIMONE HESS MD [Primary Care Provider] - Follow up as needed Mode of Arrival: Ambulatory Information source: Patient TRAVEL OUTSIDE OF THE [place] IN LAST 30 DAYS: No - HPI Notes: Patient presents with productive cough sinus congestion body aches and malaise. This is been going on for several days. She states that she gets pneumonia and sinus infections frequently. She states this feels similar. She states she feels her usual postnasal drip. She states she has yellow-green mucus. The sinus congestion is constant. Is worse with head movement and better when she lays still. It radiates throughout her face. It is a pressure sensation. - Related Data Allergies/Adverse Reactions: azithromycin [Azithromycin] Allergy (Intermediate, Verified 02/16/19 08:56) Urticaria ciprofloxacin [From Cipro] Allergy (Verified 02/16/19 08:56) Past Medical History - General Information source: Patient - Social History Smoking Status: Never Smoker Chew tobacco use (# tins/day): No Frequency of alcohol use: None Drug Abuse: None Family History: Hypertension, Malignancy Patient has suicidal ideation: No Patient has homicidal ideation: No - Past Medical History Cardiac Medical History: Reports: Hx Pulmonary Embolism - on xarelto, no missed meds Denies: Hx Atrial Fibrillation, Hx Congestive Heart Failure, Hx Coronary Artery Disease, Hx Heart Attack, Hx Hypercholesterolemia, Hx Hypertension, Hx Peripheral Vascular Disease, Hx Heart Murmur Pulmonary Medical History: Reports: Hx Bronchitis, Hx Pneumonia, Hx Intubation Denies: Hx Asthma, Hx COPD, Hx Respiratory Failure, Hx Sleep Apnea, Hx Tuberculosis Neurological Medical History: Denies: Hx Cerebrovascular Accident, Hx Seizures, Hx Parkinson's Disease Endocrine Medical History: Denies: Hx Diabetes Mellitus Type 1, Hx Diabetes Mellitus Type 2, Hx Graves' Disease, Hx Hyperthyroidism, Hx Hypothyroidism Renal/ Medical History: Denies: Hx End Stage Renal Disease, Hx Kidney Stones, Hx Ovarian Cysts, Hx Peritoneal Dialysis, Hx Pelvic Inflammatory Disease Malignancy Medical History: Reports: Hx Breast Cancer. Denies: Hx Cervical Cancer, Hx Leukemia, Hx Lung Cancer, Hx Ovarian Cancer GI Medical History: Reports: Hx Gastritis, Hx Gastroesophageal Reflux Disease, Hx Ulcer. Denies: Hx Crohn's Disease, Hx Hiatal Hernia, Hx Irritable Bowel, Hx Liver Failure, Hx Pancreatitis Musculoskeletal Medical History: Denies Hx Arthritis, Denies Hx Fibromyalgia, Denies Hx Multiple Sclerosis, Denies Hx Muscular Dystrophy, Reports Hx Systemic Lupus Erythematosus Psychiatric Medical History: Reports: Hx Anxiety, Hx Bipolar Disorder, Hx Depression Denies: Hx Dementia, Hx Post Traumatic Stress Disorder, Hx Schizophrenia Traumatic Medical History: Denies: Hx Fractures Infectious Medical History: Denies: Hx HIV Past Surgical History: Reports: Hx Appendectomy, Hx Breast Surgery, Hx Section - 2, Hx Gynecologic Surgery - L ovary removed, Hx Mastectomy - BILATERAL, Hx Tubal Ligation. Denies: Hx Colostomy, Hx Pacemaker - Immunizations Immunizations up to date: Yes Hx Diphtheria, Pertussis, Tetanus Vaccination: Yes Hx Pneumococcal Vaccination: 01/27/12 Review of Systems - Review of Systems Constitutional: Chills, Fever, Malaise, Weakness EENT: Sinus pressure, Sinus discharge Cardiovascular: denies: Chest pain, Palpitations Respiratory: Cough. denies: Short of breath -: Yes All other systems reviewed and negative Physical Exam - Vital signs Vitals: Temp Pulse Resp BP Pulse Ox 97.8 F 106 H 18 144/85 H 100 02/16/19 08:49 02/16/19 08:49 02/16/19 08:49 02/16/19 08:49 02/16/19 08:49 Interpretation: Normal, Other - Patient was not tachycardic on my exam. - General General appearance: Appears well, Alert - HEENT Head: Normocephalic, Atraumatic Eyes: Normal Conjunctiva: Normal Pupils: PERRL Sinus: Maxillary, Tenderness Nasal: Swelling, Clear rhinorrhea Pharynx: Erythema. No: Exudate Neck: Normal - Respiratory Respiratory status: No respiratory distress Chest status: Nontender Breath sounds: Normal Chest palpation: Normal - Cardiovascular Rhythm: Regular Heart sounds: Normal auscultation Murmur: No - Abdominal Inspection: Normal Distension: No distension Bowel sounds: Normal Tenderness: Nontender Organomegaly: No organomegaly - Back Back: Normal, Nontender - Extremities General upper extremity: Normal inspection, Nontender, Normal color, Normal ROM, Normal temperature General lower extremity: Normal inspection, Nontender, Normal color, Normal ROM, Normal temperature, Normal weight bearing. No: Drew's sign - Neurological Neuro grossly intact: Yes Cognition: Normal Orientation: AAOx4 [place] Coma Scale Eye Opening: Spontaneous [place] Coma Scale Verbal: Oriented [place] Coma Scale Motor: Obeys Commands G[place] Coma Scale Total: 15 Speech: Normal Motor strength normal: LUE, RUE, LLE, RLE Sensory: Normal - Psychological Associated symptoms: Normal affect, Normal mood - Skin Skin Temperature: Warm Skin Moisture: Dry Skin Color: Normal Course - Vital Signs Vital signs: Temp Pulse Resp BP Pulse Ox 97.8 F 106 H 18 144/85 H 100 02/16/19 08:49 02/16/19 08:49 02/16/19 08:49 02/16/19 08:49 02/16/19 08:49 Discharge - Discharge Clinical Impression: URI (upper respiratory infection) Qualifiers: URI type: unspecified URI Qualified Code(s): J06.9 - Acute upper respiratory infection, unspecified Condition: Stable Disposition: HOME, SELF-CARE Instructions: Upper Respiratory Illness ([facility]) Additional Instructions: Please call your primary care physician as soon as possible to arrange follow-up Prescriptions: Cefdinir 300 mg PO BID 10 Days #20 capsule Referrals: SIMONE HESS MD [Primary Care Provider] - Follow up in 3-5 days
[2019-02-16 09:57] VITALS: BP 132/68
== END 2019-02-16 09:57 | disposition home or self-care (01) ==
LOC: ER 08:45
DX: J06.9 Acute upper respiratory infection, unspecified (principal); R05 Cough; R09.81 Nasal congestion; M79.10 Myalgia, unspecified site; R53.81 Other malaise; R51 Headache; R53.1 Weakness
CPT/HCPCS: 99283

== ENCOUNTER 2019-02-18 12:45 | Emergency (ER) | payer OTHER ==
[2019-02-18 12:59] VITALS: BP 130/72
--- NOTE | 2019-02-18 13:10 | ER Document Report ---
ED Medical Screen (RME) - General Chief Complaint: Nausea/Vomiting Stated Complaint: NAUSEA/VOMITING Time Seen by Provider: 02/18/19 13:06 Primary Care Provider: SIMONE HESS MD [Primary Care Provider] - Follow up as needed Mode of Arrival: Ambulatory Information source: Patient Notes: 38-year-old female presents for nausea vomiting and a cough. She is on m ethotrexate for her. She is trying to get off the methotrexate and get on the IVIG but is having trouble with insurance. Patient is alert oriented respirations regular nonlabored at this time. We will get blood work and a chest x-ray. This menstrual period was 01/31/2019 she states she has had a tubal ligation. I have greeted and performed a rapid initial assessment of this patient. A comp rehensive ED assessment and evaluation of the patient, analysis of test results and completion of medical decision making process will be conducted by an additional ED providers. TRAVEL OUTSIDE OF THE [place] IN LAST 30 DAYS: No - Related Data Allergies/Adverse Reactions: azithromycin [Azithromycin] Allergy (Intermediate, Verified 02/18/19 13:03) Urticaria ciprofloxacin [From Cipro] Allergy (Verified 02/18/19 13:03) Past Medical History - Past Medical History Cardiac Medical History: Reports: Hx Pulmonary Embolism - on xarelto, no missed meds Denies: Hx Atrial Fibrillation, Hx Congestive Heart Failure, Hx Coronary Artery Disease, Hx Heart Attack, Hx Hypercholesterolemia, Hx Hypertension, Hx Peripheral Vascular Disease, Hx Heart Murmur Pulmonary Medical History: Reports: Hx Bronchitis, Hx Pneumonia, Hx Intubation Denies: Hx Asthma, Hx COPD, Hx Respiratory Failure, Hx Sleep Apnea, Hx Tuberculosis Neurological Medical History: Denies: Hx Cerebrovascular Accident, Hx Seizures, Hx Parkinson's Disease Endocrine Medical History: Denies: Hx Diabetes Mellitus Type 1, Hx Diabetes Mellitus Type 2, Hx Graves' Disease, Hx Hyperthyroidism, Hx Hypothyroidism Renal/ Medical History: Denies: Hx End Stage Renal Disease, Hx Kidney Stones, Hx Ovarian Cysts, Hx Peritoneal Dialysis, Hx Pelvic Inflammatory Disease Malignancy Medical History: Reports: Hx Breast Cancer. Denies: Hx Cervical Cancer, Hx Leukemia, Hx Lung Cancer, Hx Ovarian Cancer GI Medical History: Reports: Hx Gastritis, Hx Gastroesophageal Reflux Disease, Hx Ulcer. Denies: Hx Crohn's Disease, Hx Hiatal Hernia, Hx Irritable Bowel, Hx Liver Failure, Hx Pancreatitis Musculoskeltal Medical History: Denies Hx Arthritis, Denies Hx Fibromyalgia, Denies Hx Multiple Sclerosis, Denies Hx Muscular Dystrophy, Reports Hx Systemic Lupus Erythematosus Psychiatric Medical History: Reports: Hx Anxiety, Hx Bipolar Disorder, Hx Depression Denies: Hx Dementia, Hx Post Traumatic Stress Disorder, Hx Schizophrenia Traumatic Medical History: Denies: Hx Fractures Infectious Medical History: Denies: Hx HIV Past Surgical History: Reports: Hx Appendectomy, Hx Breast Surgery, Hx Section - 2, Hx Gynecologic Surgery - L ovary removed, Hx Mastectomy - BILATERAL, Hx Tubal Ligation. Denies: Hx Colostomy, Hx Pacemaker - Immunizations Immunizations up to date: Yes Hx Diphtheria, Pertussis, Tetanus Vaccination: Yes Physical Exam - Vital signs Vitals: Temp Pulse Resp BP Pulse Ox 98.7 F 103 H 16 130/72 H 98 02/18/19 12:58 02/18/19 12:58 02/18/19 12:58 02/18/19 12:58 02/18/19 12:58 Course - Vital Signs Vital signs: Temp Pulse Resp BP Pulse Ox 98.7 F 103 H 16 130/72 H 98 02/18/19 12:58 02/18/19 12:58 02/18/19 12:58 02/18/19 12:58 02/18/19 12:58 Doctor's Discharge - Discharge Referrals: SIMONE HESS MD [Primary Care Provider] - Follow up as needed
[2019-02-18] MEDS ORDERED: ONDANSETRON 4 MG TAB.RAPDIS PO ONE (13:11)
[2019-02-18 13:40] LABS: ABSOLUTE LYMPHOCYTES (AUTO) 1.4 10^3/uL (0.5-4.7); ABSOLUTE MONOCYTES (AUTO) 0.6 10^3/uL (0.1-1.4); BASOPHILS % (AUTO) 0.5 % (0-2); EOSINOPHILS % (AUTO) 0.5 % (0-6); HEMATOCRIT 41.8 % (36.0-47.0); HEMOGLOBIN 14.5 g/dL (12.0-15.5); LYMPHOCYTES % (AUTO) 17.7 % (13-45); MEAN CORPUSCULAR HGB CONC 34.6 g/dL (32.0-36.0); MEAN CORPUSCULAR VOLUME 90 fl (80-97); MONOCYTES % (AUTO) 7.3 % (3-13); PLATELET COUNT 246 10^3/uL (150-450); RED BLOOD COUNT 4.66 10^6/uL (3.72-5.28); RED CELL DISTRIBUTION WIDTH 12.6 % (11.5-14.0); TOTAL CELLS COUNTED % (AUTO) 100 %; WHITE BLOOD COUNT 8.1 10^3/uL (4.0-10.5)
[2019-02-18 13:43] LABS: APPEARANCE,URINE CLEAR; BILIRUBIN,URINE NEGATIVE (NEGATIVE); COLOR,URINE YELLOW; GLUCOSE, URINE NEGATIVE (NEGATIVE); KETONES,URINE NEGATIVE (NEGATIVE); PROTEIN,URINE NEGATIVE (NEGATIVE); URINE SPECIFIC GRAVITY 1.014; UROBILINOGEN,URINE NEGATIVE mg/dL (<2.0)
--- NOTE | 2019-02-18 13:46 | RADIOLOGY REPORT (SQ) ---
EXAM DESCRIPTION: CHEST 2 VIEWS COMPLETED DATE/TIME: 02/18/2019 1:35 pm REASON FOR STUDY: cough COMPARISON: 11/28/2018 EXAM PARAMETERS: NUMBER OF VIEWS: two views TECHNIQUE: Digital Frontal and Lateral radiographic views of the chest acquired. RADIATION DOSE: NA LIMITATIONS: none FINDINGS: LUNGS AND PLEURA: No opacities, masses or pneumothorax. No pleural effusion. MEDIASTINUM AND HILAR STRUCTURES: No masses or contour abnormalities. HEART AND VASCULAR STRUCTURES: Heart normal size. No evidence for failure. BONES: No acute findings. HARDWARE: None in the chest. OTHER: No other significant finding. IMPRESSION: NO ACUTE RADIOGRAPHIC FINDING IN THE CHEST. TECHNICAL DOCUMENTATION: JOB ID: [id number] [employer]- All Rights Reserved Reading location - IP/workstation name: [email or web address]
[2019-02-18 14:00] LABS: ALBUMIN 4.8 g/dL (3.5-5.0); ALKALINE PHOSPHATASE 73 U/L (38-126); ANION GAP 12 (5-19); ASPARTATE AMINO TRANSFERASE 34 U/L (14-36); BILIRUBIN,DIRECT 0.1 mg/dL (0.0-0.4); BLOOD UREA NITROGEN 9 mg/dL (7-20); CALCIUM 9.9 mg/dL (8.4-10.2); CARBON DIOXIDE 23 mmol/L (22-30); CHLORIDE 106 mmol/L (98-107); GLUCOSE 95 mg/dL (75-110); POTASSIUM 4.5 mmol/L (3.6-5.0); TOTAL PROTEIN 7.6 g/dL (6.3-8.2)
--- NOTE | 2019-02-18 15:32 | ER Document Report ---
ED General - General Chief Complaint: Nausea/Vomiting Stated Complaint: NAUSEA/VOMITING Time Seen by Provider: 02/18/19 13:06 Primary Care Provider: SIMONE HESS MD [NO LOCAL MD] - Follow up in 3-5 days Mode of Arrival: Ambulatory TRAVEL OUTSIDE OF THE [place] IN LAST 30 DAYS: No - HPI Notes: 38-year-old female to the emergency department with complaints of a little over 1 week of cough with nausea and vomiting. She states that she feels like she is getting worse. She states that her primary care physician placed her on Ceftin ear but that has not been working. She states that she has lupus and takes methotrexate and often will get pneumonia. She states typically what works for her best as her Levaquin. She states that she thinks that she is vomiting prominently because she is having drainage and that makes her sick to her stomach. She denies any fevers but does endorse chills. She denies any chest pain, shortness of breath, diarrhea, blood in vomit, blood in stool. She denies any flank pain. - Related Data Allergies/Adverse Reactions: azithromycin [Azithromycin] Allergy (Intermediate, Verified 02/18/19 13:03) Urticaria ciprofloxacin [From Cipro] Allergy (Verified 02/18/19 13:03) Past Medical History - General Information source: Patient - Social History Smoking Status: Never Smoker Chew tobacco use (# tins/day): No Drug Abuse: None Family History: Hypertension, Malignancy Patient has suicidal ideation: No Patient has homicidal ideation: No - Past Medical History Cardiac Medical History: Reports: Hx Pulmonary Embolism - on xarelto, no missed meds Denies: Hx Atrial Fibrillation, Hx Congestive Heart Failure, Hx Coronary Artery Disease, Hx Heart Attack, Hx Hypercholesterolemia, Hx Hypertension, Hx Peripheral Vascular Disease, Hx Heart Murmur Pulmonary Medical History: Reports: Hx Bronchitis, Hx Pneumonia, Hx Intubation Denies: Hx Asthma, Hx COPD, Hx Respiratory Failure, Hx Sleep Apnea, Hx Tuberculosis Neurological Medical History: Denies: Hx Cerebrovascular Accident, Hx Seizures, Hx Parkinson's Disease Endocrine Medical History: Denies: Hx Diabetes Mellitus Type 1, Hx Diabetes Mellitus Type 2, Hx Graves' Disease, Hx Hyperthyroidism, Hx Hypothyroidism Renal/ Medical History: Denies: Hx End Stage Renal Disease, Hx Kidney Stones, Hx Ovarian Cysts, Hx Peritoneal Dialysis, Hx Pelvic Inflammatory Disease Malignancy Medical History: Reports: Hx Breast Cancer. Denies: Hx Cervical Cancer, Hx Leukemia, Hx Lung Cancer, Hx Ovarian Cancer GI Medical History: Reports: Hx Gastritis, Hx Gastroesophageal Reflux Disease, Hx Ulcer. Denies: Hx Crohn's Disease, Hx Hiatal Hernia, Hx Irritable Bowel, Hx Liver Failure, Hx Pancreatitis Musculoskeletal Medical History: Denies Hx Arthritis, Denies Hx Fibromyalgia, Denies Hx Multiple Sclerosis, Denies Hx Muscular Dystrophy, Reports Hx Systemic Lupus Erythematosus Psychiatric Medical History: Reports: Hx Anxiety, Hx Bipolar Disorder, Hx Depression Denies: Hx Dementia, Hx Post Traumatic Stress Disorder, Hx Schizophrenia Traumatic Medical History: Denies: Hx Fractures Infectious Medical History: Denies: Hx HIV Past Surgical History: Reports: Hx Appendectomy, Hx Breast Surgery, Hx Section - 2, Hx Gynecologic Surgery - L ovary removed, Hx Mastectomy - BILATERA L, Hx Tubal Ligation. Denies: Hx Colostomy, Hx Pacemaker - Immunizations Immunizations up to date: Yes Hx Diphtheria, Pertussis, Tetanus Vaccination: Yes Hx Pneumococcal Vaccination: 01/27/12 Review of Systems - Review of Systems Constitutional: Chills, Malaise. denies: Fever EENT: denies: Ear pain, Sinus pressure Cardiovascular: denies: Chest pain, Dyspnea, Syncope, Dizziness, Lightheaded Respiratory: Cough. denies: Hurts to breathe, Short of breath, Stridor, Wh eezing Gastrointestinal: Nausea, Vomiting. denies: Abdomen distended, Abdominal pain, Diarrhea, Constipation Genitourinary: No symptoms reported Female Genitourinary: No symptoms reported Musculoskeletal: No symptoms reported Skin: No symptoms reported Hematologic/Lymphatic: No symptoms reported Neurological/Psychological: No symptoms reported -: Yes All other systems reviewed and negative Physical Exam - Vital signs Vitals: Temp Pulse Resp BP Pulse Ox 98.7 F 103 H 16 130/72 H 98 02/18/19 12:58 02/18/19 12:58 02/18/19 12:58 02/18/19 12:58 02/18/19 12:58 Interpretation: Normal - General General appearance: Appears well, Alert In distress: None - HEENT Head: Normocephalic, Atraumatic Ears: Normal External canal: Normal Tympanic membrane: Normal Sinus: Normal Nasal: Normal Mouth/Lips: Normal. No: Angioedema Mucous membranes: Normal Pharynx: Post nasal drainage. No: Erythema, Exudate, Peritonsillar abscess, Retropharyngeal abscess, Tonsillar hypertrophy, Uvular edema, Potential airway comprom. Neck: Normal, Supple. No: Lymphadenopathy, Meningismus - Respiratory Respiratory status: No respiratory distress. No: Depressed respirations, Labored, Pursed lip breathing, Tachypnea Chest status: Nontender Breath sounds: Nonproductive cough. No: Rales, Rhonchi, Stridor, Wheezing Chest palpation: Normal - Cardiovascular Rhythm: Regular Heart sounds: Normal auscultation Murmur: No - Abdominal Inspection: Normal Distension: No distension Bowel sounds: Normal Tenderness: Nontender Organomegaly: No organomegaly - Back Back: Normal, Nontender. No: CVA tenderness - Neurological Neuro grossly intact: Yes Cognition: Normal Orientation: AAOx4 [place] Coma Scale Eye Opening: Spontaneous [place] Coma Scale Verbal: Oriented [place] Coma Scale Motor: Obeys Commands [place] Coma Scale Total: 15 Speech: Normal Motor strength normal: LUE, RUE, LLE, RLE Sensory: Normal - Psychological Associated symptoms: Normal affect, Normal mood - Skin Skin Temperature: Warm Skin Moisture: Dry Skin Color: Normal Course - Re-evaluation Re-evalutation: 02/18/19 Impression: Cough, Bronchitis. Patient has reassuring labs and CXR, but will cross cover with Levaquin for Bronchitis given her Lupus and methotrexate use. She is aware of Levaquins side effect profile and she would still like to use it. Will have her follow with PCP in the next 3-5 days. Urged to return if worse. No NV since arrival. Feels better after a bag of fluids. She states she has cough meds as well as albuterol inhaler at home. - Vital Signs Vital signs: Temp Pulse Resp BP Pulse Ox 98.7 F 103 H 16 130/72 H 98 02/18/19 12:58 02/18/19 12:58 02/18/19 12:58 02/18/19 12:58 02/18/19 12:58 - Laboratory Result Diagrams: 02/18/19 13:22 02/18/19 13:22 Laboratory results interpreted by me: 02/18/19 13:22 Urine Blood SMALL H Leukocyte Esterase Rfl TRACE H - Diagnostic Test Radiology reviewed: Image reviewed, Reports reviewed Discharge - Discharge Clinical Impression: Cough, Bronchitis Vomiting Qualifiers: Vomiting type: unspecified Vomiting Intractability: non-intractable Nausea pre sence: with nausea Qualified Code(s): R11.2 - Nausea with vomiting, unspecified Condition: Stable Disposition: HOME, SELF-CARE Instructions: Bronchitis ([facility]), Vomiting ([facility]) Additional Instructions: PUSH FLUIDS. RETURN IF WORSE. TAKE MEDICINES PRESCRIBED. Prescriptions: Levofloxacin [Levaquin 500 mg Tablet] 500 mg PO DAILY #7 tablet Promethazine HCl [Phenergan 25 mg Tablet] 25 mg PO Q6H #10 tablet Referrals: SIMONE HESS MD [NO LOCAL MD] - Follow up in 3-5 days
[2019-02-18] MEDS ORDERED: PROMETHAZINE HCL INJ 50 MG/1 ML VIAL IM ONE (16:24)
[2019-02-18] MEDS ORDERED: NORMAL SALINE 1000 ML 1,000 ML IV ONE (16:24)
[2019-02-18] MEDS ORDERED: PROMETHAZINE HCL INJ 25 MG/1 ML VIAL ONE (16:28)
[2019-02-18] MEDS ORDERED: PROMETHAZINE HCL INJ 25 MG/1 ML VIAL IM ONE (17:00)
== END 2019-02-18 18:21 | disposition home or self-care (01) ==
LOC: ER 12:45
DX: J40 Bronchitis, not specified as acute or chronic (principal); R11.2 Nausea with vomiting, unspecified; R05 Cough; R68.83 Chills (without fever); R53.81 Other malaise; R09.82 Postnasal drip; Z79.899 Other long term (current) drug therapy; Z87.01 Personal history of pneumonia (recurrent); Z85.3 Personal history of malignant neoplasm of breast; Z87.19 Personal history of other diseases of the digestive system; Z98.51 Tubal ligation status; Z88.1 Allergy status to other antibiotic agents
CPT/HCPCS: 99283; 96372; 96360; 96361; 36415; 87086; 84702; 85025; 80053; 81001; 71046; S0119; J2550; J7030

== ENCOUNTER 2019-03-17 13:50 | Emergency (ER) | payer OTHER ==
[2019-03-17] MEDS ORDERED: MORPHINE SULFATE 10 MG/ML INJ IV ONE (14:37)
--- NOTE | 2019-03-17 14:40 | ER Document Report ---
ED Medical Screen (RME) - General Chief Complaint: Flu Symptoms Stated Complaint: URINARY ISSUES/FLANK PAIN Time Seen by Provider: 03/17/19 14:28 TRAVEL OUTSIDE OF THE [place] IN LAST 30 DAYS: No - HPI Notes: 03/17/19 14:37 Patient is a 38-year-old female with a history of chronic recurrent UTI requiring hospitalization in the past who presents complaining of urinary burning, urgency, frequency, generalized abdominal pain, bilateral flank pain that began this morning. Patient states that she usually deteriorates very quickly. She is a decreased p.o. intake. She is having some diarrhea as well. No vaginal discharge, odor, or bleeding. No fever or chest pain. I have treated and performed a rapid initial assessment of this patient. A comprehensive ED assessment and evaluation of the patient, analysis of test results and completion of medical decision making process will be conducted by additional ED providers. PHYSICAL EXAMINATION: GENERAL: Well-appearing, well-nourished and in no acute distress. A&Ox4. Answers questions appropriately. Abdomen: Limited exam in triage, but does have bilateral CVA tenderness as well as generalized abdominal tenderness to palpation. Abdomen otherwise soft. - Related Data Allergies/Adverse Reactions: azithromycin [Azithromycin] Allergy (Intermediate, Verified 02/18/19 13:03) Urticaria ciprofloxacin [From Cipro] Allergy (Verified 02/18/19 13:03) Past Medical History - Past Medical History Cardiac Medical History: Reports: Hx Pulmonary Embolism - on xarelto, no missed meds Denies: Hx Atrial Fibrillation, Hx Congestive Heart Failure, Hx Coronary Artery Disease, Hx Heart Attack, Hx Hypercholesterolemia, Hx Hypertension, Hx Peripheral Vascular Disease, Hx Heart Murmur Pulmonary Medical History: Reports: Hx Bronchitis, Hx Pneumonia, Hx Intubation Denies: Hx Asthma, Hx COPD, Hx Respiratory Failure, Hx Sleep Apnea, Hx Tuberculosis Neurological Medical History: Denies: Hx Cerebrovascular Accident, Hx Seizures, Hx Parkinson's Disease Endocrine Medical History: Denies: Hx Diabetes Mellitus Type 1, Hx Diabetes Mellitus Type 2, Hx Graves' Disease, Hx Hyperthyroidism, Hx Hypothyroidism Renal/ Medical History: Denies: Hx End Stage Renal Disease, Hx Kidney Stones, Hx Ovarian Cysts, Hx Peritoneal Dialysis, Hx Pelvic Inflammatory Disease Malignancy Medical History: Reports: Hx Breast Cancer. Denies: Hx Cervical Cancer, Hx Leukemia, Hx Lung Cancer, Hx Ovarian Cancer GI Medical History: Reports: Hx Gastritis, Hx Gastroesophageal Reflux Disease, Hx Ulcer. Denies: Hx Crohn's Disease, Hx Hiatal Hernia, Hx Irritable Bowel, Hx Liver Failure, Hx Pancreatitis Musculoskeltal Medical History: Denies Hx Arthritis, Denies Hx Fibromyalgia, Denies Hx Multiple Sclerosis, Denies Hx Muscular Dystrophy, Reports Hx Systemic Lupus Erythematosus Psychiatric Medical History: Reports: Hx Anxiety, Hx Bipolar Disorder, Hx Depression Denies: Hx Dementia, Hx Post Traumatic Stress Disorder, Hx Schizophrenia Traumatic Medical History: Denies: Hx Fractures Infectious Medical History: Denies: Hx HIV Past Surgical History: Reports: Hx Appendectomy, Hx Breast Surgery, Hx Section - 2, Hx Gynecologic Surgery - L ovary removed, Hx Mastectomy - BILATERAL, Hx Tubal Ligation. Denies: Hx Colostomy, Hx Pacemaker - Immunizations Immunizations up to date: Yes Hx Diphtheria, Pertussis, Tetanus Vaccination: Yes Physical Exam - Vital signs Vitals: Temp Pulse Resp BP Pulse Ox 98.1 F 105 H 18 143/85 H 100 03/17/19 13:57 03/17/19 13:57 03/17/19 13:57 03/17/19 13:57 03/17/19 13:57 Course - Vital Signs Vital signs: Temp Pulse Resp BP Pulse Ox 98.1 F 105 H 18 143/85 H 100 03/17/19 14:23 03/17/19 14:23 03/17/19 14:23 03/17/19 14:23 03/17/19 14:23
[2019-03-17 15:43] LABS: ABSOLUTE BASOPHILS # (AUTO) 0.1 10^3/uL (0.0-0.2); ABSOLUTE MONOCYTES (AUTO) 0.8 10^3/uL (0.1-1.4); ABSOLUTE NEUT (AUTO) 5.5 10^3/uL (1.7-8.2); BASOPHILS % (AUTO) 0.6 % (0-2); EOSINOPHILS % (AUTO) 0.5 % (0-6); HEMATOCRIT 44.2 % (36.0-47.0); HEMOGLOBIN 15.3 g/dL (12.0-15.5); LYMPHOCYTES % (AUTO) 24.2 % (13-45); MEAN CORPUSCULAR HEMOGLOBIN 30.9 pg (27.0-33.4); MEAN CORPUSCULAR HGB CONC 34.6 g/dL (32.0-36.0); MEAN CORPUSCULAR VOLUME 89 fl (80-97); MONOCYTES % (AUTO) 9.7 % (3-13); PLATELET COUNT 245 10^3/uL (150-450); RED BLOOD COUNT 4.96 10^6/uL (3.72-5.28); RED CELL DISTRIBUTION WIDTH 12.8 % (11.5-14.0); TOTAL CELLS COUNTED % (AUTO) 100 %; WHITE BLOOD COUNT 8.5 10^3/uL (4.0-10.5)
[2019-03-17 16:04] LABS: ALKALINE PHOSPHATASE 68 U/L (38-126); ANION GAP 10 (5-19); ASPARTATE AMINO TRANSFERASE 17 U/L (14-36); BILIRUBIN,DIRECT 0.1 mg/dL (0.0-0.4); BILIRUBIN,TOTAL 0.8 mg/dL (0.2-1.3); BLOOD UREA NITROGEN 9 mg/dL (7-20); CALCIUM 9.6 mg/dL (8.4-10.2); CARBON DIOXIDE 25 mmol/L (22-30); CHLORIDE 103 mmol/L (98-107); GLUCOSE 93 mg/dL (75-110); POTASSIUM 4.3 mmol/L (3.6-5.0); TOTAL PROTEIN 7.8 g/dL (6.3-8.2)
[2019-03-17 16:15] LABS: APPEARANCE,URINE CLEAR; BILIRUBIN,URINE NEGATIVE (NEGATIVE); COLOR,URINE STRAW; GLUCOSE, URINE NEGATIVE (NEGATIVE); KETONES,URINE NEGATIVE (NEGATIVE); LEUKOCYTE ESTERASE,URINE SMALL (NEGATIVE); NITRITE,URINE NEGATIVE (NEGATIVE); PROTEIN,URINE NEGATIVE (NEGATIVE); URINE SPECIFIC GRAVITY 1.008; UROBILINOGEN,URINE NEGATIVE mg/dL (<2.0)
[2019-03-17] MEDS ORDERED: HYDROMORPHONE HCL INJ/PF 2 MG/ML AMPULE IM ONE (17:51)
[2019-03-17] MEDS ORDERED: CEFTRIAXONE INJ 1000 MG VIAL IM ONE (17:51)
[2019-03-17] MEDS ORDERED: LIDOCAINE 1% INJ (10 MG/ML) 10 ML MDV INJ ONE (17:52)
--- NOTE | 2019-03-17 18:15 | ER Document Report ---
HPI - HPI Time Seen by Provider: 03/17/19 14:28 Pain Level: 4 Context: 38-year-old female with a history of chronic recurrent UTI requiring hospitalization in the past who presents complaining of urinary burning, urgency, frequency, generalized abdominal pain, bilateral flank pain that began this morning. Patient states that she usually deteriorates very quickly. She is a decreased p.o. intake. She is having some diarrhea as well. No vaginal discharge, odor, or bleeding. No fever or chest pain. - REPRODUCTIVE Reproductive: DENIES: : Past Medical History - Social History Smoking Status: Never Smoker Family History: Hypertension, Malignancy Patient has suicidal ideation: No Patient has homicidal ideation: No - Past Medical History Cardiac Medical History: Reports: Hx Pulmonary Embolism - on xarelto, no missed meds Denies: Hx Atrial Fibrillation, Hx Congestive Heart Failure, Hx Coronary Artery Disease, Hx Heart Attack, Hx Hypercholesterolemia, Hx Hypertension, Hx Peripheral Vascular Disease, Hx Heart Murmur Pulmonary Medical History: Reports: Hx Bronchitis, Hx Pneumonia, Hx Intubation Denies: Hx Asthma, Hx COPD, Hx Respiratory Failure, Hx Sleep Apnea, Hx Tuberculosis Neurological Medical History: Denies: Hx Cerebrovascular Accident, Hx Seizures, Hx Parkinson's Disease Endocrine Medical History: Denies: Hx Diabetes Mellitus Type 1, Hx Diabetes Mellitus Type 2, Hx Graves' Disease, Hx Hyperthyroidism, Hx Hypothyroidism Renal/ Medical History: Denies: Hx End Stage Renal Disease, Hx Kidney Stones, Hx Ovarian Cysts, Hx Peritoneal Dialysis, Hx Pelvic Inflammatory Disease Malignancy Medical History: Reports: Hx Breast Cancer. Denies: Hx Cervical Cancer, Hx Leukemia, Hx Lung Cancer, Hx Ovarian Cancer GI Medical History: Reports: Hx Gastritis, Hx Gastroesophageal Reflux Disease, Hx Ulcer. Denies: Hx Crohn's Disease, Hx Hiatal Hernia, Hx Irritable Bowel, Hx Liver Failure, Hx Pancreatitis Musculoskeletal Medical History: Denies Hx Arthritis, Denies Hx Fibromyalgia, Denies Hx Multiple Sclerosis, Denies Hx Muscular Dystrophy, Reports Hx Systemic Lupus Erythematosus Psychiatric Medical History: Reports: Hx Anxiety, Hx Bipolar Disorder, Hx Depression Denies: Hx Dementia, Hx Post Traumatic Stress Disorder, Hx Schizophrenia Traumatic Medical History: Denies: Hx Fractures Infectious Medical History: Denies: Hx HIV Past Surgical History: Reports: Hx Appendectomy, Hx Breast Surgery, Hx Section - 2, Hx Gynecologic Surgery - L ovary removed, Hx Mastectomy - BILATERAL, Hx Tubal Ligation. Denies: Hx Colostomy, Hx Pacemaker - Immunizations Immunizations up to date: Yes Hx Diphtheria, Pertussis, Tetanus Vaccination: Yes Hx Pneumococcal Vaccination: 01/27/12 Vertical Provider Document - CONSTITUTIONAL Notes: PHYSICAL EXAMINATION: Reviewed vital signs and charting by RN GENERAL: Alert, interacts well. No acute distress. HEAD: Normocephalic, atraumatic. EYES: Pupils equal and round. Extraocular movements intact. ENT: Oral mucosa moist, tongue midline. NECK: Full range of motion. Trachea midline. LUNGS: Clear to auscultation bilaterally, no wheezes, rales, or rhonchi. No respiratory distress. HEART: Regular rate and rhythm. No murmur ABDOMEN: soft, right upper quadrant tenderness to palpation. No distention. Bowel sounds present BACK: Right CVA tenderness EXTREMITIES: Moves all 4 extremities spontaneously. No edema, No cyanosis. PSYCH: Normal affect, normal mood. SKIN: Warm, dry, normal turgor. No rashes or lesions noted. - INFECTION CONTROL TRAVEL OUTSIDE OF THE [place] IN LAST 30 DAYS: No Course - Re-evaluation Re-evalutation: 03/17/19 18:23 Well-appearing in mild distress, patient with symptoms consistent with urinary tract infection, however, urine only showed 4 WBCs but it will be sent for culture. Patient states that she does decompensate quickly so I am going to treat her empirically for urinary tract infection and treat her pain. She has been prescribed Keflex. Patient states historically she has been given Levaquin. Urine culture was sent. Although patient has had kidney stones 1 time before she states that symptoms are not consistent with these, they are consistent with previous UTIs and I do have low suspicion for nephrolithiasis as she is not having nausea or vomiting and pain pattern does not support it. At this time patient is stable for discharge. Patient has been given strict return precautions. - Vital Signs Vital signs: Temp Pulse Resp BP Pulse Ox 98.1 F 105 H 18 143/85 H 100 03/17/19 14:23 03/17/19 14:23 03/17/19 14:23 03/17/19 14:23 03/17/19 14:23 - Laboratory Result Diagrams: 03/17/19 15:26 03/17/19 15:26 Laboratory results interpreted by me: 03/17/19 15:59 Urine Blood SMALL H Ur Leukocyte Esterase SMALL H Discharge - Discharge Clinical Impression: Symptoms of urinary tract infection, Dysuria, Urinary frequency Abdominal pain Qualifiers: Abdominal location: right upper quadrant Qualified Code(s): R10.11 - Right upper quadrant pain Condition: Good Disposition: HOME, SELF-CARE Additional Instructions: Your symptoms are consistent with a urinary tract infection. Your urine was unremarkable we are sending for culture and, based on your history, we are going to go ahead and treat. You received some pain medication here in the emergency department, an antibiotic shot, and you will go home with a 7-day course of K eflex. Please take all the antibiotics as directed even if your symptoms have improved. Please follow-up with your primary care physician as needed. Return to emergency room if you develop fever >101F, persistent vomiting, become lethargic, have severe pain in your sides, or any other symptoms that are concerning to you. Prescriptions: Cephalexin Monohydrate [Keflex 500 mg Capsule] 500 mg PO Q12H 7 Days capsule Referrals: JERI MENESES PA-C [Primary Care Provider] - Follow up as needed
[2019-03-17 18:50] VITALS: BP 128/80
== END 2019-03-17 18:53 | disposition home or self-care (01) ==
LOC: ER 13:50
DX: R30.0 Dysuria (principal); R35.0 Frequency of micturition; R39.15 Urgency of urination; R10.84 Generalized abdominal pain; R10.811 Right upper quadrant abdominal tenderness; R19.7 Diarrhea, unspecified; Z85.3 Personal history of malignant neoplasm of breast; Z87.440 Personal history of urinary (tract) infections; Z87.442 Personal history of urinary calculi
CPT/HCPCS: 99283; 96374; 96375; 36415; 87086; 83690; 85025; 80053; 81001; J1170; J0696

== ENCOUNTER 2019-03-30 08:38 | Emergency (ER) | payer OTHER ==
[2019-03-30] MEDS ORDERED: NORMAL SALINE 1000 ML 1,000 ML IV ONE (09:35)
[2019-03-30] MEDS ORDERED: ONDANSETRON HCL INJ/PF 4 MG/2 ML SDV IV ONE (09:35)
--- NOTE | 2019-03-30 09:38 | ER Document Report ---
ED Medical Screen (RME) - General Chief Complaint: Urinary Problem Stated Complaint: POSSIBLE UTI Time Seen by Provider: 03/30/19 09:29 Primary Care Provider: JERI MENESES PA-C [Primary Care Provider] - Follow up as needed Mode of Arrival: Ambulatory TRAVEL OUTSIDE OF THE [place] IN LAST 30 DAYS: No - HPI Notes: 03/30/19 09:36 38 yr old female with a history of approximately 5 pyelonephritis's over the last 15 years present today today with complaints of right kidney pain, nausea vomiting general sense of feeling sick. Patient was seen in the emergency room 3 weeks ago for pyelonephritis, given 2 weeks of Keflex which she finished approximately a week ago. She states her symptoms are becoming progressive. She does go to [facility] for her primary care needs however is never been referred to urology. Denies any chest pain or shortness of breath. Has tried [id number] Tylenol without relief. Last menstrual period was Decemb er 2018. I have greeted and performed a rapid initial assessment of this patient. A comprehensive ED assessment and evaluation of the patient, analysis of test results and completion of the medical decision making process will be conducted by additional ED providers. PHYSICAL EXAMINATION: GENERAL: Well-appearing, well-nourished and in mild distress HEAD: Atraumatic, normocephalic. NECK: Normal range of motion LUNGS: No respiratory distress Musculoskeletal: Normal range of motion NEUROLOGICAL: Normal speech, normal gait. PSYCH: Normal mood, normal affect. SKIN: Warm, Dry, normal turgor, no rashes or lesions noted. - Related Data Allergies/Adverse Reactions: azithromycin [Azithromycin] Allergy (Intermediate, Verified 03/30/19 09:18) Urticaria ciprofloxacin [From Cipro] Allergy (Verified 03/30/19 09:18) Past Medical History - Social History Chew tobacco use (# tins/day): No Frequency of alcohol use: None Drug Abuse: None - Past Medical History Cardiac Medical History: Reports: Hx Pulmonary Embolism - on xarelto, no missed meds Denies: Hx Atrial Fibrillation, Hx Congestive Heart Failure, Hx Coronary Artery Disease, Hx Heart Attack, Hx Hypercholesterolemia, Hx Hypertension, Hx Peripheral Vascular Disease, Hx Heart Murmur Pulmonary Medical History: Reports: Hx Bronchitis, Hx Pneumonia, Hx Intubation Denies: Hx Asthma, Hx COPD, Hx Respiratory Failure, Hx Sleep Apnea, Hx Tuberculosis Neurological Medical History: Denies: Hx Cerebrovascular Accident, Hx Seizures, Hx Parkinson's Disease Endocrine Medical History: Denies: Hx Diabetes Mellitus Type 1, Hx Diabetes Mellitus Type 2, Hx Graves' Disease, Hx Hyperthyroidism, Hx Hypothyroidism Renal/ Medical History: Denies: Hx End Stage Renal Disease, Hx Kidney Stones, Hx Ovarian Cysts, Hx Peritoneal Dialysis, Hx Pelvic Inflammatory Disease Malignancy Medical History: Reports: Hx Breast Cancer. Denies: Hx Cervical Cancer, Hx Leukemia, Hx Lung Cancer, Hx Ovarian Cancer GI Medical History: Reports: Hx Gastritis, Hx Gastroesophageal Reflux Disease, Hx Ulcer. Denies: Hx Crohn's Disease, Hx Hiatal Hernia, Hx Irritable Bowel, Hx Liver Failure, Hx Pancreatitis Musculoskeltal Medical History: Denies Hx Arthritis, Denies Hx Fibromyalgia, Denies Hx Multiple Sclerosis, Denies Hx Muscular Dystrophy, Reports Hx Systemic Lupus Erythematosus Psychiatric Medical History: Reports: Hx Anxiety, Hx Bipolar Disorder, Hx Depression Denies: Hx Dementia, Hx Post Traumatic Stress Disorder, Hx Schizophrenia Traumatic Medical History: Denies: Hx Fractures Infectious Medical History: Denies: Hx HIV Past Surgical History: Reports: Hx Appendectomy, Hx Breast Surgery, Hx Section - 2, Hx Gynecologic Surgery - L ovary removed, Hx Mastectomy - BILATERAL, Hx Tubal Ligation. Denies: Hx Colostomy, Hx Pacemaker - Immunizations Immunizations up to date: Yes Hx Diphtheria, Pertussis, Tetanus Vaccination: Yes Physical Exam - Vital signs Vitals: Temp Pulse Resp BP Pulse Ox 98.7 F 102 H 16 133/91 H 100 03/30/19 08:56 03/30/19 08:56 03/30/19 08:56 03/30/19 08:56 03/30/19 08:56 Course - Vital Signs Vital signs: Temp Pulse Resp BP Pulse Ox 98.7 F 102 H 16 133/91 H 100 03/30/19 09:18 03/30/19 09:18 03/30/19 09:18 03/30/19 09:18 03/30/19 09:18 Doctor's Discharge - Discharge Referrals: JERI MENESES PA-C [Primary Care Provider] - Follow up as needed
[2019-03-30 10:10] LABS: ABSOLUTE LYMPHOCYTES (AUTO) 1.2 10^3/uL (0.5-4.7); ABSOLUTE MONOCYTES (AUTO) 0.6 10^3/uL (0.1-1.4); BASOPHILS % (AUTO) 0.5 % (0-2); EOSINOPHILS % (AUTO) 0.7 % (0-6); HEMATOCRIT 40.1 % (36.0-47.0); HEMOGLOBIN 14.1 g/dL (12.0-15.5); LYMPHOCYTES % (AUTO) 24.6 % (13-45); MEAN CORPUSCULAR HEMOGLOBIN 31.5 pg (27.0-33.4); MEAN CORPUSCULAR HGB CONC 35.2 g/dL (32.0-36.0); MEAN CORPUSCULAR VOLUME 90 fl (80-97); MONOCYTES % (AUTO) 11.4 % (3-13); PLATELET COUNT 239 10^3/uL (150-450); RED BLOOD COUNT 4.48 10^6/uL (3.72-5.28); RED CELL DISTRIBUTION WIDTH 12.5 % (11.5-14.0); SEGMENTED NEUTROPHILS % (AUTO) 62.8 % (42-78); TOTAL CELLS COUNTED % (AUTO) 100 %; WHITE BLOOD COUNT 4.8 10^3/uL (4.0-10.5)
[2019-03-30 10:32] LABS: ALBUMIN 4.7 g/dL (3.5-5.0); ALKALINE PHOSPHATASE 69 U/L (38-126); ANION GAP 12 (5-19); ASPARTATE AMINO TRANSFERASE 47 U/L (14-36); BLOOD UREA NITROGEN 11 mg/dL (7-20); CALCIUM 9.7 mg/dL (8.4-10.2); CARBON DIOXIDE 28 mmol/L (22-30); CHLORIDE 100 mmol/L (98-107); GLUCOSE 94 mg/dL (75-110); POTASSIUM 4.3 mmol/L (3.6-5.0); TOTAL PROTEIN 7.7 g/dL (6.3-8.2)
[2019-03-30 10:44] LABS: AMORPHOUS SEDIMENT,URINE TRACE /HPF; APPEARANCE,URINE CLOUDY; BILIRUBIN,URINE NEGATIVE (NEGATIVE); COLOR,URINE YELLOW; GLUCOSE, URINE NEGATIVE (NEGATIVE); KETONES,URINE NEGATIVE (NEGATIVE); LEUKOCYTE ESTERASE,URINE NEGATIVE (NEGATIVE); NITRITE,URINE NEGATIVE (NEGATIVE); PROTEIN,URINE NEGATIVE (NEGATIVE); UROBILINOGEN,URINE NEGATIVE mg/dL (<2.0)
--- NOTE | 2019-03-30 11:31 | RADIOLOGY REPORT (SQ) ---
EXAM DESCRIPTION: U/S RETROPERITON (RENAL/AORTA) COMPLETED DATE/TIME: 03/30/2019 11:16 am REASON FOR STUDY: R flank pain, hx of pyleo's COMPARISON: 11/12/2018 TECHNIQUE: Dynamic and static grayscale images acquired of the kidneys and bladder and recorded on P ACS. Additional selected color Doppler and spectral images recorded. LIMITATIONS: None. FINDINGS: RIGHT KIDNEY: Normal size. Normal echogenicity. No solid or suspicious masses. No hydronep hrosis. No calcifications. LEFT KIDNEY: Normal size. Normal echogenicity. No solid or suspicious masses. No hydronephrosis. No calcifications. BLADDER: No masses. OTHER FINDINGS: No other significant finding. IMPRESSION: NORMAL RENAL AND BLADDER ULTRASOUND. TECHNICAL DOCUMENTATION: JOB ID: [id number] [employer]- All Rights Reserved Reading location - IP/workstation name: [email or web address]
[2019-03-30] MEDS ORDERED: HYDROMORPHONE HCL INJ/PF 2 MG/ML AMPULE IV ONE (12:18)
--- NOTE | 2019-03-30 12:23 | ER Document Report ---
ED General - General Chief Complaint: Urinary Problem Stated Complaint: POSSIBLE UTI Time Seen by Provider: 03/30/19 09:29 Primary Care Provider: JERI MENESES PA-C [Primary Care Provider] - Follow up as needed Mode of Arrival: Ambulatory TRAVEL OUTSIDE OF THE [place] IN LAST 30 DAYS: No - HPI Notes: Patient presents with crampy lower abdominal pain. States she has had this approximate 2 days. It is been constant. Nothing makes it better or worse. It does radiate to her lower back. She states she is not concerned about 60 transmitted disease. She denies any type of vaginal discharge or bleeding. She states she does have dysuria and discomfort when she urinates and that this feels like her typical urinary tract infection. She is also had some low back pain. She is had some nausea. No diarrhea. No fevers or rashes. The pain does radiate across the lower pelvis and abdomen. 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, no missed meds Denies: Hx Atrial Fibrillation, Hx Congestive Heart Failure, Hx Coronary Artery Disease, Hx Heart Attack, Hx Hypercholesterolemia, Hx Hypertension, Hx Peripheral Vascular Disease, Hx Heart Murmur Pulmonary Medical History: Reports: Hx Bronchitis, Hx Pneumonia, Hx Intubation Denies: Hx Asthma, Hx COPD, Hx Respiratory Failure, Hx Sleep Apnea, Hx Tuberculosis Neurological Medical History: Denies: Hx Cerebrovascular Accident, Hx Seizures, Hx Parkinson's Disease Endocrine Medical History: Denies: Hx Diabetes Mellitus Type 1, Hx Diabetes Mellitus Type 2, Hx Graves' Disease, Hx Hyperthyroidism, Hx Hypothyroidism Renal/ Medical History: Reports: Hx Kidney Stones. Denies: Hx End Stage Renal Disease, Hx Ovarian Cysts, Hx Peritoneal Dialysis, Hx Pelvic Inflammatory Disease Malignancy Medical History: Reports: Hx Breast Cancer. Denies: Hx Cervical Cancer, Hx Leukemia, Hx Lung Cancer, Hx Ovarian Cancer GI Medical History: Reports: Hx Gastritis, Hx Gastroesophageal Reflux Disease, Hx Ulcer. Denies: Hx Crohn's Disease, Hx Hiatal Hernia, Hx Irritable Bowel, Hx Liver Failure, Hx Pancreatitis Musculoskeletal Medical History: Denies Hx Arthritis, Denies Hx Fibromyalgia, Denies Hx Multiple Sclerosis, Denies Hx Muscular Dystrophy, Reports Hx Systemic Lupus Erythematosus Psychiatric Medical History: Reports: Hx Anxiety, Hx Bipolar Disorder, Hx Depression Denies: Hx Dementia, Hx Post Traumatic Stress Disorder, Hx Schizophrenia Traumatic Medical History: Denies: Hx Fractures Infectious Medical History: Denies: Hx HIV Past Surgical History: Reports: Hx Appendectomy, Hx Breast Surgery, Hx Section - 2, Hx Gynecologic Surgery, Hx Mastectomy - BILATERAL, Hx Tubal Ligation. Denies: Hx Colostomy, Hx Pacemaker - Immunizations Immunizations up to date: Yes Hx Diphtheria, Pertussis, Tetanus Vaccination: Yes Hx Pneumococcal Vaccination: 01/27/12 Review of Systems - Review of Systems Constitutional: denies: Chills, Fever Cardiovascular: denies: Chest pain, Palpitations Respiratory: denies: Cough, Short of breath -: Yes All other systems reviewed and negative Physical Exam - Vital signs Vitals: Temp Pulse Resp BP Pulse Ox 98.7 F 102 H 16 133/91 H 100 03/30/19 08:56 03/30/19 08:56 03/30/19 08:56 03/30/19 08:56 03/30/19 08:56 Interpretation: Normal - General General appearance: Appears well, Alert - HEENT Head: Normocephalic, Atraumatic Eyes: Normal Pupils: PERRL - Respiratory Respiratory status: No respiratory distress Chest status: Nontender Breath sounds: Normal Chest palpation: Normal - Cardiovascular Rhythm: Regular Heart sounds: Normal auscultation Murmur: No - Abdominal Inspection: Normal Distension: No distension Bowel sounds: Normal Tenderness: Tender - Mild diffuse tenderness to palpation without rebound or guarding. Organomegaly: No organomegaly - Back Back: Normal, Nontender - Extremities General upper extremity: Normal inspection, Nontender, Normal color, Normal ROM, Normal temperature General lower extremity: Normal inspection, Nontender, Normal color, Normal ROM, Normal temperature, Normal weight bearing. No: Drew's sign - Neurological Neuro grossly intact: Yes Cognition: Normal Orientation: AAOx4 [place] Coma Scale Eye Opening: Spontaneous [place] Coma Scale Verbal: Oriented [place] Coma Scale Motor: Obeys Commands [place] Coma Scale Total: 15 Speech: Normal Motor strength normal: LUE, RUE, LLE, RLE Sensory: Normal - Psychological Associated symptoms: Normal affect, Normal mood - Skin Skin Temperature: Warm Skin Moisture: Dry Skin Color: Normal Course - Re-evaluation Re-evalutation: 03/30/19 12:20 Patient presents with lower pelvic pain and states that it feels like her usual urinary tract infection discomfort. However she has no evidence of urinary tract infection. Labs are otherwise normal. No fever or elevated white blood cell count. Patient's exam is not consistent with a surgical abdomen. Ultrasound is unremarkable as well. I have counseled patient about the non- specific pelvic pain and the need for follow-up as an outpatient. - Vital Signs Vital signs: Temp Pulse Resp BP Pulse Ox 98.7 F 102 H 16 133/91 H 100 03/30/19 09:18 03/30/19 09:18 03/30/19 09:18 03/30/19 09:18 03/30/19 09:18 - Laboratory Result Diagrams: 03/30/19 09:53 03/30/19 09:53 Laboratory results interpreted by me: 03/30/19 03/30/19 09:53 09:53 AST 47 H Urine Blood SMALL H - Diagnostic Test Radiology reviewed: Image reviewed, Reports reviewed Discharge - Discharge Clinical Impression: Pelvic pain Bipolar disorder Qualifiers: Active/Remission status: remission status unspecified Qualified Code(s): F31.9 - Bipolar disorder, unspecified Condition: Stable Disposition: HOME, SELF-CARE Instructions: Pelvic Pain ([facility]) Additional Instructions: Please call your primary care doctor soon as possible to arrange follow-up Prescriptions: Hydrocodone/Acetaminophen [[place] 5-325 mg Tablet] 1 tab PO Q6 PRN 3 Days #12 tablet PRN Reason: Forms: Return to Work Referrals: JERI MENESES PA-C [Primary Care Provider] - Follow up as needed
[2019-03-30 13:10] VITALS: BP 112/44
== END 2019-03-30 13:10 | disposition home or self-care (01) ==
LOC: ER 08:38
DX: R10.2 Pelvic and perineal pain (principal); F31.9 Bipolar disorder, unspecified; R10.30 Lower abdominal pain, unspecified; Z88.3 Allergy status to other anti-infective agents; Z86.711 Personal history of pulmonary embolism; Z79.01 Long term (current) use of anticoagulants; Z85.3 Personal history of malignant neoplasm of breast
CPT/HCPCS: 36415; 85025; 81025; 80053; 81001; 76770; J1170; J2405; J7030; 96361; 96374; 96375; 99284

== ENCOUNTER 2019-04-28 15:55 | Emergency (ER) | payer OTHER ==
[2019-04-28] MEDS ORDERED: HYDROCODONE/ACETAMINOPHEN 5-325 MG TABLET PO ONE (16:33)
--- NOTE | 2019-04-28 16:36 | ER Document Report ---
ED Medical Screen (RME) - General Chief Complaint: Flank Pain Stated Complaint: FLANK PAIN Time Seen by Provider: 04/28/19 16:29 Primary Care Provider: JERI MENESES PA-C [Primary Care Provider] - Follow up as needed Notes: Patient is a 38-year-old female with a history of lupus who presents to the emergency department with right sided flank pain. 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 She is currently on Xarelto. She has had blood clots before being on Xarelto. Exam: Tender right flank area. I have greeted and performed a rapid initial assessment of this patient. A comprehensive ED assessment and evaluation of the patient, analysis of test results and completion of medical decision making process will be conducted by an additional ED providers. TRAVEL OUTSIDE OF THE [place] 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, no missed meds Denies: Hx Atrial Fibrillation, Hx Congestive Heart Failure, Hx Coronary Artery Disease, Hx Heart Attack, Hx Hypercholesterolemia, Hx Hypertension, Hx Peripheral Vascular Disease, Hx Heart Murmur Pulmonary Medical History: Reports: Hx Bronchitis, Hx Pneumonia, Hx Intubation Denies: Hx Asthma, Hx COPD, Hx Respiratory Failure, Hx Sleep Apnea, Hx Tuberculosis Neurological Medical History: Denies: Hx Cerebrovascular Accident, Hx Seizures, Hx Parkinson's Disease Endocrine Medical History: Denies: Hx Diabetes Mellitus Type 1, Hx Diabetes Mellitus Type 2, Hx Graves' Disease, Hx Hyperthyroidism, Hx Hypothyroidism Renal/ Medical History: Reports: Hx Kidney Stones. Denies: Hx End Stage Renal Disease, Hx Ovarian Cysts, Hx Peritoneal Dialysis, Hx Pelvic Inflammatory Disease Malignancy Medical History: Reports: Hx Breast Cancer. Denies: Hx Cervical Cancer, Hx Leukemia, Hx Lung Cancer, Hx Ovarian Cancer GI Medical History: Reports: Hx Gastritis, Hx Gastroesophageal Reflux Disease, Hx Ulcer. Denies: Hx Crohn's Disease, Hx Hiatal Hernia, Hx Irritable Bowel, Hx Liver Failure, Hx Pancreatitis Musculoskeltal Medical History: Denies Hx Arthritis, Denies Hx Fibromyalgia, Denies Hx Multiple Sclerosis, Denies Hx Muscular Dystrophy, Reports Hx Systemic Lupus Erythematosus Psychiatric Medical History: Reports: Hx Anxiety, Hx Bipolar Disorder, Hx Depression Denies: Hx Dementia, Hx Post Traumatic Stress Disorder, Hx Schizophrenia Traumatic Medical History: Denies: Hx Fractures Infectious Medical History: Denies: Hx HIV Past Surgical History: Reports: Hx Appendectomy, Hx Breast Surgery, Hx Section - 2, Hx Gynecologic Surgery, Hx Mastectomy - BILATERAL, Hx Tubal Ligation. Denies: Hx Colostomy, Hx Pacemaker - Immunizations Immunizations up to date: Yes Hx Diphtheria, Pertussis, Tetanus Vaccination: Yes Physical Exam - Vital signs Vitals: Temp Pulse Resp BP Pulse Ox 98.4 F 96 20 157/75 H 100 04/28/19 16:10 04/28/19 16:10 04/28/19 16:10 04/28/19 16:10 04/28/19 16:10 Course - Vital Signs Vital signs: Temp Pulse Resp BP Pulse Ox 98.4 F 96 20 157/75 H 100 04/28/19 16:10 04/28/19 16:10 04/28/19 16:10 04/28/19 16:10 04/28/19 16:10 Doctor's Discharge - Discharge Referrals: JERI MENESES PA-C [Primary Care Provider] - Follow up as needed
[2019-04-28 17:46] LABS: ABSOLUTE LYMPHOCYTES (AUTO) 1.7 10^3/uL (0.5-4.7); ABSOLUTE MONOCYTES (AUTO) 0.8 10^3/uL (0.1-1.4); ABSOLUTE NEUT (AUTO) 4.3 10^3/uL (1.7-8.2); BASOPHILS % (AUTO) 0.4 % (0-2); EOSINOPHILS % (AUTO) 0.4 % (0-6); HEMOGLOBIN 13.7 g/dL (12.0-15.5); LYMPHOCYTES % (AUTO) 25.5 % (13-45); MEAN CORPUSCULAR HEMOGLOBIN 31.3 pg (27.0-33.4); MEAN CORPUSCULAR HGB CONC 35.1 g/dL (32.0-36.0); MEAN CORPUSCULAR VOLUME 89 fl (80-97); MONOCYTES % (AUTO) 11.1 % (3-13); PLATELET COUNT 213 10^3/uL (150-450); RED BLOOD COUNT 4.38 10^6/uL (3.72-5.28); RED CELL DISTRIBUTION WIDTH 12.7 % (11.5-14.0); SEGMENTED NEUTROPHILS % (AUTO) 62.6 % (42-78); TOTAL CELLS COUNTED % (AUTO) 100 %; WHITE BLOOD COUNT 6.8 10^3/uL (4.0-10.5)
[2019-04-28 17:51] LABS: INTERNATIONAL RATION (INR) 1.01; PROTHROMBIN TIME 13.3 SEC (11.4-15.4)
[2019-04-28 17:52] LABS: PARTIAL THROMBOPLASTIN TIME 30.9 SEC (23.5-35.8)
[2019-04-28 18:07] LABS: ALBUMIN 4.2 g/dL (3.5-5.0); ALKALINE PHOSPHATASE 61 U/L (38-126); ANION GAP 9 (5-19); ASPARTATE AMINO TRANSFERASE 19 U/L (14-36); BILIRUBIN,DIRECT 0.1 mg/dL (0.0-0.4); BILIRUBIN,TOTAL 0.7 mg/dL (0.2-1.3); BLOOD UREA NITROGEN 7 mg/dL (7-20); CALCIUM 9.3 mg/dL (8.4-10.2); CARBON DIOXIDE 27 mmol/L (22-30); CHLORIDE 101 mmol/L (98-107); GLUCOSE 91 mg/dL (75-110); POTASSIUM 4.2 mmol/L (3.6-5.0)
[2019-04-28 20:20] VITALS: BP 140/63
--- NOTE | 2019-04-28 21:43 | ER Document Report ---
ED GI/ - General Chief Complaint: Flank Pain Stated Complaint: FLANK PAIN Time Seen by Provider: 04/28/19 16:29 Primary Care Provider: JERI MENESES PA-C [Primary Care Provider] - Follow up as needed Mode of Arrival: Ambulatory Information source: Patient Notes: 38-year-old female presented to ED for complaint of pain to the right flank/right lateral chest area. She states she does have a history of lupus. She also has a history of DVTs in the iliac vein. She is on Xarelto at this time. Patient is here with her daughter who is diagnosed with influenza. Patient's vital signs are stable. Her CBC chemistry are stable. Will order urine renal ultrasound and chest x-ray. TRAVEL OUTSIDE OF THE [place] IN LAST 30 DAYS: No - HPI Patient complains to provider of: Flank pain Onset: Other Timing/Duration: Gradual - Couple days Quality of pain: Sharp Severity at maximum: Severe Severity in ED: Moderate, Severe Pain Level: 3 Location: Right flank Associated symptoms: Nausea, Other - Right flank pain Exacerbated by: Movement, Walking Relieved by: Denies Similar symptoms previously: Yes Recently seen / treated by doctor: Yes - Related Data Allergies/Adverse Reactions: azithromycin [Azithromycin] Allergy (Intermediate, Verified 04/28/19 16:35) Urticaria ciprofloxacin [From Cipro] Allergy (Verified 04/28/19 16:35) Home Medications: xarelto, methotrexate, and more. 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, no missed meds Pulmonary Medical History: Reports: Hx Bronchitis, Hx Pneumonia, Hx Intubation EENT Medical History: Reports: None Neurological Medical History: Reports: None Endocrine Medical History: Reports: None Renal/ Medical History: Reports: Hx Kidney Stones Malignancy Medical History: Reports: Hx Breast Cancer GI Medical History: Reports: Hx Gastritis, Hx Gastroesophageal Reflux Disease, Hx Ulcer Musculoskeletal Medical History: Reports Hx Systemic Lupus Erythematosus Skin Medical History: Reports None Psychiatric Medical History: Reports: Hx Anxiety, Hx Bipolar Disorder, Hx Depression Traumatic Medical History: Reports: Hx Fractures - Wrist and fingers Infectious Medical History: Reports: None Past Surgical History: Reports: Hx Appendectomy, Hx Breast Surgery, Hx Section - 2, Hx Mastectomy - BILATERAL, Hx Tubal Ligation - Immunizations Immunizations up to date: Yes Hx Diphtheria, Pertussis, Tetanus Vaccination: Yes Hx Pneumococcal Vaccination: 01/27/12 Review of Systems - Review of Systems Constitutional: No symptoms reported EENT: No symptoms reported Cardiovascular: No symptoms reported Respiratory: No symptoms reported Gastrointestinal: No symptoms reported Genitourinary: Flank pain Female Genitourinary: No symptoms reported Musculoskeletal: Muscle pain Skin: No symptoms reported Hematologic/Lymphatic: No symptoms reported Neurological/Psychological: No symptoms reported -: Yes All other systems reviewed and negative Physical Exam - Vital signs Vitals: Temp Pulse Resp BP Pulse Ox 98.4 F 96 20 157/75 H 100 04/28/19 16:10 04/28/19 16:10 04/28/19 16:10 04/28/19 16:10 04/28/19 16:10 Interpretation: Normal - General General appearance: Appears well, Alert - HEENT Head: Normocephalic, Atraumatic Eyes: Normal Pupils: PERRL - Respiratory Respiratory status: No respiratory distress Chest status: Nontender Breath sounds: Normal Chest palpation: Normal - Cardiovascular Rhythm: Regular Heart sounds: Normal auscultation Murmur: No - Abdominal Inspection: Normal Distension: No distension Bowel sounds: Normal Tenderness: Nontender Organomegaly: No organomegaly - Back Back: Normal, CVA tenderness - Right flank - Extremities General upper extremity: Normal inspection, Nontender, Normal color, Normal ROM, Normal temperature General lower extremity: Normal inspection, Nontender, Normal color, Normal ROM, Normal temperature, Normal weight bearing. No: Drew's sign - Neurological Neuro grossly intact: Yes Cognition: Normal Orientation: AAOx4 [place] Coma Scale Eye Opening: Spontaneous [place] Coma Scale Verbal: Oriented [place] Coma Scale Motor: Obeys Commands [place] Coma Scale Total: 15 Speech: Normal Motor strength normal: LUE, RUE, LLE, RLE Sensory: Normal - Psychological Associated symptoms: Normal affect, Normal mood - Skin Skin Temperature: Warm Skin Moisture: Dry Skin Color: Normal Course - Re-evaluation Re-evalutation: 04/29/19 00:35 Discussed all testing with patient and written report all testing given to patient for follow-up with her primary care doctor. There is no acute abnormalities noted. She was negative for flu ultrasound was negative chest x- ray was negative urine was negative. Patient has been instructed to please follow-up with her primary care doctor and patient was discharged home. - Vital Signs Vital signs: Temp Pulse Resp BP Pulse Ox 98.6 F 105 H 18 140/63 H 100 04/28/19 20:18 04/28/19 20:18 04/28/19 20:18 04/28/19 20:18 04/28/19 20:18 - Laboratory Result Diagrams: 04/28/19 17:20 04/28/19 17:20 Laboratory results interpreted by me: 04/28/19 04/28/19 17:20 22:21 Sodium 136.5 L Urine Blood SMALL H - Diagnostic Test Radiology reviewed: Image reviewed, Reports reviewed Discharge - Discharge Clinical Impression: Right flank pain Condition: Stable Disposition: HOME, SELF-CARE Additional Instructions: Flank Pain We weren't able to prove an exact cause for your flank pain. Pain in the flank can be caused by a muscle strain or spasm. Sometimes a kidney stone causes pain, but can't be found on our tests. Infection in the kidney should be evident on a urine test. Early shingles can occasionally cause flank pain, without the rash that proves the diagnosis. On rare occasions, disease of the pancreas, aorta, spleen, or colon can create pain in the flank. At this time, there's no evidence of a dangerous condition, and it seems safe for you to be at home. If the pain goes away and does not come back, no further testing will be needed. If pain persists, or becomes more severe, we may need to repeat some tests or order additional new testing. Blood in the urine, urgency to urinate frequently, and pain that radiates to the groin can indicate a kidney stone. Fever may mean that the pain is due to infection, either of the kidney or the colon (diverticulitis). If your pain is early shingles, you should develop an eruption of blisters in the painful area within a few days. Call the doctor or return if you have pain that is spreading or becoming more severe, pain that does not resolve with time, fever, or any other new symptoms. Acetaminophen Acetaminophen may be taken for pain relief or fever control. It's much safer than aspirin, offering a wider range of "safe" dosages. It is safe during . Some brand names are Tylenol, Panadol, Datril, Anacin 3, Tempra, and Liquiprin. Acetaminophen can be repeated every four hours. The following are maximum recommended dosages: WEIGHT Dose Drops Elixir Chewable(80mg) (LBS.) drprs=droppers tsp=teaspoon 6 40 mg .4 ml (1/2) 6-11 80 mg .8 ml (full) 1/2 tsp 1 tab 12-16 120 mg 1 1/2 drprs 3/4 tsp 1 1/2 tabs 17-23 160 mg 2 drprs 1 tsp 2 tabs 24-30 240 mg 3 drprs 1 1/2 tsp 3 tabs 30-35 320 mg 2 tsp 4 tabs 36-41 360 mg 2 1/4 tsp 4 1/2 tabs 42-47 400 mg 2 1/2 tsp 5 tabs 48-53 480 mg 3 tsp 6 tabs 54-59 520 mg 3 1/4 tsp 6 1/2 tabs 60-64 560 mg 3 1/2 tsp 7 tabs 65-70 600 mg 3 3/4 tsp 7 1/2 tabs 71-76 640 mg 4 tsp 8 tabs 77-82 720 mg 4 1/2 tsp 9 tabs 83-88 800 mg 5 tsp 10 tabs >89 pounds or adults 650 mg to 900 mg Acetaminophen can be repeated every four hours. Maximum daily dose not to exceed 4000 mg. These maximum recommended dosages are slightly higher than the dosages written on the product container, but these dosages are very safe and well below the toxic dosage for acetaminophen. Ice Packs Apply ice packs frequently against the painful area. Many different schedules are recommended, such as "20 minutes on, 20 minutes off" or "one hour ice, two hours rest." If you need to work, you may need to go longer between ice treatments. You should plan to have the area ice packed AT LEAST one fourth of the time. The ice should be applied over the wrap, tape, or splint, or over a layer of cloth -- not directly against the skin. Some ice bags have a built-in cloth and can be put directly on the skin. Warm Packs After approximately two days, apply gentle heat (such as a heating pad or hot water bottle) for about 20 to 30 minutes about every two hours -- at least four times daily. Warmth and elevation will help you make a more rapid recovery, and will ease the pain considerably. Do not use HOT heat, and never apply heat for longer than 30 minutes. The continuous heat can invisibly damage skin and muscles -- even when no burn is seen on the surface. Damaged muscles can make you MORE sore. FOLLOW-UP CARE: If you have been referred to a physician for follow-up care, call the physicians office for an appointment as you were instructed or within the next two days. If you experience worsening or a significant change in your symptoms, notify the physician immediately or return to the Emergency Department at any time for re-evaluation. Forms: Elevated Blood Pressure Referrals: JERI MENESES PA-C [Primary Care Provider] - Follow up in 3-5 days
--- NOTE | 2019-04-28 22:18 | RADIOLOGY REPORT (SQ) ---
EXAM: XR CHEST 2 VIEWS CLINICAL INDICATION: 38-year-old female with RIGHT renal/lateral chest pain. TECHNIQUE: Two-view, PA and lateral projections of the chest were obtained. COMPARISON: 02/28/2019. FINDINGS: Unremarkable cardiac and mediastinal silhouette. Heart size is normal. Lungs are clear without focal opacity, pneumothorax or pleural effusions. The visualized bones are within normal limits. IMPRESSION: No acute cardiopulmonary abnormalities.
[2019-04-28 22:49] LABS: APPEARANCE,URINE CLEAR; BILIRUBIN,URINE NEGATIVE (NEGATIVE); COLOR,URINE STRAW; GLUCOSE, URINE NEGATIVE (NEGATIVE); KETONES,URINE NEGATIVE (NEGATIVE); PROTEIN,URINE NEGATIVE (NEGATIVE); URINE SPECIFIC GRAVITY 1.008; UROBILINOGEN,URINE NEGATIVE mg/dL (<2.0)
[2019-04-28 22:51] LABS: A TYPE INFLUENZA AG NEGATIVE (NEGATIVE); B INFLUENZA AG NEGATIVE (NEGATIVE)
--- NOTE | 2019-04-28 23:18 | RADIOLOGY REPORT (SQ) ---
EXAM DESCRIPTION: US RETROPERITONEUM COMPLETED DATE/TME: 04/28/2019 21:37 CLINICAL HISTORY: 38 years, Female, right flank pain COMPARISON: March 30, 2019 TECHNIQUE: 28 images LIMITATIONS: None. FINDINGS: Right kidney measures 10.1 cm. Left kidney measures 10.5 cm. No hydronephrosis solid mass lesion or shadowing calculi. Urinary bladder is decompressed. IMPRESSION: Unremarkable renal sonogram. The cause of the patient's right flank pain is not identified on this examination. copyright 2010 [employer]- All Rights Reserved
== END 2019-04-29 00:54 | disposition home or self-care (01) ==
LOC: ER 15:55
DX: R07.89 Other chest pain (principal); R10.9 Unspecified abdominal pain; R11.0 Nausea; Z88.3 Allergy status to other anti-infective agents; Z86.711 Personal history of pulmonary embolism; Z79.01 Long term (current) use of anticoagulants; Z87.442 Personal history of urinary calculi
CPT/HCPCS: 36415; 71046; 76770; 80053; 81001; 85025; 85610; 85730; 87804; 99284

== ENCOUNTER 2019-05-03 23:14 | Emergency (ER) | payer OTHER ==
[2019-05-04] MEDS ORDERED: KETOROLAC TROMETHAMINE INJ/PF 30 MG/1 ML SDV IV ONE (00:16)
[2019-05-04] MEDS ORDERED: ONDANSETRON HCL INJ/PF 4 MG/2 ML SDV IV ONE (00:16)
[2019-05-04 00:33] LABS: APPEARANCE,URINE CLEAR; BILIRUBIN,URINE NEGATIVE (NEGATIVE); COLOR,URINE AMBER; GLUCOSE, URINE NEGATIVE (NEGATIVE); KETONES,URINE NEGATIVE (NEGATIVE); LEUKOCYTE ESTERASE,URINE NEGATIVE (NEGATIVE); NITRITE,URINE POSITIVE (NEGATIVE); PROTEIN,URINE NEGATIVE (NEGATIVE); URINE SPECIFIC GRAVITY 1.002
[2019-05-04] MEDS ORDERED: ONDANSETRON HCL INJ/PF 4 MG/2 ML SDV ONE (02:55)
[2019-05-04] MEDS ORDERED: KETOROLAC TROMETHAMINE INJ/PF 30 MG/1 ML SDV ONE (02:55)
[2019-05-04 03:01] LABS: ABSOLUTE NEUT (AUTO) 5.6 10^3/uL (1.7-8.2); MEAN CORPUSCULAR HEMOGLOBIN 31.6 pg (27.0-33.4); MEAN CORPUSCULAR HGB CONC 36.1 g/dL (32.0-36.0); RED CELL DISTRIBUTION WIDTH 12.5 % (11.5-14.0); SEGMENTED NEUTROPHILS % (AUTO) 58.9 % (42-78); TOTAL CELLS COUNTED % (AUTO) 100 %; WHITE BLOOD COUNT 9.5 10^3/uL (4.0-10.5)
[2019-05-04 03:03] LABS: ABSOLUTE BASOPHILS # (AUTO) 0.1 10^3/uL (0.0-0.2); ABSOLUTE LYMPHOCYTES (AUTO) 2.6 10^3/uL (0.5-4.7); ABSOLUTE MONOCYTES (AUTO) 1.2 10^3/uL (0.1-1.4); BASOPHILS % (AUTO) 0.6 % (0-2); EOSINOPHILS % (AUTO) 0.3 % (0-6); HEMATOCRIT 40.2 % (36.0-47.0); HEMOGLOBIN 14.5 g/dL (12.0-15.5); LYMPHOCYTES % (AUTO) 27.8 % (13-45); MEAN CORPUSCULAR VOLUME 88 fl (80-97); MONOCYTES % (AUTO) 12.4 % (3-13); PLATELET COUNT 271 10^3/uL (150-450); RED BLOOD COUNT 4.59 10^6/uL (3.72-5.28)
[2019-05-04 03:21] LABS: ALBUMIN 4.6 g/dL (3.5-5.0); ALKALINE PHOSPHATASE 68 U/L (38-126); ANION GAP 9 (5-19); ASPARTATE AMINO TRANSFERASE 25 U/L (14-36); BILIRUBIN,TOTAL 0.6 mg/dL (0.2-1.3); BLOOD UREA NITROGEN 8 mg/dL (7-20); CALCIUM 9.5 mg/dL (8.4-10.2); CARBON DIOXIDE 24 mmol/L (22-30); CHLORIDE 104 mmol/L (98-107); GLUCOSE 92 mg/dL (75-110); POTASSIUM 4.1 mmol/L (3.6-5.0); TOTAL PROTEIN 7.3 g/dL (6.3-8.2)
[2019-05-04] MEDS ORDERED: MORPHINE SULFATE 10 MG/ML INJ IV ONE (03:40)
[2019-05-04] MEDS ORDERED: NORMAL SALINE 1000 ML 1,000 ML IV ONE (03:41)
[2019-05-04] MEDS ORDERED: CEFTRIAXONE 1 GM/D5W RTU 1 GM/50 ML RTUPB IV ONE (03:41)
--- NOTE | 2019-05-04 03:42 | ER Document Report ---
ED GI/ - General Chief Complaint: Flank Pain Stated Complaint: FLANK PAIN Time Seen by Provider: 05/04/19 03:28 Primary Care Provider: JERI MENESES PA-C [Primary Care Provider] - Follow up as needed Notes: Patient is a 38-year-old female that comes to the emergency department for chief complaint of right flank pain radiating towards her abdomen generally and painful urination. Symptoms started over the past day. She states this is typical for kidney infections that she gets frequently, she also is a history of kidney stones. She has always been able to pass kidney stones, she has never required stent or surgery for this. She also has a history of lupus, PE. She denies vomiting, fever, shortness of breath, chest pain, swelling of the lower extremities. TRAVEL OUTSIDE OF THE [place] IN LAST 30 DAYS: No - Related Data Allergies/Adverse Reactions: azithromycin [Azithromycin] Allergy (Intermediate, Verified 04/28/19 16:35) Urticaria ciprofloxacin [From Cipro] Allergy (Verified 04/28/19 16:35) Past Medical History - General Information source: Patient - Social History Smoking Status: Never Smoker Frequency of alcohol use: None Drug Abuse: None Lives with: Family Family History: Hypertension, Malignancy Patient has suicidal ideation: No Patient has homicidal ideation: No - Past Medical History Cardiac Medical History: Reports: Hx Pulmonary Embolism - on xarelto, no missed meds Denies: Hx Atrial Fibrillation, Hx Congestive Heart Failure, Hx Coronary Artery Disease, Hx Heart Attack, Hx Hypercholesterolemia, Hx Hypertension, Hx Peripheral Vascular Disease, Hx Heart Murmur Pulmonary Medical History: Reports: Hx Bronchitis, Hx Pneumonia, Hx Intubation Denies: Hx Asthma, Hx COPD, Hx Respiratory Failure, Hx Sleep Apnea, Hx Tuberculosis Neurological Medical History: Denies: Hx Cerebrovascular Accident, Hx Seizures, Hx Parkinson's Disease Endocrine Medical History: Denies: Hx Diabetes Mellitus Type 1, Hx Diabetes Mellitus Type 2, Hx Graves' Disease, Hx Hyperthyroidism, Hx Hypothyroidism Renal/ Medical History: Reports: Hx Kidney Stones. Denies: Hx End Stage Renal Disease, Hx Ovarian Cysts, Hx Peritoneal Dialysis, Hx Pelvic Inflammatory Disease Malignancy Medical History: Reports: Hx Breast Cancer. Denies: Hx Cervical Cancer, Hx Leukemia, Hx Lung Cancer, Hx Ovarian Cancer GI Medical History: Reports: Hx Gastritis, Hx Gastroesophageal Reflux Disease, Hx Ulcer. Denies: Hx Crohn's Disease, Hx Hiatal Hernia, Hx Irritable Bowel, Hx Liver Failure, Hx Pancreatitis Musculoskeletal Medical History: Denies Hx Arthritis, Denies Hx Fibromyalgia, Denies Hx Multiple Sclerosis, Denies Hx Muscular Dystrophy, Reports Hx Systemic Lupus Erythematosus Psychiatric Medical History: Reports: Hx Anxiety, Hx Bipolar Disorder, Hx Depression Denies: Hx Dementia, Hx Post Traumatic Stress Disorder, Hx Schizophrenia Traumatic Medical History: Reports: Hx Fractures - Wrist and fingers Infectious Medical History: Denies: Hx HIV Past Surgical History: Reports: Hx Appendectomy, Hx Breast Surgery, Hx Section - 2, Hx Gynecologic Surgery, Hx Mastectomy - BILATERAL, Hx Tubal Ligation. Denies: Hx Colostomy, Hx Pacemaker - Immunizations Immunizations up to date: Yes Hx Diphtheria, Pertussis, Tetanus Vaccination: Yes Hx Pneumococcal Vaccination: 01/27/12 Review of Systems - Review of Systems Constitutional: No symptoms reported EENT: No symptoms reported Cardiovascular: No symptoms reported Respiratory: No symptoms reported Gastrointestinal: See HPI Genitourinary: See HPI Female Genitourinary: No symptoms reported Musculoskeletal: No symptoms reported Skin: No symptoms reported Hematologic/Lymphatic: No symptoms reported Neurological/Psychological: No symptoms reported Physical Exam - Vital signs Vitals: Temp Pulse Resp BP Pulse Ox 98.4 F 130 H 20 150/93 H 100 05/04/19 00:04 05/04/19 00:04 05/04/19 00:04 05/04/19 00:04 05/04/19 00:04 - Notes Notes: GENERAL: Alert, interacts well. Slightly restless HEAD: Normocephalic, atraumatic. EYES: Pupils equal, round, and reactive to light. Extraocular movements intact. ENT: Oral mucosa moist, tongue midline. Oropharynx unremarkable. Airway patent. LUNGS: Clear to auscultation bilaterally, no wheezes, rales, or rhonchi. No respiratory distress. HEART: Borderline tachycardic, normal rhythm, no murmur ABDOMEN: Soft, non-tender. Non-distended. Bowel sounds present in all 4 quadrants. GENITOURINARY: Deferred EXTREMITIES: Moves all 4 extremities spontaneously. No edema, normal radial and dorsalis pedis pulses bilaterally. No cyanosis. BACK: Some right-sided CVA tenderness. No cervical, thoracic, lumbar midline tenderness. No saddle anesthesia, normal distal neurovascular exam. Moves all extremities in full range of motion. NEUROLOGICAL: Alert and oriented x3. Normal speech. Cranial nerves II through XII grossly intact. PSYCH: Normal affect, normal mood. SKIN: Warm, dry, normal turgor. No rashes or lesions noted. Course - Re-evaluation Re-evalutation: Patient initially somewhat uncomfortable in appearance, has right-sided CVA tenderness, nontender abdomen. No vaginal bleeding or discharge. No fever. CBC unremarkable, chemistry unremarkable. Urine borderline but does have positive for nitrites. Initially was going to ultrasound or CAT scan the patient however we discussed this and patient had a negative ultrasound about 3 days ago. As result I have a very low suspicion of obstructive ureterolithiasis with UTI. Tachycardia resolved after treatments. Given Rocephin. Starting on antibiotics for suspected developing pyelonephritis. Discussed follow-up with jigar sow which is already established for patient, discussed return precautions. Patient states appreciation and agreement. Stable time of discharge. - Vital Signs Vital signs: Temp Pulse Resp BP Pulse Ox 98.0 F 77 16 126/73 H 100 05/04/19 05:30 05/04/19 05:30 05/04/19 05:30 05/04/19 05:30 05/04/19 05:30 - Laboratory Result Diagrams: 05/04/19 02:50 05/04/19 02:50 Laboratory results interpreted by me: 05/04/19 05/04/19 05/04/19 00:15 02:50 02:50 MCHC 36.1 H Sodium 136.8 L Urine Blood SMALL H Urine Nitrite POSITIVE H Urine Urobilinogen 4.0 H Discharge - Discharge Clinical Impression: Right flank pain, Dysuria Condition: Stable Disposition: HOME, SELF-CARE Additional Instructions: Your evaluation is most consistent with a developing urinary tract infection and possibly early kidney infection. Drink plenty of fluids, take antibiotics and symptom management as prescribed, rest. Follow-up with your urologist appointment and primary care. Return if you worsen including fever, uncontrolled vomiting, or any other concerning or worsening symptoms. Prescriptions: Cephalexin Monohydrate [Keflex 500 mg Capsule] 500 mg PO BID 7 Days #14 capsule Hydrocodone/Acetaminophen [[place] 5-325 mg Tablet] 1 - 2 tab PO ASDIR PRN #10 tablet PRN Reason: Ondansetron [Zofran Odt 4 mg Tablet] 1 - 2 tab PO Q4H PRN #15 tab.rapdis PRN Reason: For Nausea/Vomiting Forms: Return to Work Referrals: JERI MENESES PA-C [Primary Care Provider] - Follow up as needed
[2019-05-04] MEDS ORDERED: HYDROCODONE/ACETAMINOPHEN 5-325 MG (6 TAB/ER DISP) PO PRN (05:18)
[2019-05-04] MEDS ORDERED: ONDANSETRON ODT 4 MG TAB (6 TAB/ER DISP) PO PRN (05:18)
[2019-05-04 05:34] VITALS: BP 126/73
== END 2019-05-04 05:34 | disposition home or self-care (01) ==
LOC: ER 23:14
DX: R10.9 Unspecified abdominal pain (principal); R30.0 Dysuria; Z87.440 Personal history of urinary (tract) infections; Z87.442 Personal history of urinary calculi; Z86.711 Personal history of pulmonary embolism; Z88.3 Allergy status to other anti-infective agents; Z79.01 Long term (current) use of anticoagulants; Z85.3 Personal history of malignant neoplasm of breast
CPT/HCPCS: 99284; 96361; 96375; 96365; 36415; 87086; 83690; 84703; 85025; 80053; 81001; J1885; J2270; J2405; J7030; J0696

== ENCOUNTER 2019-06-09 14:55 | Emergency (ER) | payer OTHER ==
[2019-06-09 16:22] VITALS: BP 135/72
[2019-06-09] MEDS ORDERED: ACETAMINOPHEN 325 MG TABLET PO ONE (16:25)
--- NOTE | 2019-06-09 16:25 | ER Document Report ---
ED GI/ - General Chief Complaint: Flank Pain Stated Complaint: BACK PAIN/PAINFUL URINATION Time Seen by Provider: 06/09/19 16:20 Primary Care Provider: JERI MENESES PA-C [Primary Care Provider] - Follow up as needed Mode of Arrival: Ambulatory Information source: Patient TRAVEL OUTSIDE OF THE [place] IN LAST 30 DAYS: No - HPI Patient complains to provider of: Flank pain Onset: Other Timing/Duration: Gradual - The days Quality of pain: Throbbing Severity at maximum: Moderate Severity in ED: Moderate Pain Level: 4 Location: Left flank, Right flank Vaginal bleeding (Compared to normal period): None LMP: Next week Associated symptoms: Radiates to back, Urinary frequency, Urinary urgency, Other - Urination Relieved by: Denies Similar symptoms previously: Yes Recently seen / treated by doctor: No - Related Data Allergies/Adverse Reactions: azithromycin [Azithromycin] Allergy (Intermediate, Verified 06/09/19 16:24) Urticaria ciprofloxacin [From Cipro] Allergy (Verified 06/09/19 16:24) Past Medical History - General Information source: Patient - Social History Smoking Status: Never Smoker Frequency of alcohol use: None Drug Abuse: None 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 Lives with: Family Family History: Hypertension, Malignancy Patient has suicidal ideation: No Patient has homicidal ideation: No - Past Medical History Cardiac Medical History: Reports: Hx Pulmonary Embolism - on xarelto, no missed meds Pulmonary Medical History: Reports: Hx Bronchitis, Hx Pneumonia, Hx Intubation Neurological Medical History: Reports: None Endocrine Medical History: Reports: None Renal/ Medical History: Reports: Hx Ectopic , Hx Kidney Stones, Hx Ovarian Cysts Malignancy Medical History: Reports: Hx Breast Cancer - Right GI Medical History: Reports: Hx Gastritis, Hx Gastroesophageal Reflux Disease, Hx Ulcer Musculoskeletal Medical History: Reports Hx Musculoskeletal Trauma, Reports Hx Systemic Lupus Erythematosus Psychiatric Medical History: Reports: Hx Anxiety, Hx Bipolar Disorder, Hx Depression Traumatic Medical History: Reports: Hx Fractures - Wrist and fingers Infectious Medical History: Denies: Hx HIV Past Surgical History: Reports: Hx Appendectomy, Hx Breast Surgery - Double mastectomy, Hx Section - 2, Hx Mastectomy - BILATERAL, Hx Tubal Ligation - Immunizations Immunizations up to date: Yes Hx Diphtheria, Pertussis, Tetanus Vaccination: Yes - 2016 Hx Pneumococcal Vaccination: 01/27/12 History of Influenza Vaccine for 01/2019 - 06/2019 Season: Yes Review of Systems - Review of Systems Constitutional: No symptoms reported EENT: No symptoms reported Cardiovascular: No symptoms reported Respiratory: No symptoms reported Gastrointestinal: No symptoms reported Genitourinary: Burning, Frequency, Flank pain, Urgency Female Genitourinary: No symptoms reported Musculoskeletal: No symptoms reported Skin: No symptoms reported Hematologic/Lymphatic: No symptoms reported Neurological/Psychological: No symptoms reported -: Yes All other systems reviewed and negative Physical Exam - Vital signs Vitals: Temp Pulse Resp BP Pulse Ox 98.3 F 91 16 135/72 H 100 06/09/19 16:21 06/09/19 16:21 06/09/19 16:21 06/09/19 16:21 06/09/19 16:21 Interpretation: Normal - General General appearance: Appears well, Alert - HEENT Head: Normocephalic, Atraumatic Eyes: Normal Pupils: PERRL - Respiratory Respiratory status: No respiratory distress Chest status: Nontender Breath sounds: Normal Chest palpation: Normal - Cardiovascular Rhythm: Regular Heart sounds: Normal auscultation Murmur: No - Abdominal Inspection: Normal Distension: No distension Bowel sounds: Normal Tenderness: Nontender Organomegaly: No organomegaly - Back Back: Normal, Nontender - Extremities General upper extremity: Normal inspection, Nontender, Normal color, Normal ROM, Normal temperature General lower extremity: Normal inspection, Nontender, Normal color, Normal ROM, Normal temperature, Normal weight bearing. No: Drew's sign - Neurological Neuro grossly intact: Yes Cognition: Normal Orientation: AAOx4 [place] Coma Scale Eye Opening: Spontaneous Gela Coma Scale Verbal: Oriented [place] Coma Scale Motor: Obeys Commands Gela Coma Scale Total: 15 Speech: Normal Motor strength normal: LUE, RUE, LLE, RLE Sensory: Normal - Psychological Associated symptoms: Normal affect, Normal mood - Skin Skin Temperature: Warm Skin Moisture: Dry Skin Color: Normal Course - Re-evaluation Re-evalutation: 06/10/19 02:34 She was positive for UTI. She was treated on Macrobid and Pyridium. Was discharged home with prescriptions for Macrobid and Pyridium. She was informed a culture will be run and she will be notified if there is any change in need of treatment. Patient verbalized understanding and agreement with treatment plan and was discharged home. - Vital Signs Vital signs: Temp Pulse Resp BP Pulse Ox 98.3 F 91 16 135/72 H 100 06/09/19 16:21 06/09/19 16:21 06/09/19 16:21 06/09/19 16:21 06/09/19 16:21 - Laboratory Laboratory results interpreted by me: 06/09/19 16:29 Urine Blood SMALL H Leukocyte Esterase Rfl SMALL H Discharge - Discharge Clinical Impression: UTI (urinary tract infection) Qualifiers: Urinary tract infection type: acute cystitis Hematuria presence: with hematuria Qualified Code(s): N30.01 - Acute cystitis with hematuria Condition: Stable Disposition: HOME, SELF-CARE Additional Instructions: URINARY TRACT INFECTION: Your evaluation indicates that you have a urinary tract infection. This is due to germs growing in the bladder. This is a common problem. This infection usually responds quickly to antibiotics. Your antibiotic should be taken exactly as prescribed. Drink plenty of fluids -- three to four quarts a day. Occasionally, a bladder anesthetic will be prescribed to help stop the feeling of urgency until the antibiotic has a chance to clear the infection. This may cause your urine to be dark orange. Certain urine infections require a culture. If the doctor obtained a culture, the results will be back in two days. You should call to see if a ch susan in treatment is needed. A repeat urinalysis after you finish treatment is often recommended. The physician will let you know if further testing is required. Call the doctor if you develop fever, chills, flank pain, inability to urinate, or blood in the urine. NITROFURANTOIN (MACRODANTIN, MACROBID): You have received a prescription for nitrofurantoin (Macrodantin). This antibiotic is used for urinary tract infections. Women who are or nursing should notify the physician before taking this medicine. If you have ever had a problem caused by this medication in the past, be sure the physician is aware of it. Common side effects of this medicine include nausea, vomiting, or decreased appetite. Notify your physician if these side effects become severe. Immediately stop this medicine and call the physician if you develop cough, shortness of breath, chest pain, weakness, jaundice (yellow color of the skin and whites of the eyes), or a skin rash. URINARY ANESTHETIC AGENT: You have been given a medication (Pyridium) for urinary tract discomfort. This medicine numbs the lining of the bladder and urethra, resulting in less pain, burning, and urgency. You may take it as needed, according to instructions. When the symptoms resolve, you can stop this medication (be sure to continue any other medications the doctor has given you). This medicine turns the urine a dark orange. It may stain underwear. Occasionally, it can cause nausea. Return for evaluation if there are any unexpected effects, such as itching, hives, or shortness of breath. FOLLOW-UP CARE: If you have been referred to a physician for follow-up care, call the physicians office for an appointment as you were instructed or within the next two days. If you experience worsening or a significant change in your symptoms, notify the physician immediately or return to the Emergency Department at any time for re-evaluation. Prescriptions: Nitrofurantoin Monohyd/M-Cryst [Macrobid 100 mg Capsule] 100 mg PO BID #30 cap Phenazopyridine HCl [Pyridium 100 Mg Tablet] 100 mg PO TIDP PRN #14 tablet PRN Reason: Forms: Elevated Blood Pressure, Return to Work Referrals: JERI MENESES PA-C [Primary Care Provider] - Follow up as needed
[2019-06-09 16:56] LABS: APPEARANCE,URINE CLEAR; BILIRUBIN,URINE NEGATIVE (NEGATIVE); COLOR,URINE YELLOW; GLUCOSE, URINE NEGATIVE (NEGATIVE); KETONES,URINE NEGATIVE (NEGATIVE); PROTEIN,URINE NEGATIVE (NEGATIVE); URINE SPECIFIC GRAVITY 1.003; UROBILINOGEN,URINE NEGATIVE mg/dL (<2.0)
[2019-06-09] MEDS ORDERED: PHENAZOPYRIDINE HCL 100 MG TABLET PO ONE (17:13)
[2019-06-09] MEDS ORDERED: NITROFURANTOIN MONOHYD/M-CRYST 100 MG CAPSULE PO ONE (17:13)
== END 2019-06-09 17:23 | disposition home or self-care (01) ==
LOC: ER 14:55
DX: N30.01 Acute cystitis with hematuria (principal); R10.9 Unspecified abdominal pain; M54.9 Dorsalgia, unspecified; R30.9 Painful micturition, unspecified; R35.0 Frequency of micturition; R39.15 Urgency of urination; Z88.1 Allergy status to other antibiotic agents
CPT/HCPCS: 99283; 87086; 81025; 87088; 81001; 87186; J3490; J8499

== ENCOUNTER 2019-11-11 23:15 | Emergency (ER) | payer OTHER ==
[2019-11-12 01:39] LABS: ABSOLUTE EOSINOPHILS # (AUTO) 0.1 10^3/uL (0.0-0.6); ABSOLUTE LYMPHOCYTES (AUTO) 2.7 10^3/uL (0.5-4.7); ABSOLUTE MONOCYTES (AUTO) 0.7 10^3/uL (0.1-1.4); ABSOLUTE NEUT (AUTO) 4.5 10^3/uL (1.7-8.2); BASOPHILS % (AUTO) 0.5 % (0-2); EOSINOPHILS % (AUTO) 0.8 % (0-6); HEMATOCRIT 43.1 % (36.0-47.0); HEMOGLOBIN 15.2 g/dL (12.0-15.5); LYMPHOCYTES % (AUTO) 33.7 % (13-45); MEAN CORPUSCULAR HEMOGLOBIN 30.7 pg (27.0-33.4); MEAN CORPUSCULAR HGB CONC 35.2 g/dL (32.0-36.0); MEAN CORPUSCULAR VOLUME 87 fl (80-97); MONOCYTES % (AUTO) 9.2 % (3-13); PLATELET COUNT 269 10^3/uL (150-450); RED BLOOD COUNT 4.94 10^6/uL (3.72-5.28); RED CELL DISTRIBUTION WIDTH 12.9 % (11.5-14.0); SEGMENTED NEUTROPHILS % (AUTO) 55.8 % (42-78); TOTAL CELLS COUNTED % (AUTO) 100 %
[2019-11-12 01:51] LABS: ALBUMIN 4.8 g/dL (3.5-5.0); ALKALINE PHOSPHATASE 81 U/L (38-126); ANION GAP 11 (5-19); ASPARTATE AMINO TRANSFERASE 22 U/L (14-36); BILIRUBIN,TOTAL 0.9 mg/dL (0.2-1.3); BLOOD UREA NITROGEN 8 mg/dL (7-20); CALCIUM 9.8 mg/dL (8.4-10.2); CARBON DIOXIDE 26 mmol/L (22-30); CHLORIDE 99 mmol/L (98-107); GLUCOSE 99 mg/dL (75-110); POTASSIUM 4.4 mmol/L (3.6-5.0); TOTAL PROTEIN 7.6 g/dL (6.3-8.2)
[2019-11-12] MEDS ORDERED: ONDANSETRON HCL INJ/PF 4 MG/2 ML SDV IV ONE (04:20)
[2019-11-12] MEDS ORDERED: NORMAL SALINE 1000 ML 1,000 ML IV ONE ×2 (04:20→06:28)
[2019-11-12] MEDS ORDERED: MORPHINE SULFATE 10 MG/ML INJ IV ONE ×2 (04:24→06:53)
--- NOTE | 2019-11-12 04:26 | ER Document Report ---
ED GI/ - General Mode of Arrival: Ambulatory Information source: Patient TRAVEL OUTSIDE OF THE [place] IN LAST 30 DAYS: No - HPI Patient complains to provider of: Abdominal pain, Flank pain. No: Vomiting Timing/Duration: Persistent Quality of pain: Sharp Pain Level: 5 Location: RLQ, Right flank Vaginal bleeding (Compared to normal period): None Associated symptoms: Dizzy, Fever, Nausea. denies: Chest pain, Urinary hesitancy, Urinary frequency, Urinary retention, Urinary urgency, Vomiting Exacerbated by: Denies Relieved by: Denies Similar symptoms previously: Yes Recently seen / treated by doctor: No <MITCHELL PAN - Last Filed: 11/12/19 08:15> <ZACH CASTILLO - Last Filed: 11/12/19 10:43> - General Chief Complaint: Flank Pain Stated Complaint: RIGHT FLANK PAIN, FEVER, NAUSEA, LIGHTHEADED Time Seen by Provider: 11/12/19 04:02 Primary Care Provider: JERI MENESES PA-C [Primary Care Provider] - Follow up as needed Notes: Patient presents complaining of right-sided abdominal pain with right lateral side pain. Patient states the pain has been present for the past 2 days. Patient reports fever off and on that was as high as 101.4. Patient reports fast heart rate and occasionally feeling faint. Patient denies any cough or cold symptoms. Patient denies any vomiting or diarrhea. Patient denies any urinary symptoms. Patient reports long history of PEs despite taking Xarelto. Patient states she was supposed to get a mesh filter although the surgery has been put off due to the COVID pandemic. (MITCHELL PAN) - Related Data Allergies/Adverse Reactions: azithromycin [Azithromycin] Allergy (Intermediate, Verified 11/12/19 00:56) Urticaria ciprofloxacin [From Cipro] Allergy (Verified 11/12/19 00:56) Past Medical History - General Information source: Patient - Social History Smoking Status: Never Smoker Chew tobacco use (# tins/day): No Frequency of alcohol use: None Drug Abuse: None Occupation: none Lives with: Family Family History: Hypertension, Malignancy Patient has homicidal ideation: Yes - Past Medical History Cardiac Medical History: Reports: Hx Pulmonary Embolism - on xarelto, no missed meds Pulmonary Medical History: Reports: Hx Bronchitis, Hx Pneumonia, Hx Intubation Renal/ Medical History: Reports: Hx Ectopic , Hx Kidney Stones, Hx Ovarian Cysts Malignancy Medical History: Reports: Hx Breast Cancer - Right GI Medical History: Reports: Hx Gastritis, Hx Gastroesophageal Reflux Disease, Hx Ulcer Musculoskeletal Medical History: Reports Hx Musculoskeletal Trauma, Reports Hx Systemic Lupus Erythematosus Psychiatric Medical History: Reports: Hx Anxiety, Hx Bipolar Disorder, Hx Depression Traumatic Medical History: Reports: Hx Fractures - Wrist and fingers Infectious Medical History: Denies: Hx HIV Past Surgical History: Reports: Hx Appendectomy, Hx Breast Surgery - Double mastectomy, Hx Section - 2, Hx Gynecologic Surgery, Hx Mastectomy - BILATERAL, Hx Tubal Ligation - Immunizations Immunizations up to date: Yes Hx Diphtheria, Pertussis, Tetanus Vaccination: Yes - 2017 Hx Pneumococcal Vaccination: 01/27/12 <MITCHELL PAN - Last Filed: 11/12/19 08:15> Review of Systems - Review of Systems Constitutional: Fever EENT: No symptoms reported Cardiovascular: Lightheaded. denies: Chest pain Respiratory: No symptoms reported. denies: Cough, Short of breath Gastrointestinal: Abdominal pain, Nausea. denies: Diarrhea, Vomiting Genitourinary: Flank pain - right lat side. denies: Burning, Dysuria, Discharge Female Genitourinary: No symptoms reported. denies: Vaginal discharge, Vaginal bleeding Musculoskeletal: No symptoms reported Skin: No symptoms reported Hematologic/Lymphatic: No symptoms reported Neurological/Psychological: No symptoms reported <MITCHELL PAN - Last Filed: 11/12/19 08:15> Physical Exam - General General appearance: Alert, Anxious In distress: None - HEENT Head: Normocephalic, Atraumatic Eyes: Normal Conjunctiva: Normal Nasal: Normal Mouth/Lips: Normal Mucous membranes: Normal Neck: Normal, Supple. No: Lymphadenopathy - Respiratory Respiratory status: No respiratory distress Chest status: Nontender Breath sounds: Normal. No: Rales, Rhonchi, Stridor, Wheezing Chest palpation: Normal - Cardiovascular Rhythm: Tachycardia Heart sounds: S1 appreciated, S2 appreciated Murmur: No - Abdominal Inspection: Normal Distension: No distension Bowel sounds: Normal Tenderness: Tender - Right side abdominal tenderness Organomegaly: No organomegaly - Back Back: Tender - Right lateral side tenderness. No: CVA tenderness - Extremities General upper extremity: Normal inspection, Nontender, Normal strength General lower extremity: Normal inspection, Nontender, Normal strength - Neurological Neuro grossly intact: Yes Cognition: Normal Gela Coma Scale Eye Opening: Spontaneous Gela Coma Scale Verbal: Oriented [place] Coma Scale Motor: Obeys Commands [place]ela Coma Scale Total: 15 - Psychological Associated symptoms: Anxious - Skin Skin Temperature: Warm Skin Moisture: Dry Skin Color: Normal <MITCHELL PAN - Last Filed: 11/12/19 08:15> - Vital signs Vitals: Temp Pulse Resp BP Pulse Ox 99.0 F 134 H 18 145/83 H 100 11/11/19 23:27 11/11/19 23:27 11/11/19 23:27 11/11/19 23:27 11/11/19 23:27 Course - Laboratory Result Diagrams: 11/12/19 01:15 11/12/19 01:15 <MITCHELL PAN - Last Filed: 11/12/19 08:15> - Laboratory Result Diagrams: 11/12/19 01:15 11/12/19 01:15 <ZACH CASTILLO - Last Filed: 11/12/19 10:43> - Re-evaluation Re-evalutation: 11/12/19 07:00 Patient complains of continued nausea and abdominal pain. Additional medications have been ordered. 11/12/19 08:15 Report and handoff given to Zach Castillo NP (MITCHELL PAN) 11/12/19 08:41 Report received on the patient. I did evaluate the patient at bedside for handoff. No distress at this time awaiting repeat lactic 11/12/19 10:42 Second lactic acid was 0.7. Will discharge home to follow-up as indicated (ZACH CASTILLO) - Vital Signs Vital signs: Temp Pulse Resp BP Pulse Ox 98.2 F 134 H 14 113/68 100 11/12/19 05:20 11/11/19 23:27 11/12/19 09:00 11/12/19 09:01 11/12/19 09:01 - Laboratory Laboratory results interpreted by me: 11/12/19 11/12/19 01:15 05:42 Sodium 135.7 L Urine Ketones TRACE H Urine Blood SMALL H Discharge <MITCHELL PAN - Last Filed: 11/12/19 08:15> <ZACH CASTILLO - Last Filed: 11/12/19 10:43> - Discharge Clinical Impression: Acute right flank pain Condition: Stable Disposition: HOME, SELF-CARE Additional Instructions: Follow-up with your primary care provider for further evaluation of your symptoms. Your lab work and imaging studies did not show an acute finding that would delineate why you are having this discomfort. If you develop fever greater than 101 or have worsening symptoms return for reevaluation Referrals: JERI MENESES PA-C [Primary Care Provider] - Follow up as needed
[2019-11-12 04:44] LABS: INTERNATIONAL RATION (INR) 1.02; PROTHROMBIN TIME 13.6 SEC (11.4-15.4)
[2019-11-12 05:13] LABS: VENOUS BLOOD BASE EXCESS 1.1 mmol/L; VENOUS BLOOD HCO3 26.6 mmol/L (20-32); VENOUS BLOOD PCO2 45.3 mmHg (35-63); VENOUS BLOOD PH 7.39 (7.30-7.42)
--- NOTE | 2019-11-12 05:25 | RADIOLOGY REPORT (SQ) ---
CHEST X-RAY 1 VIEW on 11/12/2019 at 5:07 AM CLINICAL INDICATION: Tachycardia COMPARISON: 04/28/2019 FINDINGS: The lungs are clear. Cardiac, hilar and mediastinal contours are within normal limits. Pulmonary vascularity is within normal limits. No bony abnormality is noted. IMPRESSION: No active disease.
[2019-11-12 06:14] LABS: APPEARANCE,URINE CLEAR; BILIRUBIN,URINE NEGATIVE (NEGATIVE); COLOR,URINE YELLOW; GLUCOSE, URINE NEGATIVE (NEGATIVE); KETONES,URINE TRACE mg/dL (NEGATIVE); LEUKOCYTE ESTERASE,URINE NEGATIVE (NEGATIVE); NITRITE,URINE NEGATIVE (NEGATIVE); PROTEIN,URINE NEGATIVE (NEGATIVE); UROBILINOGEN,URINE NEGATIVE mg/dL (<2.0)
[2019-11-12] MEDS ORDERED: PROMETHAZINE HCL 25 MG TABLET PO ONE (06:54)
--- NOTE | 2019-11-12 07:36 | RADIOLOGY REPORT (SQ) ---
EXAM DESCRIPTION: US ABDOMEN LIMITED COMPLETED DATE/TME: 11/12/2019 04:22 CLINICAL HISTORY: 39 years, Female, R side abd/flank COMPARISON: 01/06/2018 TECHNIQUE: Grayscale and color images of the abdomen were obtained. LIMITATIONS: None. FINDINGS: The visualized portions of the pancreas and abdominal aorta are unremarkable. The liver demonstrates homogeneous echotexture. The liver measures 15.0 cm. The main portal vein is patent and demonstrates normal hepatopedal flow. The gallbladder is normal. No evidence of cholelithiasis, wall thickening, or pericholecystic fluid. No sonographic [place] sign was elicited. The common bile duct is normal in caliber measuring up to 4 mm in diameter. The right kidney measures 9.5 x 3.5 x 5.1 cm. No hydronephrosis. IMPRESSION: Unremarkable abdominal ultrasound copyright 2010 [employer]- All Rights Reserved
--- NOTE | 2019-11-12 07:45 | RADIOLOGY REPORT (SQ) ---
EXAM DESCRIPTION: CT ABDOMEN PELVIS ANGIOGRAPHY WITHOUT THEN WITH IV CONTRAST, CT CHEST ANGIOGRAPHY WITHOUT THEN WITH IV CONTRAST COMPLETED DATE/TME: 11/12/2019 06:26 CLINICAL HISTORY: 39 years, Female, r side abd pain, hx PE/iliac vein thrombus CREAT 0.61 TECHNIQUE: Contiguous axial CT images of the chest. Contiguous axial CT images of the abdomen and pelvis. Intravenous contrast: Present. Oral contrast: Absent. MPR and MIP reconstructions were performed DLP 1011 mGy-cm. This exam was performed according to our departmental dose-optimization program, which includes automated exposure control, adjustment of the mA and/or kV according to patient size and/or use of iterative reconstruction technique. COMPARISON: 12/22/2018. FINDINGS: --Chest-- Thoracic aorta: Unremarkable. Heart: Unremarkable. Mediastinum: No pathologic sized middle mediastinal lymphadenopathy. Pulmonary arteries: No pulmonary embolism is detected. Tracheobronchial tree: Unremarkable. Lungs: Lobar consolidation: Negative. Pleural effusion: Negative. Pneumothorax: Negative. Other: Intact breast implants are noted. Bones: Unremarkable. --Abdomen-- Solid abdominal viscera: Liver: Unremarkable. Gallbladder: Unremarkable. Pancreas: Unremarkable. Spleen: Unremarkable. Adrenal glands: Unremarkable. Right kidney: No hydronephrosis. Left kidney: No hydronephrosis. Urinary bladder: Unremarkable. Abdominal aorta: Unremarkable. The iliac branches are widely patent. No thrombus is identified. Peritoneal: Free fluid: None. Free air: None. Other: No pathologic sized lymph nodes in the upper abdomen. Bowel: Stomach: Unremarkable. Small bowel: Unremarkable. Appendix: Not uniquely identified, however there are no pericecal inflammatory changes. Colon: Unremarkable. Rectum: Unremarkable. Uterus: Unremarkable. Tubal ligation clips are noted. Bones: Unremarkable. IMPRESSION: No CT evidence of acute pulmonary embolism. No iliac thrombus is identified. No acute findings within the chest, abdomen, or pelvis. Quality ID # 436: Final reports with documentation of one or more dose reduction techniques (e.g., Automated exposure control, adjustment of the mA and/or kV according to patient size, use of iterative reconstruction technique) copyright 2010 [employer]- All Rights Reserved
[2019-11-12 10:56] VITALS: BP 125/70
--- NOTE | 2019-11-12 22:50 | EKG REPORT ---
SEVERITY:- ABNORMAL ECG - SINUS RHYTHM FIRST DEGREE AV BLOCK : Confirmed by: Barbara Young MD 12-Nov-2019 22:49:02
== END 2019-11-12 10:57 | disposition home or self-care (01) ==
LOC: ER 23:15
DX: R10.9 Unspecified abdominal pain (principal); R42 Dizziness and giddiness; R50.9 Fever, unspecified; R11.0 Nausea; Z86.711 Personal history of pulmonary embolism; Z79.01 Long term (current) use of anticoagulants
CPT/HCPCS: 93005; 96376; 99285; 96361; 96374; 96375; 36415; 87040; 83605; 83690; 83735; 84703; 85025; 85610; 80053; 81001; 82803; 71045; 76705; 71275; 74174; 93010; J2270; J2405; J7030

== ENCOUNTER 2019-12-27 12:57 | Emergency (ER) | payer OTHER ==
[2019-12-27] MEDS ORDERED: MORPHINE SULFATE 10 MG/ML INJ IV ONE ×2 (13:39→17:18)
[2019-12-27] MEDS ORDERED: NORMAL SALINE 1000 ML 1,000 ML IV ONE (13:39)
--- NOTE | 2019-12-27 13:39 | ER Document Report ---
ED Medical Screen (RME) - General Chief Complaint: Flank Pain Stated Complaint: RIGHT FLANK PAIN, DARK URINE Time Seen by Provider: 12/27/19 13:31 Primary Care Provider: JERI MENESES PA-C [Primary Care Provider] - Follow up as needed Notes: Patient is 39-year-old female, with history of lupus, bipolar disorder, and acute intermittent porphyria presents emergency department with a chief complaint of abdominal pain. Patient states that her pain is in her mid upper abdomen and bilateral upper abdominal sides. Patient states that this feels like her lupus and acute intermittent porhyria. Patient also reports dark urine. Exam: Tender mid upper abdomen. I have greeted and performed a rapid initial assessment of this patient. A comprehensive ED assessment and evaluation of the patient, analysis of test r esults and completion of medical decision making process will be conducted by an additional ED providers. TRAVEL OUTSIDE OF THE [place] IN LAST 30 DAYS: No - Related Data Allergies/Adverse Reactions: azithromycin [Azithromycin] Allergy (Intermediate, Verified 12/27/19 13:15) Urticaria ciprofloxacin [From Cipro] Allergy (Verified 12/27/19 13:15) Past Medical History - Past Medical History Cardiac Medical History: Reports: Hx Pulmonary Embolism - on xarelto, no missed meds Pulmonary Medical History: Reports: Hx Bronchitis, Hx Pneumonia, Hx Intubation Renal/ Medical History: Reports: Hx Ectopic , Hx Kidney Stones, Hx Ovarian Cysts Malignancy Medical History: Reports: Hx Breast Cancer - Right GI Medical History: Reports: Hx Gastritis, Hx Gastroesophageal Reflux Disease, Hx Ulcer Musculoskeltal Medical History: Reports Hx Musculoskeletal Trauma, Reports Hx Systemic Lupus Erythematosus Psychiatric Medical History: Reports: Hx Anxiety, Hx Bipolar Disorder, Hx Depression Traumatic Medical History: Reports: Hx Fractures - Wrist and fingers Infectious Medical History: Denies: Hx HIV Past Surgical History: Reports: Hx Appendectomy, Hx Breast Surgery - Double mastectomy, Hx Section - 2, Hx Gynecologic Surgery, Hx Mastectomy - BILATERAL, Hx Tubal Ligation - Immunizations Immunizations up to date: Yes Hx Diphtheria, Pertussis, Tetanus Vaccination: Yes - 2016 Physical Exam - Vital signs Vitals: Temp Pulse Resp BP Pulse Ox 98.3 F 127 H 24 H 143/82 H 100 12/27/19 13:14 12/27/19 13:14 12/27/19 13:14 12/27/19 13:14 12/27/19 13:14 Course - Vital Signs Vital signs: Temp Pulse Resp BP Pulse Ox 98.3 F 127 H 24 H 143/82 H 100 12/27/19 13:14 12/27/19 13:14 12/27/19 13:14 12/27/19 13:14 12/27/19 13:14 Doctor's Discharge - Discharge Referrals: JERI MENESES PA-C [Primary Care Provider] - Follow up as needed
[2019-12-27 14:14] LABS: ABSOLUTE BASOPHILS # (AUTO) 0.1 10^3/uL (0.0-0.2); ABSOLUTE LYMPHOCYTES (AUTO) 1.8 10^3/uL (0.5-4.7); ABSOLUTE MONOCYTES (AUTO) 0.9 10^3/uL (0.1-1.4); ABSOLUTE NEUT (AUTO) 7.4 10^3/uL (1.7-8.2); BASOPHILS % (AUTO) 0.5 % (0-2); EOSINOPHILS % (AUTO) 0.5 % (0-6); HEMATOCRIT 46.3 % (36.0-47.0); HEMOGLOBIN 16.4 g/dL (12.0-15.5); LYMPHOCYTES % (AUTO) 17.5 % (13-45); MEAN CORPUSCULAR HEMOGLOBIN 31.1 pg (27.0-33.4); MEAN CORPUSCULAR HGB CONC 35.4 g/dL (32.0-36.0); MEAN CORPUSCULAR VOLUME 88 fl (80-97); MONOCYTES % (AUTO) 8.5 % (3-13); PLATELET COUNT 362 10^3/uL (150-450); RED BLOOD COUNT 5.26 10^6/uL (3.72-5.28); RED CELL DISTRIBUTION WIDTH 12.7 % (11.5-14.0); TOTAL CELLS COUNTED % (AUTO) 100 %; WHITE BLOOD COUNT 10.2 10^3/uL (4.0-10.5)
[2019-12-27 14:30] LABS: APPEARANCE,URINE CLEAR; BILIRUBIN,URINE NEGATIVE (NEGATIVE); COLOR,URINE RED; GLUCOSE, URINE 50 mg/dL (NEGATIVE); KETONES,URINE TRACE mg/dL (NEGATIVE); LEUKOCYTE ESTERASE,URINE NEGATIVE (NEGATIVE); NITRITE,URINE NEGATIVE (NEGATIVE); PROTEIN,URINE NEGATIVE (NEGATIVE); URINE SPECIFIC GRAVITY 1.025; UROBILINOGEN,URINE NEGATIVE mg/dL (<2.0)
[2019-12-27 14:39] LABS: ALBUMIN 4.9 g/dL (3.5-5.0); ALKALINE PHOSPHATASE 98 U/L (38-126); ANION GAP 10 (5-19); ASPARTATE AMINO TRANSFERASE 46 U/L (14-36); BILIRUBIN,DIRECT 0.2 mg/dL (0.0-0.4); BILIRUBIN,TOTAL 0.8 mg/dL (0.2-1.3); BLOOD UREA NITROGEN 10 mg/dL (7-20); CALCIUM 9.9 mg/dL (8.4-10.2); CARBON DIOXIDE 27 mmol/L (22-30); CHLORIDE 102 mmol/L (98-107); GLUCOSE 116 mg/dL (75-110); POTASSIUM 4.5 mmol/L (3.6-5.0); TOTAL PROTEIN 7.9 g/dL (6.3-8.2)
--- NOTE | 2019-12-27 15:38 | ER Document Report ---
ED GI/ - General Chief Complaint: Upper Abdominal Pain Stated Complaint: RIGHT FLANK PAIN, DARK URINE Time Seen by Provider: 12/27/19 13:31 Primary Care Provider: JERI MENESES PA-C [Primary Care Provider] - Follow up as needed Notes: CHIEF COMPLAINT: Flank pain abdominal pain numbness tingling in extremities HPI: 39-year-old female with history of lupus and acute intermittent porphyria presenting for abdominal pain over the last 2 to 3 days with some nausea vomiting. She believes she is having an AIP attack. States she has increased numbness tingling in all extremities. She states she follows with a r heumatologist for this did not call them prior to coming to the emergency department today. Is awaiting treatment by a specialist in April. No definite fever. Complains of bilateral flank pain. Reports darkening of her urine. ROS: See HPI - all other systems were reviewed and are otherwise negative Constitutional: no fever Eyes: no drainage, no blurred vision ENT: no runny nose, no sore throat Cardiovascular: no chest pain Resp: no SOB, no cough GI: + vomiting, no diarrhea, + abdominal pain : + dysuria Integumentary: no rash Allergy: no hives Musculoskeletal: no extremity pain or swelling Neurological: no numbness/tingling, no weakness MEDICATIONS: I agree with the patient medications as charted by the RN. ALLERGIES: I agree with the allergies as charted by the RN. PAST MEDICAL HISTORY/PAST SURGICAL HISTORY: Reviewed and agree as charted by RN. SOCIAL HISTORY: Reviewed and agree as charted by RN. FAMILY HISTORY: No significant familial comorbid conditions directly related to patient complaint EXAM: Reviewed vital signs as charted by RN. CONSTITUTIONAL: Alert and oriented and responds appropriately to questions. Well-appearing; well-nourished, mild distress secondary to discomfort HEAD: Normocephalic; atraumatic EYES: PERRL; Conjunctivae clear, sclerae non-icteric ENT: normal nose; no rhinorrhea; moist mucous membranes; pharynx without lesions noted, no uvula edema or deviation, no tonsillar hypertrophy, phonation normal NECK: Supple without meningismus; non-tender; no cervical lymphadenopathy, no masses CARD: RRR; no murmurs, no clicks, no rubs, no gallops; symmetric distal pulses RESP: Normal chest excursion without splinting or tachypnea; breath sounds clear and equal bilaterally; no wheezes, no rhonchi, no rales, pulse oximetry 97% on room air not hypoxic ABD/GI: Normal bowel sounds; non-distended; soft, mild generalized tenderness across the upper abdomen on palpation, no rebound, no guarding; no palpable organomegaly or masses. BACK: The back appears normal and is non-tender to palpation, there is no CVA tenderness EXT: Normal ROM in all joints; non-tender to palpation; no cyanosis, no effusions, no edema SKIN: Normal color for age and race; warm; dry; good turgor; no acute lesions noted NEURO: Moves all extremities equally; Motor and sensory function intact PSYCH: The patient's mood and manner are appropriate. Grooming and personal hygiene are appropriate. MDM: 39-year-old female presenting for bilateral flank pain, darkening of her urine, does have UTI on labs obtained in triage. Will give Rocephin, pain medication and fluids were ordered, will obtain CT imaging to evaluate for pyelonephritis. Patient reports a history of acute intermittent porphyria. She is under the care of a specialist for this. TRAVEL OUTSIDE OF THE [place] IN LAST 30 DAYS: No - Related Data Allergies/Adverse Reactions: azithromycin [Azithromycin] Allergy (Intermediate, Verified 12/27/19 13:15) Urticaria ciprofloxacin [From Cipro] Allergy (Verified 12/27/19 13:15) Past Medical History - Social History Smoking Status: Never Smoker Chew tobacco use (# tins/day): No Frequency of alcohol use: None Drug Abuse: None Family History: Hypertension, Malignancy Patient has homicidal ideation: No - Past Medical History Cardiac Medical History: Reports: Hx Pulmonary Embolism - on xarelto, no missed meds Pulmonary Medical History: Reports: Hx Bronchitis, Hx Pneumonia, Hx Intubation Renal/ Medical History: Reports: Hx Ectopic , Hx Kidney Stones, Hx Ovarian Cysts Malignancy Medical History: Reports: Hx Breast Cancer - Right GI Medical History: Reports: Hx Gastritis, Hx Gastroesophageal Reflux Disease, Hx Ulcer Musculoskeletal Medical History: Reports Hx Musculoskeletal Trauma, Reports Hx Systemic Lupus Erythematosus Psychiatric Medical History: Reports: Hx Anxiety, Hx Bipolar Disorder, Hx Depression Traumatic Medical History: Reports: Hx Fractures - Wrist and fingers Infectious Medical History: Denies: Hx HIV Past Surgical History: Reports: Hx Appendectomy, Hx Breast Surgery - Double mastectomy, Hx Section - 2, Hx Gynecologic Surgery, Hx Mastectomy - BILATERAL, Hx Tubal Ligation - Immunizations Immunizations up to date: Yes Hx Diphtheria, Pertussis, Tetanus Vaccination: Yes - 2017 Hx Pneumococcal Vaccination: 01/27/12 Physical Exam - Vital signs Vitals: Temp Pulse Resp BP Pulse Ox 98.3 F 127 H 24 H 143/82 H 100 12/27/19 13:14 12/27/19 13:14 12/27/19 13:14 12/27/19 13:14 12/27/19 13:14 Course - Re-evaluation Re-evalutation: 12/27/19 17:17 CT imaging did not show acute findings. I woke the patient from sleep to discuss this with her. 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 Patient has been given Rocephin here I will keep her on Keflex. She may follow-up with her refrigerator repairman for further pain management issues she is to call them today 12/27/19 17:19 Patient does report that she has a history of tachycardia - Vital Signs Vital signs: Temp Pulse Resp BP Pulse Ox 98.5 F 91 18 135/75 H 100 12/27/19 18:41 12/27/19 18:41 12/27/19 18:41 12/27/19 18:41 12/27/19 18:41 - Laboratory Result Diagrams: 12/27/19 14:00 12/27/19 14:00 Laboratory results interpreted by me: 12/27/19 12/27/19 12/27/19 14:00 14:00 14:00 Hgb 16.4 H Glucose 116 H AST 46 H ALT 110 H Urine Glucose (UA) 50 H Urine Ketones TRACE H Urine Blood LARGE H Discharge - Discharge Clinical Impression: Pain, flank, bilateral UTI (urinary tract infection) Qualifiers: Urinary tract infection type: acute cystitis Hematuria presence: with hematuria Qualified Code(s): N30.01 - Acute cystitis with hematuria Condition: Stable Disposition: HOME, SELF-CARE Additional Instructions: Lab work and imaging studies today show a mild urinary infection but no other acute abnormalities. Follow-up closely with your refrigerator repairman regarding your underlying conditions and pain management issues. Take the Keflex to treat the urinary infection. Prescriptions: Cephalexin Monohydrate [Keflex 500 mg Capsule] 500 mg PO Q6H 7 Days #28 capsule Hydrocodone/Acetaminophen [Mason 5-325 mg Tablet] 1 tab PO Q4 PRN #10 tablet PRN Reason: Referrals: JERI MENESES PA-C [Primary Care Provider] - Follow up as needed
[2019-12-27] MEDS ORDERED: KETOROLAC TROMETHAMINE INJ/PF 30 MG/1 ML SDV IV ONE (16:23)
[2019-12-27 16:26] LABS: URINE AMPHETAMINES SCREEN NEGATIVE; URINE BARBITURATES SCREEN NEGATIVE; URINE BENZODIAZEPINES SCREEN NEGATIVE; URINE COCAINE SCREEN NEGATIVE; URINE MARIJUANA (THC) SCREEN NEGATIVE; URINE METHADONE SCREEN NEGATIVE; URINE PHENCYCLIDINE SCREEN NEGATIVE
[2019-12-27] MEDS ORDERED: CEFTRIAXONE 1 GM/D5W RTU 1 GM/50 ML RTUPB IV ONE (16:30)
--- NOTE | 2019-12-27 16:53 | RADIOLOGY REPORT (SQ) ---
EXAM DESCRIPTION: CT ABD/PELVIS WITH IV ONLY IMAGES COMPLETED DATE/TIME: 12/27/2019 4:26 pm REASON FOR STUDY: bilateral flank pain COMPARISON: 12/22/2018 TECHNIQUE: CT scan of the abdomen and pelvis performed using helical scanning technique with dynamic intravenous contrast injection. No oral contrast. Images reviewed with lung, soft tissue, and bone windows. Reconstructed coronal and sagittal MPR images reviewed. Delayed images for evaluation of the urinary system also acquired. All images stored on PACS. All CT scanners at this facility use dose modulation, iterative reconstruction, and/or weight based d osing when appropriate to reduce radiation dose to as low as reasonably achievable (ALARA). [facility]: Dose Right [facility]: CareDose [facility]: Dose Right [facility]: Teradose 4D [facility]: [employer] CONTRAST TYPE AND DOSE: contrast/concentration: Isovue 350.00 mmol/ml; Total Contrast Delivered: 77. 9 ml; Total Saline Delivered: 49.0 ml RENAL FUNCTION: Creatinine 0.63 RADIATION DOSE: CT Rad equipment meets quality standard of care and radiation dose reduction techniq ues were employed. CTDIvol: 6.8 - 9.3 mGy. DLP: 803 mGy-cm.. LIMITATIONS: None. FINDINGS: LOWER CHEST: No significant findings. No nodules or infiltrates. Bilateral breast prosthe ses. LIVER: Normal size. No masses. No dilated ducts. SPLEEN: Normal size. No focal lesions. PANCREAS: No masses. No significant calcifications. No adjacent inflammation or peripancreatic fluid collections. Stable prominence of the pancreatic duct compared to prior CT. GALLBLADDER: No identified stones by CT criteria. No inflammatory changes to suggest cholecystitis. ADRENAL GLANDS: No significant masses or asymmetry. RIGHT KIDNEY AND URETER: No solid masses. No significant calcifications. No hydronephrosis or hyd roureter. LEFT KIDNEY AND URETER: No solid masses. No significant calcifications. No hydronephrosis or hydr oureter. AORTA AND VESSELS: No aneurysm. No dissection. Renal arteries, SMA, celiac without stenosis. RETROPERITONEUM: No retroperitoneal adenopathy, hemorrhage or masses. BOWEL AND PERITONEAL CAVITY: No evidence of intestinal obstruction. No focal bowel wall thickening. Scattered colonic diverticula. APPENDIX: Not visualized. PELVIS: Unremarkable urinary bladder. No pelvic free fluid, adenopathy or discrete mass. Evidence o f prior tubal ligation. ABDOMINAL WALL: No masses. No hernias. BONES: No acute bony abnormality. No suspicious osseous lesions. OTHER: No other significant finding. IMPRESSION: 1. No nephrolithiasis, obstructive uropathy or other evidence of acute intra-abdominal/ pelvic process. TECHNICAL DOCUMENTATION: JOB ID: [id number] Quality ID # 436: Final reports with documentation of one or more dose reduction techniques (e.g., Au tomated exposure control, adjustment of the mA and/or kV according to patient size, use of iterative reconstruction technique) 2010 [employer]- All Rights Reserved Reading location - IP/workstation name: [email or web address]
--- NOTE | 2019-12-27 17:25 | EKG REPORT ---
SEVERITY:- ABNORMAL ECG - SINUS RHYTHM RIGHT ATRIAL ABNORMALITY : Confirmed by: Trini Luz 27-Dec-2019 17:24:58
[2019-12-27 18:43] VITALS: BP 135/75
== END 2019-12-27 19:03 | disposition home or self-care (01) ==
LOC: ER 12:57
DX: N30.01 Acute cystitis with hematuria (principal); E80.21 Acute intermittent (hepatic) porphyria; R20.0 Anesthesia of skin; R20.2 Paresthesia of skin; R11.2 Nausea with vomiting, unspecified; Z85.3 Personal history of malignant neoplasm of breast; Z88.1 Allergy status to other antibiotic agents
CPT/HCPCS: 93005; 96376; 99285; 96361; 96375; 96365; 36415; 83690; 85025; 81025; 80053; 81001; 80307; 74177; 93010; J1885; J2270; J7030; J0696

== ENCOUNTER 2020-01-06 15:48 | Observation (INO) | payer OTHER ==
--- NOTE | 2020-01-06 15:55 | ER Document Report ---
ED Medical Screen (RME) - General Stated Complaint: POSSIBLE STROKE Time Seen by Provider: 01/06/20 15:51 Primary Care Provider: JERI MENESES PA-C [Primary Care Provider] - Follow up as needed Notes: Patient is a 39-year-old female, currently on Xarelto who presents the emergency department with a chief complaint of right-sided facial droop and numbness to her right arm. Patient has a history of pulmonary emboli's in the past. 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 Symptoms started an hour and a half prior to arrival. Exam: Right-sided facial droop. I have greeted and performed a rapid initial assessment of this patient. A c omprehensive ED assessment and evaluation of the patient, analysis of test results and completion of medical decision making process will be conducted by an additional ED providers. TRAVEL OUTSIDE OF THE [place] IN LAST 30 DAYS: No - Related Data Allergies/Adverse Reactions: azithromycin [Azithromycin] Allergy (Intermediate, Verified 12/27/19 13:15) Urticaria ciprofloxacin [From Cipro] Allergy (Verified 12/27/19 13:15) Past Medical History - Past Medical History Cardiac Medical History: Reports: Hx Pulmonary Embolism - on xarelto, no missed meds Pulmonary Medical History: Reports: Hx Bronchitis, Hx Pneumonia, Hx Intubation Renal/ Medical History: Reports: Hx Ectopic , Hx Kidney Stones, Hx Ovarian Cysts Malignancy Medical History: Reports: Hx Breast Cancer - Right GI Medical History: Reports: Hx Gastritis, Hx Gastroesophageal Reflux Disease, Hx Ulcer Musculoskeltal Medical History: Reports Hx Musculoskeletal Trauma, Reports Hx Systemic Lupus Erythematosus Psychiatric Medical History: Reports: Hx Anxiety, Hx Bipolar Disorder, Hx Depression Traumatic Medical History: Reports: Hx Fractures - Wrist and fingers Infectious Medical History: Denies: Hx HIV Past Surgical History: Reports: Hx Appendectomy, Hx Breast Surgery - Double mastectomy, Hx Section - 2, Hx Gynecologic Surgery, Hx Mastectomy - BILATERAL, Hx Tubal Ligation - Immunizations Immunizations up to date: Yes Hx Diphtheria, Pertussis, Tetanus Vaccination: Yes - 2017 Doctor's Discharge - Discharge Referrals: JERI MENESES PA-C [Primary Care Provider] - Follow up as needed
--- NOTE | 2020-01-06 16:10 | RADIOLOGY REPORT (SQ) ---
EXAM DESCRIPTION: CT HEAD WITHOUT IMAGES COMPLETED DATE/TIME: 01/06/2020 4:01 pm REASON FOR STUDY: facial droop; on xeralto COMPARISON: 10/07/2016 TECHNIQUE: Axial images acquired through the brain without intravenous contrast. Images reviewed wi th bone, brain and subdural windows. Additional sagittal and coronal reconstructions were generated. Images stored on PACS. All CT scanners at this facility use dose modulation, iterative reconstruction, and/or weight based d osing when appropriate to reduce radiation dose to as low as reasonably achievable (ALARA). [facility]: Dose Right [facility]: CareDose [facility]: Dose Right [facility]: Teradose 4D [facility]: [employer] RADIATION DOSE: CT Rad equipment meets quality standard of care and radiation dose reduction techniq ues were employed. CTDIvol: 48.7 mGy. DLP: 980 mGy-cm. mGy. LIMITATIONS: None. FINDINGS: VENTRICLES: Normal size and contour. CEREBRUM: No masses. No hemorrhage. No midline shift. No evidence for acute infarction. Normal gra y/white matter differentiation. No areas of low density in the white matter. CEREBELLUM: No masses. No hemorrhage. No alteration of density. No evidence for acute infarction. EXTRAAXIAL SPACES: No fluid collections. No masses. ORBITS AND GLOBE: No intra- or extraconal masses. Normal contour of globe without masses. CALVARIUM: No fracture. PARANASAL SINUSES: No fluid or mucosal thickening. SOFT TISSUES: No mass or hematoma. OTHER: No other significant finding. IMPRESSION: NORMAL BRAIN CT WITHOUT CONTRAST. EVIDENCE OF ACUTE STROKE: NO. COMMENT: Quality ID # 436: Final reports with documentation of one or more dose reduction techniques (e.g., Automated exposure control, adjustment of the mA and/or kV according to patient size, use of iterative reconstruction technique) TECHNICAL DOCUMENTATION: JOB ID: [id number] 2010 [employer]- All Rights Reserved Reading location - IP/workstation name: [email or web address]
--- NOTE | 2020-01-06 16:10 | RADIOLOGY REPORT (SQ) ---
EXAM DESCRIPTION: CHEST SINGLE VIEW IMAGES COMPLETED DATE/TIME: 01/06/2020 4:01 pm REASON FOR STUDY: FACIAL DROOP COMPARISON: 11/12/2019 EXAM PARAMETERS: NUMBER OF VIEWS: One view. TECHNIQUE: Single frontal radiographic view of the chest acquired. RADIATION DOSE: NA LIMITATIONS: None. FINDINGS: LUNGS AND PLEURA: No opacities, masses or pneumothorax. No pleural effusion. MEDIASTINUM AND HILAR STRUCTURES: No masses. Contour normal. HEART AND VASCULAR STRUCTURES: Heart normal in size. Normal vasculature. BONES: No acute findings. HARDWARE: None in the chest. OTHER: No other significant finding. IMPRESSION: NO ACUTE RADIOGRAPHIC FINDING IN THE CHEST. TECHNICAL DOCUMENTATION: JOB ID: [id number] 2010 [employer]- All Rights Reserved Reading location - IP/workstation name: [email or web address]
[2020-01-06 16:38] LABS: ABSOLUTE LYMPHOCYTES (AUTO) 1.4 10^3/uL (0.5-4.7); EOSINOPHILS % (AUTO) 0.2 % (0-6); TOTAL CELLS COUNTED % (AUTO) 100 %
[2020-01-06 16:43] LABS: INTERNATIONAL RATION (INR) 1.04; PROTHROMBIN TIME 13.8 SEC (11.4-15.4)
[2020-01-06 16:46] LABS: ABSOLUTE MONOCYTES (AUTO) 0.5 10^3/uL (0.1-1.4); ABSOLUTE NEUT (AUTO) 4.9 10^3/uL (1.7-8.2); BASOPHILS % (AUTO) 0.4 % (0-2); HEMATOCRIT 42.8 % (36.0-47.0); HEMOGLOBIN 15.1 g/dL (12.0-15.5); LYMPHOCYTES % (AUTO) 20.4 % (13-45); MEAN CORPUSCULAR HEMOGLOBIN 31.2 pg (27.0-33.4); MEAN CORPUSCULAR HGB CONC 35.4 g/dL (32.0-36.0); MEAN CORPUSCULAR VOLUME 88 fl (80-97); MONOCYTES % (AUTO) 7.9 % (3-13); PLATELET COUNT 235 10^3/uL (150-450); RED BLOOD COUNT 4.85 10^6/uL (3.72-5.28); RED CELL DISTRIBUTION WIDTH 12.5 % (11.5-14.0); SEGMENTED NEUTROPHILS % (AUTO) 71.1 % (42-78); WHITE BLOOD COUNT 6.8 10^3/uL (4.0-10.5)
[2020-01-06] MEDS ORDERED: NORMAL SALINE 1000 ML 1,000 ML IV ONE (16:50)
[2020-01-06 17:02] LABS: ALKALINE PHOSPHATASE 83 U/L (38-126); ANION GAP 11 (5-19); ASPARTATE AMINO TRANSFERASE 19 U/L (14-36); BILIRUBIN,DIRECT 0.3 mg/dL (0.0-0.4); BILIRUBIN,TOTAL 0.7 mg/dL (0.2-1.3); BLOOD UREA NITROGEN 6 mg/dL (7-20); CALCIUM 9.4 mg/dL (8.4-10.2); CARBON DIOXIDE 24 mmol/L (22-30); CHLORIDE 103 mmol/L (98-107); GLUCOSE 107 mg/dL (75-110); POTASSIUM 3.7 mmol/L (3.6-5.0)
--- NOTE | 2020-01-06 17:03 | ER Document Report ---
ED General - General Chief Complaint: Facial Droop Stated Complaint: POSSIBLE STROKE Time Seen by Provider: 01/06/20 15:51 Primary Care Provider: JERI MENESES PA-C [Primary Care Provider] - Follow up as needed TRAVEL OUTSIDE OF THE [place] IN LAST 30 DAYS: No - HPI Onset: Other - 2 hours ago Onset/Duration: Sudden Quality of pain: No pain Exacerbated by: Denies Relieved by: Denies Similar symptoms previously: Yes Notes: Patient is a 39-year-old female with a past medical history of lupus, breast cancer, DVT and PE on Xarelto who presents with paralysis to left side of face and difficulty speaking since about 2 hours ago. She also describes some numbness to her right arm. States this all started 2 hours ago. Patient does have a history of numbness before so she is unsure if this is different. 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 She thinks this is like her Souza's palsy. Patient denies any chest pain or shortness of breath. She states she gets tachycardia sometimes as well. Denies any history of stroke. Patient is not a TPA candidate as she is on Xarelto. Patient is currently on Keflex for UTI. - Related Data Allergies/Adverse Reactions: azithromycin [Azithromycin] Allergy (Intermediate, Verified 01/06/20 16:54) Urticaria ciprofloxacin [From Cipro] Allergy (Verified 01/06/20 16:54) Past Medical History - General Information source: Patient - Social History Smoking Status: Never Smoker Family History: Hypertension, Malignancy - Past Medical History Cardiac Medical History: Reports: Hx Pulmonary Embolism - on xarelto, no missed meds Pulmonary Medical History: Reports: Hx Bronchitis, Hx Pneumonia, Hx Intubation Renal/ Medical History: Reports: Hx Ectopic , Hx Kidney Stones, Hx Ovarian Cysts Malignancy Medical History: Reports: Hx Breast Cancer - Right GI Medical History: Reports: Hx Gastritis, Hx Gastroesophageal Reflux Disease, Hx Ulcer Musculoskeletal Medical History: Reports Hx Musculoskeletal Trauma, Reports Hx Systemic Lupus Erythematosus Psychiatric Medical History: Reports: Hx Anxiety, Hx Bipolar Disorder, Hx Depression Traumatic Medical History: Reports: Hx Fractures - Wrist and fingers Infectious Medical History: Denies: Hx HIV Past Surgical History: Reports: Hx Appendectomy, Hx Breast Surgery - Double mastectomy, Hx Section - 2, Hx Gynecologic Surgery, Hx Mastectomy - BILATERAL, Hx Tubal Ligation - Immunizations Immunizations up to date: Yes Hx Diphtheria, Pertussis, Tetanus Vaccination: Yes - 2017 Hx Pneumococcal Vaccination: 01/27/12 Review of Systems - Review of Systems Notes: CONSTITUTIONAL: No fever, fatigue or weight loss. SKIN: No rash. HENT: No congestion, ear pain, or sore throat. EYES: No recent vision problems or eye pain. CARDIOVASCULAR: No chest pain or edema. RESPIRATORY: No cough, shortness of breath, congestion, or wheezing. GASTROINTESTINAL: No abdominal pain, nausea, vomiting, bloody stools or diarrhea. GENITOURINARY: No dysuria. MUSCULOSKELETAL: No joint pain or swelling. LYMPHATIC: No swollen glands. NEUROLOGIC: No seizures. Facial droop to left side of face. Positive for decreased sensation to right arm. Positive for slurred speech. HEMATOLOGIC: No unusual bruising or bleeding. PSYCHIATRIC: No depression or anxiety. Physical Exam - Vital signs Vitals: Pulse Resp BP Pulse Ox 115 H 18 146/100 H 100 01/06/20 16:22 01/06/20 16:22 01/06/20 16:22 01/06/20 16:22 - Notes Notes: VITAL SIGNS: Tachycardic, anxious. GENERAL: Non-toxic appearance. HEAD: Normal with no signs of head trauma. EYES: PERRLA, EOMI, conjunctiva normal, no discharge. Opens and closes eyes. EARS: Hearing grossly intact. NOSE: Normal. NECK: Normal range of motion, no tenderness, supple, no lymphadenopathy, No adenopathy, no JVD. CHEST: Clear breath sounds bilaterally. No wheezes, rales, or rhonchi. CARDIAC: Regular rate and rhythm. S1 and S2, without murmurs, gallops, or rubs. VASCULAR: No Edema. Peripheral pulses normal and equal in all extremities. ABDOMEN: Normal and soft with no tenderness. GENITOURINARY: Normal, No tenderness LYMPATHTIC: No lymphadenopathy noted. MUSCULOSKELETAL: Good range of motion of all major joints. Extremities without clubbing, cyanosis or edema. NEUROLOGICAL: Alert and oriented x 3. Slurred speech. Lower facial weakness on left. Decreased sensation to right side of face. Sensation intact to left face. Decreased sensation to right upper extremity. Tongue deviates to right. PSYCHIATRIC: Normal Affect, judgement and mood. SKIN: Normal appearance with no rashes or lesions. Course - Re-evaluation Re-evalutation: 01/06/20 17:12 NIH is 3 for decreased sensation to right arm, dysarthria, facial droop. Patient is not a TPA candidate as she is on Xarelto. Discussed with neurology at [facility] because this is not clear Souza's palsy as patient does have symptoms to her right arm, no weakness to her left forehead, and tongue deviation to the right. She also has risk factors for stroke including lupus. They recommended that if the CTA is normal, she can be admitted to our hospital with hospitalist care and MRI. Patient's heart rate is normalizing. She continues to have slurred speech. Her facial droop seems to be improving. I discussed all results with the patient. I discussed with our hospitalist service, who will admit. 01/06/20 18:47 01/06/20 23:21 01/06/20 23:26 - Vital Signs Vital signs: Temp Pulse Resp BP Pulse Ox 98.6 F 104 H 19 125/78 98 01/06/20 16:50 01/06/20 20:10 01/06/20 20:10 01/06/20 20:10 01/06/20 20:10 - Laboratory Result Diagrams: 01/06/20 16:12 01/06/20 16:12 Laboratory results interpreted by me: 01/06/20 16:12 BUN 6 L - Diagnostic Test Radiology reviewed: Image reviewed, Reports reviewed - EKG Interpretation by [facility] EKG shows normal: Sinus rhythm Rate: Tachycardia Additional EKG results interpreted by me: 01/06/20 17:16 Sinus tachycardia at a rate of 115. QTC 454. No acute ST changes. EKG is similar to previous. Discharge - Discharge Clinical Impression: Facial droop, Right arm numbness, Dysarthria Condition: Stable Disposition: ADMITTED INPATIENT Admitting Provider: [facility] (Hospitalist) Unit Admitted: IMCU Referrals: JERI MENESES PA-C [Primary Care Provider] - Follow up as needed
--- NOTE | 2020-01-06 18:03 | RADIOLOGY REPORT (SQ) ---
EXAM DESCRIPTION: CTA HEAD IMAGES COMPLETED DATE/TIME: 01/06/2020 5:44 pm REASON FOR STUDY: left facial numbness, speech difficulty COMPARISON: CT head without 01/06/2020 TECHNIQUE: Post IV contrast scanning, thin section axial imaging through the brain to evaluate the a rterial structures. Source and MIP images are saved and reviewed on PACS. Advanced 3D imaging as volume-rendering, MIPs, SSD performed? yes All CT scanners at this facility use dose modulation, iterative reconstruction, and/or weight based d osing when appropriate to reduce radiation dose to as low as reasonably achievable (ALARA). [facility]: Dose Right [facility]: CareDose [facility]: Dose Right [facility]: Teradose 4D [facility]: Droplr CONTRAST TYPE AND DOSE: contrast/concentration: Isovue 350.00 mmol/ml; Total Contrast Delivered: 69. 9 ml; Total Saline Delivered: 56.0 ml RENAL FUNCTION: BUN 10 creatinine 0.63 LIMITATIONS: None. FINDINGS: [place]: The anterior, middle, posterior cerebral arteries are all patent. No ev idence of aneurysm or focal stenosis. POSTERIOR CIRCULATION: The distal vertebral arteries are patent as is the basilar artery. No aneurysm . BRAIN: No gross enhancing lesions as visualized. BONES: Intact as visualized. SINUSES: No fluid or mucosal thickening. OTHER: No other significant finding. IMPRESSION: NO CTA EVIDENCE OF STENOSIS OR ANEURYSM OF THE [place]. TECHNICAL DOCUMENTATION: JOB ID: [id number] Quality ID # [id number]: Final reports with documentation of one or more dose reduction techniques (e.g., Au tomated exposure control, adjustment of the mA and/or kV according to patient size, use of iterative reconstruction technique) 2010 [employer]- All Rights Reserved Reading location - IP/workstation name: [email or web address]
--- NOTE | 2020-01-06 18:06 | RADIOLOGY REPORT (SQ) ---
EXAM DESCRIPTION: CTA NECK IMAGES COMPLETED DATE/TIME: 01/06/2020 5:44 pm REASON FOR STUDY: left facial numbness, speech difficulty COMPARISON: None. TECHNIQUE: Axial dynamic scanning technique with dynamic contrast enhancement through the extra-cranberry grower nial carotid and vertebral arteries. Multiplanar reconstruction. 3-D MIPS and Volume-rendered imag es acquired at the workstation and saved to PACS. Images are reviewed in soft tissue, bone, lung w indows. All CT scanners at this facility use dose modulation, iterative reconstruction, and/or weight based d osing when appropriate to reduce radiation dose to as low as reasonably achievable (ALARA). [facility]: Dose Right [facility]: CareDose [facility]: Dose Right [facility]: Teradose 4D [facility]: [employer] CONTRAST TYPE AND DOSE: 70 mL Omnipaque 350- low osmolar. RENAL FUNCTION: BUN 10 creatinine 0.63 LIMITATIONS: None. FINDINGS: AORT[place] ARCH: Normal three-vessel origin. Bilateral subclavian arteries are patent. No d issection. RIGHT CAROTIDS: Patent common, internal and external carotid arteries without suggestion of significa nt stenosis or irregular plaque. No dissection. RIGHT VERTEBRAL: Patent. No dissection. LEFT CAROTIDS: Patent common, internal and external carotid arteries without suggestion of significan t stenosis or irregular plaque. No dissection. LEFT VERTEBRAL: Patent. No dissection. OTHER: No other significant finding. OTHER: 3-D reconstructions confirm findings. IMPRESSION: NORMAL CTA OF THE EXTRA-CRANIAL CAROTID AND VERTEBRAL ARTERIES. COMMENT: Quality ID #[id number]: Measurements of distal internal carotid diameter were used as the denomina tor for stenosis measurement. TECHNICAL DOCUMENTATION: JOB ID: [id number] Quality ID # 436: Final reports with documentation of one or more dose reduction techniques (e.g., Au tomated exposure control, adjustment of the mA and/or kV according to patient size, use of iterative reconstruction technique) 2010 [employer]- All Rights Reserved Reading location - IP/workstation name: [email or web address]
[2020-01-06] MEDS: MORPHINE SULFATE 10 MG/ML INJ IV PRN (20:07)
[2020-01-06] MEDS ORDERED: LORAZEPAM INJ 2 MG/1 ML VIAL IV ONE (20:55)
[2020-01-06] MEDS ORDERED: ASPIRIN 325 MG TABLET PO ONE (21:25)
[2020-01-06] MEDS ORDERED: LEVALBUTEROL HCL NEB 0.63 MG/3 ML AMPUL NEB PRN (21:26)
[2020-01-06] MEDS ORDERED: DEXTROSE 50%-WATER 25 GM/50 ML DISP.SYRIN IV PRN ×2 (21:26)
[2020-01-06] MEDS ORDERED: DEXTROSE 40% GEL 15 GM TUBE PO PRN ×2 (21:26)
[2020-01-06] MEDS ORDERED: ONDANSETRON HCL INJ/PF 4 MG/2 ML SDV IV PRN (21:26)
[2020-01-06] MEDS ORDERED: GLUCAGON,HUMAN RECOMB 1 MG INJ SUBCUT PRN (21:26)
[2020-01-06] MEDS ORDERED: ACETAMINOPHEN 325 MG TABLET PO PRN (21:26)
[2020-01-06] MEDS ORDERED: TEMAZEPAM 7.5 MG CAPSULE PO PRN (21:26)
[2020-01-06] MEDS ORDERED: DEXTROSE 5%-NORMAL SALINE 1,000 ML IV PRN (21:26)
--- NOTE | 2020-01-06 21:58 | EKG REPORT ---
SEVERITY:- ABNORMAL ECG - SINUS TACHYCARDIA RIGHT ATRIAL ABNORMALITY : Confirmed by: Barbara Young MD 06-Jan-2020 21:58:23
[2020-01-06] MEDS ORDERED: ATORVASTATIN CALCIUM 40 MG TABLET PO SCH (22:00)
--- NOTE | 2020-01-06 22:59 | RADIOLOGY REPORT (SQ) ---
MRI head with and without contrast on 01/06/2020 at 10:27 PM CLINICAL INDICATION: Right arm numbness, facial droop, history of breast cancer TECHNIQUE: Multiplanar, multisequence MR images are obtained throughout the head both prior to and following the administration of IV gadolinium contrast. This examination was performed on a 1.5 Maria De Jesus magnet. COMPARISON: CT head from 01/06/2020 FINDINGS: Sagittal midline view shows a normal appearance of the midline structures. There is a normal appearance of the craniovertebral junction. Diffusion-weighted imaging shows no evidence of acute infarct. There is no hydrocephalus. Flow related signal within the major intracranial vessels is preserved. Gradient echo imaging shows no evidence of hemorrhage. There is no mass, mass effect or midline shift. There is no pathologic contrast enhancement. IMPRESSION: No acute intracranial abnormality.
[2020-01-06] MEDS: FAMOTIDINE INJ/PF 20 MG/2 ML SDV IV SCH (23:00)
[2020-01-06] MEDS: LORAZEPAM INJ 2 MG/1 ML VIAL IV PRN (23:05)
[2020-01-06] MEDS ORDERED: METHYLPREDNISOLONE INJ 125 MG/2 ML SDV IV ONE (23:45)
[2020-01-07] MEDS: MORPHINE SULFATE 10 MG/ML INJ IV PRN ×4 (00:15→12:55)
--- NOTE | 2020-01-07 00:33 | PDOC H&P ---
History of Present Illness Admission Date/PCP: 01/06/20 19:42 JERI MENESES PA-C History of Present Illness: VEGA PEDERSON is a 39 year old female past medical history of systemic lupus erythematosus, PE currently on Xarelto, breast cancer, presented to ED complaining of sudden onset right-sided facial droop and numbness of the right upper extremity. A stat CT head and CTA of the head was done by ED physician which was negative for any acute CVA, neurologist at tertiary center was consulted and the recommendation was to manage patient at [facility] as there was no acute stroke or any vascular abnormalities and patient may have Souza's palsy. On my initial encounter patient patient was looking extremely anxious, with her mouth open mandible deviated to the right, having dysarthria, and appears to be having right facial droop, I suspected that patient may have a lockjaw and gett ing anxious and not being able to speak, be rather than acute CVA or Souza's palsy, I encouraged the patient to calm down and relax, upon pressing down on her TMJ I heard a click and patient's jaw claw resolved,patient attempted to talk to me unfortunately patient had another episode of left TMJ lock and became anxious again, and once again I put some downward pressure on her TMJ which unlocked her jaw after that patient would not provide much history fearing that her jaw would lock again, she did confirm to me that she was having right facial droop, dysarthria, unable to clear her secretions and right upper extremity weakness and numbness. Patient denied any history of previous stroke, any other focal neurological symptoms, any vision changes, any recent upper or lower extremity infection or ear infection. Patient was advised to relax and calm down, and was reassured that based on CT head and neck she did not have any stroke but will get a stat MRI brain with and without contrast to rule out any stroke or any acute abnormalities. Patient was given a dose of IV Ativan and IV morphine and was transferred to [facility]. MRI head with and without did not show any acute abnormality, I contacted patient at 11 PM to reassure her that she did not have any acute stroke, patient reported significant improvement of her anxiety, right facial droop, and dysarthria and was able to provide history. Patient is stating that yesterday she was checking her Facebook when she suddenly felt left TMJ pain and noted that she could not close her mouth, at the same time she also noted that she was drooling from the right side, and was having right lower facial numbness, dysarthria and right upper extremity weakness numbness and tingling. Patient is stating that she never had TMJ problems in the past and she has not had any TMJ infection or trauma to the face. Patient reported that her right facial droop, dysarthria and numbness are improving however not back to baseline. Denies any headache, vision changes, nausea, vomiting, diarrhea, constipation, abdominal pain, chest pain, fever, chills or urinary symptoms. Past Medical History Cardiac Medical History: Reports: Pulmonary Embolism - on xarelto, no missed meds Pulmonary Medical History: Reports: Bronchitis, Intubation, Pneumonia Malignancy Medical History: Reports: Breast Cancer - Right GI Medical History: Reports: Gastroesophageal Reflux Disease Psychiatric Medical History: Reports: Bipolar Disorder, Depression Hematology: Reports: Anemia - Denies: Hemophilia, Sickle Cell Disease Infectious Medical History: Denies: HIV Past Surgical History Past Surgical History: Reports: Appendectomy, Section - 2, Mastectomy - BILATERAL, Tubal Ligation Denies: Amputation Social History Smoking Status: Never Smoker Frequency of Alcohol Use: None Hx Recreational Drug Use: No Drugs: None Hx Prescription Drug Abuse: No Family History Family History: Hypertension, Malignancy Parental Family History Reviewed: Yes Children Family History Reviewed: Yes Sibling(s) Family History Reviewed.: Yes Medication/Allergy Allergies/Adverse Reactions: azithromycin [Azithromycin] Allergy (Intermediate, Verified 01/06/20 16:54) Urticaria ciprofloxacin [From Cipro] Allergy (Verified 01/06/20 16:54) Review of Systems Review of Systems: as per hpi Physical Exam Vital Signs: Temp Pulse Resp BP Pulse Ox 98.6 F 104 H 19 125/78 98 01/06/20 16:50 01/06/20 20:10 01/06/20 20:10 01/06/20 20:10 01/06/20 20:10 Intake & Output 01/05/20 01/06/20 01/07/20 06:59 06:59 06:59 Intake Total 1000 Balance 1000 Weight 68.039 kg General appearance: PRESENT: no acute distress, well-developed, well-nourished Head exam: PRESENT: atraumatic, normocephalic Respiratory exam: PRESENT: clear to auscultation marilou. ABSENT: rales, rhonchi, wheezes Cardiovascular exam: PRESENT: RRR. ABSENT: diastolic murmur, rubs, systolic murmur GI/Abdominal exam: PRESENT: normal bowel sounds, soft. ABSENT: distended, guarding, mass, organolmegaly, rebound, tenderness Extremities exam: PRESENT: full ROM. ABSENT: calf tenderness, clubbing, pedal edema Neurological exam: PRESENT: alert, awake, oriented to person, oriented to place, oriented to time, oriented to situation, reflexes normal, CN II-XII grossly intact - Right facial droop, right-sided drooling, dysarthria, right lower face numbness., motor sensory deficit - Right upper extremity dull sensation to posterior hand, right upper extremity strength 2/5. Psychiatric exam: PRESENT: anxious Results Laboratory Results: 01/06/20 16:12 01/06/20 16:12 01/06/20 01/06/20 01/06/20 16:12 16:12 16:12 WBC 6.8 RBC 4.85 Hgb 15.1 Hct 42.8 MCV 88 MCH 31.2 MCHC 35.4 RDW 12.5 Plt Count 235 Seg Neutrophils % 71.1 Sodium 138.2 Potassium 3.7 Chloride 103 Carbon Dioxide 24 Anion Gap 11 BUN 6 L Creatinine 0.60 Est GFR ( Amer) > 60 Glucose 107 Calcium 9.4 Total Bilirubin 0.7 AST 19 Alkaline Phosphatase 83 C-Reactive Protein < 5.0 Total Protein 8.0 Albumin 5.0 01/06/20 16:12 Troponin I < 0.012 Impressions: Chest X-Ray 01/06/20 00:00 IMPRESSION: NO ACUTE RADIOGRAPHIC FINDING IN THE CHEST. Head CT 01/06/20 15:51 IMPRESSION: NORMAL BRAIN CT WITHOUT CONTRAST. EVIDENCE OF ACUTE STROKE: NO. Head CTA 01/06/20 16:46 IMPRESSION: NO CTA EVIDENCE OF STENOSIS OR ANEURYSM OF THE [place]. Neck CTA 01/06/20 16:46 IMPRESSION: NORMAL CTA OF THE EXTRA-CRANIAL CAROTID AND VERTEBRAL ARTERIES. Head MRI 01/06/20 20:12 IMPRESSION: No acute intracranial abnormality. Assessment and Plan - Diagnosis (1) Dysarthria Is this a current diagnosis for this admission?: Yes Plan: CVA ruled out. CT head, CTA head and neck, MRI brain all negative. Very unlikely this is Souza's palsy, patient denies any recent upper respiratory infection or ear infection or history of herpes. Is possible that this is manifestation of SLE but given presentation and history this could have been all triggered by her left TMJ malfunction. On my encounter patient was noted to have her mouth open, her mandible deviated to the right which looks like right facial droop, having dysarthria and drooling and appearing very anxious and crying. After asking patient to relax and given 1 dose of Ativan and morphine, and helping her unlock her job patient has significant improvement of her dysarthria, drooling and right facial droop however still was complaining of rig ht upper extremity weakness. Given history and possible manifestation of SLE or even Souza's palsy will treat with IV steroids. We will also get C3-C4, uvxj-[id number]-asupyrcu DNA antibody rule out SLE flare. Given history of SLE and possible lupus anticoagulant patient is at risk of CVA, will continue Xarelto. May add aspirin if indicated. Will also continue antianxiety as patient is very anxious and when she gets lockjaw she becomes extremely anxious. We will consult orofacial surgeon for evaluation of TMJ. (2) Facial droop Is this a current diagnosis for this admission?: Yes Plan: CVA ruled out. CT head, CTA head and neck, MRI brain all negative. Very unlikely this is Souza's palsy, patient denies any recent upper respiratory infection or ear infection or history of herpes. Is possible that this is manifestation of SLE but given presentation and history this could have been all triggered by her left TMJ malfunction. On my encounter patient was noted to have her mouth open, her mandible deviated to the right which looks like right facial droop, having dysarthria and drooling and appearing very anxious and crying. After asking patient to relax and given 1 dose of Ativan and morphine, and helping her unlock her job patient has significant improvement of her dysarthria, drooling and right facial droop however still was complaining of right upper extremity weakness. Given history and possible manifestation of SLE or even Souza's palsy will treat with IV steroids. We will also get C3-C4, kvzy-[id number] DNA antibody rule out SLE flare. Given history of SLE and possible lupus anticoagulant patient is at risk of CVA, will continue Xarelto. May add aspirin if indicated. Will also continue antianxiety as patient is very anxious and when she gets lockjaw she becomes extremely anxious. We will consult orofacial surgeon for evaluation of TMJ. (3) TMJ (temporomandibular joint disorder) Is this a current diagnosis for this admission?: Yes Plan: Patient has been having recurrent left TMJ lock for the last 1 day, denies any jaw trauma or jaw infection. No sign of infection, no swelling, no tenderness. Patient can also get TMJ dedicated MRI if indicated. We will consult orofacial surgeon for evaluation. (4) Right arm numbness Is this a current diagnosis for this admission?: Yes Plan: CVA ruled out. CT head, neck, MRI head negative. Patient endorsing improvement after an received anxiolytics. Plan as per above. (5) History of pulmonary embolism Is this a current diagnosis for this admission?: Yes Plan: History of PE and recurrent miscarriages given history of SLE patient may have lupus anticoagulant syndrome. Currently on Xarelto. Resume Xarelto. Monitor vitals. Outpatient PCP follow- up. (6) Systemic lupus erythematosus Qualifiers: Systemic lupus erythematosus type: unspecified Systemic lupus erythematosus organ involvement: unspecified Qualified Code(s): M32.9 - Systemic lupus erythematosus, unspecified Is this a current diagnosis for this admission?: Yes Plan: History of SLE on methotrexate. Denies any joint swelling, oral skin or genital lesions. Resume home meds. Outpatient PCP and rheumatology follow-up. If current presentation or suspect to be to be manifestation of lupus please get a rheumatology consult. (7) Anxiety Is this a current diagnosis for this admission?: Yes Plan: History of severe anxiety, takes Klonopin at home. Resume home meds. (8) HX: breast cancer Is this a current diagnosis for this admission?: Yes Plan: Status bilateral radical mastectomy. Outpatient PCP and oncology follow-up. - Time Time Spent with patient: 35 or more minutes Medications reviewed and adjusted accordingly: Yes Anticipated Discharge Disposition: Home, Self Care Anticipated Discharge Timeframe: within 48 hours
[2020-01-07] MEDS: LORAZEPAM INJ 2 MG/1 ML VIAL IV PRN ×6 (01:11→14:40)
[2020-01-07] MEDS ORDERED: METHYLPREDNISOLONE INJ 125 MG/2 ML SDV IV SCH (06:00)
[2020-01-07 08:11] LABS: ABSOLUTE LYMPHOCYTES (AUTO) 0.5 10^3/uL (0.5-4.7); ABSOLUTE MONOCYTES (AUTO) 0.1 10^3/uL (0.1-1.4); HEMATOCRIT 40.3 % (36.0-47.0); HEMOGLOBIN 14.6 g/dL (12.0-15.5); LYMPHOCYTES % (AUTO) 7.7 % (13-45); MEAN CORPUSCULAR HEMOGLOBIN 31.4 pg (27.0-33.4); MEAN CORPUSCULAR HGB CONC 36.2 g/dL (32.0-36.0); MEAN CORPUSCULAR VOLUME 87 fl (80-97); PLATELET COUNT 251 10^3/uL (150-450); RED BLOOD COUNT 4.64 10^6/uL (3.72-5.28); RED CELL DISTRIBUTION WIDTH 12.6 % (11.5-14.0); SEGMENTED NEUTROPHILS % (AUTO) 91.3 % (42-78); TOTAL CELLS COUNTED % (AUTO) 100 %; WHITE BLOOD COUNT 6.6 10^3/uL (4.0-10.5)
[2020-01-07 08:13] LABS: INTERNATIONAL RATION (INR) 1.05; PROTHROMBIN TIME 13.9 SEC (11.4-15.4)
[2020-01-07 08:46] LABS: PHOSPHORUS 1.8 mg/dL (2.5-4.5)
[2020-01-07 08:55] LABS: FREE T4 (FREE THYROXINE) 0.97 ng/dL (0.78-2.19)
[2020-01-07 09:09] LABS: THYROID STIMULATING HORMONE 0.46 uIU/mL (0.47-4.68)
[2020-01-07] MEDS ORDERED: NORMAL SALINE 1000 ML 2,000 ML IV ONE (09:30)
[2020-01-07] MEDS ORDERED: ASPIRIN 81 MG TABLET, CHEWABLE PO SCH (10:00)
[2020-01-07] MEDS ORDERED: METOPROLOL TARTRATE 25 MG TABLET PO SCH ×2 (10:00→10:45)
[2020-01-07] MEDS ORDERED: DOCUSATE SODIUM 100 MG CAPSULE PO SCH (10:00)
[2020-01-07] MEDS ORDERED: CYCLOBENZAPRINE HCL 10 MG TABLET PO ONE ×2 (10:29→13:00)
[2020-01-07] MEDS ORDERED: NAPROXEN 250 MG TABLET PO SCH ×2 (10:30→12:30)
[2020-01-07] MEDS ORDERED: HYDROXYCHLOROQUINE SULFATE 200 MG TABLET PO SCH (12:00)
[2020-01-07] MEDS: FAMOTIDINE INJ/PF 20 MG/2 ML SDV IV SCH (12:18)
[2020-01-07 13:43] VITALS: BP 129/82
[2020-01-07] MEDS ORDERED: METOPROLOL SUCCINATE 50 MG TAB.SR.24H PO SCH (13:45)
[2020-01-07] MEDS ORDERED: RIVAROXABAN 10 MG TABLET PO SCH (17:00)
--- NOTE | 2020-01-07 18:05 | PDOC DISCHARGE SUMMARY ---
Impression - Admit/DC Date/PCP Admission Date/Primary Care Provider: 01/06/20 19:42 JERI MENESES PA-C Discharge Date: 01/07/20 - Discharge Diagnosis (1) TMJ (temporomandibular joint disorder) Is this a current diagnosis for this admission?: Yes (2) Tachycardia Is this a current diagnosis for this admission?: Yes (3) Bipolar disorder Is this a current diagnosis for this admission?: Yes (4) Anxiety Is this a current diagnosis for this admission?: Yes - Assessment Summary: VEGA PEDERSON is a 39 year old female with past medical history of untreated bipolar disorder, untreated anxiety, SLE and PE who presented to ED on 01/05 complaining of sudden onset right-sided facial droop. She had an extensive work up in the ED which was negative for both acute CVA or Souza's palsy. She was diagnosed with TMJ lockjaw. We were able to unlock the TMJ and heard a distinct click and patient's jaw clench resolved. Unfortunately, she had several subsequent episodes of lockjaw when attempting to speak, but each time, we were able to put downward pressure on her TMJ which unlocked her jaw. She states that she never had TMJ problems in the past and has not had any TMJ infection or trauma to the face. However, she does endorse severe uncontrolled anxiety and teeth grinding at night. [facility] [place] was contacted and, although they were not seed cone picker, remotely recommended a Schroeder bandage with a chin strap, keeping her mouth/teeth closed as much as pos sible, and following a strict liquid diet until muscles/ligaments can recover. She was treated with Naproxen and low dose Klonopin, and referred to [facility] [place] as outpatient. She was also strongly advised to make an appointment with her mental health counselor/psychiatrist within the next few days to restart treatment for her anxiety and bipolar disorder. Of note, during this hospitalization, she was noted to have sinus tachycardia, which has been noted on multiple prior hospitalizations. She notes that she has increasing HR when anxious. Her HR was not fluid responsive, distressing to the patient, and she remained asymptomatic throughout her hospitalization. She was started on low dose metoprolol until she can be started on outpatient therapy for anxiety. - Additional Information Resuscitation Status: Full Code Discharge Diet: Full Liquids Discharge Activity: Activity As Tolerated Referrals: JERI MENESES PA-C [Primary Care Provider] - Follow up as needed (left a message to call) NORMAN HERNANDEZ DDS [ACTIVE STAFF] - Prescriptions: Clonazepam [Klonopin] 0.5 mg PO BIDP PRN #10 tablet PRN Reason: Anxiety RX: Naproxen [Naprosyn 250 mg Tablet] 250 mg PO Q12 #10 tablet RX: Metoprolol Succinate [Toprol Xl 50 mg Tab.sr] 50 mg PO DAILY #30 tab.sr.24h Home Medications: Clonazepam [Klonopin] 0.5 mg PO BIDP PRN #10 tablet 01/07/20 RX: Hydroxychloroquine Sulfate [Plaquenil 200 mg Tablet] 200 mg PO DAILY 01/07/20 RX: Metoprolol Succinate [Toprol Xl 50 mg Tab.sr] 50 mg PO DAILY #30 tab.sr.24h 01/07/20 RX: Naproxen [Naprosyn 250 mg Tablet] 250 mg PO Q12 #10 tablet 01/07/20 RX: Rivaroxaban [Xarelto] 20 mg PO DAILY 01/07/20 History of Present Illiness History of Present Illness: VEGA PEDERSON is a 39 year old female Physical Exam Vital Signs: Temp Pulse Resp BP Pulse Ox 98.3 F 138 H 21 H 129/82 H 99 01/07/20 15:15 01/07/20 15:15 01/07/20 15:15 01/07/20 12:18 01/07/20 15:15 Intake & Output 01/06/20 01/07/20 01/08/20 06:59 06:59 06:59 Intake Total 1000 Balance 1000 Weight 68 kg Results Laboratory Results: WBC 6.6 10^3/uL (4.0-10.5) 01/07/20 07:40 RBC 4.64 10^6/uL (3.72-5.28) 01/07/20 07:40 Hgb 14.6 g/dL (12.0-15.5) 01/07/20 07:40 Hct 40.3 % (36.0-47.0) 01/07/20 07:40 MCV 87 fl (80-97) 01/07/20 07:40 MCH 31.4 pg (27.0-33.4) 01/07/20 07:40 MCHC 36.2 g/dL (32.0-36.0) H 01/07/20 07:40 RDW 12.6 % (11.5-14.0) 01/07/20 07:40 Plt Count 251 10^3/uL (150-450) 01/07/20 07:40 Lymph % (Auto) 7.7 % (13-45) L 01/07/20 07:40 Mcminn % (Auto) 1.0 % (3-13) L 01/07/20 07:40 Eos % (Auto) 0.0 % (0-6) 01/07/20 07:40 Baso % (Auto) 0.0 % (0-2) 01/07/20 07:40 Absolute Neuts (auto) 6.0 10^3/uL (1.7-8.2) 01/07/20 07:40 Absolute Lymphs (auto) 0.5 10^3/uL (0.5-4.7) 01/07/20 07:40 Absolute Monos (auto) 0.1 10^3/uL (0.1-1.4) 01/07/20 07:40 Absolute Eos (auto) 0.0 10^3/uL (0.0-0.6) 01/07/20 07:40 Absolute Basos (auto) 0.0 10^3/uL (0.0-0.2) 01/07/20 07:40 Seg Neutrophils % 91.3 % (42-78) H 01/07/20 07:40 PT 13.9 SEC (11.4-15.4) 01/07/20 07:40 INR 1.05 01/07/20 07:40 APTT 31.0 SEC (23.5-35.8) 01/06/20 16:12 Sodium 138.2 mmol/L (137-145) 01/06/20 16:12 Potassium 3.7 mmol/L (3.6-5.0) 01/06/20 16:12 Chloride 103 mmol/L (98-107) 01/06/20 16:12 Carbon Dioxide 24 mmol/L (22-30) 01/06/20 16:12 Anion Gap 11 (5-19) 01/06/20 16:12 BUN 6 mg/dL (7-20) L 01/06/20 16:12 Creatinine 0.60 mg/dL (0.52-1.25) 01/06/20 16:12 Est GFR ( Amer) > 60 (>60) 01/06/20 16:12 Est GFR (MDRD) Non-Af > 60 (>60) 01/06/20 16:12 Glucose 107 mg/dL (75-110) 01/06/20 16:12 Calcium 9.4 mg/dL (8.4-10.2) 01/06/20 16:12 Phosphorus 1.8 mg/dL (2.5-4.5) L 01/07/20 07:40 Magnesium 2.0 mg/dL (1.6-2.3) 01/07/20 07:40 Total Bilirubin 0.7 mg/dL (0.2-1.3) 01/06/20 16:12 Direct Bilirubin 0.3 mg/dL (0.0-0.4) 01/06/20 16:12 Neonat Total Bilirubin Not Reportable 01/06/20 16:12 Neonat Direct Bilirubin Not Reportable 01/06/20 16:12 Neonat Indirect Bili Not Reportable 01/06/20 16:12 AST 19 U/L (14-36) 01/06/20 16:12 ALT 18 U/L (<35) 01/06/20 16:12 Alkaline Phosphatase 83 U/L (38-126) 01/06/20 16:12 Troponin I < 0.012 ng/mL 01/06/20 16:12 C-Reactive Protein < 5.0 mg/L (<10.0) 01/06/20 16:12 Total Protein 8.0 g/dL (6.3-8.2) 01/06/20 16:12 Albumin 5.0 g/dL (3.5-5.0) 01/06/20 16:12 TSH 0.46 uIU/mL (0.47-4.68) L 01/07/20 07:40 Free T4 0.97 ng/dL (0.78-2.19) 01/07/20 07:40 Urine HCG, Qual NEGATIVE (NEGATIVE) 01/06/20 18:30 01/06/20 16:12 Troponin I < 0.012 Impressions: Chest X-Ray 09/24/20 00:00 IMPRESSION: NO ACUTE RADIOGRAPHIC FINDING IN THE CHEST. Head CT 01/06/20 15:51 IMPRESSION: NORMAL BRAIN CT WITHOUT CONTRAST. EVIDENCE OF ACUTE STROKE: NO. Head CTA 01/06/20 16:46 IMPRESSION: NO CTA EVIDENCE OF STENOSIS OR ANEURYSM OF THE [place] OF [place]. Neck CTA 01/06/20 16:46 IMPRESSION: NORMAL CTA OF THE EXTRA-CRANIAL CAROTID AND VERTEBRAL ARTERIES. Head MRI 01/06/20 20:12 IMPRESSION: No acute intracranial abnormality. Stroke Is this a Stroke Patient?: No Acute Heart Failure Is this a Heart Failure Patient?: No
--- NOTE | 2020-01-07 21:18 | EKG REPORT ---
SEVERITY:- ABNORMAL ECG - SINUS TACHYCARDIA NONSPECIFIC T ABNORMALITIES, ANT-LAT LEADS : Confirmed by: Barbara Young MD 07-Jan-2020 21:17:48
[2020-01-09 11:40] LABS: ANTINUCLEAR ANTIBODIES Negative (Negative)
[2020-01-10 07:18] LABS: ANTICARDIOLIPIN IGA AB <9 APL U/mL (0-11); ANTICARDIOLIPIN IGG AB <9 GPL U/mL (0-14); ANTICARDIOLIPIN IGM AB <9 MPL U/mL (0-12)
== END 2020-01-07 15:51 | disposition home or self-care (01) ==
LOC: ER 15:48 → EH 19:42 → INTOOBSV 19:42 → 5 21:13
PROVIDERS: ADMIT Internal Medicine; ATTEND Hospitalist
DX: M26.602 Left temporomandibular joint disorder, unspecified (principal); R00.0 Tachycardia, unspecified; F31.9 Bipolar disorder, unspecified; F41.9 Anxiety disorder, unspecified; R47.1 Dysarthria and anarthria; R29.810 Facial weakness; M32.9 Systemic lupus erythematosus, unspecified; R20.0 Anesthesia of skin; Z88.1 Allergy status to other antibiotic agents; Z86.711 Personal history of pulmonary embolism; Z79.01 Long term (current) use of anticoagulants; Z85.3 Personal history of malignant neoplasm of breast; Z79.899 Other long term (current) drug therapy; Z90.13 Acquired absence of bilateral breasts and nipples
CPT/HCPCS: 99285; 96360; 86147 ×6; 36415 ×2; 84439; 83735; 84100; 84443; 85025 ×2; 85610 ×2; 85730 ×2; 81025; 86140; 80053; 84484; 85597; 85598; 85613 ×2; 85732 ×3; 86148 ×2; 86849 ×2; 86146 ×3; 86038; 70553; 71045; 70450; 70496; 70498; 93005 ×2; 93010 ×2; 97161; 92610; 97165; A9576; J2930; J2270 ×2; J3490; J2060 ×2; J7030 ×2; S0028 ×2